=== PATIENT | female | born 1960 | race Caucasian/White ===

== ENCOUNTER 2016-08-29 15:38 | Emergency (ER) | payer MEDICAID, MEDICARE ==
[2016-08-29] MEDS ORDERED: NORMAL SALINE 1000 ML 1,000 ML IV ONE (15:45)
--- NOTE | 2016-08-29 16:05 | ER Document Report ---
ED General - General Mode of Arrival: Medic Information source: Patient, Emergency Med Personnel TRAVEL OUTSIDE OF THE [place] IN LAST 30 DAYS: No - HPI Patient complains to provider of: unresponsive Associated symptoms: Other - See above <ELLA OTTO - Last Filed: 08/29/16 19:43> <SERGE WARD - Last Filed: 08/29/16 22:45> - General Chief Complaint: Unresponsive Stated Complaint: ALTERED MENTAL STATUS Time Seen by Provider: 08/29/16 15:45 Notes: Patient is a 56 year old female, with a past medical history including MS, who presents to the emergency department via EMS for unresponsiveness. Per EMS, patient was normal yesterday and was non responsive since this morning, family wanted the patient transported to [facility] for pneumonia where she has an appointment tomorrow. EMS state that they were uncomfortable taking her all the way to [facility] because she was not acting like her normal talkative self and they were worried about her breathing. (ELLA OTTO) - Related Data Allergies/Adverse Reactions: Penicillins Allergy (Verified 08/29/16 16:42) trazodone [Trazodone] Allergy (Verified 08/29/16 16:42) asprin Allergy (Uncoded 08/29/16 16:42) Past Medical History - General Information source: Patient - Social History Smoking Status: Unknown if Ever Smoked Family History: Reviewed & Not Pertinent - Past Medical History Cardiac Medical History: Reports: Hx Hypercholesterolemia Pulmonary Medical History: Reports: Hx Bronchitis, Hx Pneumonia, Hx Sleep Apnea Renal/ Medical History: Reports: Hx Kidney Stones GI Medical History: Reports: Hx Gastroesophageal Reflux Disease Musculoskeltal Medical History: Reports Hx Arthritis, Reports Hx Multiple Sclerosis Psychiatric Medical History: Reports: Hx Depression, Hx Post Traumatic Stress Disorder Traumatic Medical History: Reports: Hx Fractures - tibia and fibula R leg, left wrist,R arm - Immunizations Hx Diphtheria, Pertussis, Tetanus Vaccination: - unknown Hx Pneumococcal Vaccination: 04/11/10 <ELLA OTTO - Last Filed: 08/29/16 19:43> Review of Systems - Review of Systems -: Yes ROS unobtainable due to patient's medical condition <ELLA OTTO - Last Filed: 08/29/16 19:43> Physical Exam - Vital signs Interpretation: Normal - HEENT Head: Normocephalic, Atraumatic Mucous membranes: Dry - Respiratory Respiratory status: No respiratory distress Chest status: Nontender Breath sounds: Normal Chest palpation: Normal - Cardiovascular Rhythm: Regular Heart sounds: Normal auscultation Murmur: No - Abdominal Inspection: Normal Distension: No distension Bowel sounds: Normal Tenderness: Nontender - soft Organomegaly: No organomegaly - Genitourinary External exam: Other - Sediment in Hernandez catheter - Extremities General upper extremity: Normal inspection General lower extremity: Normal inspection - Neurological Cognition: Other - Only reponds to pain stimuli - Skin Skin Temperature: Warm Skin Moisture: Dry Skin Color: Normal <ELLA OTTO - Last Filed: 08/29/16 19:43> - Vital signs Interpretation: Normal - General General appearance: Lethargic In distress: Moderate - HEENT Head: Normocephalic, Atraumatic Cornea: Normal Pupils: PERRL - Respiratory Respiratory status: Respiratory distress, Retractions Chest status: Nontender Breath sounds: Decreased air movement, Rhonchi - b/l bases. No: Normal - Cardiovascular Rhythm: Regular - Abdominal Inspection: Morbidly Obese - Extremities General upper extremity: Other - at baseline. No: Normal ROM General lower extremity: Other - at baseline. No: Normal ROM - Neurological Neuro grossly intact: No Cognition: Confused Motor strength normal: RUE <SERGE WARD - Last Filed: 08/29/16 22:45> - Vital signs Vitals: Resp Pulse Ox 15 100 08/29/16 15:50 08/29/16 15:50 Course - Laboratory Result Diagrams: 08/29/16 16:19 08/29/16 16:19 - Consults [facility] Time consulted: 16:45 <ELLA OTTO - Last Filed: 08/29/16 19:43> - Laboratory Result Diagrams: 08/29/16 16:19 08/29/16 16:19 - Diagnostic Test Radiology reviewed: Image reviewed, Reports reviewed - EKG Interpretation by Me EKG shows normal: Sinus rhythm Rate: Normal Rhythm: NSR <SERGE WARD - Last Filed: 08/29/16 22:45> - Re-evaluation Re-evalutation: 08/29/16 18:27 Patient is a 56-year-old female who comes in with altered mental status and respiratory distress. Patient has a history of multiple sclerosis. CT is consistent with pneumonia. Patient was given sedating medications prior to arrival which are part of her pain regimen. 08/29/16 20:08 Patient discussed with [facility] who will accept the patient for transfer at caregiver request. Patient apparently was supposed to be transported to [facility] but was brought to [facility] for her mental status. Patient's neurologist and urologist are at [facility]. According to caregiver, [facility] told him that they would not charge him for the ride to [facility] from [place]. While we do have neurology available today, urology is not available. Also, there is not an ICU bed available for patient if she worsens and could become an imminent airway. I do believe that the transport at this time is necessary as well as being requested by the patient's family as it is in her best interest both ways, and also necessary. Patient's mental status is improved at this time. She is more communicative. Patient is still on BiPAP. Antibiotics have been given. 08/29/16 21:55 I have informed the family that there is a room available at [facility] but [facility] will not be able to transport the patient and there are no checks available at this time. [facility] is able to send their transport. Family agrees with this. They are willing to pay for transport. They would like the patient at [facility] as soon as possible. Patient is awake and alert on BiPAP in the room. Patient has been given baclofen for chronic pain and spasm which has helped. 08/29/16 22:50 Patient medically stable at this time for transport. Resting comfortably on BiPAP. (SERGE WARD) - Vital Signs Vital signs: Temp Pulse Resp BP Pulse Ox 10 L 123/82 98 08/29/16 22:01 08/29/16 22:00 08/29/16 22:01 - Laboratory Laboratory results interpreted by me: 08/29/16 08/29/16 08/29/16 16:19 16:19 16:19 WBC 14.8 H MCH 25.5 L MCHC 31.7 L RDW 18.2 H Seg Neutrophils % 82.8 H Lymphocytes % 6.4 L Absolute Neutrophils 12.3 H VBG pH VBG pCO2 BUN 23 H Est GFR ( Amer) 58 L Est GFR (Non-Af Amer) 48 L Lactic Acid 0.5 L Direct Bilirubin 0.5 H AST 9 L Alkaline Phosphatase 224 H Albumin 3.2 L Urine Protein Urine Blood Ur Leukocyte Esterase 08/29/16 08/29/16 16:19 18:43 WBC MCH MCHC RDW Seg Neutrophils % Lymphocytes % Absolute Neutrophils VBG pH 7.20 L VBG pCO2 69.1 H* BUN Est GFR ( Amer) Est GFR (Non-Af Amer) Lactic Acid Direct Bilirubin AST Alkaline Phosphatase Albumin Urine Protein 100 H Urine Blood MODERATE H Ur Leukocyte Esterase MODERATE H - Consults [facility] Reason for consultation: 08/29/16 18:45 [facility] contacted for transfer, will wait for return call. Informed [facility] that [facility] has agreed with [facility] to transport patient free of charge after a miscommunication in the original transfer of patient which was supposed to be to [facility]. 08/29/16 19:38 Dr. Bonilla will accept patient to [facility] (ELLA OTTO) Critical Care Note - Critical Care Note Total time excluding time spent on procedures (mins): 90 - Evaluation and management of respiratory distress, diagnoses of pneumonia, management, multiple re-evaluations, discussion with patient and family, coordination of transfer <SERGE WARD - Last Filed: 08/29/16 22:45> Discharge <ELLA OTTO - Last Filed: 08/29/16 19:43> <SERGE WARD - Last Filed: 08/29/16 22:45> - Discharge Clinical Impression: UTI (lower urinary tract infection), Stage III pressure ulcer of sacral region , Respiratory distress, Multiple sclerosis Pneumonia Qualifiers: Pneumonia type: due to unspecified organism Laterality: bilateral Lung location : lower lobe of lung Qualified Code(s): J18.9 - Pneumonia, unspecified organism Condition: Stable Disposition: [facility] Referrals: BALAJI MCKEON FNP [Primary Care Provider] - Follow up as needed Scribe Attestation: 08/29/16 22:45 I personally performed the services described in the documentation, reviewed and edited the documentation which was dictated to the scribe in my presence, and it accurately records my words and actions. (WODOWSKI,SERGE CLARA) Scribe Documentation - Scribe Written by Treiboziel:: kelli Silva, 08/29/16, [id number] acting as scribe for :: Kiki <ELLA OTTO - Last Filed: 08/29/16 19:43>
[2016-08-29 16:47] LABS: ABSOLUTE BASOPHILS # (AUTO) 0.1 10^3/uL (0.0-0.2); ABSOLUTE EOSINOPHILS # (AUTO) 0.4 10^3/uL (0.0-0.6); ABSOLUTE LYMPHOCYTES (AUTO) 0.9 10^3/uL (0.5-4.7); ABSOLUTE MONOCYTES (AUTO) 1.2 10^3/uL (0.1-1.4); ABSOLUTE NEUT (AUTO) 12.3 10^3/uL (1.7-8.2); BASOPHILS % (AUTO) 0.4 % (0-2); EOSINOPHILS % (AUTO) 2.5 % (0-6); HEMATOCRIT 38.8 % (36.0-47.0); HEMOGLOBIN 12.3 g/dL (12.0-15.5); HGB HCT DIFFERENCE -1.9; LYMPHOCYTES % (AUTO) 6.4 % (13-45); MEAN CORPUSCULAR HEMOGLOBIN 25.5 pg (27.0-33.4); MEAN CORPUSCULAR HGB CONC 31.7 g/dL (32.0-36.0); MEAN CORPUSCULAR VOLUME 81 fl (80-97); MONOCYTES % (AUTO) 7.9 % (3-13); RED BLOOD COUNT 4.82 10^6/uL (3.72-5.28); RED CELL DISTRIBUTION WIDTH 18.2 % (11.5-14.0); SEGMENTED NEUTROPHILS % (AUTO) 82.8 % (42-78); VENOUS BLOOD BASE EXCESS -3.1 mmol/L; VENOUS BLOOD HCO3 26.3 mmol/L (20-32); VENOUS BLOOD PH 7.2 (7.30-7.42); WHITE BLOOD COUNT 14.8 10^3/uL (4.0-10.5)
[2016-08-29 16:52] LABS: VENOUS BLOOD PCO2 69.1 mmHg (35-63)
[2016-08-29 17:03] LABS: PROTHROMBIN TIME 14.4 SEC (11.4-15.4)
[2016-08-29 17:05] LABS: ALANINE AMINOTRANSFERASE 27 U/L (9-52); ALBUMIN 3.2 g/dL (3.5-5.0); ALKALINE PHOSPHATASE 224 U/L (38-126); ANION GAP 14 (5-19); ASPARTATE AMINO TRANSFERASE 9 U/L (14-36); BILIRUBIN,DIRECT 0.5 mg/dL (0.0-0.4); BILIRUBIN,TOTAL 0.5 mg/dL (0.2-1.3); BLOOD UREA NITROGEN 23 mg/dL (7-20); CALCIUM 8.9 mg/dL (8.4-10.2); CARBON DIOXIDE 23 mmol/L (22-30); CHLORIDE 101 mmol/L (98-107); CREATININE RESULT 1.16 mg/dL (0.52-1.25); GLUCOSE 77 mg/dL (75-110); POTASSIUM 4.4 mmol/L (3.6-5.0); SODIUM 138.1 mmol/L (137-145); TOTAL PROTEIN 6.6 g/dL (6.3-8.2)
[2016-08-29] MEDS ORDERED: CEFEPIME 2 GM/D5W RTU 50 ML IV ONE (17:39)
[2016-08-29] MEDS ORDERED: LEVOFLOXACIN 750 MG/D5W RTU 150 ML IV ONE (18:31)
[2016-08-29 19:47] LABS: AMORPHOUS SEDIMENT,URINE 1+ /HPF; APPEARANCE,URINE TURBID; BILIRUBIN,URINE NEGATIVE (NEGATIVE); GLUCOSE, URINE NEGATIVE (NEGATIVE); KETONES,URINE NEGATIVE (NEGATIVE); LEUKOCYTE ESTERASE,URINE MODERATE (NEGATIVE); NITRITE,URINE NEGATIVE (NEGATIVE); PROTEIN,URINE 100 mg/dL (NEGATIVE); URINE SPECIFIC GRAVITY 1.015; UROBILINOGEN,URINE NEGATIVE mg/dL (<2.0)
[2016-08-29] MEDS ORDERED: BACLOFEN 10 MG TABLET PO ONE (20:07)
[2016-08-29] MEDS ORDERED: BACLOFEN 10 MG TABLET ONE (20:57)
[2016-08-30 01:24] VITALS: BP 126/84
--- NOTE | 2016-08-30 08:58 | EKG REPORT ---
SEVERITY:- NORMAL ECG - SINUS RHYTHM : Confirmed by: Casper Witt MD 30-Aug-2016 08:57:58
== END 2016-08-29 23:10 | disposition short-term general hospital (02) ==
LOC: ER 15:38 → EEVIPCON 15:38 → ER 23:10
DX: J18.9 Pneumonia, unspecified organism (principal); N39.0 Urinary tract infection, site not specified; L89.153 Pressure ulcer of sacral region, stage 3; G35 Multiple sclerosis; R41.82 Altered mental status, unspecified; R06.00 Dyspnea, unspecified
CPT/HCPCS: 93005; 99291; 99292; 96361; 96365; 96367; 36415; 87040; 87086; 82962; 85025; 85610; 87077; 87088; 80053; 81001; 87186; 82803; 83605; 73600; 71010; 73560; 73590; 70450; 71250; 93010; 94660; A9270; J7030; J1956; J0692

== ENCOUNTER 2016-11-10 14:37 | Emergency (ER) | payer MEDICARE, MEDICAID ==
--- NOTE | 2016-11-10 15:11 | ER Document Report ---
ED General - General Chief Complaint: Other Stated Complaint: URINATION CONCERNS Time Seen by Provider: 11/10/16 14:46 Notes: The patient is a 56-year-old female, past medical history multiple sclerosis, chronic indwelling Herzog, presents with darkened urine and a sore throat. She tried to see her primary care physician today, but she cannot get an ambulance to the office and had to come to the emergency room. According to the , the patient is acting normally and has had no fevers. Patient denies difficulty swallowing, neck stiffness, fevers, chest pain, shortness of breath, abdominal pain, flank pain, nausea or vomiting. TRAVEL OUTSIDE OF THE [place] IN LAST 30 DAYS: No - Related Data Allergies/Adverse Reactions: Penicillins Allergy (Verified 11/10/16 15:00) trazodone [Trazodone] Allergy (Verified 11/10/16 15:00) asprin Allergy (Uncoded 11/10/16 15:00) Home Medications: Current Home Medications Baclofen [Baclofen 20 mg Tablet] 30 mg PO Q6 11/10/16 [History] Buspirone HCl 15 mg PO DAILY 11/10/16 [History] Donepezil HCl 5 mg PO DAILY 11/10/16 [History] Melatonin/Pyridoxine HCl (B6) [Melatonin 3 mg Tablet] 1 each PO PRN PRN [History] Naproxen Sodium [Naproxen Sodium ER] 500 mg PO DAILY 11/10/16 [History] Oxybutynin Chloride [Ditropan 5 mg Tablet] 10 mg PO Q8A 11/10/16 [History] Promethazine HCl 25 mg PO DAILY 11/10/16 [History] Tapentadol HCl [Nucynta ER] 200 mg PO DAILY 11/10/16 [History] Venlafaxine HCl [Effexor 75 mg Tablet] 150 mg PO Q12A 11/10/16 [History] Past Medical History - General Information source: Patient, Relative - Social History Smoking Status: Never Smoker Family History: Reviewed & Not Pertinent - Past Medical History Cardiac Medical History: Reports: Hx Hypercholesterolemia Denies: Hx Atrial Fibrillation, Hx Congestive Heart Failure, Hx Coronary Artery Disease, Hx Heart Attack, Hx Hypertension, Hx Peripheral Vascular Disease , Hx Pulmonary Embolism, Hx Heart Murmur Pulmonary Medical History: Reports: Hx Bronchitis, Hx Pneumonia, Hx Sleep Apnea Denies: Hx Asthma, Hx COPD, Hx Respiratory Failure, Hx Tuberculosis Neurological Medical History: Denies: Hx Cerebrovascular Accident, Hx Seizures Endocrine Medical History: Denies: Hx Graves' Disease, Hx Hyperthyroidism, Hx Hypothyroidism Renal/ Medical History: Reports: Hx Kidney Stones. Denies: Hx End Stage Renal Disease, Hx Ovarian Cysts, Hx Peritoneal Dialysis, Hx Pelvic Inflammatory Disease Malignancy Medical History: Denies: Hx Breast Cancer, Hx Cervical Cancer, Hx Leukemia, Hx Lung Cancer, Hx Ovarian Cancer GI Medical History: Reports: Hx Gastroesophageal Reflux Disease. Denies: Hx Crohn's Disease, Hx Hiatal Hernia, Hx Irritable Bowel, Hx Liver Failure, Hx Ulcer Musculoskeltal Medical History: Reports Hx Arthritis, Denies Hx Fibromyalgia, Reports Hx Multiple Sclerosis, Denies Hx Muscular Dystrophy Psychiatric Medical History: Reports: Hx Depression, Hx Post Traumatic Stress Disorder Denies: Hx Bipolar Disorder, Hx Dementia, Hx Schizophrenia Traumatic Medical History: Reports: Hx Fractures - tibia and fibula R leg, left wrist,R arm Infectious Medical History: Denies: Hx HIV Past Surgical History: Denies: Hx Appendectomy, Hx Bowel Surgery, Hx Section, Hx Cholecystectomy, Hx Colostomy, Hx Coronary Artery Bypass Graft, Hx Gastric Bypass Surgery, Hx Herniorrhaphy, Hx Hysterectomy, Hx Mastectomy, Hx Pacemaker, Hx Tonsillectomy, Hx Tubal Ligation - Immunizations Hx Diphtheria, Pertussis, Tetanus Vaccination: - unknown Hx Pneumococcal Vaccination: 04/11/10 Review of Systems - Review of Systems Notes: REVIEW OF SYSTEMS: CONSTITUTIONAL: -fevers, -chills EENT: +sore throat, -eye pain, -difficulty swallowing, -nasal congestion CARDIOVASCULAR:-chest pain, -syncope. RESPIRATORY: -cough, -SOB GASTROINTESTINAL: -abdominal pain, -nausea, -vomiting, -diarrhea GENITOURINARY: -dysuria, -hematuria, +dark urine MUSCULOSKELETAL: -back pain, -neck pain SKIN: -rash or skin lesions. HEMATOLOGIC: -easy bruising or bleeding. LYMPHATIC: -swollen, enlarged glands. NEUROLOGICAL: -altered mental status or loss of consciousness, -headache, - neurologic symptoms PSYCHIATRIC: -anxiety, -depression. ALL OTHER SYSTEMS REVIEWED AND NEGATIVE. Physical Exam - Vital signs Vitals: Temp Pulse Resp BP Pulse Ox 97.6 F 85 18 125/69 94 11/10/16 14:40 11/10/16 14:40 08/02/17 14:40 11/10/16 14:40 11/10/16 14:40 - Notes Notes: PHYSICAL EXAMINATION: GENERAL: Well-appearing, well-nourished and in no acute distress. HEAD: Atraumatic, normocephalic. EYES: Pupils equal round and reactive to light, extraocular movements intact, sclera anicteric, conjunctiva are normal. ENT: B/L pharngeal exudates, nares patent. No CREDIT CORRESPONDENCE CLERK. Moist mucous membranes. NECK: Normal range of motion, supple without lymphadenopathy LUNGS: Breath sounds clear to auscultation bilaterally and equal. No wheezes rales or rhonchi. HEART: Regular rate and rhythm without murmurs ABDOMEN: Soft, nontender, normoactive bowel sounds. No guarding, no rebound. : Chronic indwelling herzog, dark yellow urine. EXTREMITIES: Normal range of motion, no pitting or edema. No cyanosis. NEUROLOGICAL: Decreased strength in lower extremities (chronic in nature). PSYCH: Normal mood, normal affect. SKIN: Warm, Dry, normal turgor, no rashes or lesions noted. Course - Re-evaluation Re-evalutation: Patient appears well and is at baseline. No signs of pyelonephritis or sepsis. Labs not indicated at this time due to her well appearance and normal vital signs. Urinalysis shows evidence of a UTI. Urine culture sent. Looking through prior cultures, will begin doxycycline. Her rapid strep test is negative and her Centor score is 1. No evidence of RPA, CREDIT CORRESPONDENCE CLERK or epiglottitis at this time. Given strict return precautions and she understands. Answered all of her and 's questions. - Vital Signs Vital signs: Temp Pulse Resp BP Pulse Ox 97.6 F 85 16 125/69 92 11/10/16 14:40 11/10/16 14:40 11/10/16 14:57 11/10/16 14:40 11/10/16 17:00 - Laboratory Laboratory results interpreted by me: 11/10/16 17:45 Urine Protein 30 H Urine Blood LARGE H Urine Nitrite POSITIVE H Ur Leukocyte Esterase LARGE H Discharge - Discharge Clinical Impression: UTI (urinary tract infection) Qualifiers: Urinary tract infection type: site unspecified Hematuria presence: without hematuria Qualified Code(s): N39.0 - Urinary tract infection, site not specified Pharyngitis Qualifiers: Pharyngitis/tonsillitis etiology: unspecified etiology Qualified Code(s): J02.9 - Acute pharyngitis, unspecified Condition: Stable Disposition: HOME, SELF-CARE Additional Instructions: URINARY TRACT INFECTION: Your evaluation indicates that you have a urinary tract infection. This is due to germs growing in the bladder. This is a common problem. This infection usually responds quickly to antibiotics. Your antibiotic should be taken exactly as prescribed. Drink plenty of fluids -- three to four quarts a day. Occasionally, a bladder anesthetic will be prescribed to help stop the feeling of urgency until the antibiotic has a chance to clear the infection. This may cause your urine to be dark orange. Certain urine infections require a culture. If the doctor obtained a culture, the results will be back in two days. You should call to see if a change in treatment is needed. A repeat urinalysis after you finish treatment is often recommended. The physician will let you know if further testing is required. Call the doctor if you develop fever, chills, flank pain, inability to urinate, or blood in the urine. ANTIBIOTIC THERAPY: You have been given an antibiotic prescription. It's important that you take all the medication, unless instructed otherwise by your physician. Failure to complete the entire course can result in relapse of your condition. Common side effects of antibiotics include nausea, intestinal cramping, or diarrhea. Women may develop vaginal yeast infections, and babies can get yeast (thrush) in the mouth following the use of antibiotics. Contact your physician if you develop significant side effects from this medication. Allergy to this antibiotic can result in hives, wheezing, faintness, or itching. If symptoms of allergy occur, stop the medication and call the doctor. FOLLOW-UP CARE: If you have been referred to a physician for follow-up care, call the physician s office for an appointment as you were instructed or within the next two days. If you experience worsening or a significant change in your symptoms, notify the physician immediately or return to the Emergency Department at any time for re-evaluation. SORE THROAT: Sore throats may be caused by viruses, bacteria, or fungi. Most are due to a virus, and must get better on their own. Bacterial sore throats, particularly those due to "strep," need treatment with antibiotics. If an antibiotic is prescribed, be sure to take the medication for a full 10 days. Failure to take the antibiotic can result in complications such as rheumatic fever. Sometimes, an injection of antibiotics is given instead of pills or liquid. This single "shot" is equal in effectiveness to the oral medication. To relieve symptoms, take acetaminophen for pain. Sip clear liquids frequently, or eat popsicles or ice chips. Anesthetic sprays or lozenges may help. Make sure the air in the room is not too dry. Avoid using decongestants or antihistamines. Call the doctor if there is no improvement in two days, or if you have difficulty breathing, increasing throat pain, high fever, rash, or frequent vomiting. FOLLOW-UP CARE: If you have been referred to a physician for follow-up care, call the physician s office for an appointment as you were instructed or within the next two days. If you experience worsening or a significant change in your symptoms, notify the physician immediately or return to the Emergency Department at any time for re-evaluation. Prescriptions: Doxycycline Hyclate 100 mg PO BID #14 capsule
[2016-11-10 18:03] LABS: AMORPHOUS SEDIMENT,URINE TRACE /HPF; APPEARANCE,URINE CLOUDY; BILIRUBIN,URINE NEGATIVE (NEGATIVE); GLUCOSE, URINE NEGATIVE (NEGATIVE); KETONES,URINE NEGATIVE (NEGATIVE); LEUKOCYTE ESTERASE,URINE LARGE (NEGATIVE); NITRITE,URINE POSITIVE (NEGATIVE); PROTEIN,URINE 30 mg/dL (NEGATIVE); URINE SPECIFIC GRAVITY 1.004; UROBILINOGEN,URINE NEGATIVE mg/dL (<2.0)
[2016-11-10] MEDS ORDERED: NITROFURANTOIN MONOHYD/M-CRYST 100 MG CAPSULE PO ONE (18:04)
[2016-11-10] MEDS ORDERED: CIPROFLOXACIN HCL 500 MG TABLET PO ONE (18:06)
[2016-11-11 01:54] VITALS: BP 141/91
== END 2016-11-11 00:39 | disposition home or self-care (01) ==
LOC: ER 14:37
DX: N39.0 Urinary tract infection, site not specified (principal); J02.9 Acute pharyngitis, unspecified; G35 Multiple sclerosis; Z88.0 Allergy status to penicillin; Z88.6 Allergy status to analgesic agent; Z88.8 Allergy status to other drugs, medicaments and biological substances
CPT/HCPCS: 99285; 87070; 87086; 87880; 87088; 81001; 87186; A9270

== ENCOUNTER → 2017-08-26 | Outpatient (CLI) | payer MEDICARE, MEDICAID ==
[2017-08-26 11:56] LABS: ABSOLUTE BASOPHILS # (AUTO) 0.1 10^3/uL (0.0-0.2); ABSOLUTE EOSINOPHILS # (AUTO) 0.4 10^3/uL (0.0-0.6); ABSOLUTE LYMPHOCYTES (AUTO) 1.4 10^3/uL (0.5-4.7); ABSOLUTE MONOCYTES (AUTO) 0.8 10^3/uL (0.1-1.4); EOSINOPHILS % (AUTO) 5.5 % (0-6); HEMATOCRIT 36.4 % (36.0-47.0); HEMOGLOBIN 11.9 g/dL (12.0-15.5); LYMPHOCYTES % (AUTO) 17.8 % (13-45); MEAN CORPUSCULAR HEMOGLOBIN 26.1 pg (27.0-33.4); MEAN CORPUSCULAR HGB CONC 32.9 g/dL (32.0-36.0); MEAN CORPUSCULAR VOLUME 79 fl (80-97); MONOCYTES % (AUTO) 10.6 % (3-13); PLATELET COUNT 447 10^3/uL (150-450); RED BLOOD COUNT 4.58 10^6/uL (3.72-5.28); RED CELL DISTRIBUTION WIDTH 15.8 % (11.5-14.0); SEGMENTED NEUTROPHILS % (AUTO) 65.1 % (42-78); TOTAL CELLS COUNTED % (AUTO) 100 %; WHITE BLOOD COUNT 7.6 10^3/uL (4.0-10.5)
[2017-08-26 12:27] LABS: ALANINE AMINOTRANSFERASE 25 U/L (9-52); ALBUMIN 3.3 g/dL (3.5-5.0); ALKALINE PHOSPHATASE 124 U/L (38-126); ANION GAP 9 (5-19); ASPARTATE AMINO TRANSFERASE 22 U/L (14-36); BILIRUBIN,DIRECT 0.2 mg/dL (0.0-0.4); BILIRUBIN,TOTAL 0.2 mg/dL (0.2-1.3); BLOOD UREA NITROGEN 12 mg/dL (7-20); C-REACTIVE PROTEIN 58.3 mg/L (<10.0); CALCIUM 9.4 mg/dL (8.4-10.2); CARBON DIOXIDE 32 mmol/L (22-30); CHLORIDE 99 mmol/L (98-107); GLUCOSE 82 mg/dL (75-110); POTASSIUM 4.8 mmol/L (3.6-5.0); SODIUM 139.9 mmol/L (137-145); TOTAL PROTEIN 6.7 g/dL (6.3-8.2)
[2017-08-26 12:44] LABS: ERYTHROCYTE SEDIMENTATION RATE 48 mm/hr (0-30)
== END ==
LOC: WC 11:14
PROVIDERS: ATTEND Nurse Practitioner
DX: L89.324 Pressure ulcer of left buttock, stage 4 (principal)
CPT/HCPCS: 36415; 80053; 85025; 85652; 86140

== ENCOUNTER → 2017-08-26 | Outpatient (CLI) | payer MEDICARE, MEDICAID ==
--- NOTE | 2017-08-26 12:25 | RADIOLOGY REPORT (SQ) ---
EXAM DESCRIPTION: PELVIS AP COMPLETED DATE/TIME: 08/26/2017 12:04 pm REASON FOR STUDY: PRESSURE ULCER OF LEFT BUTTOCK, STAGE 4 (L89.324) L89.324 PRESSURE ULCER OF LEFT BUTTOCK, STAGE 4 COMPARISON: None. NUMBER OF VIEWS: One view TECHNIQUE: AP Pelvis LIMITATIONS: Patient body habitus, bowel distention with fecal material, and bony demineralization d ifficulty positioning FINDINGS: MINERALIZATION: Bony structures appear demineralized. HIPS: Limited evaluation. No obvious acute fracture. Mild arthritic changes noted. PELVIS AND SACRUM: Limited visualization. PUBIS AND ISCHIUM: Limited visualization. No obvious fracture LOWER LUMBAR SPINE: Limited visualization SOFT TISSUES: Increase air and fecal material seen of the colon. Possible air within the soft tissue s of the buttocks. OTHER: If an occult fracture suspected clinically, consider followup imaging. IMPRESSION: Limited evaluation. Possible air within the soft tissues the buttocks. Arthritic changes the hips. Constipation with increase air and fecal material of the bowel. TECHNICAL DOCUMENTATION: JOB ID: [id number] [employer]- All Rights Reserved Reading location - IP/workstation name: [facility]
--- NOTE | 2017-08-26 12:40 | RADIOLOGY REPORT (SQ) ---
EXAM DESCRIPTION: SACRUM AND COCCYX COMPLETED DATE/TIME: 08/26/2017 12:03 pm REASON FOR STUDY: PRESSURE ULCER OF LEFT BUTTOCK, STAGE 4 (L89.324) L89.324 PRESSURE ULCER OF LEFT BUTTOCK, STAGE 4 COMPARISON: AP pelvis 08/26/2017 NUMBER OF VIEWS: Three views. TECHNIQUE: AP, lateral, and tilt views of the sacrum and coccyx. LIMITATIONS: Large patient FINDINGS: Bones are osteopenic. No acute fracture. On the lateral view of the sacrum and coccyx, there is a ischial decubitus ulcer over the left ischiu m. Underlying bony ischium is grossly intact. There is also lucency on the lateral film over the distal sacrum near the sacrococcygeal junction. T his may represent a midline sacral ulcer. Coccyx is not well seen IMPRESSION: Left ischial decubitus down to the ischial bony tuberosity. No gross bony resorption. Question midline sacral ulcer over the sacrococcygeal junction. Coccyx not well seen. CT of the pelvis may be useful for followup, to better demonstrate the bony anatomy. TECHNICAL DOCUMENTATION: JOB ID: [id number] [employer]- All Rights Reserved Reading location - IP/workstation name: [email or web address]
== END ==
LOC: RAD 11:30
PROVIDERS: ATTEND Nurse Practitioner
DX: L89.324 Pressure ulcer of left buttock, stage 4 (principal)
CPT/HCPCS: 72170; 72220

== ENCOUNTER 2017-10-05 15:10 | Emergency (ER) | payer MEDICARE, MEDICAID ==
[2017-10-05 16:18] LABS: ABSOLUTE EOSINOPHILS # (AUTO) 0.4 10^3/uL (0.0-0.6); ABSOLUTE NEUT (AUTO) 5.6 10^3/uL (1.7-8.2); BASOPHILS % (AUTO) 0.3 % (0-2); EOSINOPHILS % (AUTO) 4.7 % (0-6); HEMATOCRIT 32.3 % (36.0-47.0); HEMOGLOBIN 10.5 g/dL (12.0-15.5); LYMPHOCYTES % (AUTO) 12.7 % (13-45); MEAN CORPUSCULAR HEMOGLOBIN 25.7 pg (27.0-33.4); MEAN CORPUSCULAR HGB CONC 32.5 g/dL (32.0-36.0); MEAN CORPUSCULAR VOLUME 79 fl (80-97); MONOCYTES % (AUTO) 12.8 % (3-13); PLATELET COUNT 368 10^3/uL (150-450); RED BLOOD COUNT 4.09 10^6/uL (3.72-5.28); RED CELL DISTRIBUTION WIDTH 16.4 % (11.5-14.0); SEGMENTED NEUTROPHILS % (AUTO) 69.5 % (42-78); TOTAL CELLS COUNTED % (AUTO) 100 %; WHITE BLOOD COUNT 8.1 10^3/uL (4.0-10.5)
[2017-10-05 16:38] LABS: ALANINE AMINOTRANSFERASE 14 U/L (9-52); ALBUMIN 3.1 g/dL (3.5-5.0); ALKALINE PHOSPHATASE 95 U/L (38-126); ANION GAP 11 (5-19); ASPARTATE AMINO TRANSFERASE 14 U/L (14-36); BILIRUBIN,DIRECT 0.3 mg/dL (0.0-0.4); BILIRUBIN,TOTAL 0.3 mg/dL (0.2-1.3); BLOOD UREA NITROGEN 18 mg/dL (7-20); CARBON DIOXIDE 29 mmol/L (22-30); CHLORIDE 100 mmol/L (98-107); GLUCOSE 115 mg/dL (75-110); POTASSIUM 4.5 mmol/L (3.6-5.0); SODIUM 140.2 mmol/L (137-145); TOTAL PROTEIN 6.3 g/dL (6.3-8.2)
--- NOTE | 2017-10-05 17:37 | ER Document Report ---
ED General - General Chief Complaint: Vomiting Stated Complaint: VOMITING Time Seen by Provider: 10/05/17 17:13 Mode of Arrival: Ambulatory Information source: Patient, Relative, [facility] Records Notes: 57-year-old female with MS, rheumatoid arthritis, chronic nausea and vomiting who is wheelchair bound due to loss of function of her legs presents via EMS from home with complaint of spitting up blood. Patient states that she experienced nausea and one episode of vomiting this morning. She states that she was in the ambulance on her way to wound care when she had a episode of spitting up which appeared pink to her and ambulance staff prompting them to come immediately to the emergency room. Patient denies any dizziness, headache , chest pain, shortness of breath, abdominal pain, black or bloody stools. who is at the bedside and the primary care provider stated that the patient was complaining of pain around her denture site. They show me a towel on the bed which has a few episodes of light pink staining which they say is from her spitting up. He denies any prior similar symptoms, recent hospitalizations. Patient states that she has had beats and pomegranate juice just prior to arrival. TRAVEL OUTSIDE OF THE [place] IN LAST 30 DAYS: No - HPI Onset: Just prior to arrival Quality of pain: No pain Severity: None Associated symptoms: None Exacerbated by: Denies Relieved by: Denies Similar symptoms previously: No Recently seen / treated by doctor: Yes - Related Data Allergies/Adverse Reactions: Penicillins Allergy (Verified 10/05/17 20:06) trazodone [Trazodone] Allergy (Verified 10/05/17 20:06) asprin Allergy (Uncoded 11/10/16 15:00) Past Medical History - General Information source: Patient, Relative, [facility] Records - Social History Smoking Status: Never Smoker Frequency of alcohol use: None Drug Abuse: None Lives with: Spouse/Significant other Family History: Reviewed & Not Pertinent, CAD Patient has suicidal ideation: No Patient has homicidal ideation: No - Past Medical History Cardiac Medical History: Reports: Hx Hypercholesterolemia Denies: Hx Atrial Fibrillation, Hx Congestive Heart Failure, Hx Coronary Artery Disease, Hx Heart Attack, Hx Hypertension, Hx Peripheral Vascular Disease , Hx Pulmonary Embolism, Hx Heart Murmur Pulmonary Medical History: Reports: Hx Bronchitis, Hx Pneumonia, Hx Sleep Apnea Denies: Hx Asthma, Hx COPD, Hx Respiratory Failure, Hx Tuberculosis Neurological Medical History: Denies: Hx Cerebrovascular Accident, Hx Seizures Endocrine Medical History: Denies: Hx Graves' Disease, Hx Hyperthyroidism, Hx Hypothyroidism Renal/ Medical History: Reports: Hx Kidney Stones. Denies: Hx End Stage Renal Disease, Hx Ovarian Cysts, Hx Peritoneal Dialysis, Hx Pelvic Inflammatory Disease Malignancy Medical History: Denies: Hx Breast Cancer, Hx Cervical Cancer, Hx Leukemia, Hx Lung Cancer, Hx Ovarian Cancer GI Medical History: Reports: Hx Gastroesophageal Reflux Disease. Denies: Hx Crohn's Disease, Hx Hiatal Hernia, Hx Irritable Bowel, Hx Liver Failure, Hx Pancreatitis, Hx Ulcer Musculoskeltal Medical History: Reports Hx Arthritis, Denies Hx Fibromyalgia, Reports Hx Multiple Sclerosis, Denies Hx Muscular Dystrophy Psychiatric Medical History: Reports: Hx Depression, Hx Post Traumatic Stress Disorder Denies: Hx Bipolar Disorder, Hx Dementia, Hx Schizophrenia Traumatic Medical History: Reports: Hx Fractures - tibia and fibula R leg, left wrist,R arm Infectious Medical History: Denies: Hx HIV Past Surgical History: Denies: Hx Appendectomy, Hx Bowel Surgery, Hx Section, Hx Cholecystectomy, Hx Colostomy, Hx Coronary Artery Bypass Graft, Hx Gastric Bypass Surgery, Hx Herniorrhaphy, Hx Hysterectomy, Hx Mastectomy, Hx Pacemaker, Hx Tonsillectomy, Hx Tubal Ligation - Immunizations Hx Diphtheria, Pertussis, Tetanus Vaccination: - unknown Hx Pneumococcal Vaccination: 04/11/10 Review of Systems - Review of Systems Notes: REVIEW OF SYSTEMS: CONSTITUTIONAL : Denies fever, chills, or sweats. Denies recent illness. Denies weight loss, recent hospitalizations. EENT: Denies visual changes, eye pain. Denies nasal or sinus congestion or discharge. Denies sore throat, oral lesions, difficulty swallowing. CARDIOVASCULAR: Denies chest pain. Denies palpitations. Denies lower extremity edema. RESPIRATORY: Denies cough, cold, or chest congestion. Denies shortness of breath, wheezing. GASTROINTESTINAL: Denies abdominal pain or distention. Denies nausea, vomiting , or diarrhea. Denies blood in vomitus, stools, or per rectum. Denies black, tarry stools. Denies constipation. GENITOURINARY: Denies difficulty urinating, painful urination, frequency, blood in urine, or vaginal discharge. MUSCULOSKELETAL: Denies back or neck pain or stiffness. Denies joint pain or swelling. SKIN: Denies rash, lesions or sores. HEMATOLOGIC : Denies easy bruising or bleeding. LYMPHATIC: Denies swollen glands. NEUROLOGICAL: Denies confusion or altered mental status. Denies passing out or loss of consciousness. Denies dizziness or lightheadedness. Denies headache. Denies weakness or paralysis. Denies problems difficulty with ambulation, slurred speech. Denies sensory loss, numbness, or tingling. Denies seizures. PSYCHIATRIC: Denies anxiety or stress. Denies depression, suicidal ideation, or homicidal ideation. Denies visual or auditory hallucinations. Physical Exam - Vital signs Vitals: Resp Pulse Ox 15 96 10/05/17 15:32 10/05/17 15:32 - Notes Notes: PHYSICAL EXAMINATION: GENERAL: Well-appearing, well-nourished and in no acute distress. HEAD: Atraumatic, normocephalic. EYES: Pupils equal round and reactive to light, extraocular movements intact, conjunctiva are normal. ENT: Nares patent, oropharynx clear without exudates. Moist mucous membranes. No blood in the oropharynx. NECK: Normal range of motion, supple without lymphadenopathy LUNGS: Breath sounds clear to auscultation bilaterally and equal. No wheezes rales or rhonchi.No crepitus HEART: Regular rate and rhythm without murmurs. ABDOMEN: Soft, nontender, nondistended abdomen. No guarding, no rebound. No masses appreciated. Female : deferred Musculoskeletal: Lateral lower extremity contractures, left upper extremity contracture. No cyanosis. NEUROLOGICAL: Cranial nerves grossly intact. Normal speech, normal gait. Normal sensory, motor exams PSYCH: Normal mood, normal affect. SKIN: Warm, Dry, normal turgor, no rashes or lesions noted. Course - Re-evaluation Re-evalutation: 10/05/17 23:59 Laboratory 10/05/17 10/05/17 10/05/17 15:50 15:50 18:10 WBC 8.1 RBC 4.09 Hgb 10.5 L Hct 32.3 L MCV 79 L MCH 25.7 L MCHC 32.5 RDW 16.4 H Plt Count 368 Seg Neutrophils % 69.5 Lymphocytes % 12.7 L Monocytes % 12.8 Eosinophils % 4.7 Basophils % 0.3 Absolute Neutrophils 5.6 Absolute Lymphocytes 1.0 Absolute Monocytes 1.0 Absolute Eosinophils 0.4 Absolute Basophils 0.0 Sodium 140.2 Potassium 4.5 Chloride 100 Carbon Dioxide 29 Anion Gap 11 BUN 18 Creatinine 0.54 Est GFR ( Amer) > 60 Est GFR (Non-Af Amer) > 60 Glucose 115 H Calcium 9.0 Total Bilirubin 0.3 Direct Bilirubin 0.3 Neonat Total Bilirubin Not Reportable Neonat Direct Bilirubin Not Reportable Neonat Indirect Bili Not Reportable AST 14 ALT 14 Alkaline Phosphatase 95 Total Protein 6.3 Albumin 3.1 L Stool Occult Blood NEGATIVE Chest X-Ray 10/05/17 17:31 IMPRESSION: NO ACUTE RADIOGRAPHIC FINDING IN THE CHEST. 10/06/17 00:00 57-year-old female with MS, rheumatoid arthritis, chronic nausea and vomiting who is wheelchair bound due to loss of function of her legs presents via EMS from home with complaint of spitting up blood. Patient states that she experienced nausea and one episode of vomiting this morning. She states that she was in the ambulance on her way to wound care when she had a episode of spitting up which appeared pink to her and ambulance staff prompting them to come immediately to the emergency room. Patient denies any dizziness, headache , chest pain, shortness of breath, abdominal pain, black or bloody stools. who is at the bedside and the primary care provider stated that the patient was complaining of pain around her denture site. They show me a towel on the bed which has a few episodes of light pink staining which they say is from her spitting up. He denies any prior similar symptoms, recent hospitalizations. Patient states that she has had beats and pomegranate juice just prior to arrival. Patient was seen by myself upon arrival. Vital signs were reviewed. Patient is afebrile, normotensive and not hypoxic. Patient does not appear toxic or dehydrated. They are in no acute distress. Previous medical records and nursing notes reviewed. CBC is without leukocytosis, it does show anemia which is the patient's baseline. CMP is without electrolyte abnormalities stool is negative for blood. Patient had no recurrence of spitting up pink sputum during her ED course. Results discussed with the patient and her who are comfortable with discharge home. I do not feel patient had an episode of hemoptysis, hematemesis. I beleive the patient's pink sputum was likely secondary to spitting up pomegranate juice. Patient provided the opportunity to ask questions, and express concerns. Discharge instructions discussed. Patient is agreeable with discharge home. Return indications explained and discussed with the patient who displays understanding. Patient encouraged to return to the emergency department immediately with any concerns. 10/06/17 00:01 - Vital Signs Vital signs: Temp Pulse Resp BP Pulse Ox 98.3 F 20 144/92 H 95 10/05/17 21:42 10/05/17 21:40 10/05/17 21:40 10/05/17 21:40 - Laboratory Result Diagrams: 10/05/17 15:50 10/05/17 15:50 Laboratory results interpreted by me: 10/05/17 10/05/17 15:50 15:50 Hgb 10.5 L Hct 32.3 L MCV 79 L MCH 25.7 L RDW 16.4 H Lymphocytes % 12.7 L Glucose 115 H Albumin 3.1 L - Diagnostic Test Radiology reviewed: Image reviewed, Reports reviewed Discharge - Discharge Clinical Impression: Spitting blood, Hypoalbuminemia, MS (multiple sclerosis), Feared complaint without diagnosis Nausea & vomiting Qualifiers: Vomiting type: unspecified Vomiting Intractability: unspecified Qualified Code( s): R11.2 - Nausea with vomiting, unspecified Anemia Qualifiers: Anemia type: unspecified type Qualified Code(s): D64.9 - Anemia, unspecified Condition: Good Disposition: HOME, SELF-CARE Instructions: Hemoptysis ([facility]), Vomiting ([facility]) Additional Instructions: Follow up with your physician tomorrow for further care or return to the ED IMMEDIATELY if symptoms worsen or new concerns occur. If you cannot afford to follow up with your primary care physician a list of low cost clinics have been provided at the end of your discharge papers as well. Referrals: [facility], LAB ANIMAL TECHNICIAN [Primary Care Provider] - Follow up in 3-5 days
--- NOTE | 2017-10-05 17:52 | RADIOLOGY REPORT (SQ) ---
EXAM DESCRIPTION: CHEST SINGLE VIEW COMPLETED DATE/TIME: 10/05/2017 5:44 pm REASON FOR STUDY: hemoptysis COMPARISON: 04/21/2017 EXAM PARAMETERS: NUMBER OF VIEWS: One view. TECHNIQUE: Single frontal radiographic view of the chest acquired. RADIATION DOSE: NA LIMITATIONS: None. FINDINGS: LUNGS AND PLEURA: No opacities, masses or pneumothorax. No pleural effusion. MEDIASTINUM AND HILAR STRUCTURES: No masses. Contour normal. HEART AND VASCULAR STRUCTURES: Heart normal in size. Normal vasculature. BONES: No acute findings. HARDWARE: None in the chest. OTHER: No other significant finding. IMPRESSION: NO ACUTE RADIOGRAPHIC FINDING IN THE CHEST. TECHNICAL DOCUMENTATION: JOB ID: [id number] [employer]- All Rights Reserved Reading location - IP/workstation name: [email or web address]
[2017-10-05 21:45] VITALS: BP 144/92
== END 2017-10-05 21:45 | disposition home or self-care (01) ==
LOC: ER 15:10
DX: R11.2 Nausea with vomiting, unspecified (principal); R04.2 Hemoptysis; D64.9 Anemia, unspecified; E88.09 Other disorders of plasma-protein metabolism, not elsewhere classified; G35 Multiple sclerosis; M06.9 Rheumatoid arthritis, unspecified
CPT/HCPCS: 36415; 71045; 80053; 82272; 85025; 99284

== ENCOUNTER → 2017-10-26 | Outpatient (CLI) | payer MEDICARE, MEDICAID ==
--- NOTE | 2017-10-26 16:52 | RADIOLOGY REPORT (SQ) ---
EXAM DESCRIPTION: PELVIS AP COMPLETED DATE/TIME: 10/26/2017 4:42 pm REASON FOR STUDY: PRESSURE ULCER OF LEFT BUTTOCK, STAGE 4 L89.324 PRESSURE ULCER OF LEFT BUTTOCK, S TAGE 4 COMPARISON: None. NUMBER OF VIEWS: One view TECHNIQUE: AP Pelvis LIMITATIONS: Limited positioning. FINDINGS: MINERALIZATION: Normal. HIPS: No acute fracture or dislocation. No worrisome bone lesions. PELVIS AND SACRUM: No acute fracture or dislocation. No worrisome bone lesions. PUBIS AND ISCHIUM: No acute fracture. LOWER LUMBAR SPINE: No significant findings as visualized. SOFT TISSUES: No findings. OTHER: No other significant finding. IMPRESSION: LIMITED STUDY. NO SIGNIFICANT FINDINGS. TECHNICAL DOCUMENTATION: JOB ID: [id number] [employer]- All Rights Reserved Reading location - IP/workstation name: [email or web address]
== END ==
LOC: RAD 16:19
PROVIDERS: ATTEND Nurse Practitioner
DX: L89.324 Pressure ulcer of left buttock, stage 4 (principal)
CPT/HCPCS: 72170

== ENCOUNTER 2017-11-02 15:28 | Inpatient (IN) | payer MEDICARE, MEDICAID ==
[2017-11-02] MEDS ORDERED: NORMAL SALINE 1000 ML 1,000 ML IV ONE (16:00)
[2017-11-02] MEDS ORDERED: VANCOMYCIN HCL INJ 1000 MG VIAL IV ONE (16:01)
[2017-11-02] MEDS ORDERED: CLINDAMYCIN 600 MG/D5W RTU 600 MG/50 ML RTUPB IV ONE ×2 (16:01→19:00)
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
[2017-11-02 16:36] LABS: ABSOLUTE BASOPHILS # (AUTO) 0.1 10^3/uL (0.0-0.2); ABSOLUTE EOSINOPHILS # (AUTO) 0.4 10^3/uL (0.0-0.6); ABSOLUTE LYMPHOCYTES (AUTO) 1.1 10^3/uL (0.5-4.7); ABSOLUTE MONOCYTES (AUTO) 1.8 10^3/uL (0.1-1.4); ABSOLUTE NEUT (AUTO) 8.3 10^3/uL (1.7-8.2); BASOPHILS % (AUTO) 0.7 % (0-2); EOSINOPHILS % (AUTO) 3.3 % (0-6); LYMPHOCYTES % (AUTO) 9.4 % (13-45); MEAN CORPUSCULAR HEMOGLOBIN 24.2 pg (27.0-33.4); MEAN CORPUSCULAR VOLUME 75 fl (80-97); MONOCYTES % (AUTO) 15.3 % (3-13); PLATELET COUNT 578 10^3/uL (150-450); RED BLOOD COUNT 3.32 10^6/uL (3.72-5.28); RED CELL DISTRIBUTION WIDTH 17.9 % (11.5-14.0); SEGMENTED NEUTROPHILS % (AUTO) 71.3 % (42-78); TOTAL CELLS COUNTED % (AUTO) 100 %; WHITE BLOOD COUNT 11.6 10^3/uL (4.0-10.5)
[2017-11-02 16:54] LABS: CALCIUM 8.5 mg/dL (8.4-10.2)
[2017-11-02 16:55] LABS: ANION GAP 13 (5-19); BLOOD UREA NITROGEN 12 mg/dL (7-20); CARBON DIOXIDE 24 mmol/L (22-30); CHLORIDE 99 mmol/L (98-107); GLUCOSE 103 mg/dL (75-110); POTASSIUM 4.5 mmol/L (3.6-5.0); SODIUM 135.7 mmol/L (137-145)
[2017-11-02] MEDS ORDERED: VANCOMYCIN HCL 0 MG in DEXTROSE 5%-WATER 250 ML IV NR (18:15)
--- NOTE | 2017-11-02 18:39 | PDOC H&P ---
History of Present Illness Admission Date/PCP: 11/02/17 17:52 SUSHMA TOLEDO MD History of Present Illness: ABDI VEGA is a 57 year old female with a history of MS and a large stage IV left ischial pressure sore that has followed up with the wound clinic and has had wound VAC placement for some time. Apparently she went to the wound center today and I took a wound VAC off and look at the wound and thought that it was infected. Patient's vital signs been stable. She denies any fevers. She was sent here for surgical evaluation for possible debridement and possible IV antibiotics. Past Medical History Cardiac Medical History: Reports: Hyperlipidema Denies: Atrial Fibrillation, Congestive Heart Failure, Coronary Artery Disease, Myocardial Infarction, Hypertension, Peripheral Vascular Disease, Pulmonary Embolism, Heart Murmur Pulmonary Medical History: Reports: Bronchitis, Pneumonia, Sleep Apnea Denies: Asthma, Chronic Obstructive Pulmonary Disease (COPD), Respiratory Failure, Tuberculosis Neurological Medical History: Denies: Seizures Endocrine Medical History: Denies: Hyperthyroidism, Hypothyroidism Renal/ Medical History: Denies: End Stage Renal Disease Malignancy Medical History: Denies: Breast Cancer, Cervical Cancer, Leukemia, Lung Cancer, Ovarian Cancer GI Medical History: Reports: Gastroesophageal Reflux Disease Denies: Crohn's Disease, Hiatal Hernia Musculoskeltal Medical History: Reports: Arthritis Denies: Fibromyalgia Psychiatric Medical History: Reports: Depression, Post Traumatic Stress Disorder Denies: Bipolar Disorder, Dementia Hematology: Reports: Anemia Denies: Hemophilia, Sickle Cell Disease Infectious Medical History: Denies: HIV Past Surgical History Past Surgical History: Denies: Amputation, Appendectomy, Section, Cholecystectomy, Colostomy, Coronary Artery Bypass Graft, Gastric Bypass Surgery, Herniorrhaphy, Hysterectomy, Mastectomy, Pacemaker, Tonsillectomy, Tubal Ligation Social History Information Source: Patient Lives with: Friend Smoking Status: Unknown if Ever Smoked Frequency of Alcohol Use: None Hx Recreational Drug Use: No Hx Prescription Drug Abuse: No Family History Family History: Reviewed & Not Pertinent, CAD Parental Family History Reviewed: No - Patient does not know Children Family History Reviewed: NA Sibling(s) Family History Reviewed.: No - Patient does not know Medication/Allergy Allergies/Adverse Reactions: Penicillins Allergy (Verified 11/02/17 15:40) trazodone [Trazodone] Allergy (Verified 11/02/17 15:40) asprin Allergy (Uncoded 11/02/17 15:40) Review of Systems All systems: reviewed and no additional remarkable complaints except as stated - A very difficult 10 point review of systems was conducted with the patient was negative except as noted above Physical Exam Vital Signs: Temp Pulse Resp BP Pulse Ox 99.4 F 112 H 18 113/61 91 L 11/02/17 15:33 11/02/17 15:33 11/02/17 15:33 11/02/17 15:33 11/02/17 15:33 General appearance: PRESENT: no acute distress, disheveled, morbidly obese Head exam: PRESENT: atraumatic, normocephalic Eye exam: PRESENT: EOMI, PERRLA. ABSENT: scleral icterus Ear exam: PRESENT: normal external ear exam Mouth exam: PRESENT: moist, neck supple Teeth exam: PRESENT: poor dentation Throat exam: ABSENT: post pharyngeal erythema, tonsillar erythema, tonsillar exudate Neck exam: ABSENT: carotid bruit, JVD Respiratory exam: PRESENT: clear to auscultation jessica, unlabored. ABSENT: accessory muscle use, rales, rhonchi, wheezes Cardiovascular exam: PRESENT: RRR. ABSENT: systolic murmur Vascular exam: PRESENT: normal capillary refill GI/Abdominal exam: PRESENT: normal bowel sounds, soft. ABSENT: guarding, rebound, tenderness Gentrourinary exam: PRESENT: other - She had a lot of nystatin powder to her groin and genital area Extremities exam: PRESENT: clubbing. ABSENT: pedal edema Musculoskeletal exam: PRESENT: deformity - Her feet are inverted and internally rotated at the ankles. ABSENT: ambulatory, full ROM Neurological exam: PRESENT: alert, awake, oriented to person, oriented to place Psychiatric exam: PRESENT: flat affect Assessment & Plan - Diagnosis (1) Cellulitis of buttock, left Is this a current diagnosis for this admission?: Yes Plan: Empiric IV antibiotics. Surgical consult. After she seen by the surgeon, we can determine whether or not we need to go back with the wound centers dressing and wound VAC recommendations. (2) Stage 4 pressure ulcer Qualifiers: Pressure injury location: contiguous region involving buttock and hip Laterality: left Qualified Code(s): L89.44 - Pressure ulcer of contiguous site of back, buttock and hip, stage 4 Is this a current diagnosis for this admission?: Yes Plan: As per #1 (3) Functional quadriplegia secondary to MS Is this a current diagnosis for this admission?: Yes Plan: Plan to turn her every 2 hours. Bring her back on her usual medications for her comorbid conditions. She may need placement after she leaves the hospital this time. - Time Time Spent: 50 to 70 Minutes - Inpatient Certification Medical Necessity: Need for IV Antibiotics, Need for Surgery
[2017-11-02] MEDS ORDERED: CEFEPIME 1 GM/D5W RTU 1 GM/50 ML RTUPB IV ONE (23:43)
[2017-11-03] MEDS: CEFEPIME 1 GM/D5W RTU 1 GM/50 ML RTUPB IV SCH ×3 (00:12→22:07)
[2017-11-03] MEDS: METRONIDAZOLE 500 MG/NS RTU 500 MG/100 ML RTUPB IV SCH ×5 (00:53→23:17)
[2017-11-03] MEDS ORDERED: VANCOMYCIN HCL INJ 1000 MG VIAL ONE (02:05)
[2017-11-03] MEDS ORDERED: VANCOMYCIN HCL INJ 500 MG VIAL ONE (02:06)
[2017-11-03] MEDS: VANCOMYCIN HCL 1,500 MG in DEXTROSE 5%-WATER 250 ML IV SCH ×2 (02:28→11:10)
[2017-11-03] MEDS ORDERED: DEXTROSE 50%-WATER 25 GM/50 ML DISP.SYRIN IV PRN ×2 (02:58)
[2017-11-03] MEDS ORDERED: GLUCAGON,HUMAN RECOMB 1 MG INJ SUBCUT PRN (02:58)
[2017-11-03] MEDS ORDERED: DEXTROSE 40% GEL 15 GM TUBE PO PRN ×2 (02:58)
--- NOTE | 2017-11-03 03:16 | PDOC CONSULTATION ---
Consultation Consult Date: 11/03/17 Consult reason:: Decubitus ulcers, worsening History of Present Illness Admission Date/PCP: 11/02/17 17:52 SUSHMA TOLEDO MD History of Present Illness: ABDI VEGA is a 57 year old female seen at the request of the hospitalist service. The patient was seen at the wound care clinic on 11/02/17. She has bilateral decubitus ulcers at the ischial tuberosities. Her ulcers are becoming more necrotic and foul-smelling. The patient was sent to the emergency department for evaluation. The patient was admitted to the hospitalist service for management and placement. Surgery was consulted for debridement of her ulcers. The patient denies any significant fevers, chills, pain, or other complaint. She does report a foul smell from the wound. She has multiple sclerosis and has difficulty moving. She has friends helping her at home with wound care and turning regimens. Past Medical History Cardiac Medical History: Reports: Hyperlipidema Denies: Atrial Fibrillation, Congestive Heart Failure, Coronary Artery Disease, Myocardial Infarction, Hypertension, Peripheral Vascular Disease, Pulmonary Embolism, Heart Murmur Pulmonary Medical History: Reports: Bronchitis, Pneumonia, Sleep Apnea Denies: Asthma, Chronic Obstructive Pulmonary Disease (COPD), Respiratory Failure, Tuberculosis Neurological Medical History: Reports: Multiple Sclerosis Denies: Seizures Endocrine Medical History: Denies: Hyperthyroidism, Hypothyroidism Renal/ Medical History: Denies: End Stage Renal Disease Malignancy Medical History: Denies: Breast Cancer, Cervical Cancer, Leukemia, Lung Cancer, Ovarian Cancer GI Medical History: Reports: Gastroesophageal Reflux Disease Denies: Crohn's Disease, Hiatal Hernia Musculoskeltal Medical History: Reports: Arthritis Denies: Fibromyalgia Psychiatric Medical History: Reports: Depression, Post Traumatic Stress Disorder Denies: Bipolar Disorder, Dementia Hematology: Reports: Anemia Denies: Hemophilia, Sickle Cell Disease Infectious Medical History: Denies: HIV Past Surgical History Past Surgical History: Denies: Amputation, Appendectomy, Section, Cholecystectomy, Colostomy, Coronary Artery Bypass Graft, Gastric Bypass Surgery, Herniorrhaphy, Hysterectomy, Mastectomy, Pacemaker, Tonsillectomy, Tubal Ligation Social History Lives with: Friend Smoking Status: Unknown if Ever Smoked Frequency of Alcohol Use: None Hx Recreational Drug Use: No Hx Prescription Drug Abuse: No - Advance Directive Resuscitation Status: Full Code Family History Family History: Reviewed & Not Pertinent, CAD Parental Family History Reviewed: Yes Children Family History Reviewed: Yes Sibling(s) Family History Reviewed.: Yes Medication/Allergy Home Medications: Aspirin [Aspirin 81 mg Chewable Tablet] 81 mg PO DAILY 11/02/17 Baclofen [Baclofen 20 mg Tablet] 20 mg PO Q6 11/02/17 Buspirone HCl [Buspar 15 mg Tablet] 15 mg PO Q8 11/02/17 Dextroamphetamine/Amphetamine [Adderall 20 mg Tablet] 20 mg PO BID 11/02/17 Diazepam [Valium] 10 mg PO Q6HP PRN 11/02/17 Diltiazem HCl [Diltiazem 24Hr ER] 180 mg PO DAILY 11/02/17 Dimethyl Fumarate [Tecfidera] 240 mg PO Q12 11/02/17 Donepezil HCl [Aricept 5 mg Tablet] 5 mg PO QHS 11/02/17 Ergocalciferol (Vitamin D2) [Drisdol 50,000 unit (1.25MG) Capsule] 50,000 unit PO ZAPATA@0800 11/02/17 Estrogen,Con/M-Progest Acet [Prempro 0.625-2.5 mg Tablet] 1 tab PO DAILY Furosemide [Lasix 20 mg Tablet] 20 mg PO BID 11/02/17 Hydrocodone Bit/Acetaminophen [Hydrocodon-Acetaminophn 10-325] 1 tab PO Q12HP PRN 11/02/17 Naproxen [Naprosyn] 500 mg PO Q12HP PRN 11/02/17 Nystatin [Mycostatin Cream 15 gm] 1 applic TOP BID 11/02/17 Oxybutynin Chloride [Oxybutynin Chloride ER] 10 mg PO BID 11/02/17 Potassium Chloride [Klor-Con 10] 20 meq PO DAILY 11/02/17 Promethazine HCl [Phenergan 25 mg Tablet] 25 mg PO Q12HP PRN 11/02/17 Tapentadol HCl [Nucynta ER] 200 mg PO Q12 11/02/17 Venlafaxine HCl [Venlafaxine HCl ER] 150 mg PO Q12 11/02/17 Allergies/Adverse Reactions: Penicillins Allergy (Verified 11/02/17 15:40) trazodone [Trazodone] Allergy (Verified 11/02/17 15:40) asprin Allergy (Uncoded 11/02/17 15:40) Review of Systems Constitutional: PRESENT: fatigue, weakness. ABSENT: chills, fever(s) Nose, Mouth, and Throat: ABSENT: sore throat Cardiovascular: ABSENT: chest pain Respiratory: ABSENT: cough, dyspnea Gastrointestinal: PRESENT: constipation. ABSENT: abdominal pain, nausea, vomiting Musculoskeletal: PRESENT: back pain Integumentary: PRESENT: wounds - Bilateral ischial tuberosities Neurological: PRESENT: abnormal movements, abnormal speech, lack of coordination Psychiatric: PRESENT: depression Endocrine: ABSENT: cold intolerance, heat intolerance Hematologic/Lymphatic: ABSENT: easy bleeding, easy bruising Physical Exam Vital Signs: Temp Pulse Resp BP Pulse Ox 99.4 F 112 H 18 113/61 91 L 11/02/17 15:33 11/02/17 15:33 11/02/17 15:33 11/02/17 15:33 11/02/17 15:33 Intake & Output 11/01/17 11/02/17 11/03/17 06:59 06:59 06:59 Intake Total 1150 Balance 1150 Weight 205 kg General appearance: PRESENT: no acute distress Head exam: PRESENT: atraumatic Eye exam: PRESENT: EOMI. ABSENT: scleral icterus Mouth exam: PRESENT: neck supple Neck exam: ABSENT: lymphadenopathy, tenderness, thyromegaly, tracheal deviation Respiratory exam: PRESENT: clear to auscultation jessica. ABSENT: chest wall tenderness, unlabored Cardiovascular exam: PRESENT: RRR Pulses: PRESENT: normal radial pulses Vascular exam: PRESENT: normal capillary refill. ABSENT: pallor GI/Abdominal exam: PRESENT: soft. ABSENT: distended, firm, guarding, tenderness Rectal exam: PRESENT: deferred Extremities exam: PRESENT: pedal edema. ABSENT: clubbing Musculoskeletal exam: PRESENT: other - Contracture Neurological exam: PRESENT: alert, awake, oriented to person, oriented to place Psychiatric exam: ABSENT: anxious, depressed Skin exam: PRESENT: other - Left sided ischial tuberosity decubitus. 3 cm in diameter. 6 cm in depth. Necrotic tissue is present. No purulent drainage. Small right sided ischial tuberosity decubitus with eschar present. No erythema or drainage.. ABSENT: cyanosis, jaundice, pallor Assessment & Plan - Diagnosis (1) Stage 4 pressure ulcer Qualifiers: Pressure injury location: contiguous region involving buttock and hip Laterality: left Qualified Code(s): L89.44 - Pressure ulcer of contiguous site of back, buttock and hip, stage 4 Is this a current diagnosis for this admission?: Yes - Plan Summary Plan Summary: This is a 57-year-old female who has limited mobility and has developed bilateral ischial tuberosity decubiti. The left side is significantly larger than the right. Her left-sided ulcer measures approximately 3 cm in total diameter and 6 cm in depth with necrotic tissue at the periphery and in the base. The right sided decubitus has an eschar present without obvious purulence. There is a foul smell coming from the left-sided wound. I believe the patient would benefit from debridement of the ulcers. I plan to perform this in the morning. N.p.o. after midnight.
[2017-11-03 05:06] LABS: HEMATOCRIT 22.7 % (36.0-47.0); MEAN CORPUSCULAR HEMOGLOBIN 23.6 pg (27.0-33.4); MEAN CORPUSCULAR HGB CONC 31.5 g/dL (32.0-36.0); MEAN CORPUSCULAR VOLUME 75 fl (80-97); PLATELET COUNT 461 10^3/uL (150-450); RED BLOOD COUNT 3.02 10^6/uL (3.72-5.28); RED CELL DISTRIBUTION WIDTH 17.5 % (11.5-14.0); WHITE BLOOD COUNT 7.4 10^3/uL (4.0-10.5)
[2017-11-03 05:15] LABS: HEMOGLOBIN 7.1 g/dL (12.0-15.5)
[2017-11-03 05:22] LABS: ANION GAP 11 (5-19); BLOOD UREA NITROGEN 10 mg/dL (7-20); CALCIUM 8.3 mg/dL (8.4-10.2); CARBON DIOXIDE 25 mmol/L (22-30); CHLORIDE 101 mmol/L (98-107); GLUCOSE 127 mg/dL (75-110); POTASSIUM 4.1 mmol/L (3.6-5.0); SODIUM 137.2 mmol/L (137-145)
[2017-11-03] MEDS ORDERED: CEFEPIME 1 GM/D5W RTU 1 GM/50 ML RTUPB IV ONE (06:50)
[2017-11-03] MEDS ORDERED: NORMAL SALINE 250 ML IV PRN ×2 (08:18)
[2017-11-03] MEDS ORDERED: (PENDING PHARMACY ID) (Naproxen [Naprosyn] 500 MG) PO PRN (08:21)
[2017-11-03] MEDS: HYDROCODONE/ACETAMINOPHEN 10-325 MG TABLET PO PRN (09:04)
[2017-11-03] MEDS ORDERED: (PENDING PHARMACY ID) (Diltiazem Hcl [Diltiazem 24hr Er] 180 MG) PO SCH (10:00)
[2017-11-03] MEDS ORDERED: TAPENTADOL HCL 200 MG PO SCH (10:00)
[2017-11-03] MEDS ORDERED: (PENDING PHARMACY ID) (Oxybutynin Chloride [Oxybutynin Chloride Er] 10 MG) PO SCH (10:00)
[2017-11-03] MEDS ORDERED: NAPROXEN 250 MG TABLET PO PRN (10:25)
[2017-11-03] MEDS: DILTIAZEM HCL 180 MG CAPSULE.CR PO SCH (11:08)
[2017-11-03] MEDS: DIAZEPAM 5 MG TABLET PO PRN ×2 (11:09→18:43)
[2017-11-03] MEDS: FUROSEMIDE 20 MG TABLET PO SCH ×2 (11:09→18:43)
[2017-11-03] MEDS: POTASSIUM CHLORIDE 10 MEQ CAPSULE.ER PO SCH (11:09)
[2017-11-03] MEDS: ASPIRIN 81 MG TABLET, CHEWABLE PO SCH (11:09)
[2017-11-03] MEDS: ENOXAPARIN SODIUM INJ 40 MG/0.4 ML DISP.SYRIN SUBCUT SCH (11:10)
--- NOTE | 2017-11-03 12:58 | PDOC PROGRESS REPORT ---
Subjective Progress Note for:: 11/03/17 Subjective:: No apparent distress, cooperative. Reason For Visit: CELLULITIS, STAGE 4 PRESSURE ULCER POA,FUNCTIONAL Physical Exam Vital Signs: Temp Pulse Resp BP Pulse Ox 98.4 F 89 17 126/78 H 93 11/03/17 12:00 11/03/17 12:00 11/03/17 12:00 11/03/17 12:00 11/03/17 12:00 Intake & Output 11/02/17 11/03/17 11/04/17 06:59 06:59 06:59 Intake Total 1720 Output Total 800 Balance 920 Weight 90.5 kg General appearance: PRESENT: no acute distress, cooperative Respiratory exam: PRESENT: clear to auscultation jessica Cardiovascular exam: PRESENT: RRR Skin exam: PRESENT: other - Left ischial approximately 6 x 6 cm wound with tunneling cephalad with a scant amount of purulent drainage but with exposed bone and necrotic tissue. Results Laboratory Results: 11/03/17 04:38 11/03/17 04:38 11/03/17 11/03/17 11/03/17 04:38 04:38 07:45 WBC 7.4 RBC 3.02 L Hgb 7.1 L Hct 22.7 L MCV 75 L MCH 23.6 L MCHC 31.5 L RDW 17.5 H Plt Count 461 H Sodium 137.2 Potassium 4.1 Chloride 101 Carbon Dioxide 25 Anion Gap 11 BUN 10 Creatinine 0.53 Est GFR ( Amer) > 60 Est GFR (Non-Af Amer) > 60 Glucose 127 H Calcium 8.3 L Blood Type O POSITIVE Antibody Screen NEGATIVE Assessment & Plan - Diagnosis (1) Stage 4 pressure ulcer Qualifiers: Pressure injury location: contiguous region involving buttock and hip Laterality: left Qualified Code(s): L89.44 - Pressure ulcer of contiguous site of back, buttock and hip, stage 4 Is this a current diagnosis for this admission?: Yes Plan: Patient will require surgical debridement. Patient refused this morning and ate food but is more agreeable now. Her hematocrit is 22 and she will undergo blood transfusions today. We will plan debridement tomorrow.
[2017-11-03] MEDS: BACLOFEN 20 MG TABLET PO SCH ×3 (12:59→23:17)
[2017-11-03] MEDS: OXYBUTYNIN CHLORIDE 5 MG TABLET PO SCH ×2 (12:59→18:44)
[2017-11-03] MEDS: VENLAFAXINE HCL 75 MG CAP.SR.24H PO SCH ×2 (12:59→22:07)
[2017-11-03] MEDS: BUSPIRONE HCL 10 MG TABLET PO SCH ×2 (14:56→22:06)
--- NOTE | 2017-11-03 16:22 | PDOC PROGRESS REPORT ---
Subjective Progress Note for:: 11/03/17 Subjective:: No adverse events overnight. No fevers. No chest pain or shortness of breath. She has been back on her home medications and doing well. Reason For Visit: CELLULITIS, STAGE 4 PRESSURE ULCER POA,FUNCTIONAL Physical Exam Vital Signs: Temp Pulse Resp BP Pulse Ox 99.0 F 95 17 106/62 94 11/03/17 15:16 11/03/17 15:16 11/03/17 15:16 11/03/17 15:16 11/03/17 15:16 Intake & Output 11/02/17 11/03/17 11/04/17 06:59 06:59 06:59 Intake Total 1720 100 Output Total 800 Balance 920 100 Weight 90.5 kg General appearance: PRESENT: no acute distress, cooperative, disheveled, morbidly obese Teeth exam: PRESENT: poor dentation Respiratory exam: PRESENT: clear to auscultation jessica, unlabored. ABSENT: accessory muscle use, rales, rhonchi, tachypnea, wheezes Cardiovascular exam: PRESENT: RRR. ABSENT: diastolic murmur, systolic murmur GI/Abdominal exam: PRESENT: normal bowel sounds, soft. ABSENT: ascites, guarding, rebound, tenderness Extremities exam: PRESENT: other - Her feet are inverted and internally rotated with muscle wasting in her lower extremities. Her pressure sores are cleanly dressed. Musculoskeletal exam: ABSENT: ambulatory Neurological exam: PRESENT: alert, awake, oriented to person, oriented to place Results Laboratory Results: 11/03/17 04:38 11/03/17 04:38 11/03/17 11/03/17 11/03/17 04:38 04:38 07:45 WBC 7.4 RBC 3.02 L Hgb 7.1 L Hct 22.7 L MCV 75 L MCH 23.6 L MCHC 31.5 L RDW 17.5 H Plt Count 461 H Sodium 137.2 Potassium 4.1 Chloride 101 Carbon Dioxide 25 Anion Gap 11 BUN 10 Creatinine 0.53 Est GFR ( Amer) > 60 Est GFR (Non-Af Amer) > 60 Glucose 127 H Calcium 8.3 L Blood Type O POSITIVE Antibody Screen NEGATIVE Assessment & Plan - Diagnosis (1) Cellulitis of buttock, left Is this a current diagnosis for this admission?: Yes Plan: Empiric IV antibiotics. Surgical consult. She is tentatively scheduled for debridement, during which we should be able to get some cultures. (2) Stage 4 pressure ulcer Qualifiers: Pressure injury location: contiguous region involving buttock and hip Laterality: left Qualified Code(s): L89.44 - Pressure ulcer of contiguous site of back, buttock and hip, stage 4 Is this a current diagnosis for this admission?: Yes Plan: Surgery is planning on taking her for a wound debridement tomorrow. After that , she will probably have a wound VAC placed. (3) Functional quadriplegia secondary to MS Is this a current diagnosis for this admission?: Yes Plan: Plan to turn her every 2 hours. Bring her back on her usual medications for her comorbid conditions. She may need placement after she leaves the hospital this time. - Time Time Spent with patient: 15-24 minutes
[2017-11-03] MEDS: NYSTATIN CREAM 15 GM TOP SCH ×2 (18:44→22:09)
[2017-11-03] MEDS: DONEPEZIL HCL 5 MG TABLET PO SCH (22:06)
[2017-11-04] MEDS: VANCOMYCIN HCL 1,000 MG in DEXTROSE 5%-WATER 250 ML IV SCH ×3 (01:10→19:18)
[2017-11-04] MEDS: METRONIDAZOLE 500 MG/NS RTU 500 MG/100 ML RTUPB IV SCH ×4 (06:57→22:00)
[2017-11-04] MEDS: BACLOFEN 20 MG TABLET PO SCH ×3 (06:58→18:45)
[2017-11-04] MEDS: BUSPIRONE HCL 10 MG TABLET PO SCH ×3 (06:58→22:00)
[2017-11-04] MEDS ORDERED: BUPIVACAINE HCL 0.25 % INJ/PF (2.5 MG/1 ML) 30 ML VIAL ONE (07:47)
[2017-11-04] MEDS ORDERED: LIDOCAINE 0.5% INJ-PF (5 MG/ML) 50 ML SDV ONE (07:47)
[2017-11-04] MEDS ORDERED: LIDOCAINE 2% INJ-PF (20 MG/ML) 10 ML AMPUL ONE (08:06)
[2017-11-04] MEDS ORDERED: KETAMINE HCL INJ 500 MG/10 ML VIAL ONE (08:06)
[2017-11-04] MEDS ORDERED: MIDAZOLAM 2 MG/2 ML INJ ONE (08:06)
[2017-11-04] MEDS ORDERED: FENTANYL CITRATE INJ/PF 100 MCG/2 ML AMPUL ONE (08:06)
[2017-11-04] MEDS ORDERED: PROPOFOL INJ 200 MG/20 ML VIAL IV ONE (08:07)
[2017-11-04 08:22] LABS: HEMATOCRIT 30.2 % (36.0-47.0); MEAN CORPUSCULAR HEMOGLOBIN 24.6 pg (27.0-33.4); MEAN CORPUSCULAR HGB CONC 32.3 g/dL (32.0-36.0); MEAN CORPUSCULAR VOLUME 76 fl (80-97); PLATELET COUNT 520 10^3/uL (150-450); RED BLOOD COUNT 3.96 10^6/uL (3.72-5.28); RED CELL DISTRIBUTION WIDTH 18.2 % (11.5-14.0); WHITE BLOOD COUNT 7.6 10^3/uL (4.0-10.5)
[2017-11-04 08:36] LABS: ANION GAP 13 (5-19); BLOOD UREA NITROGEN 8 mg/dL (7-20); CALCIUM 8.5 mg/dL (8.4-10.2); CARBON DIOXIDE 24 mmol/L (22-30); CHLORIDE 103 mmol/L (98-107); GLUCOSE 114 mg/dL (75-110); POTASSIUM 4.3 mmol/L (3.6-5.0)
[2017-11-04 08:41] LABS: HEMOGLOBIN 9.7 g/dL (12.0-15.5)
[2017-11-04] MEDS ORDERED: FENTANYL CITRATE INJ/PF 100 MCG/2 ML AMPUL IV PRN ×3 (08:59)
[2017-11-04] MEDS ORDERED: PROMETHAZINE HCL INJ 25 MG/1 ML VIAL IV PRN ×2 (08:59)
[2017-11-04] MEDS ORDERED: ONDANSETRON HCL INJ/PF 4 MG/2 ML SDV IV PRN (08:59)
[2017-11-04] MEDS ORDERED: DIPHENHYDRAMINE HCL 50 MG/ML VIAL IV PRN (08:59)
--- NOTE | 2017-11-04 09:11 | Operative Report ---
Operative Report DATE OF SURGERY: 11/04/17 PREOPERATIVE DIAGNOSIS: Stage IV left ischial decubitus; multiple sclerosis POSTOPERATIVE DIAGNOSIS: Same OPERATION: Excisional debridement of skin fascia left issue stage IV decubitus SURGEON: DAVIS PAIZ ANESTHESIA: LMAC TISSUE REMOVED OR ALTERED: See below; skin and fascia COMPLICATIONS: None ESTIMATED BLOOD LOSS: Scant INTRAOPERATIVE FINDINGS: See below PROCEDURE: Patient taken the main operating room where LMAC anesthesia was right lateral decubitus position left side. The left buttock and ischial wound exposed. Packing removed. There is prepped and draped with Betadine Surgical plan surgical timeout conducted. Findings are significant for a stage II right buttock superficial wound related to pressure; the exfoliating skin was sharply debrided with a knife. Further debridement was required. The left issue wound packing was removed. This is a chronic deep wound going to the issue him with granulation tissue, chronic, covering the bone proper. There was no evidence of foul smell at drainage. The nguyễn of the wound are granulating Several small pieces of devitalized skin and fascia were sharply debrided with scissors and #10 blade. Bleeding was minimal. The majority of the wound again has a nice granulating surface. The wound was irrigated with saline. No cultures taken. Wound packed with quarter roll of Kerlix. An Allevyn dressing was placed over the right buttock wound Patient tolerated procedure well and taken recovery room stable condition Recommendations: 1. Continue pressure offloading 2. Start wound VAC; orders written for nursing staff instructions 3. Patient can follow-up with advanced wound center after being discharged home from [facility]
[2017-11-04] MEDS: CEFEPIME 1 GM/D5W RTU 1 GM/50 ML RTUPB IV SCH ×2 (10:46→18:45)
[2017-11-04] MEDS: POTASSIUM CHLORIDE 10 MEQ CAPSULE.ER PO SCH (10:52)
[2017-11-04] MEDS: ASPIRIN 81 MG TABLET, CHEWABLE PO SCH (10:52)
[2017-11-04] MEDS: VENLAFAXINE HCL 75 MG CAP.SR.24H PO SCH ×2 (10:53→22:00)
[2017-11-04] MEDS: DILTIAZEM HCL 180 MG CAPSULE.CR PO SCH (10:53)
[2017-11-04] MEDS: FUROSEMIDE 20 MG TABLET PO SCH ×2 (10:54→18:45)
[2017-11-04] MEDS: OXYBUTYNIN CHLORIDE 5 MG TABLET PO SCH ×2 (10:54→18:44)
[2017-11-04] MEDS: ENOXAPARIN SODIUM INJ 40 MG/0.4 ML DISP.SYRIN SUBCUT SCH (10:55)
[2017-11-04] MEDS: NYSTATIN CREAM 15 GM TOP SCH ×2 (11:00→18:47)
[2017-11-04] MEDS: TECFIDERA 240 MG PO SCH ×2 (11:44→18:47)
[2017-11-04] MEDS: PROMETHAZINE HCL 25 MG TABLET PO PRN (15:11)
--- NOTE | 2017-11-04 16:56 | PDOC PROGRESS REPORT ---
Subjective Progress Note for:: 11/04/17 Subjective:: No adverse events overnight. No new complaints. Vital signs have been stable. She had debridement of the wound in the OR today. Wound VAC is being planned for later. Her significant other wants her placed in a rehab near [place]. Reason For Visit: CELLULITIS, STAGE 4 PRESSURE ULCER POA,FUNCTIONAL Physical Exam Vital Signs: Temp Pulse Resp BP Pulse Ox 98.7 F 93 17 148/93 H 100 11/04/17 15:29 11/04/17 15:29 11/04/17 15:29 11/04/17 15:29 11/04/17 15:29 Intake & Output 11/03/17 11/04/17 11/05/17 06:59 06:59 06:59 Intake Total 1720 2931 886 Output Total 800 1450 105 Balance 920 1481 781 Weight 90.5 kg 95.9 kg General appearance: PRESENT: no acute distress, cooperative, disheveled, morbidly obese Teeth exam: PRESENT: poor dentation Respiratory exam: PRESENT: clear to auscultation jessica, unlabored. ABSENT: accessory muscle use, rales, rhonchi, tachypnea, wheezes Cardiovascular exam: PRESENT: RRR. ABSENT: diastolic murmur, systolic murmur GI/Abdominal exam: PRESENT: normal bowel sounds, soft. ABSENT: ascites, guarding, rebound, tenderness Extremities exam: PRESENT: other - Her feet are inverted and internally rotated with muscle wasting in her lower extremities. Her pressure sores are cleanly dressed. Musculoskeletal exam: ABSENT: ambulatory Neurological exam: PRESENT: alert, awake, oriented to person, oriented to place Results Laboratory Results: 11/04/17 07:25 11/04/17 07:25 11/03/17 11/04/17 11/04/17 07:45 07:25 07:25 WBC 7.6 RBC 3.96 Hgb 9.7 L D Hct 30.2 L MCV 76 L MCH 24.6 L MCHC 32.3 RDW 18.2 H Plt Count 520 H Sodium 140.0 Potassium 4.3 Chloride 103 Carbon Dioxide 24 Anion Gap 13 BUN 8 Creatinine 0.47 L Est GFR ( Amer) > 60 Est GFR (Non-Af Amer) > 60 Glucose 114 H Calcium 8.5 Blood Type O POSITIVE Antibody Screen NEGATIVE Assessment & Plan - Diagnosis (1) Cellulitis of buttock, left Is this a current diagnosis for this admission?: Yes Plan: Empiric IV antibiotics. Blood cultures were negative. No cultures were taken from the wound today. We will see if we can find any old cultures to guide her antibiotic choice. (2) Stage 4 pressure ulcer Qualifiers: Pressure injury location: contiguous region involving buttock and hip Laterality: left Qualified Code(s): L89.44 - Pressure ulcer of contiguous site of back, buttock and hip, stage 4 Is this a current diagnosis for this admission?: Yes Plan: Surgery debrided her wound today. She will have a wound VAC placed. (3) Functional quadriplegia secondary to MS Is this a current diagnosis for this admission?: Yes Plan: Plan to turn her every 2 hours. Bring her back on her usual medications for her comorbid conditions. Her significant other wants her placed in rehab in [place]. - Time Time Spent with patient: 15-24 minutes
[2017-11-04] MEDS: HYDROCODONE/ACETAMINOPHEN 10-325 MG TABLET PO PRN (18:51)
[2017-11-04] MEDS: VANCOMYCIN HCL 1,500 MG in DEXTROSE 5%-WATER 250 ML IV SCH (20:56)
[2017-11-04] MEDS: DONEPEZIL HCL 5 MG TABLET PO SCH (22:01)
[2017-11-05] MEDS: BACLOFEN 20 MG TABLET PO SCH ×5 (00:46→23:01)
[2017-11-05] MEDS: VANCOMYCIN HCL 1,000 MG in DEXTROSE 5%-WATER 250 ML IV SCH ×2 (02:45→19:57)
[2017-11-05] MEDS: METRONIDAZOLE 500 MG/NS RTU 500 MG/100 ML RTUPB IV SCH ×4 (03:50→15:42)
[2017-11-05] MEDS: BUSPIRONE HCL 10 MG TABLET PO SCH ×3 (06:48→22:58)
[2017-11-05 07:36] LABS: HEMATOCRIT 30.6 % (36.0-47.0); HEMOGLOBIN 9.8 g/dL (12.0-15.5); MEAN CORPUSCULAR HEMOGLOBIN 24.7 pg (27.0-33.4); MEAN CORPUSCULAR HGB CONC 32.1 g/dL (32.0-36.0); MEAN CORPUSCULAR VOLUME 77 fl (80-97); PLATELET COUNT 436 10^3/uL (150-450); RED BLOOD COUNT 3.98 10^6/uL (3.72-5.28); RED CELL DISTRIBUTION WIDTH 18.3 % (11.5-14.0); WHITE BLOOD COUNT 5.7 10^3/uL (4.0-10.5)
[2017-11-05 07:54] LABS: ANION GAP 11 (5-19); BLOOD UREA NITROGEN 6 mg/dL (7-20); CALCIUM 8.7 mg/dL (8.4-10.2); CARBON DIOXIDE 27 mmol/L (22-30); CHLORIDE 102 mmol/L (98-107); GLUCOSE 98 mg/dL (75-110); POTASSIUM 4.3 mmol/L (3.6-5.0); SODIUM 139.8 mmol/L (137-145)
[2017-11-05] MEDS: TECFIDERA 240 MG PO SCH ×2 (07:57→19:55)
[2017-11-05] MEDS ORDERED: CEFEPIME 1 GM/D5W RTU 1 GM/50 ML RTUPB IV SCH (08:00)
[2017-11-05] MEDS: DILTIAZEM HCL 180 MG CAPSULE.CR PO SCH (09:43)
[2017-11-05] MEDS: ASPIRIN 81 MG TABLET, CHEWABLE PO SCH (09:43)
[2017-11-05] MEDS: FUROSEMIDE 20 MG TABLET PO SCH ×2 (09:43→18:29)
[2017-11-05] MEDS: POTASSIUM CHLORIDE 10 MEQ CAPSULE.ER PO SCH (09:43)
[2017-11-05] MEDS: OXYBUTYNIN CHLORIDE 5 MG TABLET PO SCH ×2 (09:43→18:29)
[2017-11-05] MEDS: VENLAFAXINE HCL 75 MG CAP.SR.24H PO SCH ×2 (09:44→22:58)
[2017-11-05] MEDS: ENOXAPARIN SODIUM INJ 40 MG/0.4 ML DISP.SYRIN SUBCUT SCH (09:44)
[2017-11-05] MEDS: NYSTATIN CREAM 15 GM TOP SCH ×2 (09:53→19:55)
[2017-11-05 10:40] LABS: VANCOMYCIN,TROUGH 27.2 ug/mL (5.0-20.0)
[2017-11-05] MEDS: HYDROCODONE/ACETAMINOPHEN 10-325 MG TABLET PO PRN (11:09)
--- NOTE | 2017-11-05 17:44 | PDOC PROGRESS REPORT ---
Subjective Progress Note for:: 11/05/17 Subjective:: No adverse events overnight. No new complaints. Vital signs have been stable. No fevers. Her significant other wants her placed in a rehab near [place]. Reason For Visit: CELLULITIS, STAGE 4 PRESSURE ULCER POA,FUNCTIONAL Physical Exam Vital Signs: Temp Pulse Resp BP Pulse Ox 98.5 F 89 20 150/78 H 96 11/05/17 15:23 11/05/17 15:23 11/05/17 15:23 11/05/17 15:23 11/05/17 15:23 Intake & Output 11/04/17 11/05/17 11/06/17 06:59 06:59 06:59 Intake Total 2931 2468 100 Output Total 1450 680 Balance 1481 1788 100 Weight 95.9 kg 96.2 kg General appearance: PRESENT: no acute distress, cooperative, disheveled, morbidly obese Teeth exam: PRESENT: poor dentation Respiratory exam: PRESENT: clear to auscultation jessica, unlabored. ABSENT: accessory muscle use, rales, rhonchi, tachypnea, wheezes Cardiovascular exam: PRESENT: RRR. ABSENT: diastolic murmur, systolic murmur GI/Abdominal exam: PRESENT: normal bowel sounds, soft. ABSENT: ascites, guarding, rebound, tenderness Extremities exam: PRESENT: other - Her feet are inverted and internally rotated with muscle wasting in her lower extremities. Her pressure sores are cleanly dressed. Musculoskeletal exam: ABSENT: ambulatory Neurological exam: PRESENT: alert, awake, oriented to person, oriented to place Results Laboratory Results: 11/05/17 07:12 11/05/17 07:12 11/05/17 11/05/17 07:12 07:12 WBC 5.7 RBC 3.98 Hgb 9.8 L Hct 30.6 L MCV 77 L MCH 24.7 L MCHC 32.1 RDW 18.3 H Plt Count 436 Sodium 139.8 Potassium 4.3 Chloride 102 Carbon Dioxide 27 Anion Gap 11 BUN 6 L Creatinine 0.47 L Est GFR ( Amer) > 60 Est GFR (Non-Af Amer) > 60 Glucose 98 Calcium 8.7 11/03/17 12:40 Hernandez Catheter Urine Culture - Final Enterococcus Faecalis(Group D) Assessment & Plan - Diagnosis (1) Cellulitis of buttock, left Is this a current diagnosis for this admission?: Yes Plan: Empiric IV antibiotics. Blood cultures were negative. No cultures were taken from the wound today. We will empirically put her on doxycycline and Augmentin. It says she has a penicillin allergy but her significant other says she has taken amoxicillin several times and has tolerated it well. He said that she last took it a couple of months ago and did not have a problem with it. (2) Stage 4 pressure ulcer Qualifiers: Pressure injury location: contiguous region involving buttock and hip Laterality: left Qualified Code(s): L89.44 - Pressure ulcer of contiguous site of back, buttock and hip, stage 4 Is this a current diagnosis for this admission?: Yes Plan: Surgery debrided her wound. She had a wound VAC placed. (3) Functional quadriplegia secondary to MS Is this a current diagnosis for this admission?: Yes Plan: Plan to turn her every 2 hours. Bring her back on her usual medications for her comorbid conditions. Her significant other wants her placed in rehab in [place]. - Time Time Spent with patient: 15-24 minutes
[2017-11-05] MEDS: AMOXICILLIN TR/POT CLAVULANATE 500-125 MG TAB PO SCH (22:58)
[2017-11-05] MEDS: DONEPEZIL HCL 5 MG TABLET PO SCH (22:58)
[2017-11-05] MEDS: DOXYCYCLINE HYCLATE 100 MG TABLET PO SCH (23:00)
[2017-11-06] MEDS: BACLOFEN 20 MG TABLET PO SCH ×4 (06:16→23:10)
[2017-11-06] MEDS: BUSPIRONE HCL 10 MG TABLET PO SCH ×3 (06:16→21:35)
[2017-11-06] MEDS: AMOXICILLIN TR/POT CLAVULANATE 500-125 MG TAB PO SCH ×3 (06:16→21:35)
[2017-11-06] MEDS: TECFIDERA 240 MG PO SCH ×2 (07:40→21:34)
[2017-11-06] MEDS: HYDROCODONE/ACETAMINOPHEN 10-325 MG TABLET PO PRN ×2 (09:49→23:10)
[2017-11-06] MEDS: DILTIAZEM HCL 180 MG CAPSULE.CR PO SCH (09:51)
[2017-11-06] MEDS: ASPIRIN 81 MG TABLET, CHEWABLE PO SCH (09:55)
[2017-11-06] MEDS: FUROSEMIDE 20 MG TABLET PO SCH ×2 (09:55→19:21)
[2017-11-06] MEDS: POTASSIUM CHLORIDE 10 MEQ CAPSULE.ER PO SCH (09:55)
[2017-11-06] MEDS: VENLAFAXINE HCL 75 MG CAP.SR.24H PO SCH ×2 (09:55→21:35)
[2017-11-06] MEDS: ENOXAPARIN SODIUM INJ 40 MG/0.4 ML DISP.SYRIN SUBCUT SCH (09:56)
[2017-11-06] MEDS: OXYBUTYNIN CHLORIDE 5 MG TABLET PO SCH ×2 (09:56→19:21)
[2017-11-06] MEDS: DOXYCYCLINE HYCLATE 100 MG TABLET PO SCH ×2 (09:57→21:35)
[2017-11-06] MEDS ORDERED: VANCOMYCIN HCL 1,000 MG in DEXTROSE 5%-WATER 250 ML IV SCH (10:00)
[2017-11-06] MEDS: DIAZEPAM 5 MG TABLET PO PRN (10:07)
[2017-11-06] MEDS: NYSTATIN CREAM 15 GM TOP SCH ×2 (14:17→21:13)
--- NOTE | 2017-11-06 17:08 | PDOC PROGRESS REPORT ---
Subjective Progress Note for:: 11/06/17 Subjective:: No adverse events overnight. No new complaints. Vital signs have been stable. No fevers. Her significant other wants her placed in a rehab near [place]. She took Augmentin last night and this morning and had tolerated it fine without any signs of allergic reaction. Reason For Visit: CELLULITIS, STAGE 4 PRESSURE ULCER POA,FUNCTIONAL Physical Exam Vital Signs: Temp Pulse Resp BP Pulse Ox 98.4 F 96 19 123/88 H 98 11/06/17 15:15 11/06/17 15:15 11/06/17 15:15 11/06/17 15:15 11/06/17 15:15 Intake & Output 11/05/17 11/06/17 11/07/17 06:59 06:59 06:59 Intake Total 2468 608 857 Output Total 680 1600 625 Balance 1788 -992 232 Weight 96.2 kg 96.7 kg General appearance: PRESENT: no acute distress, cooperative, disheveled, morbidly obese Teeth exam: PRESENT: poor dentation Respiratory exam: PRESENT: clear to auscultation jessica, unlabored. ABSENT: accessory muscle use, rales, rhonchi, tachypnea, wheezes Cardiovascular exam: PRESENT: RRR. ABSENT: diastolic murmur, systolic murmur GI/Abdominal exam: PRESENT: normal bowel sounds, soft. ABSENT: ascites, guarding, rebound, tenderness Extremities exam: PRESENT: other - Her feet are inverted and internally rotated with muscle wasting in her lower extremities. Her pressure sores are cleanly dressed. Musculoskeletal exam: ABSENT: ambulatory Neurological exam: PRESENT: alert, awake, oriented to person, oriented to place Results Laboratory Results: 11/05/17 07:12 11/05/17 07:12 Assessment & Plan - Diagnosis (1) Cellulitis of buttock, left Is this a current diagnosis for this admission?: Yes Plan: Switch to oral doxycycline and Augmentin. Tolerating it well. She will complete a course of treatment for this as an outpatient. (2) Stage 4 pressure ulcer Qualifiers: Pressure injury location: contiguous region involving buttock and hip Laterality: left Qualified Code(s): L89.44 - Pressure ulcer of contiguous site of back, buttock and hip, stage 4 Is this a current diagnosis for this admission?: Yes Plan: Surgery debrided her wound. She had a wound VAC placed. (3) Functional quadriplegia secondary to MS Is this a current diagnosis for this admission?: Yes Plan: Plan to turn her every 2 hours. Bring her back on her usual medications for her comorbid conditions. Her significant other wants her placed in rehab in [place]. - Time Time Spent with patient: 15-24 minutes
[2017-11-06] MEDS: DONEPEZIL HCL 5 MG TABLET PO SCH (21:35)
[2017-11-07] MEDS: AMOXICILLIN TR/POT CLAVULANATE 500-125 MG TAB PO SCH ×3 (06:16→21:16)
[2017-11-07] MEDS: BUSPIRONE HCL 10 MG TABLET PO SCH ×3 (06:17→21:16)
[2017-11-07] MEDS: BACLOFEN 20 MG TABLET PO SCH ×3 (06:17→18:15)
[2017-11-07] MEDS: TECFIDERA 240 MG PO SCH ×2 (06:22→21:15)
[2017-11-07] MEDS: DILTIAZEM HCL 180 MG CAPSULE.CR PO SCH (09:32)
[2017-11-07] MEDS: FUROSEMIDE 20 MG TABLET PO SCH ×2 (09:32→18:15)
[2017-11-07] MEDS: NYSTATIN CREAM 15 GM TOP SCH ×2 (09:32→18:15)
[2017-11-07] MEDS: ASPIRIN 81 MG TABLET, CHEWABLE PO SCH (09:32)
[2017-11-07] MEDS: POTASSIUM CHLORIDE 10 MEQ CAPSULE.ER PO SCH (09:33)
[2017-11-07] MEDS: OXYBUTYNIN CHLORIDE 5 MG TABLET PO SCH ×2 (09:33→18:15)
[2017-11-07] MEDS: VENLAFAXINE HCL 75 MG CAP.SR.24H PO SCH ×2 (09:33→21:17)
[2017-11-07] MEDS: DOXYCYCLINE HYCLATE 100 MG TABLET PO SCH ×2 (09:34→21:18)
[2017-11-07] MEDS: ENOXAPARIN SODIUM INJ 40 MG/0.4 ML DISP.SYRIN SUBCUT SCH (09:34)
--- NOTE | 2017-11-07 17:19 | PDOC PROGRESS REPORT ---
Subjective Progress Note for:: 11/07/17 Subjective:: No adverse events overnight. No new complaints. Vital signs have been stable. No fevers. Her significant other wants her placed in a rehab near [place] and we have been working on that. She has been taking Augmentin and has tolerated it fine without any signs of allergic reaction. Reason For Visit: CELLULITIS, STAGE 4 PRESSURE ULCER POA,FUNCTIONAL Physical Exam Vital Signs: Temp Pulse Resp BP Pulse Ox 98.4 F 92 18 134/83 H 97 11/07/17 07:35 11/07/17 07:35 11/07/17 07:35 11/07/17 07:35 11/07/17 07:35 Intake & Output 11/06/17 11/07/17 11/08/17 06:59 06:59 06:59 Intake Total 608 1329 Output Total 1600 1300 Balance -992 29 Weight 96.7 kg 97.7 kg General appearance: PRESENT: no acute distress, cooperative, disheveled, morbidly obese Teeth exam: PRESENT: poor dentation Respiratory exam: PRESENT: clear to auscultation jessica, unlabored. ABSENT: accessory muscle use, rales, rhonchi, tachypnea, wheezes Cardiovascular exam: PRESENT: RRR. ABSENT: diastolic murmur, systolic murmur GI/Abdominal exam: PRESENT: normal bowel sounds, soft. ABSENT: ascites, guarding, rebound, tenderness Extremities exam: PRESENT: other - Her feet are inverted and internally rotated with muscle wasting in her lower extremities. Her pressure sores are cleanly dressed. Musculoskeletal exam: ABSENT: ambulatory Neurological exam: PRESENT: alert, awake, oriented to person, oriented to place Results Laboratory Results: 11/05/17 07:12 11/05/17 07:12 Assessment & Plan - Diagnosis (1) Cellulitis of buttock, left Is this a current diagnosis for this admission?: Yes Plan: Switch to oral doxycycline and Augmentin. Tolerating it well. She will complete a course of treatment for this as an outpatient. (2) Stage 4 pressure ulcer Qualifiers: Pressure injury location: contiguous region involving buttock and hip Laterality: left Qualified Code(s): L89.44 - Pressure ulcer of contiguous site of back, buttock and hip, stage 4 Is this a current diagnosis for this admission?: Yes Plan: Surgery debrided her wound. She had a wound VAC placed. (3) Functional quadriplegia secondary to MS Is this a current diagnosis for this admission?: Yes Plan: Plan to turn her every 2 hours. Bring her back on her usual medications for her comorbid conditions. Her significant other wants her placed in rehab in [place]. If he cannot get her into that facility, he said he wants to take her home. - Time Time Spent with patient: 15-24 minutes
[2017-11-07] MEDS: DONEPEZIL HCL 5 MG TABLET PO SCH (21:16)
[2017-11-07] MEDS: DIAZEPAM 5 MG TABLET PO PRN (21:20)
[2017-11-08] MEDS: HYDROCODONE/ACETAMINOPHEN 10-325 MG TABLET PO PRN ×2 (00:28→12:49)
[2017-11-08] MEDS: BACLOFEN 20 MG TABLET PO SCH ×4 (00:28→18:58)
[2017-11-08] MEDS: BUSPIRONE HCL 10 MG TABLET PO SCH ×3 (06:32→21:30)
[2017-11-08] MEDS: AMOXICILLIN TR/POT CLAVULANATE 500-125 MG TAB PO SCH ×3 (06:32→21:30)
[2017-11-08] MEDS: TECFIDERA 240 MG PO SCH ×2 (07:51→18:57)
[2017-11-08] MEDS: POLYETHYLENE GLYCOL 3350 POWDER 17 GM/1 PACKET PO PRN ×3 (10:02→21:28)
[2017-11-08] MEDS: ENOXAPARIN SODIUM INJ 40 MG/0.4 ML DISP.SYRIN SUBCUT SCH (10:02)
[2017-11-08] MEDS: VENLAFAXINE HCL 75 MG CAP.SR.24H PO SCH ×2 (10:03→21:32)
[2017-11-08] MEDS: DIAZEPAM 5 MG TABLET PO PRN ×2 (10:04→18:58)
[2017-11-08] MEDS: OXYBUTYNIN CHLORIDE 5 MG TABLET PO SCH ×2 (10:04→18:58)
[2017-11-08] MEDS: FUROSEMIDE 20 MG TABLET PO SCH ×2 (10:05→18:58)
[2017-11-08] MEDS: DILTIAZEM HCL 180 MG CAPSULE.CR PO SCH (10:05)
[2017-11-08] MEDS: ASPIRIN 81 MG TABLET, CHEWABLE PO SCH (10:06)
[2017-11-08] MEDS: POTASSIUM CHLORIDE 10 MEQ CAPSULE.ER PO SCH (10:07)
[2017-11-08] MEDS: DOXYCYCLINE HYCLATE 100 MG TABLET PO SCH ×2 (10:08→21:31)
[2017-11-08] MEDS: NYSTATIN CREAM 15 GM TOP SCH ×2 (10:09→18:57)
[2017-11-08] MEDS: PROMETHAZINE HCL 25 MG TABLET PO PRN (16:14)
--- NOTE | 2017-11-08 17:02 | PDOC PROGRESS REPORT ---
Subjective Progress Note for:: 11/08/17 Subjective:: Ms. Gustafson was admitted for cellulitis. She has been getting antibitoics and continues to improve clinically. No acute event overnight. No fever or chills. Still awaiting for placement to SNF. Reason For Visit: CELLULITIS, STAGE 4 PRESSURE ULCER POA,FUNCTIONAL Physical Exam Vital Signs: Temp Pulse Resp BP Pulse Ox 98.8 F 84 19 137/85 H 98 11/08/17 15:27 11/08/17 15:27 11/08/17 15:27 11/08/17 15:27 11/08/17 15:27 Intake & Output 11/07/17 11/08/17 11/09/17 06:59 06:59 06:59 Intake Total 1329 1584 1022 Output Total 1300 1625 415 Balance 29 -41 607 Weight 215 lb 6.266 oz 212 lb 8.41 oz General appearance: PRESENT: no acute distress Head exam: PRESENT: atraumatic, normocephalic Eye exam: PRESENT: conjunctiva pink, EOMI, PERRLA. ABSENT: scleral icterus Ear exam: PRESENT: normal external ear exam Neck exam: ABSENT: carotid bruit, JVD, lymphadenopathy, thyromegaly Respiratory exam: PRESENT: clear to auscultation jessica. ABSENT: rales, rhonchi, wheezes Cardiovascular exam: PRESENT: RRR. ABSENT: diastolic murmur, rubs, systolic murmur Pulses: PRESENT: normal dorsalis pedis pul GI/Abdominal exam: PRESENT: normal bowel sounds, soft. ABSENT: distended, guarding, mass, organolmegaly, rebound, tenderness Rectal exam: PRESENT: deferred Musculoskeletal exam: PRESENT: ambulatory, deformity, dislocation, full ROM, normal inspection, tenderness, other Neurological exam: PRESENT: alert, awake, oriented to person, oriented to place , oriented to time, oriented to situation, CN II-XII grossly intact. ABSENT: motor sensory deficit Skin exam: PRESENT: other - No active drainage on chronic ulcers, no erythema or tenderness Results Laboratory Results: 11/05/17 07:12 11/05/17 07:12 11/02/17 18:50 Blood Blood Culture - Final NO GROWTH IN 5 DAYS Assessment & Plan - Diagnosis (1) Cellulitis of buttock, left Is this a current diagnosis for this admission?: Yes Plan: Resolving. Continue Augmentin and doxycycline. (2) Decubitus skin ulcer Qualifiers: Pressure injury location: lower back Pressure injury stage: stage 4 Laterality: left Qualified Code(s): L89.144 - Pressure ulcer of left lower back, stage 4 Is this a current diagnosis for this admission?: Yes Plan: Continue daily wound dressings. (3) Stage 4 pressure ulcer Qualifiers: Pressure injury location: contiguous region involving buttock and hip Laterality: left Qualified Code(s): L89.44 - Pressure ulcer of contiguous site of back, buttock and hip, stage 4 Is this a current diagnosis for this admission?: Yes Plan: Status post debridement with VAC placement by surgery.
--- NOTE | 2017-11-08 17:04 | PDOC PROGRESS REPORT ---
Subjective Reason For Visit: CELLULITIS, STAGE 4 PRESSURE ULCER POA,FUNCTIONAL Physical Exam Vital Signs: Temp Pulse Resp BP Pulse Ox 98.8 F 84 19 137/85 H 98 11/08/17 15:27 11/08/17 15:27 11/08/17 15:27 11/08/17 15:27 11/08/17 15:27 Intake & Output 11/07/17 11/08/17 11/09/17 06:59 06:59 06:59 Intake Total 1329 1584 1022 Output Total 1300 1625 415 Balance 29 -41 607 Weight 215 lb 6.266 oz 212 lb 8.41 oz Results Laboratory Results: 11/05/17 07:12 11/05/17 07:12 11/02/17 18:50 Blood Blood Culture - Final NO GROWTH IN 5 DAYS Assessment & Plan - Diagnosis (1) Cellulitis of buttock, left Is this a current diagnosis for this admission?: Yes (2) Decubitus skin ulcer Qualifiers: Pressure injury location: lower back Pressure injury stage: stage 4 Laterality: left Qualified Code(s): L89.144 - Pressure ulcer of left lower back, stage 4 Is this a current diagnosis for this admission?: Yes Plan: Status post debridement and wound VAC placement by surgery.
[2017-11-08] MEDS: DONEPEZIL HCL 5 MG TABLET PO SCH (21:30)
[2017-11-09] MEDS: BACLOFEN 20 MG TABLET PO SCH ×5 (02:56→23:09)
[2017-11-09] MEDS: HYDROCODONE/ACETAMINOPHEN 10-325 MG TABLET PO PRN ×2 (05:24→23:09)
[2017-11-09] MEDS: BUSPIRONE HCL 10 MG TABLET PO SCH ×3 (05:25→22:10)
[2017-11-09] MEDS: AMOXICILLIN TR/POT CLAVULANATE 500-125 MG TAB PO SCH ×3 (05:25→22:10)
[2017-11-09] MEDS: TECFIDERA 240 MG PO SCH ×2 (07:29→18:40)
[2017-11-09] MEDS: ASPIRIN 81 MG TABLET, CHEWABLE PO SCH (10:36)
[2017-11-09] MEDS: OXYBUTYNIN CHLORIDE 5 MG TABLET PO SCH ×2 (10:36→17:38)
[2017-11-09] MEDS: POTASSIUM CHLORIDE 10 MEQ CAPSULE.ER PO SCH (10:37)
[2017-11-09] MEDS: FUROSEMIDE 20 MG TABLET PO SCH ×2 (10:37→17:39)
[2017-11-09] MEDS: VENLAFAXINE HCL 75 MG CAP.SR.24H PO SCH ×2 (10:37→22:10)
[2017-11-09] MEDS: DOXYCYCLINE HYCLATE 100 MG TABLET PO SCH ×2 (10:37→22:10)
[2017-11-09] MEDS: ENOXAPARIN SODIUM INJ 40 MG/0.4 ML DISP.SYRIN SUBCUT SCH (10:38)
[2017-11-09] MEDS: DILTIAZEM HCL 180 MG CAPSULE.CR PO SCH (10:38)
[2017-11-09] MEDS: NYSTATIN CREAM 15 GM TOP SCH ×2 (10:39→17:39)
--- NOTE | 2017-11-09 15:53 | PDOC PROGRESS REPORT ---
Subjective Progress Note for:: 11/09/17 Subjective:: Ms. Gustafson was admitted for cellulitis. She has been getting antibitoics and continues to improve clinically. No acute event overnight. No fever or chills. Apparently patient's rehab trainer is able to give her optimal and appropriate care at home. He says that he just needs to have the house and agreement ready by tomorrow morning. Reason For Visit: CELLULITIS, STAGE 4 PRESSURE ULCER POA,FUNCTIONAL Physical Exam Vital Signs: Temp Pulse Resp BP Pulse Ox 97.6 F 98 20 127/89 H 100 11/09/17 12:00 11/09/17 12:00 11/09/17 12:00 11/09/17 12:00 11/09/17 12:00 Intake & Output 11/08/17 11/09/17 11/10/17 06:59 06:59 06:59 Intake Total 1584 1458 Output Total 1625 715 Balance -41 743 Weight 212 lb 8.41 oz 212 lb 15.465 oz General appearance: PRESENT: no acute distress, well-developed, well-nourished Head exam: PRESENT: atraumatic, normocephalic Eye exam: PRESENT: conjunctiva pink, EOMI, PERRLA. ABSENT: scleral icterus Neck exam: ABSENT: carotid bruit, JVD, lymphadenopathy, thyromegaly Respiratory exam: PRESENT: clear to auscultation jessica. ABSENT: rales, rhonchi, wheezes Cardiovascular exam: PRESENT: RRR. ABSENT: diastolic murmur, rubs, systolic murmur Pulses: PRESENT: normal dorsalis pedis pul Vascular exam: PRESENT: normal capillary refill GI/Abdominal exam: PRESENT: normal bowel sounds, soft. ABSENT: distended, guarding, mass, organolmegaly, rebound, tenderness Rectal exam: PRESENT: deferred Neurological exam: PRESENT: alert, awake, oriented to person, oriented to place , oriented to time Results Laboratory Results: 11/05/17 07:12 11/05/17 07:12 Assessment & Plan - Diagnosis (1) Cellulitis of buttock, left Is this a current diagnosis for this admission?: Yes Plan: Resolving. Continue Augmentin and doxycycline. (2) Decubitus skin ulcer Qualifiers: Pressure injury location: lower back Pressure injury stage: stage 4 Laterality: left Qualified Code(s): L89.144 - Pressure ulcer of left lower back, stage 4 Is this a current diagnosis for this admission?: Yes Plan: Continue daily wound dressings. (3) Stage 4 pressure ulcer Qualifiers: Pressure injury location: contiguous region involving buttock and hip Laterality: left Qualified Code(s): L89.44 - Pressure ulcer of contiguous site of back, buttock and hip, stage 4 Is this a current diagnosis for this admission?: Yes Plan: Status post debridement with VAC placement by surgery. - Time Time Spent with patient: 15-24 minutes
[2017-11-09] MEDS: DONEPEZIL HCL 5 MG TABLET PO SCH (22:10)
[2017-11-10] MEDS: AMOXICILLIN TR/POT CLAVULANATE 500-125 MG TAB PO SCH ×2 (05:42→14:21)
[2017-11-10] MEDS: BUSPIRONE HCL 10 MG TABLET PO SCH ×2 (05:42→14:21)
[2017-11-10] MEDS: BACLOFEN 20 MG TABLET PO SCH ×2 (05:42→11:50)
[2017-11-10] MEDS: TECFIDERA 240 MG PO SCH (07:19)
[2017-11-10 08:27] VITALS: BP 135/88
[2017-11-10] MEDS: VENLAFAXINE HCL 75 MG CAP.SR.24H PO SCH (10:05)
[2017-11-10] MEDS: DILTIAZEM HCL 180 MG CAPSULE.CR PO SCH (10:05)
[2017-11-10] MEDS: OXYBUTYNIN CHLORIDE 5 MG TABLET PO SCH (10:05)
[2017-11-10] MEDS: ASPIRIN 81 MG TABLET, CHEWABLE PO SCH (10:06)
[2017-11-10] MEDS: ENOXAPARIN SODIUM INJ 40 MG/0.4 ML DISP.SYRIN SUBCUT SCH (10:06)
[2017-11-10] MEDS: DOXYCYCLINE HYCLATE 100 MG TABLET PO SCH (10:06)
[2017-11-10] MEDS: POTASSIUM CHLORIDE 10 MEQ CAPSULE.ER PO SCH (10:06)
[2017-11-10] MEDS: FUROSEMIDE 20 MG TABLET PO SCH (10:06)
[2017-11-10] MEDS ORDERED: HYDROCODONE/ACETAMINOPHEN 10-325 MG TABLET ONE (11:49)
--- NOTE | 2017-12-10 07:47 | PDOC DISCHARGE SUMMARY ---
General - Admit/Disc Date/PCP Admission Date/Primary Care Provider: 11/02/17 17:52 SUSHMA TOLEDO MD Discharge Date: 11/10/17 - Discharge Diagnosis (1) Cellulitis of buttock, left Is this a current diagnosis for this admission?: Yes (2) Decubitus skin ulcer Is this a current diagnosis for this admission?: Yes (3) Stage 4 pressure ulcer Is this a current diagnosis for this admission?: Yes - Additional Information Resuscitation Status: Full Code Discharge Diet: As Tolerated Discharge Activity: Activity As Tolerated - bedbound, Other - pt is bedridden Prescriptions: Amox Tr/Potassium Clavulanate [Augmentin 875-125 mg Tablet] 1 tab PO BID 6 Days #12 tablet Doxycycline Hyclate 150 mg PO BID 6 Days #12 tablet. [place] Medications: Aspirin [Aspirin 81 mg Chewable Tablet] 81 mg PO DAILY 11/02/17 Baclofen [Baclofen 20 mg Tablet] 20 mg PO Q6 11/02/17 Buspirone HCl [Buspar 15 mg Tablet] 15 mg PO Q8 11/02/17 Dextroamphetamine/Amphetamine [Adderall 20 mg Tablet] 20 mg PO BID 11/02/17 Diazepam [Valium] 10 mg PO Q6HP PRN 11/02/17 Diltiazem HCl [Diltiazem 24Hr ER] 180 mg PO DAILY 11/02/17 Dimethyl Fumarate [Tecfidera] 240 mg PO Q12 11/02/17 Donepezil HCl [Aricept 5 mg Tablet] 5 mg PO QHS 11/02/17 Ergocalciferol (Vitamin D2) [Drisdol 50,000 unit (1.25MG) Capsule] 50,000 unit PO ZAPATA@0800 11/02/17 Estrogen,Con/M-Progest Acet [Prempro 0.625-2.5 mg Tablet] 1 tab PO DAILY Furosemide [Lasix 20 mg Tablet] 20 mg PO BID 11/02/17 Hydrocodone Bit/Acetaminophen [Hydrocodon-Acetaminophn 10-325] 1 tab PO Q12HP PRN 11/02/17 Naproxen [Naprosyn] 500 mg PO Q12HP PRN 11/02/17 Nystatin [Mycostatin Cream 15 gm] 1 applic TOP BID 11/02/17 Oxybutynin Chloride [Oxybutynin Chloride ER] 10 mg PO BID 11/02/17 Potassium Chloride [Klor-Con 10] 20 meq PO DAILY 11/02/17 Promethazine HCl [Phenergan 25 mg Tablet] 25 mg PO Q12HP PRN 11/02/17 Tapentadol HCl [Nucynta ER] 200 mg PO Q12 11/02/17 Venlafaxine HCl [Venlafaxine HCl ER] 150 mg PO Q12 11/02/17 Amox Tr/Potassium Clavulanate [Augmentin 875-125 mg Tablet] 1 tab PO BID 6 Days #12 tablet 11/10/17 Doxycycline Hyclate 150 mg PO BID 6 Days #12 tablet. 11/10/17 History of Present Illness History of Present Illness: ABDI VEGA is a 57 year old female with a history of MS and a large stage IV left ischial pressure sore that has followed up with the wound clinic and has had wound VAC placement for some time. Apparently she went to the wound center today and I took a wound VAC off and look at the wound and thought that it was infected. Patient's vital signs been stable. She denies any fevers. She was sent here for surgical evaluation for possible debridement and possible IV antibiotics. Hospital Course Hospital Course: Patient was initially started on broad spectrum IV antibiotics. Surgery evaluatred the paitent and she underwent debridement and wound vac placement on 11/04. She was switched to Augmentin and Doxycycline and was discharged to complete 6 days more of antibiotics. She has been stable throughout her course and had no acute issues. She was sent home with home health. 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 Physical Exam Vital Signs: Temp Pulse Resp BP Pulse Ox 98.5 F 92 18 135/88 H 98 11/10/17 07:56 11/10/17 07:56 11/10/17 07:56 11/10/17 07:56 11/10/17 07:56 Intake & Output 11/09/17 11/10/17 11/11/17 06:59 06:59 06:59 Intake Total 1458 2460 Output Total 715 500 Balance 743 1960 Weight 212 lb 15.465 oz 212 lb 15.465 oz General appearance: PRESENT: no acute distress, well-developed, well-nourished Head exam: PRESENT: atraumatic, normocephalic Eye exam: PRESENT: conjunctiva pink, EOMI, PERRLA. ABSENT: scleral icterus Ear exam: PRESENT: normal external ear exam Neck exam: ABSENT: carotid bruit, JVD, lymphadenopathy, thyromegaly Respiratory exam: PRESENT: clear to auscultation jessica. ABSENT: rales, rhonchi, wheezes Cardiovascular exam: PRESENT: RRR. ABSENT: diastolic murmur, rubs, systolic murmur Musculoskeletal exam: PRESENT: other - wound vac in place Results Laboratory Results: 11/05/17 07:12 11/05/17 07:12 Qualifiers - * PATIENT BEING DISCHARGED WITH ANY OF THE FOLLOWING DIAGNOSIS: No
== END 2017-11-10 15:55 | disposition home health service (06) | DRG 570 ==
LOC: ER 15:28 → EH 17:52 → 4N 19:45
PROVIDERS: ADMIT Internal Medicine; ATTEND Internal Medicine
PROC: 30233N1 Transfusion of Nonautologous Red Blood Cells into Peripheral Vein, Percutaneous Approach (ICD-10-PCS; 2017-11-03)
PROC: 0HB8XZZ Excision of Buttock Skin, External Approach (ICD-10-PCS; 2017-11-04)
PROC: 0JB90ZZ Excision of Buttock Subcutaneous Tissue and Fascia, Open Approach (ICD-10-PCS; principal; 2017-11-04 08:00)
DX: L89.44 Pressure ulcer of contiguous site of back, buttock and hip, stage 4 (principal); R53.2 Functional quadriplegia; L03.317 Cellulitis of buttock; T76.01XA Adult neglect or abandonment, suspected, initial encounter; L89.144 Pressure ulcer of left lower back, stage 4; L89.42 Pressure ulcer of contiguous site of back, buttock and hip, stage 2; Z68.33 Body mass index [BMI] 33.0-33.9, adult; E78.00 Pure hypercholesterolemia, unspecified; D64.9 Anemia, unspecified; B95.2 Enterococcus as the cause of diseases classified elsewhere; G35 Multiple sclerosis; K21.9 Gastro-esophageal reflux disease without esophagitis; M19.90 Unspecified osteoarthritis, unspecified site; F32.9 Major depressive disorder, single episode, unspecified; F43.10 Post-traumatic stress disorder, unspecified; G47.30 Sleep apnea, unspecified; Z79.899 Other long term (current) drug therapy; Z79.82 Long term (current) use of aspirin; Z88.6 Allergy status to analgesic agent; Z88.0 Allergy status to penicillin; Z88.8 Allergy status to other drugs, medicaments and biological substances; Z82.49 Family history of ischemic heart disease and other diseases of the circulatory system
CPT/HCPCS: 300; 36415; 36430; 80048; 80202; 83605; 85025; 85027; 86850; 86900; 86901; 86920; 87040; 87086; 87088; 87186; 96365; 99214; 99284; J0692; J1650; J2250; J2704; J3010; J3370; J3490; J7030; J7060; P9016

== ENCOUNTER 2019-03-17 06:45 | Inpatient (IN) | payer MEDICAID, MEDICARE ==
[2019-03-17] MEDS ORDERED: FENTANYL CITRATE INJ/PF 100 MCG/2 ML AMPUL ONE ×3 (06:55→19:22)
[2019-03-17] MEDS ORDERED: KETAMINE HCL INJ 500 MG/10 ML VIAL ONE (06:58)
[2019-03-17] MEDS ORDERED: NOREPINEPHRINE BITARTRATE INJ/PF 4 MG/4 ML SDV IV ONE ×2 (07:04→14:08)
[2019-03-17] MEDS ORDERED: NORMAL SALINE 1000 ML 1,000 ML IV ONE ×2 (07:09→19:30)
[2019-03-17 07:14] LABS: VENOUS BLOOD BASE EXCESS -3.2 mmol/L; VENOUS BLOOD HCO3 20.2 mmol/L (20-32); VENOUS BLOOD PCO2 31.6 mmHg (35-63); VENOUS BLOOD PH 7.42 (7.30-7.42)
[2019-03-17 07:17] LABS: ABSOLUTE LYMPHOCYTES (AUTO) 0.8 10^3/uL (0.5-4.7); ABSOLUTE MONOCYTES (AUTO) 0.9 10^3/uL (0.1-1.4); ABSOLUTE NEUT (AUTO) 8.4 10^3/uL (1.7-8.2); BASOPHILS % (AUTO) 0.2 % (0-2); HEMATOCRIT 36.3 % (36.0-47.0); HEMOGLOBIN 12.2 g/dL (12.0-15.5); LYMPHOCYTES % (AUTO) 8.2 % (13-45); MEAN CORPUSCULAR HEMOGLOBIN 27.9 pg (27.0-33.4); MEAN CORPUSCULAR HGB CONC 33.6 g/dL (32.0-36.0); MEAN CORPUSCULAR VOLUME 83 fl (80-97); MONOCYTES % (AUTO) 9.1 % (3-13); PLATELET COUNT 439 10^3/uL (150-450); RED BLOOD COUNT 4.37 10^6/uL (3.72-5.28); SEGMENTED NEUTROPHILS % (AUTO) 82.5 % (42-78); TOTAL CELLS COUNTED % (AUTO) 100 %; WHITE BLOOD COUNT 10.1 10^3/uL (4.0-10.5)
[2019-03-17 07:23] LABS: INTERNATIONAL RATION (INR) 1.35; PROTHROMBIN TIME 16.8 SEC (11.4-15.4)
[2019-03-17 07:24] LABS: PARTIAL THROMBOPLASTIN TIME 36.8 SEC (23.5-35.8)
[2019-03-17] MEDS ORDERED: KETAMINE HCL INJ 500 MG/10 ML VIAL IV ONE ×3 (07:24→08:30)
--- NOTE | 2019-03-17 07:24 | ER Document Report ---
ED Resuscitation <SCOOBYTYLERBIJAL - Last Filed: 03/17/19 08:21> - General TRAVEL OUTSIDE OF THE [place] IN LAST 30 DAYS: No <KANDACE CHAVEZ - Last Filed: 03/18/19 21:59> - General Chief Complaint: Unresponsive Stated Complaint: UNRESPONSIVE - HPI Notes: 58-year-old female history of MS, hypertension, immobility bedbound receiving 3 times a week wound care and health aide for continuing wound VAC management for improving sacral decubitus ulcer. Presents after called EMS because she was nonresponsive he says he last knew that he had given her some chocolate last night and she had been complaining of abdominal pain and some difficulty breathing he says this is all probably because she needs to take a or have a bowel movement. He says he sometimes has to do disimpact her he gave her a Dulcolax suppository but that has not made her have a bowel movement. Her home wound care nurse actually arrived to the ED and was able to tell us that she at baseline is very witty fully alert and that there had been some change of who she lived with and potentially the her other family members have financial power of criminal defense attorney but her at least seems to be making medical decisions unknown if there is any legal documentation for this he says when asked if they have had any discussions about if she were to be very very ill think she would and would not want in certain circumstances. He says always leave it up to God, and he says we have discussed that many times and she wants me to keep her alive" try to clarify if they have discussed certain scenarios such as if she were not able to communicate or interact with him or other people in her life but he reiterates going to keep her alive. Reportedly they had am not sure if this was 's decision or patient's at least appropriately declined feeding tube for her longstanding achalasia. He does say though before ask him about if they have had any advance care discussions, that he was okay with me "intubating her but he would not of been okay if we had done a trach. But then later he told the home health aide that he is okay "leaving her on a ventilator". I cannot find any actual conversations of advance care planning with patient active member of discussion though. EMS today they could not get IV access but that she was blood pressure 70 heart rate 120s I could also not get a good pulse ox she was breathing spontaneously but not responsive at all not moving any extremities nonverbal. On arrival to the ED she received 2 20-gauge IVs, fluids were started she was breathing spontaneously still and vital signs were per above. Pulse ox once we took her off the nonrebreather put her on nasal cannula and started to assist with some [id number] was 98%, she still did not seem to react to IV placement or any deep stimulation gag intact corneal intact. She was given one half mix per kick of ketamine and then 100 of succinylcholine there is no period of desaturation she was successfully intubated on first pass on glide scope stomach was decompressed. She was hypotensive and immediate only was started on Levophed and fluids were continued she was only 0.5 L in at that point. Her blood pressure responded immediately and initially they started ventilator rate 16 we increased to 17, FiO2 we increased from 60-90 and then she improved on her sats and are weaning now. Gave her 500 cc more of normal saline and now started 1 L of LR. Repeating the initial BMP showing a sodium of 120 and a potassium of 6.7 and lactic acid of 2.1 though her venous blood gas was not significantly dera nged. Urinalysis was from indwelling catheter she has chronically showed evidence of urinary infection. She is admitted to the ICU still on Levophed which we can hopefully wean with more fluids since she so far has not made any of her own urine. We will try to disimpact bowels will go for CT head abdomen pelvis and chest on the way to ICU. (KANDACE CHAVEZ) - Related Data Allergies/Adverse Reactions: aspirin Allergy (Unknown, Verified 11/10/17 07:47) Penicillins Allergy (Verified 11/02/17 15:40) trazodone [Trazodone] Allergy (Verified 11/02/17 15:40) Past Medical History - General Information source: Friend - boyfriend, [facility] Records - also home health provider came to ED to relay hx good source Cannot obtain history due to: Altered mental status - Social History Smoking Status: Unknown if Ever Smoked Family History: Reviewed & Not Pertinent, CAD - Past Medical History Cardiac Medical History: Reports: Hx Hypercholesterolemia Denies: Hx Atrial Fibrillation, Hx Congestive Heart Failure, Hx Coronary Artery Disease, Hx Heart Attack, Hx Hypertension, Hx Peripheral Vascular Disease, Hx Pulmonary Embolism, Hx Heart Murmur Pulmonary Medical History: Reports: Hx Bronchitis, Hx Pneumonia, Hx Sleep Apnea Denies: Hx Asthma, Hx COPD, Hx Respiratory Failure, Hx Tuberculosis Neurological Medical History: Denies: Hx Cerebrovascular Accident, Hx Seizures, Hx Parkinson's Disease Endocrine Medical History: Denies: Hx Graves' Disease, Hx Hyperthyroidism, Hx Hypothyroidism Renal/ Medical History: Reports: Hx Kidney Stones. Denies: Hx End Stage Renal Disease, Hx Ovarian Cysts, Hx Peritoneal Dialysis, Hx Pelvic Inflammatory Disease Malignancy Medical History: Denies: Hx Breast Cancer, Hx Cervical Cancer, Hx Leukemia, Hx Lung Cancer, Hx Ovarian Cancer GI Medical History: Reports: Hx Gastroesophageal Reflux Disease. Denies: Hx Crohn's Disease, Hx Hiatal Hernia, Hx Irritable Bowel, Hx Liver Failure, Hx Pancreatitis, Hx Ulcer Musculoskeletal Medical History: Reports Hx Arthritis, Denies Hx Fibromyalgia, Reports Hx Multiple Sclerosis, Denies Hx Muscular Dystrophy, Denies Hx Systemic Lupus Erythematosus Psychiatric Medical History: Reports: Hx Depression, Hx Post Traumatic Stress Disorder Denies: Hx Bipolar Disorder, Hx Dementia, Hx Schizophrenia Traumatic Medical History: Reports: Hx Fractures - tibia and fibula R leg, left wrist,R arm Infectious Medical History: Denies: Hx HIV Past Surgical History: Denies: Hx Appendectomy, Hx Bowel Surgery, Hx Section, Hx Cholecystectomy, Hx Colostomy, Hx Coronary Artery Bypass Graft, Hx Gastric Bypass Surgery, Hx Herniorrhaphy, Hx Hysterectomy, Hx Mastectomy, Hx Pacemaker, Hx Tonsillectomy, Hx Tubal Ligation - Immunizations Hx Diphtheria, Pertussis, Tetanus Vaccination: - unknown Hx Pneumococcal Vaccination: 04/11/10 <KANDACE CHAVEZ - Last Filed: 03/18/19 21:59> Review of Systems - Review of Systems -: Yes ROS unobtainable due to patient's medical condition <KANDACE CHAVEZ - Last Filed: 03/18/19 21:59> Physical Exam - Vital signs Interpretation: Normal, Hypotensive, Tachycardic, Hypoxic - General General appearance: Appears well, Alert - HEENT Head: Normocephalic, Atraumatic Eyes: Other - +corneal. pupils responsive sluggish 5mm. no corneal edema Conjunctiva: No: Injected - initially no eye opening to deep painful stimuli Pupils: PERRL Mouth/Lips: No: Laceration, Lesions Mucous membranes: Dry Pharynx: Potential airway comprom. - agonal spontaneous respiratoins ~17-18 bpm. +gag reflex. chocolate at subglottic level cords visible no edema., Other. No: Uvular edema Neck: Other - obese no masses - Respiratory Respiratory status: No respiratory distress, Agonal respirations, Other - ble cool to touch but palpable distal pulse.. No: Cyanosis Breath sounds: Normal, Decreased air movement, Rhonchi. No: Stridor Chest palpation: Normal. No: Wounds - Cardiovascular Rhythm: Tachycardia - cold extremities, on bedside hyperdynamic no tampanode phys Heart sounds: Normal auscultation Murmur: No Pulses: Decreased: Radial, Dorsalis pedis Normal capillary refill: No - Abdominal Inspection: Obese, Other - no ecchymoses. taut abdomen c/f intraabdom compartment syndrome. No: Wounds Distension: Distended, Tympanitic. No: Distended bladder Tenderness: Other - not respondign painful stim - Genitourinary External exam: Other - has indwelling 30F herzog w/ leg bag intact clear yellow urine. - Back Back: Normal - decubital ulcer healthy appearing few cm of healing skin wound vac seal intact. no areas of fluctuance or drainage to suggest ongoing infection or skin breakdown, Nontender - Extremities General upper extremity: Normal inspection, Nontender, Normal color, Normal ROM, Normal temperature General lower extremity: Normal inspection, Nontender, Normal color, Normal ROM, Normal temperature, Normal weight bearing. No: Elsa's sign - Neurological Neuro grossly intact: No - initially not respnsive to iv sticks sternal rub Cognition: Other - no purposeful movements doens't localize to deep pain stimuli. breath spont agonal. +gag, +b/l corneal. pupils 5mm sluggic reactive. no spont eye opening. no posturing, or seizure activity Speech: Normal Cranial nerves: No: Facial palsy Motor strength normal: LUE, RUE, LLE, RLE Additional motor exam normals: No: Involuntary movements - Skin Irregularity with: Other - besides above descripted no other skin findings. <KANDACE CHAVEZ - Last Filed: 03/18/19 21:59> - Vital signs Vitals: BP 109/81 03/17/19 06:46 Course - Laboratory Result Diagrams: 03/17/19 06:54 03/17/19 06:54 <BIJAL NICHOLS - Last Filed: 03/17/19 08:21> - Laboratory Result Diagrams: 03/18/19 03:41 03/18/19 03:41 <KANDACE CHAVEZ - Last Filed: 03/18/19 21:59> - Re-evaluation Re-evalutation: 03/18/19 21:51 eventually able to est 2 20G PIV. started iv fluid bolus, optimized oxygenation high spo2 98s w/ 2L nc assisted her own breaths bvm ensuring to use minimal ins pressure, gave disosc dose ketamine, pt obtunded prior to and immed b4 150 succ given. pt intubated, immediately recycled bp which was low, started levophed. ketamine drip ordered unfortunately did take some time to correctly order and prep etc so did note pt agitated slightly opening eyes no verbal no purposeful movements, started drip finally appropriate dose range for cont sed. finished Ivns. bp improved hr improved slightly. inserted og tube, but remain concerned about intraabdominal obstruction/compartment sydrome. pH low 7.0. gave more fluids. icu accepting will get ct head, a/p/c w/ iv contrast prior to icu bed. (KANDACE CHAVEZ) - Vital Signs Vital signs: Temp Pulse Resp BP Pulse Ox 98.5 F 95 22 H 124/74 97 03/18/19 19:28 03/18/19 20:00 03/18/19 18:00 03/18/19 18:40 03/18/19 20:00 - Laboratory Laboratory results interpreted by me: 03/17/19 03/17/19 03/17/19 06:54 06:54 06:54 RDW 16.0 H Lymph % (Auto) 8.2 L Absolute Neuts (auto) 8.4 H Seg Neutrophils % 82.5 H PT APTT VBG pCO2 31.6 L Sodium 120.2 L* Potassium 6.3 H* Chloride 88 L Carbon Dioxide 19 L BUN 58 H Glucose 142 H Total Protein 5.7 L Albumin 3.0 L Urine Protein Urine Blood Urine Nitrite Ur Leukocyte Esterase Urine Ascorbic Acid 03/17/19 03/17/19 06:54 08:06 RDW Lymph % (Auto) Absolute Neuts (auto) Seg Neutrophils % PT 16.8 H APTT 36.8 H VBG pCO2 Sodium Potassium Chloride Carbon Dioxide BUN Glucose Total Protein Albumin Urine Protein 100 H Urine Blood MODERATE H Urine Nitrite POSITIVE H Ur Leukocyte Esterase LARGE H Urine Ascorbic Acid 20 H Procedures - Intubation Orotracheal Airway evaluation: Other - dentures, large neck Mallampati Classification: Class 2 Medications: Succinylcholine, Fentanyl, Ketamine Intubation method: Orotracheal Blade type: Uche Blade size: 4 Equipment used: Glidescope ETT size: 7.5 ETT secured at: Teeth ETT secured at (cm): 25 Breath Sounds after Intubation: Equal End tidal CO2 confirmed: Yes Post Intubation Xray: Yes Intubation Complications: No complications <BIJAL NICHOLS - Last Filed: 03/17/19 08:21> - Intubation Orotracheal Notes: Large amount of chocolate was suctioned from the airway/throat before intubation could be attempted (BIJAL NICHOLS) Critical Care Note - Critical Care Note Total time excluding time spent on procedures (mins): 120 <KANDACE CHAVEZ - Last Filed: 03/18/19 21:59> Discharge <BIJAL NICHOLS - Last Filed: 03/17/19 08:21> - Discharge Admitting Provider: robbie (campus security director) Unit Admitted: ICU <KANDACE CHAVEZ - Last Filed: 03/18/19 21:59> - Discharge Clinical Impression: Dehydration, Hypotension, Unresponsiveness, Aspiration into airway, Sigmoid volvulus Respiratory failure Qualifiers: Chronicity: acute Respiratory failure complication: unspecified whether with hypoxia or hypercapnia Qualified Code(s): J96.00 - Acute respiratory failure, unspecified whether with hypoxia or hypercapnia Condition: Critical Disposition: ADMITTED INPATIENT
[2019-03-17 07:32] LABS: ALKALINE PHOSPHATASE 86 U/L (38-126); ANION GAP 13 (5-19); ASPARTATE AMINO TRANSFERASE 35 U/L (14-36); BILIRUBIN,DIRECT 0.4 mg/dL (0.0-0.4); BILIRUBIN,TOTAL 0.6 mg/dL (0.2-1.3); BLOOD UREA NITROGEN 58 mg/dL (7-20); CALCIUM 8.7 mg/dL (8.4-10.2); CARBON DIOXIDE 19 mmol/L (22-30); CHLORIDE 88 mmol/L (98-107); GLUCOSE 142 mg/dL (75-110); TOTAL PROTEIN 5.7 g/dL (6.3-8.2)
[2019-03-17 08:10] LABS: POTASSIUM 6.3 mmol/L (3.6-5.0)
[2019-03-17] MEDS ORDERED: FENTANYL CITRATE INJ/PF 100 MCG/2 ML AMPUL IV ONE ×2 (08:28→08:33)
[2019-03-17 08:32] LABS: APPEARANCE,URINE CLOUDY; BILIRUBIN,URINE NEGATIVE (NEGATIVE); COLOR,URINE YELLOW; GLUCOSE, URINE NEGATIVE (NEGATIVE); KETONES,URINE NEGATIVE (NEGATIVE); LEUKOCYTE ESTERASE,URINE LARGE (NEGATIVE); NITRITE,URINE POSITIVE (NEGATIVE); PROTEIN,URINE 100 mg/dL (NEGATIVE); URINE SPECIFIC GRAVITY 1.017; UROBILINOGEN,URINE NEGATIVE mg/dL (<2.0)
[2019-03-17] MEDS ORDERED: DEXTROSE 5%-WATER 250 ML with NOREPINEPHRINE BITARTRATE 4 MG IV PRN ×2 (08:32)
[2019-03-17] MEDS ORDERED: NORMAL SALINE 500 ML IV ONE (08:32)
[2019-03-17] MEDS ORDERED: SUCCINYLCHOLINE CHLORIDE INJ 200 MG/10 ML VIAL IV ONE (08:33)
--- NOTE | 2019-03-17 08:37 | RADIOLOGY REPORT (SQ) ---
EXAM DESCRIPTION: CHEST SINGLE VIEW COMPLETED DATE/TIME: 03/17/2019 7:54 am REASON FOR STUDY: post intubation, unresponsive COMPARISON: 07/11/2014, 10/05/2017 NUMBER OF VIEWS: One view. TECHNIQUE: Single frontal radiographic image of the chest acquired. LIMITATIONS: Motion. Positioning. FINDINGS: LUNGS AND PLEURA: Right lower lobe airspace disease. Small right pleural effusion. No pn eumothorax. MEDIASTINUM AND HEART: Stable heart size and mediastinal structures. SUPPORT DEVICES: Appropriate position of nasogastric and endotracheal tubes. BONY STRUCTURES: No acute findings. HARDWARE: None. OTHER: No other significant finding. IMPRESSION: Right lower lobe pneumonia status post intubation. No pneumothorax. Reading location - IP/workstation name: [email or web address]
[2019-03-17] MEDS ORDERED: RINGERS SOLUTION,LACTATED 1,000 ML IV ONE (09:12)
[2019-03-17] MEDS ORDERED: NORMAL SALINE 1000 ML 1,000 ML IV PRN (09:21)
[2019-03-17] MEDS ORDERED: CALCIUM GLUCONATE 1000 MG/10 ML INJ IV ONE (09:29)
[2019-03-17] MEDS ORDERED: ACETAMINOPHEN 325 MG SUPP.RECT PR ONE ×3 (09:31→09:41)
--- NOTE | 2019-03-17 09:49 | CRITICAL CARE ADMISSION REPORT ---
HPI Date:: 03/17/19 Time:: 09:00 Reason for ICU Reason:: Ventilator due to acute respiratory failure, aspiration, UTI, MS HPI: This patient is a 58 yo woman with a hx of MS. She has a sacral wound vac for a sacral decubitus that her nurse says is clean. She was somewhat disoriented last night which is how she gets with a UTI. She has a chronically indwelling herzog catheter. She has an effussion and infiltrative pattern to her R base C/W aspiration. She has a markedly distended abdomen. Constipation as well. Intubated for hypoxia and airway protection. To have scan of chest and abd from the ED Past Medical History Cardiac Medical History: Reports: Hyperlipidema Denies: Atrial Fibrillation, Congestive Heart Failure, Coronary Artery Disease, Myocardial Infarction, Hypertension, Peripheral Vascular Disease, Pulmonary Embolism, Heart Murmur Pulmonary Medical History: Reports: Bronchitis, Pneumonia, Sleep Apnea Denies: Asthma, Chronic Obstructive Pulmonary Disease (COPD), Respiratory Failure, Tuberculosis Neurological Medical History: Denies: Seizures Endocrine Medical History: Denies: Hyperthyroidism, Hypothyroidism Renal/ Medical History: Denies: End Stage Renal Disease Malignancy Medical History: Denies: Breast Cancer, Cervical Cancer, Leukemia, Lung Cancer, Ovarian Cancer GI Medical History: Reports: Gastroesophageal Reflux Disease Denies: Crohn's Disease, Hiatal Hernia Musculoskeltal Medical History: Reports: Arthritis Denies: Fibromyalgia Psychiatric Medical History: Reports: Depression, Post Traumatic Stress Disorder Denies: Bipolar Disorder, Dementia Hematology: Reports: Anemia Denies: Hemophilia, Sickle Cell Disease Infectious Medical History: Denies: HIV Past Surgical History Past Surgical History: Denies: Amputation, Appendectomy, Section, Cholecystectomy, Colostomy, Coronary Artery Bypass Graft, Gastric Bypass Surgery, Herniorrhaphy, Hysterectomy, Mastectomy, Pacemaker, Tonsillectomy, Tubal Ligation Social/Family History - Social History Smoking Status: Unknown if Ever Smoked Frequency of Alcohol Use: None Hx Recreational Drug Use: No Drugs: None Hx Prescription Drug Abuse: No - Medication/Allergies Home Medications: Aspirin [Aspirin 81 mg Chewable Tablet] 81 mg PO DAILY 11/02/17 Baclofen [Baclofen 20 mg Tablet] 20 mg PO Q6 11/02/17 Buspirone HCl [Buspar 15 mg Tablet] 15 mg PO Q8 11/02/17 Dextroamphetamine/Amphetamine [Adderall 20 mg Tablet] 20 mg PO BID 11/02/17 Diazepam [Valium] 10 mg PO Q6HP PRN 11/02/17 Diltiazem HCl [Diltiazem 24Hr ER (LA)] 180 mg PO DAILY 11/02/17 Dimethyl Fumarate [Tecfidera] 240 mg PO Q12 11/02/17 Donepezil HCl [Aricept 5 mg Tablet] 5 mg PO QHS 11/02/17 Ergocalciferol (Vitamin D2) [Drisdol 50,000 unit (1.25MG) Capsule] 50,000 unit PO ZAPATA@0800 11/02/17 Estrogen,Con/M-Progest Acet [Prempro 0.625-2.5 mg Tablet] 1 tab PO DAILY 11/02/17 Furosemide [Lasix 20 mg Tablet] 20 mg PO BID 11/02/17 Hydrocodone Bit/Acetaminophen [Hydrocodon-Acetaminophn 10-325] 1 tab PO Q12HP PRN 11/02/17 Naproxen [Naprosyn] 500 mg PO Q12HP PRN 11/02/17 Nystatin [Mycostatin Cream 15 gm] 1 applic TOP BID 11/02/17 Oxybutynin Chloride [Oxybutynin Chloride ER] 10 mg PO BID 11/02/17 Potassium Chloride [Klor-Con 10] 20 meq PO DAILY 11/02/17 Promethazine HCl [Phenergan 25 mg Tablet] 25 mg PO Q12HP PRN 11/02/17 Tapentadol HCl [Nucynta ER] 200 mg PO Q12 11/02/17 Venlafaxine HCl [Venlafaxine HCl ER] 150 mg PO Q12 11/02/17 Amox Tr/Potassium Clavulanate [Augmentin 875-125 mg Tablet] 1 tab PO BID 6 Days #12 tablet 11/10/17 Doxycycline Hyclate 150 mg PO BID 6 Days #12 tablet. 11/10/17 Allergies/Adverse Reactions: aspirin Allergy (Unknown, Verified 11/10/17 07:47) Penicillins Allergy (Verified 11/02/17 15:40) trazodone [Trazodone] Allergy (Verified 11/02/17 15:40) Review of Systems ROS unobtainable: Due to endotracheal tube Physical Exam Vital Signs: Temp Pulse Resp BP Pulse Ox 24 H 105/81 97 03/17/19 09:05 03/17/19 09:05 03/17/19 09:05 Intake & Output 03/16/19 03/17/19 03/18/19 06:59 06:59 06:59 Intake Total 1000 Balance 1000 Weight 94.7 kg Weight/Height Weight 94.7 kg General appearance: PRESENT: mild distress Head exam: PRESENT: atraumatic, normocephalic Eye exam: PRESENT: conjunctiva pink, EOMI, PERRLA. ABSENT: scleral icterus Ear exam: PRESENT: normal external ear exam Mouth exam: PRESENT: dry mucosa, other - ETT and OG Respiratory exam: PRESENT: rhonchi, tachypnea Cardiovascular exam: PRESENT: tachycardia Pulses: PRESENT: normal dorsalis pedis pul Vascular exam: PRESENT: normal capillary refill GI/Abdominal exam: PRESENT: distended, hypoactive bowel sounds, soft, tenderness Rectal exam: PRESENT: deferred Gentrourinary exam: PRESENT: indwelling catheter Extremities exam: PRESENT: full ROM. ABSENT: calf tenderness, clubbing, pedal edema Musculoskeletal exam: PRESENT: normal inspection Neurological exam: PRESENT: altered Skin exam: PRESENT: dry, intact, warm. ABSENT: cyanosis, rash Tubes/Lines: PRESENT: Endotracheal Tube, Nasogastic Tube Laboratory/Radiographs Laboratory Results: 03/17/19 06:54 03/17/19 06:54 03/17/19 03/17/19 03/17/19 06:54 06:54 06:54 WBC 10.1 RBC 4.37 Hgb 12.2 Hct 36.3 MCV 83 MCH 27.9 MCHC 33.6 RDW 16.0 H Plt Count 439 Seg Neutrophils % 82.5 H VBG pH 7.42 VBG pCO2 31.6 L VBG HCO3 20.2 VBG Base Excess -3.2 Sodium 120.2 L* Potassium 6.3 H* Chloride 88 L Carbon Dioxide 19 L Anion Gap 13 BUN 58 H Creatinine 0.90 Est GFR ( Amer) > 60 Glucose 142 H Calcium 8.7 Total Bilirubin 0.6 AST 35 Alkaline Phosphatase 86 Ammonia Total Protein 5.7 L Albumin 3.0 L Urine Color Urine Appearance Urine pH Ur Specific [place] Urine Protein Urine Glucose (UA) Urine Ketones Urine Blood Urine Nitrite Ur Leukocyte Esterase Urine WBC (Auto) Urine RBC (Auto) 03/17/19 03/17/19 07:36 08:06 WBC RBC Hgb Hct MCV MCH MCHC RDW Plt Count Seg Neutrophils % VBG pH VBG pCO2 VBG HCO3 VBG Base Excess Sodium Potassium Chloride Carbon Dioxide Anion Gap BUN Creatinine Est GFR ( Amer) Glucose Calcium Total Bilirubin AST Alkaline Phosphatase Ammonia 32.7 Total Protein Albumin Urine Color YELLOW Urine Appearance CLOUDY Urine pH 5.0 Ur Specific [place]unk 1.017 Urine Protein 100 H Urine Glucose (UA) NEGATIVE Urine Ketones NEGATIVE Urine Blood MODERATE H Urine Nitrite POSITIVE H Ur Leukocyte Esterase LARGE H Urine WBC (Auto) 47 Urine RBC (Auto) 10 03/17/19 06:54 Troponin I 0.018 Impressions: Chest X-Ray 03/17/19 07:08 IMPRESSION: Right lower lobe pneumonia status post intubation. No pneumothorax. EKG: ST, no ischemia All labs, radiographs, diagnostic studies and EKGs were personally reviewed: Yes In addition, reports of radiographic and diagnostic studies were read: Yes Critical Time Critical Time (minutes): 40 -: The care of a critically ill patient is dynamic. This note represents a static moment in the admission process. orders and treatments may be given simulataneously and urgentl, and time is not office machines sales representative of the treatment process. This patient requires Critical Care secondary to life threating organ or limb dysfunction. Without the need for Critical Care services, the patient is at risk for increasid mortality and morbidity.
[2019-03-17] MEDS ORDERED: ENOXAPARIN SODIUM INJ 40 MG/0.4 ML DISP.SYRIN SUBCUT SCH (10:00)
[2019-03-17] MEDS ORDERED: SUCCINYLCHOLINE CHLORIDE INJ 200 MG/10 ML VIAL ONE (10:23)
[2019-03-17] MEDS: HYDROMORPHONE HCL INJ/PF 2 MG/ML AMPULE IV PRN ×3 (10:35→17:00)
[2019-03-17] MEDS ORDERED: ROCURONIUM BROMIDE INJ 50 MG/5 ML VIAL IV ONE (10:52)
[2019-03-17] MEDS: LORAZEPAM INJ 2 MG/1 ML VIAL IV PRN (11:15)
[2019-03-17] MEDS ORDERED: IBUPROFEN 600 MG TABLET ONE (11:18)
[2019-03-17] MEDS ORDERED: DEXMEDETOMIDINE IN 0.9 % NACL 400 MCG/100 ML RTUPB IV ONE (11:19)
[2019-03-17] MEDS: DEXMEDETOMIDINE IN NS 400 MCG/100 ML RTUPB IV PRN ×3 (11:20→19:46)
--- NOTE | 2019-03-17 11:23 | RADIOLOGY REPORT (SQ) ---
EXAM DESCRIPTION: CT HEAD WITHOUT COMPLETED DATE/TIME: 03/17/2019 11:08 am REASON FOR STUDY: post intubation, unresponsive COMPARISON: 2017 TECHNIQUE: Axial images acquired through the brain without intravenous contrast. Images reviewed wi th bone, brain and subdural windows. Additional sagittal and coronal reconstructions were generated. Images stored on PACS. All CT scanners at this facility use dose modulation, iterative reconstruction, and/or weight based d osing when appropriate to reduce radiation dose to as low as reasonably achievable (ALARA). [facility]: Dose Right [facility]: CareDose [facility]: Dose Right [facility]: Teradose 4D [facility]: Smart Ifinity RADIATION DOSE: CT Rad equipment meets quality standard of care and radiation dose reduction techniq ues were employed. CTDIvol: 53.2 mGy. DLP: 1124 mGy-cm.mGy. LIMITATIONS: Motion. FINDINGS: VENTRICLES: Prominent. CEREBRUM: No masses. No hemorrhage. No midline shift. Areas of low density in the white matter mos t likely due to chronic micro-vascular ischemic change. No evidence for acute infarction. CEREBELLUM: No masses. No hemorrhage. No alteration of density. No evidence for acute infarction. EXTRAAXIAL SPACES: Age-related involutional change. No fluid collections. No masses. ORBITS AND GLOBE: No intra- or extraconal masses. Normal contour of globe without masses. CALVARIUM: No fracture. PARANASAL SINUSES: No fluid or mucosal thickening. SOFT TISSUES: No mass or hematoma. OTHER: No other significant finding. IMPRESSION: CHRONIC CHANGES OF ATROPHY AND MICROVASCULAR ISCHEMIA. NO ACUTE PROCESS. EVIDENCE OF ACUTE STROKE: NO. TECHNICAL DOCUMENTATION: JOB ID: [id number] Quality ID # [id number]: Final reports with documentation of one or more dose reduction techniques (e.g., Au tomated exposure control, adjustment of the mA and/or kV according to patient size, use of iterative reconstruction technique) 2010 [employer]- All Rights Reserved Reading location - IP/workstation name: [email or web address]
--- NOTE | 2019-03-17 11:30 | RADIOLOGY REPORT (SQ) ---
EXAM DESCRIPTION: CT CHEST WITH COMPLETED DATE/TIME: 03/17/2019 11:08 am REASON FOR STUDY: respiratory failure nonresponive COMPARISON: None. TECHNIQUE: CT scan of the chest performed using helical scanning technique with dynamic intravenous contrast injection. Images reviewed with lung, soft tissue and bone windows. Reconstructed coronal and sagittal MPR and MIP images reviewed. All images stored on PACS. All CT scanners at this facility use dose modulation, iterative reconstruction, and/or weight based d osing when appropriate to reduce radiation dose to as low as reasonably achievable (ALARA). [facility]: Dose Right [facility]: CareDose [facility]: Dose Right [facility]: Teradose 4D [facility]: Smart [employer] CONTRAST TYPE AND DOSE: See separate report of the same date. RENAL FUNCTION: See separate report. RADIATION DOSE: . LIMITATIONS: Motion artifact. FINDINGS: LUNGS AND PLEURA: Patient is intubated. There is collapse of the right lower lobe and mos t of the middle lobe. Left lung is clear. HILAR AND MEDIASTINAL STRUCTURES: Diffuse thickening of the esophagus. HEART AND VASCULAR STRUCTURES: No aneurysm or dissection. No central pulmonary emboli. No pericardi al effusion. HARDWARE: None in the chest. UPPER ABDOMEN: See separate report of the CT of the abdomen. THYROID AND OTHER SOFT TISSUES: No masses. No adenopathy. BONES: Nothing acute. OTHER: No other significant finding. IMPRESSION: 1. Collapse of the right lower lobe and most of the middle lobe. 2. Diffuse thickening of the esophagus. TECHNICAL DOCUMENTATION: JOB ID: [id number] Quality ID # [id number]: Final reports with documentation of one or more dose reduction techniques (e.g., Au tomated exposure control, adjustment of the mA and/or kV according to patient size, use of iterative reconstruction technique) 2010 [employer]- All Rights Reserved Reading location - IP/workstation name: [email or web address]
--- NOTE | 2019-03-17 11:58 | RADIOLOGY REPORT (SQ) ---
EXAM DESCRIPTION: CT ABD/PELVIS WITH IV ONLY COMPLETED DATE/TIME: 03/17/2019 11:08 am REASON FOR STUDY: tight acutely distended abdomen COMPARISON: None. TECHNIQUE: CT scan of the abdomen and pelvis performed using helical scanning technique with dynamic intravenous contrast injection. No oral contrast. Images reviewed with lung, soft tissue, and bone windows. Reconstructed coronal and sagittal MPR images reviewed. Delayed images for evaluation of the urinary system also acquired. All images stored on PACS. All CT scanners at this facility use dose modulation, iterative reconstruction, and/or weight based d osing when appropriate to reduce radiation dose to as low as reasonably achievable (ALARA). [facility]: Dose Right [facility]: CareDose [facility]: Dose Right [facility]: Teradose 4D [facility]: GetSet CONTRAST TYPE AND DOSE: contrast/concentration: Isovue 350.00 mg/ml; Total Contrast Delivered: 100.0 ml; Total Saline Delivered: 72.0 ml RENAL FUNCTION: GFR > 60. RADIATION DOSE: CT Rad equipment meets quality standard of care and radiation dose reduction techniq ues were employed. CTDIvol: 9.6 - 14.4 mGy. DLP: 1729 mGy-cm.. LIMITATIONS: Motion. FINDINGS: LOWER CHEST: See separate report of the CT of the chest. LIVER: Normal size. Small cyst. No dilated ducts. SPLEEN: Normal size. No focal lesions. PANCREAS: No masses. No significant calcifications. No adjacent inflammation or peripancreatic fluid collections. Pancreatic duct not dilated. GALLBLADDER: Not visualized. ADRENAL GLANDS: Bilateral nodules, largest on the left measuring about 2 cm. RIGHT KIDNEY AND URETER: No solid masses. No significant calcifications. No hydronephrosis or hyd roureter. LEFT KIDNEY AND URETER: No solid masses. No significant calcifications. No hydronephrosis or hydr oureter. AORTA AND VESSELS: No aneurysm. RETROPERITONEUM: No retroperitoneal adenopathy, hemorrhage or masses. BOWEL AND PERITONEAL CAVITY: Dilated loop of sigmoid colon cannot exclude volvulus. Right hemicolect frances. Mildly dilated loops of small bowel with gas fluid levels. No clear transition. Small amount of ascites. No free air. APPENDIX: Surgically absent. PELVIS: Hernandez catheter in urinary bladder. ABDOMINAL WALL: No masses. No hernias. BONES: Nothing acute. OTHER: Nasogastric tube in the stomach. IMPRESSION: 1. Suspected sigmoid volvulus. 2. Small amount of ascites. No free air. 3. Adrenal nodules. COMMENT: 2 unsuccessful attempts were made to reach the provider in the ICU. Communication assigned to the CORE support team. TECHNICAL DOCUMENTATION: JOB ID: [id number] Quality ID # [id number]: Final reports with documentation of one or more dose reduction techniques (e.g., Au tomated exposure control, adjustment of the mA and/or kV according to patient size, use of iterative reconstruction technique) 2010 [employer]- All Rights Reserved Reading location - IP/workstation name: [email or web address]
[2019-03-17] MEDS ORDERED: INFLUENZA QUAD (6MOS+) 2019-20 VAC 0.5 ML SYR IM ONE (12:38)
[2019-03-17] MEDS ORDERED: DEXTROSE 50%-WATER 25 GM/50 ML DISP.SYRIN IV ONE (13:16)
[2019-03-17] MEDS ORDERED: INSULIN REG, HUMAN 100 UNIT/ML 3 ML VIAL (PYX) SUBCUT ONE (13:16)
[2019-03-17 13:23] LABS: ANION GAP 13 (5-19); BLOOD UREA NITROGEN 56 mg/dL (7-20); CALCIUM 8.1 mg/dL (8.4-10.2); CARBON DIOXIDE 21 mmol/L (22-30); CHLORIDE 90 mmol/L (98-107); GLUCOSE 114 mg/dL (75-110); POTASSIUM 5.6 mmol/L (3.6-5.0)
[2019-03-17] MEDS ORDERED: DIPHENHYDRAMINE HCL 50 MG/ML VIAL ONE (13:33)
[2019-03-17] MEDS ORDERED: ONDANSETRON HCL INJ/PF 4 MG/2 ML SDV ONE (13:33)
[2019-03-17] MEDS ORDERED: NALOXONE HCL INJ/PF 0.4 MG/1 ML SDV ONE (13:34)
[2019-03-17] MEDS ORDERED: EPINEPHRINE INJ 1 MG/10 ML DISP.SYRIN ONE (13:34)
[2019-03-17] MEDS ORDERED: GLUCAGON,HUMAN RECOMB 1 MG INJ ONE (13:34)
[2019-03-17] MEDS ORDERED: FLUMAZENIL INJ 0.5 MG/5 ML VIAL ONE (13:34)
[2019-03-17] MEDS ORDERED: MIDAZOLAM 2 MG/2 ML INJ ONE ×2 (13:34→19:22)
[2019-03-17 13:43] LABS: ARTERIAL BLOOD BASE EXCESS -5.1 mmol/L; ARTERIAL BLOOD FIO2 50%; ARTERIAL BLOOD H2CO3 0.96 mmol/L (1.05-1.35); ARTERIAL BLOOD HCO3 18.9 mmol/L (20-24); ARTERIAL BLOOD O2 SATURATION 97.4 % (94-98); ARTERIAL BLOOD PCO2 31.8 mmHg (35-45); ARTERIAL BLOOD PH 7.39 (7.35-7.45); ARTERIAL BLOOD PO2 96.9 mmHg (80-100); ARTERIAL BLOOD TOTAL CO2 19.9 mmol/L (21-25)
--- NOTE | 2019-03-17 13:45 | PDOC CONSULTATION ---
Consultation Consult Date: 03/17/19 Attending physician:: MEGGAN MACHADO Provider Consulted: NALINI OLVERA Consult reason:: sigmoid volvolus History of Present Illness Admission Date/PCP: 03/17/19 09:29 [facility] [place] History of Present Illness: ABDI VEGA is a 58 year old female with a hx of MS. She has a sacral wound vac for a sacral decubitus that her nurse says is clean. She was somewhat disoriented last night which is how she gets with a UTI. She has a chronically indwelling herzog catheter. She has an effussion and infiltrative pattern to her R base C/W aspiration. She has a markedly distended abdomen. Constipation as well. Intubated for hypoxia and airway protection. pt had a ct of abd and chest in er shows sigmoid volvolus and rt lower lobe pneumonia with lung partial collapse. pt now intubated with temp of 105, sl hypotensive. and initial potassium of 6.1 lactate of 4.7 Past Medical History Cardiac Medical History: Reports: Hyperlipidema Denies: Atrial Fibrillation, Congestive Heart Failure, Coronary Artery Disease, Myocardial Infarction, Hypertension, Peripheral Vascular Disease, Pulmonary Embolism, Heart Murmur Pulmonary Medical History: Reports: Bronchitis, Pneumonia, Sleep Apnea Denies: Asthma, Chronic Obstructive Pulmonary Disease (COPD), Respiratory Failure, Tuberculosis Neurological Medical History: Denies: Seizures Endocrine Medical History: Denies: Hyperthyroidism, Hypothyroidism Renal/ Medical History: Denies: End Stage Renal Disease Malignancy Medical History: Denies: Breast Cancer, Cervical Cancer, Leukemia, Lung Cancer, Ovarian Cancer GI Medical History: Reports: Gastroesophageal Reflux Disease Denies: Crohn's Disease, Hiatal Hernia Musculoskeltal Medical History: Reports: Arthritis Denies: Fibromyalgia Psychiatric Medical History: Reports: Depression, Post Traumatic Stress Disorder Denies: Bipolar Disorder, Dementia Hematology: Reports: Anemia Denies: Hemophilia, Sickle Cell Disease Infectious Medical History: Denies: HIV Past Surgical History Past Surgical History: Denies: Amputation, Appendectomy, Section, Cholecystectomy, Colostomy, Coronary Artery Bypass Graft, Gastric Bypass Surgery, Herniorrhaphy, Hysterectomy, Mastectomy, Pacemaker, Tonsillectomy, Tubal Ligation Social History Smoking Status: Unknown if Ever Smoked Frequency of Alcohol Use: None Hx Recreational Drug Use: No Drugs: None Hx Prescription Drug Abuse: No Family History Family History: Reviewed & Not Pertinent, CAD Parental Family History Reviewed: No Children Family History Reviewed: Unknown Sibling(s) Family History Reviewed.: Unknown Medication/Allergy Home Medications: Baclofen [Baclofen 20 mg Tablet] 20 mg PO Q6HP PRN 11/02/17 Buspirone HCl [Buspar 15 mg Tablet] 15 mg PO Q8 11/02/17 Dextroamphetamine/Amphetamine [Adderall 20 mg Tablet] 20 mg PO BID 11/02/17 Diazepam [Valium] 10 mg PO Q6HP PRN 11/02/17 Diltiazem HCl [Diltiazem 24Hr ER (LA)] 180 mg PO DAILY 11/02/17 Dimethyl Fumarate [Tecfidera] 240 mg PO Q12 11/02/17 Donepezil HCl [Aricept 5 mg Tablet] 5 mg PO QHS 11/02/17 Estrogen,Con/M-Progest Acet [Prempro 0.625-2.5 mg Tablet] 1 tab PO DAILY 0 11/02/17 Furosemide [Lasix 20 mg Tablet] 20 mg PO BID 11/02/17 Hydrocodone Bit/Acetaminophen [Hydrocodon-Acetaminophn 10-325] 1 tab PO Q12HP PRN 11/02/17 Naproxen [Naprosyn] 500 mg PO Q12HP PRN 11/02/17 Nystatin [Mycostatin Cream 15 gm] 1 applic TOP BID 11/02/17 Oxybutynin Chloride [Oxybutynin Chloride ER] 10 mg PO BID 11/02/17 Potassium Chloride [Klor-Con 10] 20 meq PO DAILY 11/02/17 Promethazine HCl [Phenergan 25 mg Tablet] 25 mg PO Q12HP PRN 11/02/17 Tapentadol HCl [Nucynta ER] 200 mg PO Q12 11/02/17 Venlafaxine HCl [Venlafaxine HCl ER] 150 mg PO Q12 11/02/17 Amitriptyline HCl [Elavil 50 Mg Tablet] 50 mg PO QHS 03/17/19 Lidocaine [Lidoderm 5% (700 mg) Transdermal Patch] 1 patch TOP DAILY 03/17/19 Pantoprazole Sodium 40 mg PO DAILY 03/17/19 Allergies/Adverse Reactions: aspirin Allergy (Unknown, Verified 11/10/17 07:47) Penicillins Allergy (Verified 11/02/17 15:40) trazodone [Trazodone] Allergy (Verified 11/02/17 15:40) Review of Systems ROS unobtainable: Due to endotracheal tube Physical Exam Vital Signs: Temp Pulse Resp BP Pulse Ox 103.3 F H 116 H 15 97/62 L 98 03/17/19 12:00 03/17/19 12:00 03/17/19 12:00 03/17/19 12:00 03/17/19 12:00 Intake & Output 03/16/19 03/17/19 03/18/19 06:59 06:59 06:59 Intake Total 2658 Output Total 460 Balance 2198 Weight 92.9 kg General appearance: PRESENT: morbidly obese Head exam: PRESENT: normocephalic Eye exam: PRESENT: conjunctiva pale Ear exam: PRESENT: normal external ear exam Mouth exam: PRESENT: dry mucosa Teeth exam: PRESENT: poor dentation Respiratory exam: PRESENT: decreased breath sounds Cardiovascular exam: PRESENT: RRR Pulses: PRESENT: normal radial pulses, normal femoral pulses GI/Abdominal exam: PRESENT: other - tense, distended, typmpanitic Rectal exam: PRESENT: deferred Gentrourinary exam: PRESENT: indwelling catheter Extremities exam: PRESENT: other - contractures bilat lower ext Neurological exam: PRESENT: other - intubated, non responsive Skin exam: PRESENT: dry Results Laboratory Results: 03/17/19 06:54 03/17/19 12:58 03/17/19 03/17/19 03/17/19 06:54 06:54 06:54 WBC 10.1 RBC 4.37 Hgb 12.2 Hct 36.3 MCV 83 MCH 27.9 MCHC 33.6 RDW 16.0 H Plt Count 439 Seg Neutrophils % 82.5 H VBG pH 7.42 VBG pCO2 31.6 L VBG HCO3 20.2 VBG Base Excess -3.2 Sodium 120.2 L* Potassium 6.3 H* Chloride 88 L Carbon Dioxide 19 L Anion Gap 13 BUN 58 H Creatinine 0.90 Est GFR ( Amer) > 60 Est GFR (Non-Af Amer) Glucose 142 H Lactic Acid Calcium 8.7 Magnesium Total Bilirubin 0.6 AST 35 Alkaline Phosphatase 86 Ammonia Total Protein 5.7 L Albumin 3.0 L Urine Color Urine Appearance Urine pH Ur Specific [place] Urine Protein Urine Glucose (UA) Urine Ketones Urine Blood Urine Nitrite Ur Leukocyte Esterase Urine WBC (Auto) Urine RBC (Auto) 03/17/19 03/17/19 03/17/19 06:54 07:36 08:06 WBC RBC Hgb Hct MCV MCH MCHC RDW Plt Count Seg Neutrophils % VBG pH VBG pCO2 VBG HCO3 VBG Base Excess Sodium Cancelled Potassium Cancelled Chloride Cancelled Carbon Dioxide Cancelled Anion Gap Cancelled BUN Cancelled Creatinine Cancelled Est GFR ( Amer) Cancelled Est GFR (Non-Af Amer) Cancelled Glucose Cancelled Lactic Acid Calcium Cancelled Magnesium 2.1 Total Bilirubin Cancelled AST Cancelled Alkaline Phosphatase Cancelled Ammonia 32.7 Total Protein Cancelled Albumin Cancelled Urine Color YELLOW Urine Appearance CLOUDY Urine pH 5.0 Ur Specific [place] 1.017 Urine Protein 100 H Urine Glucose (UA) NEGATIVE Urine Ketones NEGATIVE Urine Blood MODERATE H Urine Nitrite POSITIVE H Ur Leukocyte Esterase LARGE H Urine WBC (Auto) 47 Urine RBC (Auto) 10 03/17/19 03/17/19 12:58 12:58 WBC RBC Hgb Hct MCV MCH MCHC RDW Plt Count Seg Neutrophils % VBG pH VBG pCO2 VBG HCO3 VBG Base Excess Sodium 124.4 L Potassium 5.6 H Chloride 90 L Carbon Dioxide 21 L Anion Gap 13 BUN 56 H Creatinine 0.89 Est GFR ( Amer) > 60 Est GFR (Non-Af Amer) Glucose 114 H Lactic Acid 4.7 H Calcium 8.1 L Magnesium Total Bilirubin AST Alkaline Phosphatase Ammonia Total Protein Albumin Urine Color Urine Appearance Urine pH Ur Specific [place] Urine Protein Urine Glucose (UA) Urine Ketones Urine Blood Urine Nitrite Ur Leukocyte Esterase Urine WBC (Auto) Urine RBC (Auto) 03/17/19 06:54 Troponin I 0.018 Impressions: Chest X-Ray 03/17/19 07:08 IMPRESSION: Right lower lobe pneumonia status post intubation. No pn eumothorax. Head CT 03/17/19 07:08 IMPRESSION: CHRONIC CHANGES OF ATROPHY AND MICROVASCULAR ISCHEMIA. NO ACUTE PROCESS. EVIDENCE OF ACUTE STROKE: NO. Abdomen/Pelvis CT 03/17/19 08:51 IMPRESSION: 1. Suspected sigmoid volvulus. 2. Small amount of ascites. No free air. 3. Adrenal nodules. Chest CT 03/17/19 08:52 IMPRESSION: 1. Collapse of the right lower lobe and most of the middle lobe. 2. Diffuse thickening of the esophagus. Assessment & Plan - Diagnosis (1) Volvulus of sigmoid colon Plan: pt has worsening acidosis and tense distended abd will attempt colonoscopic decompression, however pt may have colonic ischemia at this point and will require emergent laparotomy and colectomy pt gravely ill with poor prognosis.
[2019-03-17] MEDS: NORMAL SALINE 1000 ML 1,000 ML IV PRN ×2 (13:50→21:57)
[2019-03-17] MEDS: DEXTROSE 5%-WATER 250 ML with NOREPINEPHRINE BITARTRATE 4 MG IV PRN ×4 (14:14→19:48)
[2019-03-17] MEDS: CEFEPIME 1 GM/D5W RTU 1 GM/50 ML RTUPB IV SCH ×2 (14:47→21:56)
[2019-03-17] MEDS: PANTOPRAZOLE SODIUM 40 MG VIAL IV SCH (14:47)
[2019-03-17] MEDS ORDERED: INSULIN REG, HUMAN 100 UNIT/ML 3 ML VIAL (PYX) IV ONE (15:15)
--- NOTE | 2019-03-17 16:38 | Operative Report ---
Nonrecallable Operative Report DATE OF SURGERY: 03/17/19 PREOPERATIVE DIAGNOSIS: sigmoid volvolus POSTOPERATIVE DIAGNOSIS: sigmoid volvolus OPERATION: colonoscopic decompression with rectal tube placement. SURGEON: NALINI OLVERA ANESTHESIA: Moderate Sedation TISSUE REMOVED OR ALTERED: none COMPLICATIONS: none ESTIMATED BLOOD LOSS: 0 INTRAOPERATIVE FINDINGS: see dictation PROCEDURE: Patient was in the intensive care unit on her bed she was placed in a left lateral decubitus position. Patient was intubated and nonresponsive and did not require sedation for this procedure. After appropriate timeout and site verification the procedure commenced. Using the Olympus colonoscope was passed into the rectum and manipulated through the first portion of the rectum into the distal sigmoid colon there is a large amount of stool and gas was noted upon insertion of the scope. As we passed the scope up the sigmoid colon was somewhat difficult secondary to a large amount of stool obscuring view. Scope was slowly meticulously manipulated up the sigmoid colon to the descending colon where we reached a large amount of gas and stool which was irrigated and suctioned free we finally able to manipulate around the stool to the splenic flexure and then the mid transverse colon because of a lar ge amount stool proximal to the mid transverse colon I thank you I was not able to advance the scope past the mid transverse colon. However we did receive a large amount of stool output and gas as we advance the scope and then as we slowly pulled the scope back we are able to visualize the mucosa of the splenic flexure and descending colon that appeared to be relatively normal as we came through the area of the proposed volvulus there was areas of the sigmoid colon that had some mucosal ischemia associated with it photodocumentation was obtained there is no obvious perforation there was multiple skip areas of necrosis of the mucosa of the sigmoid colon and a large amount of stool was removed from the descending and sigmoid colon as we withdrew the scope once the scope was withdrawn I used a 40 Uzbek chest tube and easily passed it up into the rectum the sigmoid colon where I got a mixon of air and stool. Impression fecal impaction sigmoid volvulus Plan we will repeat CT scan to see if there is an improvement in her colonic distention.
--- NOTE | 2019-03-17 17:57 | RADIOLOGY REPORT (SQ) ---
EXAM DESCRIPTION: CT ABD/PELVIS NO ORAL OR IV COMPLETED DATE/TIME: 03/17/2019 4:36 pm REASON FOR STUDY: POST COLONOSCOPY COMPARISON: CT abdomen and pelvis 03/17/2019 at 10:55 hours TECHNIQUE: CT scan of the abdomen and pelvis performed without intravenous or oral contrast on 2018 at 16:29 hours. Images reviewed with lung, soft tissue, and bone windows. Reconstructed coronal and sagittal MPR images reviewed. All images stored on PACS. All CT scanners at this facility use dose modulation, iterative reconstruction, and/or weight based d osing when appropriate to reduce radiation dose to as low as reasonably achievable (ALARA). [facility]: Dose Right [facility]: CareDose [facility]: Dose Right [facility]: Teradose 4D [facility]: [employer] RADIATION DOSE: CT Rad equipment meets quality standard of care and radiation dose reduction techniq ues were employed. CTDIvol: 19.9 mGy. DLP: 1211 mGy-cm.mGy. LIMITATIONS: There is streak artifact from the patient's arms along the body. FINDINGS: LOWER CHEST: Airspace opacities at the visualized lung bases. No sizable pleural effusion . There is wall thickening of the visualized distal esophagus. NON-CONTRASTED LIVER, SPLEEN, ADRENALS: Evaluation limited by lack of IV contrast. There is a 1.4 cm hypodense lesion at the medial aspect of the left hepatic lobe, segment 4B. Redemonstration of nodu lar thickening of the bilateral adrenal glands. PANCREAS: No peripancreatic inflammatory changes. GALLBLADDER: Not visualized. RIGHT KIDNEY AND URETER: Assessment for masses limited by lack of intravenous contrast. There is a 1 .6 cm fat containing lesion at the inferior pole of the right kidney. No significant calcifications . No hydronephrosis or hydroureter. There is contrast excretion from the prior CT abdomen and pelv is. LEFT KIDNEY AND URETER: Assessment for masses limited by lack of IV contrast. No significant calcif ications. No hydronephrosis or hydroureter. There is contrast excretion from the prior CT abdomen and pelvis. AORTA AND RETROPERITONEUM: No abdominal aortic aneurysm. No retroperitoneal hemorrhage. BOWEL AND PERITONEAL CAVITY: Suboptimal evaluation of the bowel in the absence of oral contrast. Ent driss tube terminates at the body of the stomach. There are multiple dilated small bowel loops with a ir-fluid levels. Gas and stool noted throughout the colon. There is persistent focal dilation of a segment of colon at the left lower quadrant. Interval placement of a rectal tube with the tip termin ating at the right lower quadrant. Small amount of ascites. No evidence for pneumoperitoneum. APPENDIX: Not visualized. PELVIS, BLADDER, AND ABDOMINAL WALL:The urinary bladder is decompressed by a Hernandez catheter. No obvi ous pelvic mass. BONES: There is diffuse osteopenia. Chronic deformities are noted at the bilateral proximal femurs. Multilevel degenerative changes at the spine. IMPRESSION: 1. Suboptimal evaluation of the bowel in the absence of oral contrast. Multiple air-flui d levels at small bowel loops, may be secondary to ileus versus distal small bowel obstruction. Pers istent focal dilation of a segment of colon at the left lower quadrant, may represent cecal volvulus. Interval placement of a rectal tube with the tip at the right lower quadrant. 2. Small ascites. 3. Nodular thickening of the bilateral adrenal glands and 1.4 cm hypodense lesion at the inferior lef t hepatic lobe, indeterminate. 4. 1.6 cm fat containing lesion at the right kidney, may represent an angiomyolipoma. 5. Airspace opacities at the bilateral lower lobes, may be secondary to atelectasis or pneumonia. 6. Diffuse wall thickening of the visualized distal esophagus, may be secondary to esophagitis. Eval uation with upper endoscopy as clinically warranted. COMMENT: The findings of possible cecal volvulus were discussed over the phone with Dr. Joel on 03/17/2019 at 17:00 hours Quality ID # [id number]: Final reports with documentation of one or more dose reduction techniques (e.g., Au tomated exposure control, adjustment of the mA and/or kV according to patient size, use of iterative reconstruction technique) TECHNICAL DOCUMENTATION: JOB ID: [id number] 2010 [employer]- All Rights Reserved Reading location - IP/workstation name: [email or web address]
[2019-03-17] MEDS ORDERED: VASOPRESSIN INJ 20 UNIT/1 ML VIAL ONE (18:36)
--- NOTE | 2019-03-17 18:48 | RADIOLOGY REPORT (SQ) ---
EXAM DESCRIPTION: CHEST SINGLE VIEW COMPLETED DATE/TIME: 03/17/2019 6:16 pm REASON FOR STUDY: central line placement COMPARISON: Earlier exam at 0730 hours NUMBER OF VIEWS: One view. TECHNIQUE: Single frontal radiographic view of the chest acquired. LIMITATIONS: None. FINDINGS: Central venous access catheter placed via left subclavian approach. Catheter tip at supe rior vena cava. No pneumothorax. Radiographic appearance of the chest shows improved aeration in the right lung base compared with the prior study. Endotracheal tube tip overlies the lower 3rd of the trachea, stable. . IMPRESSION: Central venous access catheter placed via left subclavian approach. Catheter tip at sup erior vena cava. No pneumothorax. Radiographic appearance of the chest shows improved aeration in th e right lung base compared with the prior study. Endotracheal tube tip overlies the lower 3rd of the trachea, stable. TECHNICAL DOCUMENTATION: JOB ID: [id number] 2010 [employer]- All Rights Reserved Reading location - IP/workstation name: [email or web address]
[2019-03-17] MEDS ORDERED: DEXTROSE 5%-WATER 250 ML with VASOPRESSIN 100 UNIT IV PRN ×2 (19:19)
[2019-03-17] MEDS ORDERED: FENTANYL CITRATE INJ/PF 250 MCG/5 ML AMPULE ONE (19:22)
[2019-03-17] MEDS ORDERED: EPHEDRINE SULFATE INJ 50 MG/1 ML AMPULE ONE (19:23)
--- NOTE | 2019-03-17 19:56 | Operative Report ---
Nonrecallable Operative Report DATE OF SURGERY: 03/17/19 PREOPERATIVE DIAGNOSIS: sepsis, cecal volvolus POSTOPERATIVE DIAGNOSIS: sepsis, cecal volvolus OPERATION: central line placement SURGEON: NALINI OLVERA ANESTHESIA: Other TISSUE REMOVED OR ALTERED: none COMPLICATIONS: none ESTIMATED BLOOD LOSS: 0 INTRAOPERATIVE FINDINGS: multiple attempts at rt subclavian, then left internal jugular, then left subclavian. PROCEDURE: pt moribound min responsive after appropriate prep and drape 1%lidocaine used in sub cutaneous tissue for anesthesia attempts at rt subclavian unsuccesful then attempt at left int jugular with ultrasound unsuccessful finally able to canulate the left subclavian vein and pass j-wire into the superior vena cava over the wire seldinger technique was used and a triple lumen catheter was placed fixted to skin with 2-0 silk f/u cxr revealed good position without ptx catheter flushed and withdraw well
--- NOTE | 2019-03-17 20:04 | EKG REPORT ---
SEVERITY:- ABNORMAL ECG - SINUS TACHYCARDIA NONSPECIFIC T ABNORMALITIES, DIFFUSE LEADS : Confirmed by: Krissy Molina MD 17-Mar-2019 20:04:19
[2019-03-18] MEDS ORDERED: FENTANYL CITRATE INJ/PF 100 MCG/2 ML AMPUL ONE (01:19)
[2019-03-18] MEDS: DEXTROSE 5%-WATER 250 ML with NOREPINEPHRINE BITARTRATE 4 MG IV PRN ×6 (01:37→20:13)
[2019-03-18] MEDS ORDERED: FENTANYL CITRATE INJ/PF 100 MCG/2 ML AMPUL IV ONE (01:45)
[2019-03-18] MEDS: DEXMEDETOMIDINE IN NS 400 MCG/100 ML RTUPB IV PRN ×6 (02:42→22:17)
[2019-03-18 03:51] LABS: RED BLOOD COUNT 3.42 10^6/uL (3.72-5.28)
[2019-03-18 03:54] LABS: HEMATOCRIT 28.1 % (36.0-47.0); MEAN CORPUSCULAR HEMOGLOBIN 27.7 pg (27.0-33.4); MEAN CORPUSCULAR HGB CONC 33.8 g/dL (32.0-36.0); MEAN CORPUSCULAR VOLUME 82 fl (80-97); PLATELET COUNT 221 10^3/uL (150-450); RED CELL DISTRIBUTION WIDTH 16.1 % (11.5-14.0); WHITE BLOOD COUNT 5.3 10^3/uL (4.0-10.5)
[2019-03-18 04:44] LABS: HEMOGLOBIN 9.5 g/dL (12.0-15.5)
[2019-03-18 04:50] LABS: ABSOLUTE LYMPHOCYTES# (MANUAL) 0.7 10^3/uL (0.5-4.7); ABSOLUTE MONOCYTES # (MANUAL) 0.1 10^3/uL (0.1-1.4); BASOPHILS % (MANUAL) 0 % (0-2); EOSINOPHILS % (MANUAL) 0 % (0-6); LYMPHOCYTES % (MANUAL) 10 % (13-45); MONOCYTES % (MANUAL) 2 % (3-13); SEGMENTED NEUTROPHILS % (MAN) 84 % (42-78); TOTAL CELLS COUNTED 100
[2019-03-18 04:51] LABS: ANISOCYTOSIS 1+; HELMET CELLS SLIGHT; POIKILOCYTOSIS 1+; TOXIC GRANULATION 1+; TOXIC VACUOLATION PRESENT
[2019-03-18 04:52] LABS: OVALOCYTES 1+; PLATELET COMMENT ADEQUATE
[2019-03-18] MEDS: HYDROMORPHONE HCL INJ/PF 2 MG/ML AMPULE IV PRN ×3 (05:04→18:21)
[2019-03-18] MEDS: NORMAL SALINE 1000 ML 1,000 ML IV PRN ×3 (05:04→22:18)
[2019-03-18 05:33] LABS: ANION GAP 12 (5-19); BLOOD UREA NITROGEN 48 mg/dL (7-20); CARBON DIOXIDE 17 mmol/L (22-30); CHLORIDE 98 mmol/L (98-107); GLUCOSE 159 mg/dL (75-110); POTASSIUM 4.7 mmol/L (3.6-5.0)
[2019-03-18 05:47] LABS: CALCIUM 6.7 mg/dL (8.4-10.2)
[2019-03-18] MEDS ORDERED: NORMAL SALINE 1000 ML 1,000 ML IV ONE (07:03)
--- NOTE | 2019-03-18 08:38 | RADIOLOGY REPORT (SQ) ---
EXAM DESCRIPTION: CHEST SINGLE VIEW COMPLETED DATE/TIME: 03/18/2019 7:23 am REASON FOR STUDY: Respiratory Failure COMPARISON: 03/17/2019 NUMBER OF VIEWS: One view. TECHNIQUE: Single frontal radiographic image of the chest acquired. LIMITATIONS: None. FINDINGS: LUNGS AND PLEURA: Small pleural effusions. No pneumothorax. MEDIASTINUM AND HILAR STRUCTURES: Stable heart size and mediastinal structures. HEART AND VASCULAR STRUCTURES: Stable appearance. SUPPORT DEVICES: Appropriate location without change. BONES: No acute findings. OTHER: No other significant finding. IMPRESSION: STABLE APPEARANCE OF THE CHEST. SUPPORT DEVICES UNCHANGED. TECHNICAL DOCUMENTATION: JOB ID: [id number] [employer]- All Rights Reserved Reading location - IP/workstation name: [email or web address]
--- NOTE | 2019-03-18 08:57 | PDOC CRITICAL CARE PROG REPORT ---
General Date:: 03/18/19 ICU Day:: 2 Ventilator Day:: 2 Hospital Day:: 2 Resuscitation Status: Full Code Medical Power of Electro Mechanical Technologist: Rogerio Michael [phone] Events in the past 12 to 24 Hours:: To OR, Volvulus reduced. Review of systems relevant to events:: GI, Neuro, CV. Reason for ICU Addmission:: Ventilator due to acute respiratory failure, aspiration, UTI, MS - Medications: Medications reviewed and adjusted accordingly: Yes Vasopressors:: Levophed Sedation:: Precedex Physical Exam Vital Signs: Temp Pulse Resp BP Pulse Ox 104.9 F H 106 H 20 88/43 L 97 03/18/19 08:00 03/18/19 08:00 03/18/19 08:00 03/18/19 08:00 03/18/19 08:00 Intake & Output 03/17/19 03/18/19 03/19/19 06:59 06:59 06:59 Intake Total 7818 1000 Output Total 2110 150 Balance 5708 850 Weight 94 kg Weight/Height Weight 94 kg Height 5 ft 5 in General appearance: PRESENT: no acute distress, obese Head exam: PRESENT: atraumatic, normocephalic Eye exam: PRESENT: conjunctiva pink, EOMI, PERRLA. ABSENT: scleral icterus Ear exam: PRESENT: normal external ear exam Mouth exam: PRESENT: moist, tongue midline, other - ETT Respiratory exam: PRESENT: accessory muscle use, clear to auscultation jessica, unlabored Cardiovascular exam: PRESENT: tachycardia Pulses: PRESENT: normal dorsalis pedis pul Vascular exam: PRESENT: normal capillary refill GI/Abdominal exam: PRESENT: normal bowel sounds, soft, other - Much less distended. Ostomy is dark maroon. Dusky but not appering necrotic.. ABSENT: distended, guarding, mass, organolmegaly, rebound, tenderness Rectal exam: PRESENT: deferred Gentrourinary exam: PRESENT: indwelling catheter Musculoskeletal exam: PRESENT: other - L arm, which now has axillary A-line is somewhat contrcted-not new. Neurological exam: PRESENT: altered, awake Skin exam: PRESENT: dry, intact, warm. ABSENT: cyanosis, rash Tubes/Lines: PRESENT: Endotracheal Tube, Central Line, Arterial Catheter, Nasogastic Tube Laboratory/Radiographs Laboratory Results: 03/18/19 03:41 03/18/19 03:41 03/17/19 03/17/19 03/17/19 06:54 07:36 12:58 WBC RBC Hgb Hct MCV MCH MCHC RDW Plt Count Seg Neutrophils % Carbonic Acid HCO3/H2CO3 Ratio ABG pH ABG pCO2 ABG pO2 ABG HCO3 ABG O2 Saturation ABG Base Excess FiO2 Sodium Cancelled 124.4 L Potassium Cancelled 5.6 H Chloride Cancelled 90 L Carbon Dioxide Cancelled 21 L Anion Gap Cancelled 13 BUN Cancelled 56 H Creatinine Cancelled 0.89 Est GFR ( Amer) Cancelled > 60 Est GFR (Non-Af Amer) Cancelled Glucose Cancelled 114 H Lactic Acid Calcium Cancelled 8.1 L Magnesium 2.1 Total Bilirubin Cancelled AST Cancelled Alkaline Phosphatase Cancelled Ammonia 32.7 Total Protein Cancelled Albumin Cancelled Blood Type Antibody Screen 03/17/19 03/17/19 03/17/19 12:58 13:25 19:15 WBC RBC Hgb Hct MCV MCH MCHC RDW Plt Count Seg Neutrophils % Carbonic Acid 0.96 L HCO3/H2CO3 Ratio 19:1 ABG pH 7.39 ABG pCO2 31.8 L ABG pO2 96.9 ABG HCO3 18.9 L ABG O2 Saturation 97.4 ABG Base Excess -5.1 FiO2 50% Sodium Potassium Chloride Carbon Dioxide Anion Gap BUN Creatinine Est GFR ( Amer) Est GFR (Non-Af Amer) Glucose Lactic Acid 4.7 H Calcium Magnesium Total Bilirubin AST Alkaline Phosphatase Ammonia Total Protein Albumin Blood Type O POSITIVE Antibody Screen NEGATIVE 03/18/19 03/18/19 03/18/19 03:41 03:41 03:41 WBC 5.3 RBC 3.42 L Hgb 9.5 L D Hct 28.1 L MCV 82 MCH 27.7 MCHC 33.8 RDW 16.1 H Plt Count 221 Seg Neutrophils % Not Reportable Carbonic Acid HCO3/H2CO3 Ratio ABG pH ABG pCO2 ABG pO2 ABG HCO3 ABG O2 Saturation ABG Base Excess FiO2 Sodium 126.5 L Potassium 4.7 Chloride 98 Carbon Dioxide 17 L Anion Gap 12 BUN 48 H Creatinine 1.06 Est GFR ( Amer) > 60 Est GFR (Non-Af Amer) Glucose 159 H Lactic Acid Calcium 6.7 L* Magnesium Total Bilirubin AST Alkaline Phosphatase Ammonia Total Protein Albumin 2.2 L Blood Type Antibody Screen 03/17/19 06:54 Troponin I 0.018 Impressions: Head CT 03/17/19 07:08 IMPRESSION: CHRONIC CHANGES OF ATROPHY AND MICROVASCULAR ISCHEMIA. NO ACUTE PROCESS. EVIDENCE OF ACUTE STROKE: NO. Abdomen/Pelvis CT 03/17/19 08:51 IMPRESSION: 1. Suspected sigmoid volvulus. 2. Small amount of ascites. No free air. 3. Adrenal nodules. Chest CT 03/17/19 08:52 IMPRESSION: 1. Collapse of the right lower lobe and most of the middle lobe. 2. Diffuse thickening of the esophagus. Chest X-Ray 03/18/19 00:00 IMPRESSION: STABLE APPEARANCE OF THE CHEST. SUPPORT DEVICES UNCHANGED. All labs, radiographs, diagnostic studies and EKGs were personally reviewed: Yes In addition, reports of radiographic and diagnostic studies were read: Yes Assessment and Plan - Diagnosis (1) Dehydration Is this a current diagnosis for this admission?: Yes Plan: She still requires some degree of rescusitation with IVF (2) Respiratory failure Qualifiers: Chronicity: acute Respiratory failure complication: unspecified whether with hypoxia or hypercapnia Qualified Code(s): J96.00 - Acute respiratory failure, unspecified whether with hypoxia or hypercapnia Is this a current diagnosis for this admission?: Yes Plan: Initially thought to be aspiration. There still may be an element. However CXR now shows well aerated RLL and RML. The infective issue seems to be more related to intestinal patholgy. (3) Volvulus of sigmoid colon Is this a current diagnosis for this admission?: Yes Plan: Resolved with surgery. 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 (5) Stage 4 pressure ulcer Qualifiers: Pressure injury location: contiguous region involving buttock and hip Laterality: left Qualified Code(s): L89.44 - Pressure ulcer of contiguous site of back, buttock and hip, stage 4 Is this a current diagnosis for this admission?: Yes Plan: Seen today. Appears clean and not infected. (6) UTI (urinary tract infection) Qualifiers: Indwelling urinary catheter type: indwelling urethral catheter Encounter type: initial encounter Is this a current diagnosis for this admission?: Yes Plan: Cultures from catheter still pending. Plan Summary: Support BP with IVF, wean pressors as tolerated. Not extubatable yet. Critical Time Critical Time (minutes): 35 Level of Care: ICU Anticipated discharge: SNF Within: Other - Too soon to tell. -: 1. The care of a critical patient is a dynamic process. This note is a repre sentative synopsis but static in nature. The timeframe for treatments given in order is not necessary the actual time these treatments may have been done. 2. This patient requires critical care secondary to ongoing requirements for therapy not offered or safe outside the critical care environment. Transfer to a lower level of care with altered life or limb morbidity and mortality. 3. Multidisciplinary rounds completed. 4. ABCDE bundle addressed.
[2019-03-18] MEDS: PANTOPRAZOLE SODIUM 40 MG VIAL IV SCH (09:36)
[2019-03-18] MEDS: CEFEPIME 1 GM/D5W RTU 1 GM/50 ML RTUPB IV SCH ×2 (09:39→21:16)
[2019-03-18] MEDS: NYSTATIN CREAM 15 GM TOP SCH ×2 (09:40→18:33)
[2019-03-19] MEDS: DEXMEDETOMIDINE IN NS 400 MCG/100 ML RTUPB IV PRN ×6 (02:25→21:59)
[2019-03-19 05:19] LABS: HEMATOCRIT 22.8 % (36.0-47.0); MEAN CORPUSCULAR HEMOGLOBIN 27.7 pg (27.0-33.4); MEAN CORPUSCULAR HGB CONC 33.7 g/dL (32.0-36.0); MEAN CORPUSCULAR VOLUME 82 fl (80-97); PLATELET COUNT 150 10^3/uL (150-450); RED BLOOD COUNT 2.77 10^6/uL (3.72-5.28); RED CELL DISTRIBUTION WIDTH 15.5 % (11.5-14.0); WHITE BLOOD COUNT 4.9 10^3/uL (4.0-10.5)
[2019-03-19] MEDS: DEXTROSE 5%-WATER 250 ML with NOREPINEPHRINE BITARTRATE 4 MG IV PRN ×4 (05:22→23:32)
[2019-03-19] MEDS: NORMAL SALINE 1000 ML 1,000 ML IV PRN ×3 (05:23→20:02)
[2019-03-19 05:53] LABS: ABSOLUTE LYMPHOCYTES# (MANUAL) 0.5 10^3/uL (0.5-4.7); ABSOLUTE MONOCYTES # (MANUAL) 0.2 10^3/uL (0.1-1.4); BAND NEUTROPHILS % (MANUAL) 11 % (3-5); BASOPHILS % (MANUAL) 0 % (0-2); EOSINOPHILS % (MANUAL) 0 % (0-6); LYMPHOCYTES % (MANUAL) 10 % (13-45); MONOCYTES % (MANUAL) 5 % (3-13); SEGMENTED NEUTROPHILS % (MAN) 74 % (42-78); TOTAL CELLS COUNTED 100
[2019-03-19 05:54] LABS: ANISOCYTOSIS 1+; PLATELET COMMENT ADEQUATE; POLYCHROMASIA 1+
[2019-03-19 05:56] LABS: HEMOGLOBIN 7.7 g/dL (12.0-15.5)
[2019-03-19 05:59] LABS: ANION GAP 10 (5-19); BLOOD UREA NITROGEN 33 mg/dL (7-20); CARBON DIOXIDE 17 mmol/L (22-30); CHLORIDE 104 mmol/L (98-107); POTASSIUM 3.5 mmol/L (3.6-5.0)
[2019-03-19 06:18] LABS: GLUCOSE 69 mg/dL (75-110)
[2019-03-19 06:22] LABS: CALCIUM 6.4 mg/dL (8.4-10.2)
[2019-03-19] MEDS ORDERED: DEXTROSE 50%-WATER 25 GM/50 ML DISP.SYRIN IV ONE (06:27)
[2019-03-19] MEDS ORDERED: SODIUM BICARBONATE 8.4% INJ 50 MEQ/50 ML DISP.SYRIN IV ONE ×2 (06:30→09:00)
[2019-03-19] MEDS ORDERED: CALCIUM GLUCONATE 1000 MG/10 ML INJ IV ONE ×2 (07:15→21:15)
--- NOTE | 2019-03-19 08:22 | PDOC CRITICAL CARE PROG REPORT ---
General Date:: 03/19/19 ICU Day:: 3 Ventilator Day:: 3 Hospital Day:: 3 Resuscitation Status: Full Code Medical Power of Baker Doughnut: Rogerio Michael [phone] Events in the past 12 to 24 Hours:: Clinicaly improved. Lower dose pressors, ostomy functional but duskier. Review of systems relevant to events:: GI and respiratory. CV as well. Reason for ICU Addmission:: Ventilator due to acute respiratory failure, aspiration, UTI, MS - Medications: Medications reviewed and adjusted accordingly: Yes Vasopressors:: Levophed Sedation:: Precedex Physical Exam Vital Signs: Temp Pulse Resp BP Pulse Ox 101.0 F H 95 19 124/74 99 03/19/19 04:00 03/18/19 20:00 03/19/19 06:00 03/18/19 18:40 03/19/19 06:00 Intake & Output 03/18/19 03/19/19 03/20/19 06:59 06:59 06:59 Intake Total 7818 5340 Output Total 2110 3780 Balance 5708 1560 Weight 94 kg 97.5 kg Weight/Height Weight 97.5 kg Height 5 ft 5 in General appearance: PRESENT: no acute distress Exam: Sedated. Head exam: PRESENT: atraumatic, other Eye exam: PRESENT: conjunctiva pink, EOMI, PERRLA. ABSENT: scleral icterus Ear exam: PRESENT: normal external ear exam Mouth exam: PRESENT: moist, tongue midline Respiratory exam: PRESENT: clear to auscultation jessica. ABSENT: rales, rhonchi, wheezes Cardiovascular exam: PRESENT: RRR. ABSENT: diastolic murmur, rubs, systolic murmur Vascular exam: PRESENT: normal capillary refill GI/Abdominal exam: PRESENT: normal bowel sounds, soft, other - Ostomy a bit duskier but still functional. No blood.. ABSENT: distended, guarding, mass, organolmegaly, rebound, tenderness Rectal exam: PRESENT: deferred Gentrourinary exam: PRESENT: indwelling catheter Extremities exam: PRESENT: pedal edema Musculoskeletal exam: PRESENT: deformity Neurological exam: PRESENT: other - Sedated Skin exam: PRESENT: normal color Tubes/Lines: PRESENT: Endotracheal Tube, Central Line, Arterial Catheter, Nasogastic Tube Laboratory/Radiographs Laboratory Results: 03/19/19 03:49 03/19/19 03:49 03/17/19 03/19/19 03/19/19 06:54 03:49 03:49 WBC 10.1 4.9 RBC 4.37 2.77 L Hgb 12.2 7.7 L Hct 36.3 22.8 L MCV 83 82 MCH 27.9 27.7 MCHC 33.6 33.7 RDW 16.0 H 15.5 H Plt Count 439 150 Seg Neutrophils % 82.5 H Not Reportable Sodium 131.0 L Potassium 3.5 L Chloride 104 Carbon Dioxide 17 L Anion Gap 10 BUN 33 H Creatinine 0.70 Est GFR ( Amer) > 60 Glucose 69 L Calcium 6.4 L* 03/17/19 06:54 Troponin I 0.018 Impressions: Head CT 03/17/19 07:08 IMPRESSION: CHRONIC CHANGES OF ATROPHY AND MICROVASCULAR ISCHEMIA. NO ACUTE PROCESS. EVIDENCE OF ACUTE STROKE: NO. Abdomen/Pelvis CT 03/17/19 08:51 IMPRESSION: 1. Suspected sigmoid volvulus. 2. Small amount of ascites. No free air. 3. Adrenal nodules. Chest CT 03/17/19 08:52 IMPRESSION: 1. Collapse of the right lower lobe and most of the middle lobe. 2. Diffuse thickening of the esophagus. Chest X-Ray 03/18/19 00:00 IMPRESSION: STABLE APPEARANCE OF THE CHEST. SUPPORT DEVICES UNCHANGED. All labs, radiographs, diagnostic studies and EKGs were personally reviewed: Yes In addition, reports of radiographic and diagnostic studies were read: Yes Assessment and Plan - Diagnosis (1) Dehydration Is this a current diagnosis for this admission?: Yes Plan: Continue IVF. Acute anemia likely due to surgical blood loss, chronic disease and hemodilution. (2) Respiratory failure Qualifiers: Chronicity: acute Respiratory failure complication: unspecified whether with hypoxia or hypercapnia Qualified Code(s): J96.00 - Acute respiratory failure, unspecified whether with hypoxia or hypercapnia Is this a current diagnosis for this admission?: Yes Plan: Keep intubated as long as there's a chance of going back to OR. (3) Volvulus of sigmoid colon Is this a current diagnosis for this admission?: Yes Plan: Resolved. Ostomy is duskier but functional. She may require another surgery to look and see if there is more bowel ischemia. (4) Functional quadriplegia secondary to MS Is this a current diagnosis for this admission?: Yes Plan: Chronis but not steroid dependant. (5) Stage 4 pressure ulcer Qualifiers: Pressure injury location: contiguous region involving buttock and hip Laterality: left Qualified Code(s): L89.44 - Pressure ulcer of contiguous site of back, buttock and hip, stage 4 Is this a current diagnosis for this admission?: Yes Plan: Clean (6) UTI (urinary tract infection) Qualifiers: Indwelling urinary catheter type: indwelling urethral catheter Encounter type: initial encounter Is this a current diagnosis for this admission?: Yes Plan: Culture showing GNR. Final C&S pending. On antibiotics for bowel. Plan Summary: Continue to wean pressors. Watch duskiness of bowel/ She may need a second look proceedure. Critical Time Critical Time (minutes): 40 Level of Care: ICU Anticipated discharge: SNF Within: Other - To soon to speculate. -: 1. The care of a critical patient is a dynamic process. This note is a agricultural sales representative synopsis but static in nature. The timeframe for treatments given in order is not necessary the actual time these treatments may have been done. 2. This patient requires critical care secondary to ongoing requirements for therapy not offered or safe outside the critical care environment. Transfer to a lower level of care with altered life or limb morbidity and mortality. 3. Multidisciplinary rounds completed. 4. ABCDE bundle addressed.
[2019-03-19] MEDS ORDERED: CALCIUM GLUCONATE 2,000 MG in DEXTROSE 5%-WATER 100 ML IV ONE (09:00)
--- NOTE | 2019-03-19 09:05 | RADIOLOGY REPORT (SQ) ---
EXAM DESCRIPTION: CHEST SINGLE VIEW COMPLETED DATE/TIME: 03/19/2019 8:49 am REASON FOR STUDY: tube placement COMPARISON: 03/18/2019 NUMBER OF VIEWS: One view. TECHNIQUE: Single frontal radiographic image of the chest acquired. LIMITATIONS: None. FINDINGS: LUNGS AND PLEURA: Stable appearance. Small pleural effusions. No pneumothorax. MEDIASTINUM AND HEART: Stable heart size and mediastinal structures. SUPPORT DEVICES: Appropriate location without change. BONY STRUCTURES: No acute findings. HARDWARE: None. OTHER: No other significant finding. IMPRESSION: STABLE APPEARANCE OF THE CHEST. SUPPORT DEVICES UNCHANGED. Reading location - IP/workstation name: [email or web address]
[2019-03-19] MEDS: PANTOPRAZOLE SODIUM 40 MG VIAL IV SCH (09:18)
[2019-03-19] MEDS: LIDOCAINE 5% (700 MG) TRANSDERMAL ADH..PATCH TOP SCH (09:19)
[2019-03-19] MEDS: CEFEPIME 1 GM/D5W RTU 1 GM/50 ML RTUPB IV SCH ×2 (09:20→21:26)
[2019-03-19] MEDS: NYSTATIN CREAM 15 GM TOP SCH ×2 (09:21→17:48)
[2019-03-19] MEDS: HEPARIN SOD (PORCINE) 5,000 UNIT/ML 1 ML VIAL SUBCUT SCH ×2 (10:49→17:47)
[2019-03-19] MEDS ORDERED: ACETAMINOPHEN SOLN 325 MG/10.15 ML UDCUP ONE (15:04)
[2019-03-19] MEDS ORDERED: ACETAMINOPHEN SOLN 325 MG/10.15 ML UDCUP NG ONE (15:30)
[2019-03-19] MEDS: METRONIDAZOLE 500 MG/NS RTU 250 MG in CONTAINER,EMPTY 1 EACH IV SCH (17:47)
[2019-03-19] MEDS: FENTANYL CITRATE INJ/PF 100 MCG/2 ML AMPUL IV PRN (19:56)
[2019-03-19] MEDS ORDERED: POTASSIUM CHLORIDE 20 MEQ/50 ML RTU IV ONE (20:30)
[2019-03-19] MEDS: POTASSIUM CHLORIDE 20 MEQ/50 ML RTU IV SCH ×3 (21:37→23:24)
[2019-03-19] MEDS: LORAZEPAM INJ 2 MG/1 ML VIAL IV PRN (21:45)
[2019-03-19] MEDS ORDERED: ACETAMINOPHEN 650 MG SUPP.RECT PR ONE (21:47)
[2019-03-19] MEDS: ACETAMINOPHEN 650 MG SUPP.RECT PR PRN (22:03)
[2019-03-20] MEDS: DEXMEDETOMIDINE IN NS 400 MCG/100 ML RTUPB IV PRN ×6 (01:44→21:17)
[2019-03-20] MEDS: HEPARIN SOD (PORCINE) 5,000 UNIT/ML 1 ML VIAL SUBCUT SCH ×3 (01:45→17:51)
[2019-03-20] MEDS: METRONIDAZOLE 500 MG/NS RTU 250 MG in CONTAINER,EMPTY 1 EACH IV SCH ×3 (01:55→17:51)
[2019-03-20] MEDS: POTASSIUM CHLORIDE 20 MEQ/50 ML RTU IV SCH ×2 (02:32→04:26)
[2019-03-20] MEDS: NORMAL SALINE 1000 ML 1,000 ML IV PRN ×4 (02:43→17:21)
[2019-03-20 05:37] LABS: HEMATOCRIT 18.5 % (36.0-47.0); MEAN CORPUSCULAR HGB CONC 33.8 g/dL (32.0-36.0); MEAN CORPUSCULAR VOLUME 83 fl (80-97); PLATELET COUNT 135 10^3/uL (150-450); RED BLOOD COUNT 2.23 10^6/uL (3.72-5.28); RED CELL DISTRIBUTION WIDTH 15.6 % (11.5-14.0); WHITE BLOOD COUNT 6.2 10^3/uL (4.0-10.5)
[2019-03-20 05:53] LABS: HEMOGLOBIN 6.3 g/dL (12.0-15.5)
[2019-03-20 05:54] LABS: ANION GAP 11 (5-19); BLOOD UREA NITROGEN 20 mg/dL (7-20); CALCIUM 7.5 mg/dL (8.4-10.2); CARBON DIOXIDE 16 mmol/L (22-30); CHLORIDE 110 mmol/L (98-107); GLUCOSE 105 mg/dL (75-110); POTASSIUM 3.8 mmol/L (3.6-5.0)
[2019-03-20 06:00] LABS: ABSOLUTE LYMPHOCYTES# (MANUAL) 0.5 10^3/uL (0.5-4.7); ABSOLUTE MONOCYTES # (MANUAL) 0.4 10^3/uL (0.1-1.4); BAND NEUTROPHILS % (MANUAL) 2 % (3-5); BASOPHILS % (MANUAL) 0 % (0-2); EOSINOPHILS % (MANUAL) 0 % (0-6); LYMPHOCYTES % (MANUAL) 8 % (13-45); MONOCYTES % (MANUAL) 7 % (3-13); SEGMENTED NEUTROPHILS % (MAN) 83 % (42-78); TOTAL CELLS COUNTED 100
[2019-03-20 06:03] LABS: ANISOCYTOSIS SLIGHT; HYPOCHROMASIA SLIGHT; OVALOCYTES SLIGHT; PLATELET COMMENT DECREASED; POIKILOCYTOSIS SLIGHT; POLYCHROMASIA SLIGHT; TEAR DROP CELLS SLIGHT; TOXIC GRANULATION SLIGHT
--- NOTE | 2019-03-20 08:21 | PDOC CRITICAL CARE PROG REPORT ---
General Date:: 03/20/19 ICU Day:: 4 Ventilator Day:: 4 Hospital Day:: 4 Resuscitation Status: Full Code Medical Power of Aquatics Coordinator: Rogerio Michael [phone] Events in the past 12 to 24 Hours:: Ostomy looks pinker, Hgb dropped requiring transfusion. Review of systems relevant to events:: GI Reason for ICU Addmission:: Ventilator due to acute respiratory failure, aspiration, UTI, MS - Medications: Medications reviewed and adjusted accordingly: Yes Vasopressors:: Levophed Sedation:: Precedex Physical Exam Vital Signs: Temp Pulse Resp BP Pulse Ox 99.5 F 69 23 H 101/63 96 03/20/19 07:32 03/20/19 07:32 03/20/19 07:32 03/20/19 07:32 03/20/19 07:32 Intake & Output 03/19/19 03/20/19 03/21/19 06:59 06:59 06:59 Intake Total 5340 3821 5 Output Total 3780 3740 Balance 1560 81 5 Weight 97.5 kg 100.9 kg Weight/Height Weight 100.9 kg Height 5 ft 5 in Exam: Sedated but at times awake Head exam: PRESENT: atraumatic, normocephalic Eye exam: PRESENT: conjunctiva pink, EOMI, PERRLA. ABSENT: scleral icterus Ear exam: PRESENT: normal external ear exam Mouth exam: PRESENT: moist, tongue midline Respiratory exam: PRESENT: clear to auscultation jessica, unlabored Cardiovascular exam: PRESENT: RRR, tachycardia. ABSENT: diastolic murmur, rubs, systolic murmur Pulses: PRESENT: normal dorsalis pedis pul Vascular exam: PRESENT: normal capillary refill GI/Abdominal exam: PRESENT: normal bowel sounds, soft, other - Her ostomy is pinker in color. Still functional.. ABSENT: distended, guarding, mass, organolmegaly, rebound, tenderness Rectal exam: PRESENT: deferred Extremities exam: PRESENT: pedal edema Musculoskeletal exam: PRESENT: deformity Neurological exam: PRESENT: altered, awake Skin exam: PRESENT: dry, intact, warm. ABSENT: cyanosis, rash Tubes/Lines: PRESENT: Endotracheal Tube, Central Line, Arterial Catheter, Nasogastic Tube Laboratory/Radiographs Laboratory Results: 03/20/19 05:24 03/20/19 05:24 03/17/19 03/19/19 03/19/19 19:15 08:50 20:15 WBC RBC Hgb Hct MCV MCH MCHC RDW Plt Count Seg Neutrophils % Sodium Potassium Chloride Carbon Dioxide Anion Gap BUN Creatinine Est GFR ( Amer) Glucose Calcium Ionized Calcium Rashid 0.96 L 1.08 L Magnesium Blood Type O POSITIVE Antibody Screen NEGATIVE 03/20/19 03/20/19 03/20/19 01:35 05:24 05:24 WBC 6.2 RBC 2.23 L Hgb 6.3 L Hct 18.5 L MCV 83 MCH 28.0 MCHC 33.8 RDW 15.6 H Plt Count 135 L Seg Neutrophils % Not Reportable Sodium 136.5 L Potassium 3.1 L 3.8 Chloride 110 H Carbon Dioxide 16 L Anion Gap 11 BUN 20 Creatinine 0.56 Est GFR ( Amer) > 60 Glucose 105 Calcium 7.5 L Ionized Calcium Rashid Magnesium 2.1 Blood Type Antibody Screen 03/17/19 10:24 Blood Blood Culture - Final Clostridium Sp.not Perfringens No Aerobic Organisms 03/17/19 08:06 Hernandez Catheter Urine Culture - Final Escherichia Coli Providencia Stuartii 03/17/19 06:54 Troponin I 0.018 Impressions: Head CT 03/17/19 07:08 IMPRESSION: CHRONIC CHANGES OF ATROPHY AND MICROVASCULAR ISCHEMIA. NO ACUTE PROCESS. EVIDENCE OF ACUTE STROKE: NO. Abdomen/Pelvis CT 03/17/19 08:51 IMPRESSION: 1. Suspected sigmoid volvulus. 2. Small amount of ascites. No free air. 3. Adrenal nodules. Chest CT 03/17/19 08:52 IMPRESSION: 1. Collapse of the right lower lobe and most of the middle lobe. 2. Diffuse thickening of the esophagus. Chest X-Ray 03/19/19 00:00 IMPRESSION: STABLE APPEARANCE OF THE CHEST. SUPPORT DEVICES UNCHANGED. All labs, radiographs, diagnostic studies and EKGs were personally reviewed: Yes In addition, reports of radiographic and diagnostic studies were read: Yes Assessment and Plan - Diagnosis (1) Dehydration Is this a current diagnosis for this admission?: Yes Plan: Resolved (2) Respiratory failure Qualifiers: Chronicity: acute Respiratory failure complication: unspecified whether with hypoxia or hypercapnia Qualified Code(s): J96.00 - Acute respiratory failure, unspecified whether with hypoxia or hypercapnia Is this a current diagnosis for this admission?: Yes Plan: Trip to OR cancelled due to healthier appearance of stoma. Plan to wean today. Probably not extubatable. (3) Volvulus of sigmoid colon Is this a current diagnosis for this admission?: Yes Plan: Resolved (4) Functional quadriplegia secondary to MS Is this a current diagnosis for this admission?: Yes Plan: Chronic, no change. (5) Stage 4 pressure ulcer Qualifiers: Pressure injury location: contiguous region involving buttock and hip Laterality: left Qualified Code(s): L89.44 - Pressure ulcer of contiguous site of back, buttock and hip, stage 4 Is this a current diagnosis for this admission?: Yes Plan: Looks clean still. (6) UTI (urinary tract infection) Qualifiers: Indwelling urinary catheter type: indwelling urethral catheter Encounter t ype: initial encounter Is this a current diagnosis for this admission?: Yes Plan: On appropriate antibiotics. (7) Bacteremia Is this a current diagnosis for this admission?: Yes Plan: Growing clostridium, not perfringins. On flagyl IV. Plan Summary: Wean and excersize today. Critical Time Critical Time (minutes): 35 Level of Care: ICU Anticipated discharge: Home Within: Other -: 1. The care of a critical patient is a dynamic process. This note is a risk control field representative synopsis but static in nature. The timeframe for treatments given in order is not necessary the actual time these treatments may have been done. 2. This patient requires critical care secondary to ongoing requirements for therapy not offered or safe outside the critical care environment. Transfer to a lower level of care with altered life or limb morbidity and mortality. 3. Multidisciplinary rounds completed. 4. ABCDE bundle addressed.
[2019-03-20] MEDS: CEFEPIME 1 GM/D5W RTU 1 GM/50 ML RTUPB IV SCH ×2 (09:32→21:18)
[2019-03-20] MEDS: PANTOPRAZOLE SODIUM 40 MG VIAL IV SCH (09:33)
[2019-03-20 09:51] LABS: ANION GAP 9 (5-19); BLOOD UREA NITROGEN 20 mg/dL (7-20); CALCIUM 7.5 mg/dL (8.4-10.2); CARBON DIOXIDE 15 mmol/L (22-30); CHLORIDE 112 mmol/L (98-107); GLUCOSE 101 mg/dL (75-110)
[2019-03-20] MEDS: NYSTATIN CREAM 15 GM TOP SCH ×2 (13:20→18:31)
[2019-03-20] MEDS: LIDOCAINE 5% (700 MG) TRANSDERMAL ADH..PATCH TOP SCH (13:20)
[2019-03-20] MEDS: FENTANYL CITRATE INJ/PF 100 MCG/2 ML AMPUL IV PRN (17:51)
[2019-03-20 21:09] LABS: HEMATOCRIT 26.5 % (36.0-47.0); MEAN CORPUSCULAR HEMOGLOBIN 28.7 pg (27.0-33.4); MEAN CORPUSCULAR HGB CONC 33.9 g/dL (32.0-36.0); MEAN CORPUSCULAR VOLUME 85 fl (80-97); PLATELET COUNT 150 10^3/uL (150-450); RED BLOOD COUNT 3.13 10^6/uL (3.72-5.28); RED CELL DISTRIBUTION WIDTH 15.6 % (11.5-14.0)
[2019-03-20 21:40] LABS: ABSOLUTE LYMPHOCYTES# (MANUAL) 0.5 10^3/uL (0.5-4.7); ABSOLUTE MONOCYTES # (MANUAL) 0.8 10^3/uL (0.1-1.4); BAND NEUTROPHILS % (MANUAL) 2 % (3-5); BASOPHILS % (MANUAL) 0 % (0-2); EOSINOPHILS % (MANUAL) 0 % (0-6); LYMPHOCYTES % (MANUAL) 5 % (13-45); MONOCYTES % (MANUAL) 9 % (3-13); SEGMENTED NEUTROPHILS % (MAN) 84 % (42-78); TOTAL CELLS COUNTED 100
[2019-03-20 21:41] LABS: ANISOCYTOSIS 1+; PLATELET COMMENT ADEQUATE
--- NOTE | 2019-03-20 22:05 | PDOC PROGRESS REPORT ---
Subjective Progress Note for:: 03/20/19 Subjective:: pt intubated, occasionally responsive Reason For Visit: ASPIRATION, ACUTE RESPIRATORY FAILURE, UTI, MS Physical Exam Vital Signs: Temp Pulse Resp BP Pulse Ox 101.8 F H 86 28 H 129/72 H 100 03/20/19 21:38 03/20/19 18:00 03/20/19 18:00 03/20/19 18:00 03/20/19 18:00 Intake & Output 03/19/19 03/20/19 03/21/19 06:59 06:59 06:59 Intake Total 5340 3821 3027 Output Total 3780 3740 1190 Balance 1560 81 1837 Weight 97.5 kg 100.9 kg 100.9 kg General appearance: PRESENT: mild distress Head exam: PRESENT: normocephalic Ear exam: PRESENT: normal external ear exam Mouth exam: PRESENT: moist Respiratory exam: PRESENT: rhonchi Cardiovascular exam: PRESENT: RRR Pulses: PRESENT: normal radial pulses, +2 pedal pulses bilateral GI/Abdominal exam: PRESENT: other - abd distended, wound clean stoma now more pink, viable Rectal exam: PRESENT: deferred Gentrourinary exam: PRESENT: indwelling catheter Extremities exam: PRESENT: +2 edema Skin exam: PRESENT: dry Results Laboratory Results: 03/20/19 20:42 03/20/19 09:10 03/17/19 03/20/19 03/20/19 19:15 01:35 05:24 WBC RBC Hgb Hct MCV MCH MCHC RDW Plt Count Seg Neutrophils % Sodium 136.5 L Potassium 3.1 L 3.8 Chloride 110 H Carbon Dioxide 16 L Anion Gap 11 BUN 20 Creatinine 0.56 Est GFR ( Amer) > 60 Glucose 105 Calcium 7.5 L Magnesium 2.1 Blood Type O POSITIVE Antibody Screen NEGATIVE 03/20/19 03/20/19 03/20/19 05:24 09:10 20:42 WBC 6.2 9.0 RBC 2.23 L 3.13 L Hgb 6.3 L 9.0 L D Hct 18.5 L 26.5 L MCV 83 85 MCH 28.0 28.7 MCHC 33.8 33.9 RDW 15.6 H 15.6 H Plt Count 135 L 150 Seg Neutrophils % Not Reportable Not Reportable Sodium 136.1 L Potassium 4.0 Chloride 112 H Carbon Dioxide 15 L Anion Gap 9 BUN 20 Creatinine 0.55 Est GFR ( Amer) > 60 Glucose 101 Calcium 7.5 L Magnesium Blood Type Antibody Screen 03/17/19 06:54 Troponin I 0.018 Impressions: Head CT 03/17/19 07:08 IMPRESSION: CHRONIC CHANGES OF ATROPHY AND MICROVASCULAR ISCHEMIA. NO ACUTE PROCESS. EVIDENCE OF ACUTE STROKE: NO. Abdomen/Pelvis CT 03/17/19 08:51 IMPRESSION: 1. Suspected sigmoid volvulus. 2. Small amount of ascites. No free air. 3. Adrenal nodules. Chest CT 03/17/19 08:52 IMPRESSION: 1. Collapse of the right lower lobe and most of the middle lobe. 2. Diffuse thickening of the esophagus. Chest X-Ray 03/19/19 00:00 IMPRESSION: STABLE APPEARANCE OF THE CHEST. SUPPORT DEVICES UNCHANGED. Assessment & Plan - Diagnosis (1) Volvulus of sigmoid colon Is this a current diagnosis for this admission?: Yes (3) Dehydration Is this a current diagnosis for this admission?: Yes (5) Respiratory failure Qualifiers: Chronicity: acute Respiratory failure complication: unspecified whether with hypoxia or hypercapnia Qualified Code(s): J96.00 - Acute respiratory failure, unspecified whether with hypoxia or hypercapnia Is this a current diagnosis for this admission?: Yes - Time Time Spent with patient: 35 or more minutes - Plan Summary Plan Summary: stoma appears pink, viable pt now off pressors cont per education professor surgery will cont to follow.
[2019-03-21] MEDS: DEXMEDETOMIDINE IN NS 400 MCG/100 ML RTUPB IV PRN ×3 (01:45→09:35)
[2019-03-21] MEDS: HEPARIN SOD (PORCINE) 5,000 UNIT/ML 1 ML VIAL SUBCUT SCH ×3 (01:46→17:53)
[2019-03-21] MEDS: METRONIDAZOLE 500 MG/NS RTU 250 MG in CONTAINER,EMPTY 1 EACH IV SCH ×3 (01:46→17:51)
[2019-03-21] MEDS: FENTANYL CITRATE INJ/PF 100 MCG/2 ML AMPUL IV PRN ×2 (01:46→09:30)
[2019-03-21 05:19] LABS: HEMATOCRIT 26.7 % (36.0-47.0); HEMOGLOBIN 9.1 g/dL (12.0-15.5); MEAN CORPUSCULAR HEMOGLOBIN 28.8 pg (27.0-33.4); MEAN CORPUSCULAR HGB CONC 33.9 g/dL (32.0-36.0); MEAN CORPUSCULAR VOLUME 85 fl (80-97); PLATELET COUNT 154 10^3/uL (150-450); RED BLOOD COUNT 3.15 10^6/uL (3.72-5.28); RED CELL DISTRIBUTION WIDTH 15.9 % (11.5-14.0); WHITE BLOOD COUNT 9.2 10^3/uL (4.0-10.5)
[2019-03-21 05:33] LABS: ANION GAP 12 (5-19); BLOOD UREA NITROGEN 17 mg/dL (7-20); CALCIUM 7.8 mg/dL (8.4-10.2); CARBON DIOXIDE 13 mmol/L (22-30); CHLORIDE 115 mmol/L (98-107); GLUCOSE 112 mg/dL (75-110); POTASSIUM 3.9 mmol/L (3.6-5.0)
[2019-03-21 06:27] LABS: ABSOLUTE LYMPHOCYTES# (MANUAL) 0.6 10^3/uL (0.5-4.7); ABSOLUTE MONOCYTES # (MANUAL) 0.3 10^3/uL (0.1-1.4); BAND NEUTROPHILS % (MANUAL) 3 % (3-5); BASOPHILS % (MANUAL) 0 % (0-2); EOSINOPHILS % (MANUAL) 0 % (0-6); LYMPHOCYTES % (MANUAL) 6 % (13-45); MONOCYTES % (MANUAL) 3 % (3-13); NUCLEATED RED BLOOD CELLS 1 /100 WBC (0); PLATELET COMMENT ADEQUATE; SEGMENTED NEUTROPHILS % (MAN) 88 % (42-78); TOTAL CELLS COUNTED 100
[2019-03-21 06:29] LABS: ANISOCYTOSIS SLIGHT
[2019-03-21 06:33] LABS: TEAR DROP CELLS SLIGHT
[2019-03-21] MEDS: PANTOPRAZOLE SODIUM 40 MG VIAL IV SCH (09:29)
[2019-03-21] MEDS: CEFEPIME 1 GM/D5W RTU 1 GM/50 ML RTUPB IV SCH ×2 (09:29→22:44)
--- NOTE | 2019-03-21 09:45 | PDOC PROGRESS REPORT ---
Subjective Progress Note for:: 03/21/19 Reason For Visit: ASPIRATION, ACUTE RESPIRATORY FAILURE, UTI, MS Physical Exam Vital Signs: Temp Pulse Resp BP Pulse Ox 101.6 F H 75 27 H 144/77 H 100 03/21/19 08:00 03/21/19 08:00 03/21/19 08:00 03/21/19 08:00 03/21/19 09:13 Intake & Output 03/20/19 03/21/19 03/22/19 06:59 06:59 06:59 Intake Total 3821 3255 Output Total 3740 1540 75 Balance 81 1715 -75 Weight 100.9 kg 103.2 kg Results Laboratory Results: 03/21/19 05:04 03/21/19 05:04 03/17/19 03/20/19 03/20/19 19:15 09:10 20:42 WBC 9.0 RBC 3.13 L Hgb 9.0 L D Hct 26.5 L MCV 85 MCH 28.7 MCHC 33.9 RDW 15.6 H Plt Count 150 Seg Neutrophils % Not Reportable Sodium 136.1 L Potassium 4.0 Chloride 112 H Carbon Dioxide 15 L Anion Gap 9 BUN 20 Creatinine 0.55 Est GFR ( Amer) > 60 Glucose 101 Calcium 7.5 L Magnesium Blood Type O POSITIVE Antibody Screen NEGATIVE 03/21/19 03/21/19 05:04 05:04 WBC 9.2 RBC 3.15 L Hgb 9.1 L Hct 26.7 L MCV 85 MCH 28.8 MCHC 33.9 RDW 15.9 H Plt Count 154 Seg Neutrophils % Not Reportable Sodium 139.6 Potassium 3.9 Chloride 115 H Carbon Dioxide 13 L Anion Gap 12 BUN 17 Creatinine 0.51 L Est GFR ( Amer) > 60 Glucose 112 H Calcium 7.8 L Magnesium 2.0 Blood Type Antibody Screen 03/17/19 06:54 Troponin I 0.018 Impressions: Head CT 03/17/19 07:08 IMPRESSION: CHRONIC CHANGES OF ATROPHY AND MICROVASCULAR ISCHEMIA. NO ACUTE PROCESS. EVIDENCE OF ACUTE STROKE: NO. Abdomen/Pelvis CT 03/17/19 08:51 IMPRESSION: 1. Suspected sigmoid volvulus. 2. Small amount of ascites. No free air. 3. Adrenal nodules. Chest CT 03/17/19 08:52 IMPRESSION: 1. Collapse of the right lower lobe and most of the middle lobe. 2. Diffuse thickening of the esophagus. Chest X-Ray 03/19/19 00:00 IMPRESSION: STABLE APPEARANCE OF THE CHEST. SUPPORT DEVICES UNCHANGED. Assessment & Plan - Diagnosis (1) Cecal volvulus Is this a current diagnosis for this admission?: Yes - Time Time Spent with patient: Less than 15 minutes - Plan Summary Plan Summary: This is a 58-year-old female status post laparotomy and right hemicolectomy for a cecal volvulus. She has a right lower quadrant end ileostomy. Her ileostomy is productive, and has a much pinker appearance than in days previous. It is okay to start tube feedings for the patient, when clinically indicated. Her midline wound is without signs of infection. Parimutuel Ticket Checker is following. Continue supportive care.
[2019-03-21] MEDS: NYSTATIN CREAM 15 GM TOP SCH ×2 (09:59→20:21)
[2019-03-21] MEDS: LIDOCAINE 5% (700 MG) TRANSDERMAL ADH..PATCH TOP SCH (09:59)
[2019-03-21] MEDS: IPRATROPIUM/ALBUTEROL 0.5-2.5 MG/3 ML AMPUL NEB PRN (10:42)
[2019-03-21] MEDS ORDERED: RACEPINEPHRINE HCL 2.25% NEB 0.5 ML AMPUL NEB ONE (10:48)
[2019-03-21] MEDS: HYDROMORPHONE HCL INJ/PF 2 MG/ML AMPULE IV PRN ×3 (10:56→21:02)
[2019-03-21] MEDS ORDERED: FUROSEMIDE INJ/PF 40 MG/4 ML SDV IV ONE (11:09)
--- NOTE | 2019-03-21 12:12 | PDOC CRITICAL CARE PROG REPORT ---
General Date:: 03/21/19 ICU Day:: 5 Ventilator Day:: 5 Hospital Day:: 5 Resuscitation Status: Full Code Medical Power of Patent Engineer: Rogerio Michael [phone] Events in the past 12 to 24 Hours:: Extubated this AM Review of systems relevant to events:: GI CV Neuro pulmonary Reason for ICU Addmission:: Ventilator due to acute respiratory failure, aspiration, UTI, MS - Medications: Medications reviewed and adjusted accordingly: Yes Vasopressors:: None Sedation:: None Physical Exam Vital Signs: Temp Pulse Resp BP Pulse Ox 101.6 F H 145 H 26 H 216/130 H 95 03/21/19 08:00 03/21/19 10:48 03/21/19 11:41 03/21/19 10:48 03/21/19 11:41 Intake & Output 03/20/19 03/21/19 03/22/19 06:59 06:59 06:59 Intake Total 3821 3255 123 Output Total 3740 1540 175 Balance 81 1715 -52 Weight 100.9 kg 103.2 kg Weight/Height Weight 103.2 kg Height 5 ft 5 in General appearance: PRESENT: no acute distress Head exam: PRESENT: atraumatic, normocephalic Eye exam: PRESENT: conjunctiva pink, EOMI, PERRLA. ABSENT: scleral icterus Ear exam: PRESENT: bleeding Mouth exam: PRESENT: moist, tongue midline Neck exam: PRESENT: other - No further stridor. ABSENT: carotid bruit, JVD, lymphadenopathy, thyromegaly Respiratory exam: PRESENT: accessory muscle use, clear to auscultation jessica, rhonchi. ABSENT: rales, wheezes Cardiovascular exam: PRESENT: tachycardia GI/Abdominal exam: PRESENT: normal bowel sounds, soft, other - Ostomy pink and functional. Less incisional pain. Rectal exam: PRESENT: deferred Extremities exam: PRESENT: pedal edema, +2 edema Musculoskeletal exam: PRESENT: deformity Neurological exam: PRESENT: alert, awake, oriented to person Skin exam: PRESENT: dry, intact, warm. ABSENT: cyanosis, rash Laboratory/Radiographs Laboratory Results: 03/21/19 05:04 03/21/19 05:04 03/20/19 03/21/19 03/21/19 20:42 05:04 05:04 WBC 9.0 9.2 RBC 3.13 L 3.15 L Hgb 9.0 L D 9.1 L Hct 26.5 L 26.7 L MCV 85 85 MCH 28.7 28.8 MCHC 33.9 33.9 RDW 15.6 H 15.9 H Plt Count 150 154 Seg Neutrophils % Not Reportable Not Reportable Sodium 139.6 Potassium 3.9 Chloride 115 H Carbon Dioxide 13 L Anion Gap 12 BUN 17 Creatinine 0.51 L Est GFR ( Amer) > 60 Glucose 112 H Calcium 7.8 L Magnesium 2.0 03/17/19 06:54 Troponin I 0.018 Impressions: Head CT 03/17/19 07:08 IMPRESSION: CHRONIC CHANGES OF ATROPHY AND MICROVASCULAR ISCHEMIA. NO ACUTE PROCESS. EVIDENCE OF ACUTE STROKE: NO. Abdomen/Pelvis CT 03/17/19 08:51 IMPRESSION: 1. Suspected sigmoid volvulus. 2. Small amount of ascites. No free air. 3. Adrenal nodules. Chest CT 03/17/19 08:52 IMPRESSION: 1. Collapse of the right lower lobe and most of the middle lobe. 2. Diffuse thickening of the esophagus. Chest X-Ray 03/19/19 00:00 IMPRESSION: STABLE APPEARANCE OF THE CHEST. SUPPORT DEVICES UNCHANGED. All labs, radiographs, diagnostic studies and EKGs were personally reviewed: Yes In addition, reports of radiographic and diagnostic studies were read: Yes Assessment and Plan - Diagnosis (1) Dehydration Is this a current diagnosis for this admission?: Yes Plan: Resolved (2) Respiratory failure Qualifiers: Chronicity: acute Respiratory failure complication: unspecified whether with hypoxia or hypercapnia Qualified Code(s): J96.00 - Acute respiratory failure, unspecified whether with hypoxia or hypercapnia Is this a current diagnosis for this admission?: Yes Plan: Extubated this AM. Initially somewha marisel with audible stridor. Clear with racemic epinephrine. Then sounded rhoncorous but very swollen with IVF at 150/hr. Lasix and bipap given with good results. (3) Volvulus of sigmoid colon Is this a current diagnosis for this admission?: Yes Plan: Resolved. Start TF (4) Functional quadriplegia secondary to MS Is this a current diagnosis for this admission?: Yes Plan: Chronic (5) Stage 4 pressure ulcer Qualifiers: Pressure injury location: contiguous region involving buttock and hip Laterality: left Qualified Code(s): L89.44 - Pressure ulcer of contiguous site of back, buttock and hip, stage 4 Is this a current diagnosis for this admission?: Yes Plan: Chronic and clean (6) UTI (urinary tract infection) Qualifiers: Indwelling urinary catheter type: indwelling urethral catheter Encounter type: initial encounter Is this a current diagnosis for this admission?: Yes Plan: No UTI (7) Bacteremia Is this a current diagnosis for this admission?: Yes Plan: Continue antibiotics for 7 days IV. Plan Summary: Continue bipap for a while. Start TF. Critical Time Critical Time (minutes): 35 Level of Care: ICU Anticipated discharge: SNF Within: Other - Too soon to telll. -: 1. The care of a critical patient is a dynamic process. This note is a pharmaceutical service representative synopsis but static in nature. The timeframe for treatments given in order is not necessary the actual time these treatments may have been done. 2. This patient requires critical care secondary to ongoing requirements for therapy not offered or safe outside the critical care environment. Transfer to a lower level of care with altered life or limb morbidity and mortality. 3. Multidisciplinary rounds completed. 4. ABCDE bundle addressed.
[2019-03-21] MEDS ORDERED: PHARMACY COMMUNICATION ORDER MC NR (12:30)
[2019-03-21] MEDS ORDERED: METOPROLOL TARTRATE PF/INJ 5 MG/5 ML SDV IV ONE ×2 (14:22→15:00)
--- NOTE | 2019-03-21 15:07 | RADIOLOGY REPORT (SQ) ---
EXAM DESCRIPTION: KUB/ABDOMEN (SINGLE VIEW) COMPLETED DATE/TIME: 03/21/2019 2:57 pm REASON FOR STUDY: Check Placement of NG Tube COMPARISON: CT abdomen pelvis 03/17/2019 NUMBER OF VIEWS: One view. TECHNIQUE: Supine radiographic image of the abdomen acquired, upper abdomen for nasogastric tube pl acement. LIMITATIONS: None. FINDINGS: Nasogastric tube tip and side port in the stomach. Stomach is decompressed. There is bib asilar airspace disease right greater than left. IMPRESSION: Nasogastric tube tip and side port in the stomach TECHNICAL DOCUMENTATION: JOB ID: [id number] [employer]- All Rights Reserved Reading location - IP/workstation name: [email or web address]
[2019-03-22] MEDS: METRONIDAZOLE 500 MG/NS RTU 250 MG in CONTAINER,EMPTY 1 EACH IV SCH ×3 (01:31→18:21)
[2019-03-22] MEDS: HYDROMORPHONE HCL INJ/PF 2 MG/ML AMPULE IV PRN ×4 (01:34→16:52)
[2019-03-22] MEDS: HEPARIN SOD (PORCINE) 5,000 UNIT/ML 1 ML VIAL SUBCUT SCH ×3 (01:35→18:21)
[2019-03-22 04:00] LABS: ANION GAP 12 (5-19); BLOOD UREA NITROGEN 13 mg/dL (7-20); CALCIUM 8.1 mg/dL (8.4-10.2); CARBON DIOXIDE 17 mmol/L (22-30); CHLORIDE 112 mmol/L (98-107); GLUCOSE 119 mg/dL (75-110)
[2019-03-22 04:07] LABS: POTASSIUM 2.9 mmol/L (3.6-5.0)
[2019-03-22] MEDS: POTASSIUM CHLORIDE 10 MEQ TABLET.ER PO SCH ×2 (05:06→11:32)
[2019-03-22] MEDS ORDERED: METOPROLOL TARTRATE PF/INJ 5 MG/5 ML SDV IV ONE (09:38)
[2019-03-22] MEDS: CEFEPIME 1 GM/D5W RTU 1 GM/50 ML RTUPB IV SCH ×2 (10:22→21:22)
[2019-03-22] MEDS: PANTOPRAZOLE SODIUM 40 MG VIAL IV SCH (10:26)
[2019-03-22] MEDS: NYSTATIN CREAM 15 GM TOP SCH ×2 (10:36→18:31)
--- NOTE | 2019-03-22 10:40 | RADIOLOGY REPORT (SQ) ---
EXAM DESCRIPTION: CHEST SINGLE VIEW COMPLETED DATE/TIME: 03/22/2019 10:23 am REASON FOR STUDY: RESP FAILURE COMPARISON: None. EXAM PARAMETERS: NUMBER OF VIEWS: One view. TECHNIQUE: Single frontal radiographic view of the chest acquired. RADIATION DOSE: NA LIMITATIONS: None. FINDINGS: LUNGS AND PLEURA: Left lower lobe opacity, mildly improved from prior. Small left effusio n. Unchanged elevation of the right hemidiaphragm. No pneumothorax. MEDIASTINUM AND HILAR STRUCTURES: Stable pre HEART AND VASCULAR STRUCTURES: Enlarged, stable. BONES: No acute findings. HARDWARE: Extubation and removal of the enteric tube. Left subclavian approach central venous cathet er tip overlies innominate SVC junction, stable. OTHER: No other significant finding. IMPRESSION: 1. Extubation and removal of the enteric tube. 2. Improved but persistent left lower lobe opacity, likely atelectasis. Small left effusion. TECHNICAL DOCUMENTATION: JOB ID: [id number] [employer]- All Rights Reserved Reading location - IP/workstation name: [email or web address]
[2019-03-22 10:45] LABS: ANION GAP 14 (5-19); BLOOD UREA NITROGEN 11 mg/dL (7-20); CALCIUM 8.3 mg/dL (8.4-10.2); CARBON DIOXIDE 16 mmol/L (22-30); CHLORIDE 110 mmol/L (98-107); GLUCOSE 131 mg/dL (75-110); POTASSIUM 3.3 mmol/L (3.6-5.0)
[2019-03-22] MEDS: POTASSI CL 20 MEQ/50 ML RIDER 20 MEQ/50 ML RTUPB IV SCH ×2 (11:36→13:20)
--- NOTE | 2019-03-22 12:55 | PDOC CRITICAL CARE PROG REPORT ---
General Date:: 03/22/19 ICU Day:: 6 Resuscitation Status: Full Code Medical Power of Traffic Chief: Rogerio Michael [phone] Reason for ICU Addmission:: Ventilator due to acute respiratory failure, aspiration, UTI, MS - Medications: Medications reviewed and adjusted accordingly: Yes Physical Exam Vital Signs: Temp Pulse Resp BP Pulse Ox 99.9 F 100 26 H 148/92 H 98 03/22/19 12:00 03/22/19 12:00 03/22/19 12:00 03/22/19 12:00 03/22/19 12:00 Intake & Output 03/21/19 03/22/19 03/23/19 06:59 06:59 06:59 Intake Total 3255 223 Output Total 1540 1005 1540 Balance 1715 -1032 -1540 Weight 103.2 kg 97.8 kg Weight/Height Weight 97.8 kg Height 5 ft 5 in General appearance: PRESENT: no acute distress, well-developed, well-nourished Head exam: PRESENT: atraumatic, normocephalic Eye exam: PRESENT: conjunctiva pink, EOMI, PERRLA. ABSENT: scleral icterus Ear exam: PRESENT: normal external ear exam Mouth exam: PRESENT: moist, tongue midline Neck exam: ABSENT: carotid bruit, JVD, lymphadenopathy, thyromegaly Respiratory exam: PRESENT: decreased breath sounds - Right lower lobe, other - BiPAP securely in place. ABSENT: rales, retraction, rhonchi, stridor, wheezes Cardiovascular exam: PRESENT: RRR. ABSENT: diastolic murmur, rubs, systolic murmur Pulses: PRESENT: normal dorsalis pedis pul Vascular exam: PRESENT: normal capillary refill GI/Abdominal exam: PRESENT: normal bowel sounds, soft, other - ostomy pink, draining bilious fluid. ABSENT: distended, guarding, mass, organolmegaly, rebound, tenderness Rectal exam: PRESENT: deferred Extremities exam: PRESENT: full ROM. ABSENT: calf tenderness, clubbing, pedal edema Neurological exam: PRESENT: alert, awake, oriented to person, oriented to place, oriented to time, oriented to situation, CN II-XII grossly intact. ABSENT: motor sensory deficit Psychiatric exam: PRESENT: appropriate affect, normal mood. ABSENT: homicidal ideation, suicidal ideation Skin exam: PRESENT: dry, intact, warm. ABSENT: cyanosis, rash Laboratory/Radiographs Laboratory Results: 03/21/19 05:04 03/22/19 10:00 03/22/19 03/22/19 03:34 10:00 Sodium 141.3 139.5 Potassium 2.9 L* D 3.3 L Chloride 112 H 110 H Carbon Dioxide 17 L 16 L Anion Gap 12 14 BUN 13 11 Creatinine 0.44 L 0.39 L Est GFR ( Amer) > 60 > 60 Glucose 119 H 131 H Calcium 8.1 L 8.3 L Magnesium 1.8 03/17/19 06:54 Blood Blood Culture - Final NO GROWTH IN 5 DAYS 03/17/19 06:54 Troponin I 0.018 Impressions: Head CT 03/17/19 07:08 IMPRESSION: CHRONIC CHANGES OF ATROPHY AND MICROVASCULAR ISCHEMIA. NO ACUTE PROCESS. EVIDENCE OF ACUTE STROKE: NO. Abdomen/Pelvis CT 03/17/19 08:51 IMPRESSION: 1. Suspected sigmoid volvulus. 2. Small amount of ascites. No free air. 3. Adrenal nodules. Chest CT 03/17/19 08:52 IMPRESSION: 1. Collapse of the right lower lobe and most of the middle lobe. 2. Diffuse thickening of the esophagus. KUB X-Ray 03/21/19 12:24 IMPRESSION: Nasogastric tube tip and side port in the stomach Chest X-Ray 03/22/19 09:40 IMPRESSION: 1. Extubation and removal of the enteric tube. 2. Improved but persistent left lower lobe opacity, likely atelectasis. Small left effusion. All labs, radiographs, diagnostic studies and EKGs were personally reviewed: Yes In addition, reports of radiographic and diagnostic studies were read: Yes Assessment and Plan - Diagnosis (1) Bacteremia Is this a current diagnosis for this admission?: Yes Plan: Continue antibiotics for 8 days after first negative blood cultures (2) Cecal volvulus Is this a current diagnosis for this admission?: Yes Plan: Follow per surgical recommendations. Will advance diet if passes swallow study (3) Dehydration Is this a current diagnosis for this admission?: No Plan: Resolved (4) Hypotension Is this a current diagnosis for this admission?: Yes Plan: Resolved (5) Respiratory failure Qualifiers: Chronicity: acute Respiratory failure complication: unspecified whether with hypoxia or hypercapnia Qualified Code(s): J96.00 - Acute respiratory failure, unspecified whether with hypoxia or hypercapnia Is this a current diagnosis for this admission?: Yes Plan: Tolerating BiPAP better today. Will continue to treat with aggressive pulmonary toilet. Likely add lasix later today to assist with pulmonary edema. (6) Unresponsiveness Is this a current diagnosis for this admission?: No (7) Decubitus skin ulcer Qualifiers: Pressure injury location: lower back Pressure injury stage: stage 4 Laterality: left Qualified Code(s): L89.144 - Pressure ulcer of left lower back, stage 4 Is this a current diagnosis for this admission?: Yes Plan: Continue skin care per nursing (8) Functional quadriplegia secondary to MS Is this a current diagnosis for this admission?: Yes Plan: Chronic (9) Hyponatremia Is this a current diagnosis for this admission?: Yes Plan: resolved (10) Hypoxemia Is this a current diagnosis for this admission?: Yes Plan: Continue supplemental oxygen/BiPAP (11) UTI (urinary tract infection) Qualifiers: Indwelling urinary catheter type: indwelling urethral catheter Encounter type: initial encounter Is this a current diagnosis for this admission?: Yes Plan: Urine culture with >100,000 cfu e-coli that is sparks sensitive, including susceptibility to cefepime which the patient is currently on for her septicemia. Continue course. Critical Time Critical Time (minutes): 60 Level of Care: ICU Anticipated discharge: Home Within: within 72 hours -: 1. The care of a critical patient is a dynamic process. This note is a automobile rental representative synopsis but static in nature. The timeframe for treatments given in order is not necessary the actual time these treatments may have been done. 2. This patient requires critical care secondary to ongoing requirements for therapy not offered or safe outside the critical care environment. Transfer to a lower level of care with altered life or limb morbidity and mortality. 3. Multidisciplinary rounds completed. 4. ABCDE bundle addressed.
[2019-03-22] MEDS ORDERED: DEXTROSE 50%-WATER 25 GM/50 ML DISP.SYRIN IV PRN ×2 (14:16)
[2019-03-22] MEDS ORDERED: GLUCAGON,HUMAN RECOMB 1 MG INJ SUBCUT PRN (14:16)
[2019-03-22] MEDS ORDERED: DEXTROSE 40% GEL 15 GM TUBE PO PRN ×2 (14:16)
--- NOTE | 2019-03-22 15:46 | PDOC PROGRESS REPORT ---
Subjective Progress Note for:: 03/22/19 Subjective:: mild incisional pains Failed po clear liquids For eval by speech therapist Reason For Visit: ASPIRATION, ACUTE RESPIRATORY FAILURE, UTI, MS Physical Exam Vital Signs: Temp Pulse Resp BP Pulse Ox 99.9 F 101 H 25 H 149/93 H 98 03/22/19 12:00 03/22/19 14:00 03/22/19 14:00 03/22/19 14:00 03/22/19 14:00 Intake & Output 03/21/19 03/22/19 03/23/19 06:59 06:59 06:59 Intake Total 3255 223 43 Output Total 1544 0433 1670 Balance 5483 -6185 -7264 Weight 103.2 kg 97.8 kg Exam: Abdomen is soft with functioning ieostomy Results Laboratory Results: 03/21/19 05:04 03/22/19 10:00 03/22/19 03/22/19 03:34 10:00 Sodium 141.3 139.5 Potassium 2.9 L* D 3.3 L Chloride 112 H 110 H Carbon Dioxide 17 L 16 L Anion Gap 12 14 BUN 13 11 Creatinine 0.44 L 0.39 L Est GFR ( Amer) > 60 > 60 Glucose 119 H 131 H Calcium 8.1 L 8.3 L Magnesium 1.8 03/17/19 06:54 Blood Blood Culture - Final NO GROWTH IN 5 DAYS 03/17/19 06:54 Troponin I 0.018 Impressions: Head CT 03/17/19 07:08 IMPRESSION: CHRONIC CHANGES OF ATROPHY AND MICROVASCULAR ISCHEMIA. NO ACUTE PROCESS. EVIDENCE OF ACUTE STROKE: NO. Abdomen/Pelvis CT 03/17/19 08:51 IMPRESSION: 1. Suspected sigmoid volvulus. 2. Small amount of ascites. No free air. 3. Adrenal nodules. Chest CT 03/17/19 08:52 IMPRESSION: 1. Collapse of the right lower lobe and most of the middle lobe. 2. Diffuse thickening of the esophagus. KUB X-Ray 03/21/19 12:24 IMPRESSION: Nasogastric tube tip and side port in the stomach Chest X-Ray 03/22/19 09:40 IMPRESSION: 1. Extubation and removal of the enteric tube. 2. Improved but persistent left lower lobe opacity, likely atelectasis. Small left effusion. Assessment & Plan - Diagnosis (1) cecal volvulus Is this a current diagnosis for this admission?: Yes - Time Time Spent with patient: 15-24 minutes - Inpatient Certification Medical Necessity: Need For IV Fluids, Need for IV Antibiotics - Plan Summary Plan Summary: 58 yo female POD #5 for right hemicolectomy for cecal volvulus.Path noted Just failed po liquids and awaiting speech therapy evaluation May need tube feeds via NGT vs Peg tube placement Brim Presser going to talk to pt and family
[2019-03-22] MEDS: LIDOCAINE 5% (700 MG) TRANSDERMAL ADH..PATCH TOP SCH (18:29)
[2019-03-22 18:48] LABS: ANION GAP 14 (5-19); BLOOD UREA NITROGEN 11 mg/dL (7-20); CALCIUM 8.5 mg/dL (8.4-10.2); CARBON DIOXIDE 17 mmol/L (22-30); CHLORIDE 109 mmol/L (98-107); GLUCOSE 103 mg/dL (75-110); POTASSIUM 3.8 mmol/L (3.6-5.0)
[2019-03-22] MEDS ORDERED: LABETALOL HCL INJ 20 MG/4 ML DISP.SYRIN IV PRN (18:55)
[2019-03-23] MEDS: HEPARIN SOD (PORCINE) 5,000 UNIT/ML 1 ML VIAL SUBCUT SCH ×3 (01:16→17:18)
[2019-03-23] MEDS: METRONIDAZOLE 500 MG/NS RTU 250 MG in CONTAINER,EMPTY 1 EACH IV SCH ×2 (01:16→10:17)
[2019-03-23] MEDS: HYDROMORPHONE HCL INJ/PF 2 MG/ML AMPULE IV PRN ×6 (01:45→23:12)
[2019-03-23 05:39] LABS: ANION GAP 11 (5-19); BLOOD UREA NITROGEN 13 mg/dL (7-20); CALCIUM 8.5 mg/dL (8.4-10.2); CARBON DIOXIDE 18 mmol/L (22-30); CHLORIDE 113 mmol/L (98-107); GLUCOSE 113 mg/dL (75-110); POTASSIUM 3.7 mmol/L (3.6-5.0)
--- NOTE | 2019-03-23 07:55 | PDOC CRITICAL CARE PROG REPORT ---
General Date:: 03/23/19 ICU Day:: 7 Resuscitation Status: Full Code Medical Power of Marketing Regional Consultant: Rogerio Michael [phone] Reason for ICU Addmission:: Ventilator due to acute respiratory failure, aspiration, UTI, MS - Medications: Medications reviewed and adjusted accordingly: Yes Physical Exam Vital Signs: Temp Pulse Resp BP Pulse Ox 99 F 105 H 48 H 140/89 H 98 03/23/19 05:16 03/22/19 20:32 03/23/19 05:00 03/22/19 18:00 03/23/19 05:00 Intake & Output 03/22/19 03/23/19 03/24/19 06:59 06:59 06:59 Intake Total 223 143 Output Total 4733 3160 Balance -1375 -5647 Weight 97.8 kg 97.3 kg Weight/Height Weight 97.3 kg Height 5 ft 5 in General appearance: PRESENT: no acute distress, well-developed, well-nourished Head exam: PRESENT: atraumatic, normocephalic Eye exam: PRESENT: conjunctiva pink, EOMI, PERRLA. ABSENT: scleral icterus Ear exam: PRESENT: normal external ear exam Mouth exam: PRESENT: moist, tongue midline Neck exam: ABSENT: carotid bruit, JVD, lymphadenopathy, thyromegaly Respiratory exam: PRESENT: clear to auscultation jessica. ABSENT: rales, rhonchi, wheezes Cardiovascular exam: PRESENT: RRR. ABSENT: diastolic murmur, rubs, systolic murmur Pulses: PRESENT: normal dorsalis pedis pul Vascular exam: PRESENT: normal capillary refill GI/Abdominal exam: PRESENT: normal bowel sounds, soft. ABSENT: distended, guarding, mass, organolmegaly, rebound, tenderness Rectal exam: PRESENT: deferred Extremities exam: PRESENT: full ROM, pedal edema, +2 edema. ABSENT: calf tenderness, clubbing Neurological exam: PRESENT: alert, awake, oriented to person, oriented to place, oriented to time, oriented to situation, CN II-XII grossly intact. ABSENT: motor sensory deficit Psychiatric exam: PRESENT: appropriate affect, normal mood. ABSENT: homicidal ideation, suicidal ideation Skin exam: PRESENT: dry, intact, warm. ABSENT: cyanosis, rash Tubes/Lines: PRESENT: Central Line Laboratory/Radiographs Laboratory Results: 03/21/19 05:04 03/23/19 04:50 03/22/19 03/22/19 03/23/19 10:00 16:30 04:50 Sodium 139.5 139.6 142.3 Potassium 3.3 L 3.8 3.7 Chloride 110 H 109 H 113 H Carbon Dioxide 16 L 17 L 18 L Anion Gap 14 14 11 BUN 11 11 13 Creatinine 0.39 L 0.36 L 0.40 L Est GFR ( Amer) > 60 > 60 > 60 Glucose 131 H 103 113 H Calcium 8.3 L 8.5 8.5 Magnesium 1.9 03/17/19 06:54 Blood Blood Culture - Final NO GROWTH IN 5 DAYS 03/17/19 06:54 Troponin I 0.018 Impressions: Head CT 03/17/19 07:08 IMPRESSION: CHRONIC CHANGES OF ATROPHY AND MICROVASCULAR ISCHEMIA. NO ACUTE PROCESS. EVIDENCE OF ACUTE STROKE: NO. Abdomen/Pelvis CT 03/17/19 08:51 IMPRESSION: 1. Suspected sigmoid volvulus. 2. Small amount of ascites. No free air. 3. Adrenal nodules. Chest CT 03/17/19 08:52 IMPRESSION: 1. Collapse of the right lower lobe and most of the middle lobe. 2. Diffuse thickening of the esophagus. KUB X-Ray 03/21/19 12:24 IMPRESSION: Nasogastric tube tip and side port in the stomach Chest X-Ray 03/22/19 09:40 IMPRESSION: 1. Extubation and removal of the enteric tube. 2. Improved but persistent left lower lobe opacity, likely atelectasis. Small left effusion. All labs, radiographs, diagnostic studies and EKGs were personally reviewed: Yes In addition, reports of radiographic and diagnostic studies were read: Yes Assessment and Plan - Diagnosis (1) Bacteremia Is this a current diagnosis for this admission?: Yes Plan: Continue antibiotics for 8 days after first negative blood cultures (2) Cecal volvulus Is this a current diagnosis for this admission?: Yes Plan: Follow per surgical recommendations. Will advance diet if passes swallow study (3) Dehydration Is this a current diagnosis for this admission?: No Plan: Resolved (4) Hypotension Is this a current diagnosis for this admission?: Yes Plan: Resolved (5) Respiratory failure Qualifiers: Chronicity: acute Respiratory failure complication: unspecified whether with hypoxia or hypercapnia Qualified Code(s): J96.00 - Acute respiratory failure, unspecified whether with hypoxia or hypercapnia Is this a current diagnosis for this admission?: Yes Plan: Tolerating BiPAP better today. Will continue to treat with aggressive pulmonary toilet. Lower extremity edema 2+ today. Will give 40mg Lasix as she is on 20BID at home and may repeat this afternoon pending response. (6) Decubitus skin ulcer Qualifiers: Pressure injury location: lower back Pressure injury stage: stage 4 Laterality: left Qualified Code(s): L89.144 - Pressure ulcer of left lower back, stage 4 Is this a current diagnosis for this admission?: Yes Plan: Continue skin care per nursing (7) Functional quadriplegia secondary to MS Is this a current diagnosis for this admission?: Yes Plan: Chronic. Consult PT while inpatient (8) Hyponatremia Is this a current diagnosis for this admission?: Yes Plan: resolved (9) Hypoxemia Is this a current diagnosis for this admission?: Yes (10) UTI (urinary tract infection) Qualifiers: Indwelling urinary catheter type: indwelling urethral catheter Encounter type: initial encounter Is this a current diagnosis for this admission?: Yes Plan: Urine culture with >100,000 cfu e-coli that is sparks sensitive, including susceptibility to cefepime which the patient is currently on for her septicemia. Continue course. (11) Hypertension Qualifiers: Hypertension type: unspecified Qualified Code(s): I10 - Essential (primary) hypertension Is this a current diagnosis for this admission?: Yes Plan: Continue PRN labetalol until able to transition to home regimen. Critical Time Critical Time (minutes): 30 Level of Care: ICU Anticipated discharge: Home with Homehealth -: 1. The care of a critical patient is a dynamic process. This note is a plastic products sales representative synopsis but static in nature. The timeframe for treatments given in order is not necessary the actual time these treatments may have been done. 2. This patient requires critical care secondary to ongoing requirements for therapy not offered or safe outside the critical care environment. Transfer to a lower level of care with altered life or limb morbidity and mortality. 3. Multidisciplinary rounds completed. 4. ABCDE bundle addressed.
[2019-03-23] MEDS ORDERED: FUROSEMIDE INJ/PF 40 MG/4 ML SDV IV ONE (08:08)
--- NOTE | 2019-03-23 08:36 | XCELERA REPORT ---
[address] [address] Lower Extremity Venous Evaluation Procedure: Color flow and duplex imaging bilaterally of the veins of the lower extremities as well as the Common Femoral veins. Right Sided Venous Evaluation Lucent,spaces in subcutaneous tissues of the leg, suggesting edema, noted. Veins seems small, hard to visualize. Normal vessel filling wall to wall, compression and augmentation as well as Colour flow down to the infrageniculate veins. Left Sided Venous Evaluation Lucent,spaces in subcutaneous tissues of the leg, suggesting edema, noted. Veins seems small, hard to visualize. Normal vessel filling wall to wall, compression and augmentation as well as Colour flow down to the infrageniculate veins. Interpretation Summary No duplex evidence of DVT or obstruction in the bilateral lower extremities. Subcutaneous edema, other incidental findings noted. Name: ABDI VEGA Age: 58 yrs Gender: Female : 1960 Patient Status: Inpatient Patient [facility] Study Date: 03/22/2019 05:34 PM Reason For Study: knee pain, redness and swelling. Rule out DVT. Ordering Physician: YOLA FORRESTER Performed By: Edith Skelton : YOLA FORRESTER > Venu Ibarra
[2019-03-23] MEDS: POTASSI CL 20 MEQ/50 ML RIDER 20 MEQ/50 ML RTUPB IV SCH ×2 (09:51→13:29)
[2019-03-23] MEDS: CEFEPIME 1 GM/D5W RTU 1 GM/50 ML RTUPB IV SCH ×2 (09:52→21:18)
[2019-03-23] MEDS: PANTOPRAZOLE SODIUM 40 MG VIAL IV SCH (09:54)
--- NOTE | 2019-03-23 11:18 | ST Inp Modified Barium Swallow ---
Medical Diagnosis - Medical Diagnoses Medical Diagnosis Description & ICD-10 Code(s): respiratory failure - ICD-10 Tx Diagnosis Coding (1) Dysphagia ICD-10 Code(s): R13.10 - DYSPHAGIA, UNSPECIFIED (2) Aspiration into airway ICD-10 Code(s): T17.908A - UNSP FB IN RESP TRACT, PART UNSP CAUSING OTH INJURY, INIT ST Inpatient MBS - General Date: 03/23/19 Date of Onset: 03/17/19 - admission date - History -: Medical - per EMR: patient admitted 03/17 unresponsive, patient was intubated. Of note, patient had to be suctioned prior to intubation, chocolate was noted to be suctioned out. Patient was extubated on 03/21. Patient passed the nursing swallow screen, however, nursing staff was concerned due to very poor airway clearance/weak cough. Also, underlying MS places patient at greater risk. MBSS was recommended by speech therapist due to nature of swallowing concerns, MD in agreement. Medications: Medications Reviewed Allergies: Refer to medical record - Subjective Current Nutritional Means: NPO Current PO Diet: N/A (NPO) Current Symptoms: Coughing, Wet/gurgly voice, Aspiration Pain: denies pain - Objective Assessment: Upright, Left Lateral - Food Trials Food Trials Used: Thin liquids, Honey-thickened liquids, Pureed - Assessment Labial Function: Impaired - groping movements seen, poor ability to close lips to drink via cup or straw Lingual Function: Impaired Laryngeal Function: Weak Cough, weak voicing - Pharyngeal Stage Initiation of Pharyngeal Stage: Delayed - bolus fell over base of tongue into pharynx prior to swallow initiation, initiated in 2-4 seconds Decreased Laryngeal Elevation: Yes Reduced Velo-Pharyngeal Closure: no Reduced Pressure Generation: Yes Pre-Swallowing Pooling in Valleculae: Moderate Pre-Swallowing Pooling in Pyriforms: Moderate Reduced Thyro-Hyiod Approximation: Yes Reduced Epiglottic Excursion: No Multiple Swallows With: Ineffective Clearance - unable to complete second swall ow Post Swallow Residuals in Valleculae: Mild Post Swallow Residuals in Pyriforms: Mild Post Swallow Residuals: throughout pharynx Pahryngeal Stage Comments: Patient presents with weak and discoordinated swallow, characterized by poor oral control of bolus, spillage into the pharynx prior to the swallow and residue after the swallow. Poor pharygeal constriction seen, as well as reduced airway closure. Residuals seen after all trial textures, residuals were then seen to fall into airway and aspirate without cough reflex. - Impression/Summary Laryngeal Penetration: Yes - consistent penetration seen during the swallow with thin liquid trials, no cough reflex observed Tracheal Aspiration: yes - aspiration seen after the swallow with all trial textures, due to residue falling into open airway, then falling below the level of the vocal folds without a cough reflex. Patient unable to completed cued swallow or cough to clear or reduce aspiration. Patient Presents With: Oral-Pharyngeal dysph., Profound Risk of Aspiration: Severe Risk of Nutritional Compromise: Severe - Recommendations NPO: yes Strict Aspitarion Precautions: Yes Dysphagia Therapy with FILE CLERK: No Other Recommendations: No safe diet recommendations can be made as patient demo nstrated aspiration and poor swallowing skills with all trial textures this day. MD notified of results, and in agreement with NPO status. - Time Total Time: 30 Total Timed Minutes: 30
[2019-03-23 13:01] LABS: HEMATOCRIT 35.9 % (36.0-47.0); MEAN CORPUSCULAR HEMOGLOBIN 27.8 pg (27.0-33.4); MEAN CORPUSCULAR VOLUME 84 fl (80-97); RED BLOOD COUNT 4.25 10^6/uL (3.72-5.28); RED CELL DISTRIBUTION WIDTH 16.1 % (11.5-14.0); WHITE BLOOD COUNT 17.9 10^3/uL (4.0-10.5)
[2019-03-23 13:02] LABS: HEMOGLOBIN 11.8 g/dL (12.0-15.5); PLATELET COUNT 504 10^3/uL (150-450)
[2019-03-23 13:16] LABS: ABSOLUTE LYMPHOCYTES# (MANUAL) 0.9 10^3/uL (0.5-4.7); ABSOLUTE MONOCYTES # (MANUAL) 0.9 10^3/uL (0.1-1.4); BAND NEUTROPHILS % (MANUAL) 1 % (3-5); BASOPHILS % (MANUAL) 0 % (0-2); EOSINOPHILS % (MANUAL) 0 % (0-6); LYMPHOCYTES % (MANUAL) 5 % (13-45); MONOCYTES % (MANUAL) 5 % (3-13); SEGMENTED NEUTROPHILS % (MAN) 89 % (42-78); TOTAL CELLS COUNTED 100
[2019-03-23 13:17] LABS: ANISOCYTOSIS 1+; PLATELET COMMENT INCREASED
[2019-03-23 13:18] LABS: OVALOCYTES SLIGHT; POLYCHROMASIA SLIGHT
[2019-03-23] MEDS: METRONIDAZOLE 500 MG/NS RTU 500 MG/100 ML RTUPB IV SCH ×2 (13:29→22:50)
[2019-03-23] MEDS: LIDOCAINE 5% (700 MG) TRANSDERMAL ADH..PATCH TOP SCH (14:10)
[2019-03-23] MEDS: NYSTATIN CREAM 15 GM TOP SCH (14:11)
--- NOTE | 2019-03-23 16:22 | RADIOLOGY REPORT (SQ) ---
EXAM DESCRIPTION: MARKEL SWALLOW COMPLETED DATE/TIME: 03/23/2019 3:46 pm REASON FOR STUDY: silent aspiration risk pneumonia COMPARISON: None. TECHNIQUE: Videofluoroscopic swallowing examination was performed in conjunction with speech patholo gy. Videofluoroscopic imaging was obtained and reviewed and these are the findings: RADIATION DOSE: 2 minutes 39 seconds of fluoroscopy was used. 1 images saved to PACS. LIMITATIONS: None FINDINGS: The patient was brought into the fluoro room and placed upright on a modified barium swall ow chair. The patient was then given multiple consistencies mixed with barium to swallow under live fluoroscopic video guidance. According to the Speech Pathologist there was laryngeal penetration and aspiration of post swallow residuals and seen with large bullous. IMPRESSION: LARYNGEAL PENETRATION AND ASPIRATION ABOVE. PLEASE SEE SPEECH PATHOLOGIST REPORT FOR OTHER FINDINGS AND RECOMMENDATIONS. COMMENT: Quality ID [id number]: Final reports for procedures using fluoroscopy that document radiation exp osure indices, or exposure time and number of fluorographic images (if radiation exposure indices are not available) TECHNICAL DOCUMENTATION: JOB ID: [id number] [employer]- All Rights Reserved Reading location - IP/workstation name: [email or web address]
--- NOTE | 2019-03-23 18:04 | RADIOLOGY REPORT (SQ) ---
EXAM DESCRIPTION: KUB/ABDOMEN (SINGLE VIEW) COMPLETED DATE/TIME: 03/23/2019 5:52 pm REASON FOR STUDY: verify dobhoff tube placement COMPARISON: None. FINDINGS: Supine image of the abdomen and pelvis. Dobhoff tube with tip projected to the region of the distal stomach. Consider introducing extra slack into the tube and positioning the patient right side down to encoura ge passage into small bowel. TECHNICAL DOCUMENTATION: JOB ID: [id number] Reading location - IP/workstation name: [email or web address]
--- NOTE | 2019-03-23 19:54 | PDOC PROGRESS REPORT ---
Subjective Progress Note for:: 03/23/19 Reason For Visit: ASPIRATION, ACUTE RESPIRATORY FAILURE, UTI, MS Physical Exam Vital Signs: Temp Pulse Resp BP Pulse Ox 99.6 F 117 H 15 174/113 H 90 L 03/23/19 19:27 03/23/19 18:00 03/23/19 18:50 03/23/19 18:04 03/23/19 18:50 Intake & Output 03/22/19 03/23/19 03/24/19 06:59 06:59 06:59 Intake Total 223 193 50 Output Total 4725 3160 1600 Balance -1533 -5175 -7876 Weight 97.8 kg 97.3 kg 97.3 kg Exam: Noted some drainage from the lower incision. All the skin vijaya were removed and the fascia appears to be fairly intact. There is evidence of fatty necrosis of the subcutaneous layer. Cultures were obtained. Patient will be started on wet-to-dry dressing the incision site. Patient will need to improve nutritional status may be with TPN or NG tube feedings. Results Laboratory Results: 03/23/19 11:58 03/23/19 04:50 03/23/19 03/23/19 03/23/19 04:50 04:50 11:58 WBC Cancelled 17.9 H RBC Cancelled 4.25 Hgb Cancelled 11.8 L D Hct Cancelled 35.9 L MCV Cancelled 84 MCH Cancelled 27.8 MCHC Cancelled 33.0 RDW Cancelled 16.1 H Plt Count Cancelled 504 H D Seg Neutrophils % Cancelled Not Reportable Sodium 142.3 Potassium 3.7 Chloride 113 H Carbon Dioxide 18 L Anion Gap 11 BUN 13 Creatinine 0.40 L Est GFR ( Amer) > 60 Glucose 113 H Calcium 8.5 Magnesium 1.9 03/17/19 06:54 Troponin I 0.018 Impressions: Head CT 03/17/19 07:08 IMPRESSION: CHRONIC CHANGES OF ATROPHY AND MICROVASCULAR ISCHEMIA. NO ACUTE PROCESS. EVIDENCE OF ACUTE STROKE: NO. Abdomen/Pelvis CT 03/17/19 08:51 IMPRESSION: 1. Suspected sigmoid volvulus. 2. Small amount of ascites. No free air. 3. Adrenal nodules. Chest CT 03/17/19 08:52 IMPRESSION: 1. Collapse of the right lower lobe and most of the middle lobe. 2. Diffuse thickening of the esophagus. Chest X-Ray 03/22/19 09:40 IMPRESSION: 1. Extubation and removal of the enteric tube. 2. Improved but persistent left lower lobe opacity, likely atelectasis. Small left effusion. Modified Barium Swallow 03/23/19 00:00 IMPRESSION: LARYNGEAL PENETRATION AND ASPIRATION ABOVE. PLEASE SEE SPEECH PATHOLOGIST REPORT FOR OTHER FINDINGS AND RECOMMENDATIONS. Assessment & Plan - Diagnosis (1) cecal volvulus Is this a current diagnosis for this admission?: Yes - Time Time Spent with patient: 15-24 minutes - Inpatient Certification Medical Necessity: Need Close Monitoring Due to Risk of Patient Decompensation, Need For IV Fluids, Need for IV Antibiotics, Risk of Complication if Not Cared For in Hospital - Plan Summary Plan Summary: Postop day #6 post right hemicolectomy for cecal volvulus Plans: Patient has poor wound healing and noted to have fatty necrosis of subcutaneous fat at the incision site requiring removal of old vijaya. She started on wet-to-dry dressings every 12 hours. Ileostomy appears to be just starting to function. Patient will need nutrition possibly with use of TPN or tube feeds while waiting for event will PEG tube placement when the family agrees.
--- NOTE | 2019-03-23 21:06 | RADIOLOGY REPORT (SQ) ---
EXAM DESCRIPTION: XR ABDOMEN 1 VIEW (KUB) COMPLETED DATE/TME: 03/23/2019 00:00 CLINICAL HISTORY: 58 years, Female, New regular NG tube placed, confirm placement COMPARISON: None. NUMBER OF VIEWS: TECHNIQUE: LIMITATIONS: None. FINDINGS: The tip of the nasogastric tube is in the proximal stomach. IMPRESSION: The tip of the NG tube is in the stomach. copyright 2010 [employer]- All Rights Reserved
[2019-03-24 02:00] LABS: HEMATOCRIT 29.7 % (36.0-47.0); MEAN CORPUSCULAR HEMOGLOBIN 28.2 pg (27.0-33.4); MEAN CORPUSCULAR HGB CONC 33.6 g/dL (32.0-36.0); MEAN CORPUSCULAR VOLUME 84 fl (80-97); PLATELET COUNT 525 10^3/uL (150-450); RED BLOOD COUNT 3.55 10^6/uL (3.72-5.28); RED CELL DISTRIBUTION WIDTH 15.6 % (11.5-14.0); WHITE BLOOD COUNT 14.5 10^3/uL (4.0-10.5)
[2019-03-24 02:15] LABS: ANION GAP 8 (5-19); BLOOD UREA NITROGEN 14 mg/dL (7-20); CALCIUM 8.5 mg/dL (8.4-10.2); CARBON DIOXIDE 23 mmol/L (22-30); CHLORIDE 114 mmol/L (98-107); GLUCOSE 127 mg/dL (75-110); PHOSPHORUS 2.3 mg/dL (2.5-4.5); POTASSIUM 3.8 mmol/L (3.6-5.0)
[2019-03-24 02:18] LABS: ABSOLUTE LYMPHOCYTES# (MANUAL) 1.6 10^3/uL (0.5-4.7); ABSOLUTE MONOCYTES # (MANUAL) 0.6 10^3/uL (0.1-1.4); BAND NEUTROPHILS % (MANUAL) 3 % (3-5); BASOPHILS % (MANUAL) 0 % (0-2); EOSINOPHILS % (MANUAL) 0 % (0-6); LYMPHOCYTES % (MANUAL) 11 % (13-45); MONOCYTES % (MANUAL) 4 % (3-13); SEGMENTED NEUTROPHILS % (MAN) 82 % (42-78); TOTAL CELLS COUNTED 100
[2019-03-24 02:19] LABS: ANISOCYTOSIS SLIGHT; HYPOCHROMASIA 1+; PLATELET COMMENT INCREASED
[2019-03-24] MEDS: HEPARIN SOD (PORCINE) 5,000 UNIT/ML 1 ML VIAL SUBCUT SCH ×3 (02:30→17:58)
[2019-03-24] MEDS ORDERED: SODIUM PHOS,M-BASIC-D-BASIC 15 MMOL in NORMAL SALINE 250 ML IV ONE ×2 (03:30→08:00)
[2019-03-24] MEDS: HYDROMORPHONE HCL INJ/PF 2 MG/ML AMPULE IV PRN ×2 (05:05→10:19)
[2019-03-24] MEDS: METRONIDAZOLE 500 MG/NS RTU 500 MG/100 ML RTUPB IV SCH ×3 (05:48→22:57)
--- NOTE | 2019-03-24 08:32 | PDOC PROGRESS REPORT ---
Subjective Progress Note for:: 03/24/19 Subjective:: Fairly comfortable Reason For Visit: ASPIRATION, ACUTE RESPIRATORY FAILURE, UTI, MS Physical Exam Vital Signs: Temp Pulse Resp BP Pulse Ox 98.3 F 110 H 14 165/94 H 92 03/24/19 03:37 03/23/19 22:00 03/24/19 06:00 03/24/19 05:05 03/24/19 06:00 Intake & Output 03/23/19 03/24/19 03/25/19 06:59 06:59 06:59 Intake Total 193 540 Output Total 3160 1930 Balance -2967 -1390 Weight 97.3 kg 92.8 kg Exam: Abdominal skin incision opened yesterday and started on wet to dry dressings. Await C/S results Abdominal packing in place Ileostomy functioning Results Laboratory Results: 03/24/19 01:40 03/24/19 01:40 03/23/19 03/23/19 03/24/19 04:50 11:58 01:40 WBC Cancelled 17.9 H RBC Cancelled 4.25 Hgb Cancelled 11.8 L D Hct Cancelled 35.9 L MCV Cancelled 84 MCH Cancelled 27.8 MCHC Cancelled 33.0 RDW Cancelled 16.1 H Plt Count Cancelled 504 H D Seg Neutrophils % Cancelled Not Reportable Sodium 145.3 H Potassium 3.8 Chloride 114 H Carbon Dioxide 23 Anion Gap 8 BUN 14 Creatinine 0.40 L Est GFR ( Amer) > 60 Glucose 127 H Calcium 8.5 Phosphorus 2.3 L Magnesium 1.9 03/24/19 01:40 WBC 14.5 H RBC 3.55 L Hgb 10.0 L Hct 29.7 L MCV 84 MCH 28.2 MCHC 33.6 RDW 15.6 H Plt Count 525 H Seg Neutrophils % Not Reportable Sodium Potassium Chloride Carbon Dioxide Anion Gap BUN Creatinine Est GFR ( Amer) Glucose Calcium Phosphorus Magnesium 03/17/19 06:54 Troponin I 0.018 Impressions: Head CT 03/17/19 07:08 IMPRESSION: CHRONIC CHANGES OF ATROPHY AND MICROVASCULAR ISCHEMIA. NO ACUTE PROCESS. EVIDENCE OF ACUTE STROKE: NO. Abdomen/Pelvis CT 03/17/19 08:51 IMPRESSION: 1. Suspected sigmoid volvulus. 2. Small amount of ascites. No free air. 3. Adrenal nodules. Chest CT 03/17/19 08:52 IMPRESSION: 1. Collapse of the right lower lobe and most of the middle lobe. 2. Diffuse thickening of the esophagus. Chest X-Ray 03/22/19 09:40 IMPRESSION: 1. Extubation and removal of the enteric tube. 2. Improved but persistent left lower lobe opacity, likely atelectasis. Small left effusion. KUB X-Ray 03/23/19 00:00 IMPRESSION: The tip of the NG tube is in the stomach. copyright 2011 [employer]- All Rights Reserved Modified Barium Swallow 03/23/19 00:00 IMPRESSION: LARYNGEAL PENETRATION AND ASPIRATION ABOVE. PLEASE SEE SPEECH PATHOLOGIST REPORT FOR OTHER FINDINGS AND RECOMMENDATIONS. Assessment & Plan - Diagnosis (1) cecal volvulus Is this a current diagnosis for this admission?: Yes - Time Time Spent with patient: 15-24 minutes - Inpatient Certification Medical Necessity: Need Close Monitoring Due to Risk of Patient Decompensation, Need For IV Fluids, Need for IV Antibiotics - Plan Summary Plan Summary: Plans: D/W Baggage Inspector about nutrition and started her on NGT feeds which patient appears to be tolerating. Continue to gradually increase tube feeds Continue IV antibiotics Continue saline wet todry dressings over incision Q 12 hrs
[2019-03-24] MEDS: PANTOPRAZOLE SODIUM 40 MG VIAL IV SCH (10:26)
[2019-03-24] MEDS: PHOSPHORUS #1 250 MG TABLET NG SCH ×4 (10:26→22:58)
[2019-03-24] MEDS: LIDOCAINE 5% (700 MG) TRANSDERMAL ADH..PATCH TOP SCH (10:27)
[2019-03-24] MEDS: NYSTATIN CREAM 15 GM TOP SCH ×3 (10:27→17:59)
[2019-03-24] MEDS ORDERED: FUROSEMIDE INJ/PF 40 MG/4 ML SDV ONE (11:07)
--- NOTE | 2019-03-24 11:39 | PDOC CRITICAL CARE PROG REPORT ---
General Date:: 03/24/19 ICU Day:: 8 Resuscitation Status: Full Code Medical Power of Critical Care Physician Assistant: Rogerio Michael [phone] Events in the past 12 to 24 Hours:: Patient underwent swallow study yesterday and was found to have gross aspiration with all oral intake (liquid, solid, honey thick, etc) and minimal to no cough/gag reflex. After the exam an attempt was made to place a post pyloric small bore feeding tube, however, the stylet wire would not pull free from the tube so it had to be removed (sytlet still would not pull free even after tube removal). A nasogartric tube was placed and feeds were initiated. Additionally, her WBC elevated to 17k and she had purulence pouring from her wound--surgical team evaluated, opened her midline wound and packed the area with wet to dry gauze. The patient then required BiPAP overnight due to decreased SPO2 at 88% and returned to 92-94% overnight. A family discussion was had yesterday as well to discuss her future plans and wishes. The patient had expressed to our nursing staff that she did not want anymore things done to her and she was tired, however, at the time of the discussion she voiced that she does in fact want a feeding tube knowing that she will no longer be able to eat or drink. Due to her inability to protect her airway she may also require a tracheostomy in the future--this was made explicitly clear to her and her POA. Reason for ICU Addmission:: Ventilator due to acute respiratory failure, aspiration, UTI, MS - Medications: Medications reviewed and adjusted accordingly: Yes Physical Exam Vital Signs: Temp Pulse Resp BP Pulse Ox 99.0 F 114 H 19 150/84 H 90 L 03/24/19 10:00 03/24/19 10:00 03/24/19 10:00 03/24/19 10:00 03/24/19 10:00 Intake & Output 03/23/19 03/24/19 03/25/19 06:59 06:59 06:59 Intake Total 193 540 Output Total 3160 1930 45 Balance -2967 -1390 -45 Weight 97.3 kg 92.8 kg Weight/Height Weight 92.8 kg Height 5 ft 5 in General appearance: PRESENT: no acute distress, morbidly obese Head exam: PRESENT: atraumatic Eye exam: PRESENT: conjunctiva pink, EOMI, PERRLA. ABSENT: scleral icterus Ear exam: PRESENT: normal external ear exam Mouth exam: PRESENT: moist, tongue midline Throat exam: ABSENT: post pharyngeal erythema Neck exam: ABSENT: carotid bruit, JVD Respiratory exam: PRESENT: crackles. ABSENT: accessory muscle use, stridor, tachypnea Cardiovascular exam: PRESENT: RRR. ABSENT: diastolic murmur Pulses: PRESENT: normal carotid pulses, normal femoral pulses GI/Abdominal exam: PRESENT: other - Soft, appropriately TTP, ileostomy patent but edematous--mucosa congested peripherally but clearing centrally. Output minimal and bilious. Midline wound open today with evidence of fascial dehiscence in numerous area.. ABSENT: ascites Rectal exam: PRESENT: deferred Gentrourinary exam: PRESENT: indwelling catheter - continues to leak around catheter Extremities exam: PRESENT: clubbing, +2 edema. ABSENT: calf tenderness Musculoskeletal exam: PRESENT: deformity. ABSENT: ambulatory Neurological exam: PRESENT: alert, awake, oriented to person, CN II-XII grossly intact. ABSENT: oriented to place, oriented to time Psychiatric exam: PRESENT: flat affect Skin exam: PRESENT: dry, warm. ABSENT: rash Tubes/Lines: PRESENT: Nasogastic Tube Laboratory/Radiographs Laboratory Results: 03/24/19 01:40 03/24/19 01:40 03/23/19 03/24/19 03/24/19 11:58 01:40 01:40 WBC 17.9 H 14.5 H RBC 4.25 3.55 L Hgb 11.8 L D 10.0 L Hct 35.9 L 29.7 L MCV 84 84 MCH 27.8 28.2 MCHC 33.0 33.6 RDW 16.1 H 15.6 H Plt Count 504 H D 525 H Seg Neutrophils % Not Reportable Not Reportable Sodium 145.3 H Potassium 3.8 Chloride 114 H Carbon Dioxide 23 Anion Gap 8 BUN 14 Creatinine 0.40 L Est GFR ( Amer) > 60 Glucose 127 H Calcium 8.5 Phosphorus 2.3 L Magnesium 1.9 03/17/19 06:54 Troponin I 0.018 Impressions: Head CT 03/17/19 07:08 IMPRESSION: CHRONIC CHANGES OF ATROPHY AND MICROVASCULAR ISCHEMIA. NO ACUTE PROCESS. EVIDENCE OF ACUTE STROKE: NO. Abdomen/Pelvis CT 03/17/19 08:51 IMPRESSION: 1. Suspected sigmoid volvulus. 2. Small amount of ascites. No free air. 3. Adrenal nodules. Chest CT 03/17/19 08:52 IMPRESSION: 1. Collapse of the right lower lobe and most of the middle lobe. 2. Diffuse thickening of the esophagus. Chest X-Ray 03/22/19 09:40 IMPRESSION: 1. Extubation and removal of the enteric tube. 2. Improved but persistent left lower lobe opacity, likely atelectasis. Small left effusion. KUB X-Ray 03/23/19 00:00 IMPRESSION: The tip of the NG tube is in the stomach. copyright 2010 [email or web address]- All Rights Reserved Modified Barium Swallow 03/23/19 00:00 IMPRESSION: LARYNGEAL PENETRATION AND ASPIRATION ABOVE. PLEASE SEE SPEECH PATHOLOGIST REPORT FOR OTHER FINDINGS AND RECOMMENDATIONS. All labs, radiographs, diagnostic studies and EKGs were personally reviewed: Yes In addition, reports of radiographic and diagnostic studies were read: Yes Assessment and Plan - Diagnosis (1) Bacteremia Is this a current diagnosis for this admission?: Yes Plan: Continue antibiotics for 8 days after first negative blood cultures. Wound opened in midline and purulence released. Leukocytosis resolving again today. (2) Cecal volvulus Is this a current diagnosis for this admission?: Yes Plan: Follow per surgical recommendations. Swallow study failed. Family meeting yesterday to discuss plans and patient/chief construction inspector desire alf feeding access via gastrostomy tube. (3) Dehydration Is this a current diagnosis for this admission?: No Plan: Resolved. (4) Hypotension Is this a current diagnosis for this admission?: Yes Plan: Resolved (5) Respiratory failure Qualifiers: Chronicity: acute Respiratory failure complication: unspecified whether with hypoxia or hypercapnia Qualified Code(s): J96.00 - Acute respiratory failure, unspecified whether with hypoxia or hypercapnia Is this a current diagnosis for this admission?: Yes Plan: Was off BiPAP yesterday for numerous hours. Returned (6) Decubitus skin ulcer Qualifiers: Pressure injury location: lower back Pressure injury stage: stage 4 Laterality: left Qualified Code(s): L89.144 - Pressure ulcer of left lower back, stage 4 Is this a current diagnosis for this admission?: Yes Plan: Continue skin care per nursing (7) Functional quadriplegia secondary to MS Is this a current diagnosis for this admission?: Yes Plan: Chronic. Consult PT while inpatient (8) Hyponatremia Is this a current diagnosis for this admission?: Yes Plan: resolved (9) Hypoxemia Is this a current diagnosis for this admission?: Yes Plan: Continue supplemental oxygen/BiPAP. Patient actually edematous today but intravascularly replete. Plan to diurese. (10) UTI (urinary tract infection) Qualifiers: Indwelling urinary catheter type: indwelling urethral catheter Encounter type: initial encounter Is this a current diagnosis for this admission?: Yes Plan: Urine culture with >100,000 cfu e-coli that is sparks sensitive, including susceptibility to cefepime which the patient is currently on for her septicemia. Continue course. (11) Hypertension Qualifiers: Hypertension type: unspecified Qualified Code(s): I10 - Essential (primary) hypertension Is this a current diagnosis for this admission?: Yes Plan: Continue PRN labetalol until able to transition to home regimen. Plan Summary: The patient's condition is very concerning. She will require alf feeding access, will likely need tracheostomy as she can not protect her airway and is already bed ridden, immobile and has a stage IV sacral decubitus ulcer. Her midline incision was infected and her fascial closure is breaking down. Despite being extubated she is at very high risk of mortality in the near future. All of these points were discussed with the patient and the options for aggressive treatment (G-tube, trach, etc), conservative treatment and palliation/hospice type care were discussed with the patient/critical care physician assistant. As they desire aggressive measures, the case was discussed with her surgeons regarding their desire for gastrostomy tube placement. Should she also require a tracheostomy would consider consulting urology as well at the time of the surgery for suprapubic tube placement so that all of her recommended procedures could occur in the same trip/anesthetic. Decision pending discussion with surgery team. TOday we will continue to increase tube feeds via NG to goal rate, add scopolamine patch for secretions and chest physiotherapy, deep suction as needed and continue to use BiPAP if required. Critical Time Critical Time (minutes): 90 Level of Care: ICU Anticipated discharge: Home with Homehealth -: 1. The care of a critical patient is a dynamic process. This note is a operations support representative synopsis but static in nature. The timeframe for treatments given in order is not necessary the actual time these treatments may have been done. 2. This patient requires critical care secondary to ongoing requirements for therapy not offered or safe outside the critical care environment. Transfer to a lower level of care with altered life or limb morbidity and mortality. 3. Multidisciplinary rounds completed. 4. ABCDE bundle addressed.
[2019-03-24] MEDS ORDERED: HYDROCOD/ACETAMIN 7.5-325 MG/15 ML ORAL SOLN UDCUP PO PRN (11:44)
[2019-03-24] MEDS: HYDROCOD/ACETAMIN 7.5-325 MG/15 ML ORAL SOLN UDCUP NG PRN ×2 (17:59→23:51)
[2019-03-24] MEDS: VITAMINS A AND D OINTMENT 56.7 GM TOP SCH (18:00)
[2019-03-25] MEDS: HEPARIN SOD (PORCINE) 5,000 UNIT/ML 1 ML VIAL SUBCUT SCH ×3 (03:50→17:52)
[2019-03-25 04:49] LABS: HEMATOCRIT 31.7 % (36.0-47.0); HEMOGLOBIN 10.5 g/dL (12.0-15.5); MEAN CORPUSCULAR HEMOGLOBIN 28.3 pg (27.0-33.4); MEAN CORPUSCULAR HGB CONC 33.2 g/dL (32.0-36.0); MEAN CORPUSCULAR VOLUME 85 fl (80-97); PLATELET COUNT 576 10^3/uL (150-450); RED BLOOD COUNT 3.72 10^6/uL (3.72-5.28); RED CELL DISTRIBUTION WIDTH 16.6 % (11.5-14.0); WHITE BLOOD COUNT 13.7 10^3/uL (4.0-10.5)
[2019-03-25 05:13] LABS: ANION GAP 6 (5-19); BLOOD UREA NITROGEN 13 mg/dL (7-20); CALCIUM 8.7 mg/dL (8.4-10.2); CARBON DIOXIDE 28 mmol/L (22-30); CHLORIDE 113 mmol/L (98-107); GLUCOSE 144 mg/dL (75-110); PHOSPHORUS 2.7 mg/dL (2.5-4.5); POTASSIUM 3.1 mmol/L (3.6-5.0)
[2019-03-25 05:25] LABS: ABSOLUTE LYMPHOCYTES# (MANUAL) 0.7 10^3/uL (0.5-4.7); ABSOLUTE MONOCYTES # (MANUAL) 0.4 10^3/uL (0.1-1.4); ANISOCYTOSIS 1+; BAND NEUTROPHILS % (MANUAL) 4 % (3-5); BASOPHILS % (MANUAL) 0 % (0-2); EOSINOPHILS % (MANUAL) 0 % (0-6); HYPOCHROMASIA 1+; LYMPHOCYTES % (MANUAL) 5 % (13-45); MONOCYTES % (MANUAL) 3 % (3-13); PLATELET COMMENT INCREASED; SEGMENTED NEUTROPHILS % (MAN) 88 % (42-78); TOTAL CELLS COUNTED 100
[2019-03-25] MEDS: METRONIDAZOLE 500 MG/NS RTU 500 MG/100 ML RTUPB IV SCH ×3 (06:40→22:28)
--- NOTE | 2019-03-25 07:36 | RADIOLOGY REPORT (SQ) ---
EXAM DESCRIPTION: CHEST SINGLE VIEW COMPLETED DATE/TIME: 03/25/2019 6:05 am REASON FOR STUDY: hypoxic resp failure; f/u RLL infiltrate COMPARISON: 03/24/2019 FINDINGS: Single-view chest it view portable semi-upright. Nasogastric tube appropriate. Left subclavian line in place, as before. Dense consolidation left base persists. Doubt change, overall relatively stable appearance the chest. TECHNICAL DOCUMENTATION: JOB ID: [id number] Reading location - IP/workstation name: [email or web address]
[2019-03-25] MEDS: PHOSPHORUS #1 250 MG TABLET NG SCH ×4 (10:28→22:28)
[2019-03-25] MEDS: HYDROCOD/ACETAMIN 7.5-325 MG/15 ML ORAL SOLN UDCUP NG PRN ×2 (10:28→17:45)
[2019-03-25] MEDS: LIDOCAINE 5% (700 MG) TRANSDERMAL ADH..PATCH TOP SCH (10:28)
[2019-03-25] MEDS: VITAMINS A AND D OINTMENT 56.7 GM TOP SCH ×3 (10:28→17:44)
[2019-03-25] MEDS: HYDROMORPHONE HCL INJ/PF 2 MG/ML AMPULE IV PRN (12:13)
--- NOTE | 2019-03-25 12:53 | PDOC CRITICAL CARE PROG REPORT ---
General Date:: 03/25/19 ICU Day:: 9 Resuscitation Status: Full Code Medical Power of Drill Press Tender: Rogerio Michael [phone] Events in the past 12 to 24 Hours:: Patient's wound dehiscence was dressed with a wound vac. She began tube feeds yesterday advancing as tolerated. Reason for ICU Addmission:: Ventilator due to acute respiratory failure, aspiration, UTI, MS - Medications: Medications reviewed and adjusted accordingly: Yes Physical Exam Vital Signs: Temp Pulse Resp BP Pulse Ox 100.7 F H 123 H 31 H 184/104 H 92 03/25/19 10:00 03/25/19 10:00 03/25/19 10:00 03/25/19 10:00 03/25/19 10:00 Intake & Output 03/24/19 03/25/19 03/26/19 06:59 06:59 06:59 Intake Total 640 530 100 Output Total 1930 2185 100 Balance -1290 -1655 0 Weight 92.8 kg 92.6 kg Weight/Height Weight 92.6 kg Height 5 ft 5 in General appearance: PRESENT: no acute distress, morbidly obese Head exam: PRESENT: atraumatic, normocephalic Eye exam: PRESENT: conjunctiva pink, EOMI, PERRLA. ABSENT: nystagmus, scleral icterus Ear exam: PRESENT: normal external ear exam Mouth exam: PRESENT: dry mucosa, tongue midline Throat exam: ABSENT: post pharyngeal erythema Neck exam: ABSENT: carotid bruit, JVD Respiratory exam: PRESENT: crackles, decreased breath sounds. ABSENT: accessory muscle use, rales, rhonchi, wheezes Cardiovascular exam: PRESENT: RRR. ABSENT: diastolic murmur, systolic murmur Pulses: PRESENT: normal carotid pulses, normal femoral pulses Vascular exam: PRESENT: normal capillary refill GI/Abdominal exam: PRESENT: normal bowel sounds, soft, other - Ostomy viable but right lateral portion of mucosa ischemic and sloughing. >1L out of ostomy this morning at rounds and it appears thin/bilious.. ABSENT: ascites, distended, guarding Rectal exam: PRESENT: deferred Extremities exam: PRESENT: pedal edema, +2 edema Musculoskeletal exam: ABSENT: ambulatory Neurological exam: PRESENT: awake, oriented to person, oriented to place, CN II- XII grossly intact. ABSENT: oriented to time Psychiatric exam: PRESENT: flat affect Skin exam: PRESENT: dry, warm Tubes/Lines: PRESENT: Central Line, Nasogastic Tube Laboratory/Radiographs Laboratory Results: 03/25/19 04:20 03/25/19 04:20 03/25/19 03/25/19 04:20 04:20 WBC 13.7 H RBC 3.72 Hgb 10.5 L Hct 31.7 L MCV 85 MCH 28.3 MCHC 33.2 RDW 16.6 H Plt Count 576 H Seg Neutrophils % Not Reportable Sodium 147.1 H Potassium 3.1 L Chloride 113 H Carbon Dioxide 28 Anion Gap 6 BUN 13 Creatinine 0.38 L Est GFR ( Amer) > 60 Glucose 144 H Calcium 8.7 Phosphorus 2.7 Magnesium 1.8 03/23/19 16:05 Abdomen - Post Surgical Site Gram Stain - Final 03/17/19 06:54 Troponin I 0.018 Impressions: Head CT 03/17/19 07:08 IMPRESSION: CHRONIC CHANGES OF ATROPHY AND MICROVASCULAR ISCHEMIA. NO ACUTE PROCESS. EVIDENCE OF ACUTE STROKE: NO. Abdomen/Pelvis CT 03/17/19 08:51 IMPRESSION: 1. Suspected sigmoid volvulus. 2. Small amount of ascites. No free air. 3. Adrenal nodules. Chest CT 03/17/19 08:52 IMPRESSION: 1. Collapse of the right lower lobe and most of the middle lobe. 2. Diffuse thickening of the esophagus. KUB X-Ray 03/23/19 00:00 IMPRESSION: The tip of the NG tube is in the stomach. copyright 2010 [employer]- All Rights Reserved Modified Barium Swallow 03/23/19 00:00 IMPRESSION: LARYNGEAL PENETRATION AND ASPIRATION ABOVE. PLEASE SEE SPEECH PATHOLOGIST REPORT FOR OTHER FINDINGS AND RECOMMENDATIONS. Assessment and Plan - Diagnosis (1) Bacteremia Is this a current diagnosis for this admission?: Yes (2) Cecal volvulus Is this a current diagnosis for this admission?: Yes (3) Dehydration Is this a current diagnosis for this admission?: No (4) Hypotension Is this a current diagnosis for this admission?: Yes (5) Respiratory failure Qualifiers: Chronicity: acute Respiratory failure complication: unspecified whether with hypoxia or hypercapnia Qualified Code(s): J96.00 - Acute respiratory failure, unspecified whether with hypoxia or hypercapnia Is this a current diagnosis for this admission?: Yes (6) Decubitus skin ulcer Qualifiers: Pressure injury location: lower back Pressure injury stage: stage 4 Laterality: left Qualified Code(s): L89.144 - Pressure ulcer of left lower back, stage 4 Is this a current diagnosis for this admission?: Yes (7) Functional quadriplegia secondary to MS Is this a current diagnosis for this admission?: Yes (8) Hyponatremia Is this a current diagnosis for this admission?: Yes (9) Hypoxemia Is this a current diagnosis for this admission?: Yes (10) UTI (urinary tract infection) Qualifiers: Indwelling urinary catheter type: indwelling urethral catheter Encounter type: initial encounter Is this a current diagnosis for this admission?: Yes (11) Hypertension Qualifiers: Hypertension type: unspecified Qualified Code(s): I10 - Essential (primary) hypertension Is this a current diagnosis for this admission?: Yes Critical Time Critical Time (minutes): 30 Level of Care: ICU Anticipated discharge: SNF -: 1. The care of a critical patient is a dynamic process. This note is a hospital insurance representative synopsis but static in nature. The timeframe for treatments given in order is not necessary the actual time these treatments may have been done. 2. This patient requires critical care secondary to ongoing requirements for therapy not offered or safe outside the critical care environment. Transfer to a lower level of care with altered life or limb morbidity and mortality. 3. Multidisciplinary rounds completed. 4. ABCDE bundle addressed.
[2019-03-25] MEDS: CIPROFLOXACIN 400 MG/D5W RTU 400 MG/200 ML RTUPB IV SCH ×2 (12:58→22:26)
[2019-03-25] MEDS ORDERED: POTASSIUM CHLORIDE 20 MEQ PACKET PO ONE ×2 (13:01→17:45)
[2019-03-25] MEDS ORDERED: MAGNESIUM SULFATE/D5W 1 GM/100 ML RTUPB IV ONE ×2 (13:07→17:34)
[2019-03-25] MEDS ORDERED: POTASSI CL 20 MEQ/50 ML RIDER 0 MEQ/0 ML RTUPB IV ONE (17:34)
[2019-03-25] MEDS: DILTIAZEM HCL 60 MG TABLET PO SCH ×2 (17:42→22:28)
[2019-03-25] MEDS: BUSPIRONE HCL 10 MG TABLET NG SCH ×3 (17:42→17:45)
[2019-03-25] MEDS: OXYBUTYNIN CHLORIDE SYRUP 1 MG/1 ML 60 ML PO SCH (17:52)
[2019-03-25] MEDS: AMITRIPTYLINE HCL 50 MG TABLET NG SCH (22:28)
[2019-03-25] MEDS: VENLAFAXINE HCL 75 MG TABLET NG SCH (22:28)
[2019-03-26] MEDS: HEPARIN SOD (PORCINE) 5,000 UNIT/ML 1 ML VIAL SUBCUT SCH ×3 (02:10→18:26)
[2019-03-26] MEDS: HYDROMORPHONE HCL INJ/PF 2 MG/ML AMPULE IV PRN ×3 (02:47→20:17)
[2019-03-26] MEDS: DILTIAZEM HCL 60 MG TABLET PO SCH ×2 (05:44→13:08)
[2019-03-26] MEDS: METRONIDAZOLE 500 MG/NS RTU 500 MG/100 ML RTUPB IV SCH (05:44)
[2019-03-26] MEDS ORDERED: PANTOPRAZOLE SODIUM 40 MG PACKET.DR NG SCH (06:00)
[2019-03-26 06:25] LABS: BLOOD UREA NITROGEN 14 mg/dL (7-20); CALCIUM 8.6 mg/dL (8.4-10.2); GLUCOSE 175 mg/dL (75-110); POTASSIUM 3.7 mmol/L (3.6-5.0)
[2019-03-26 06:31] LABS: CARBON DIOXIDE 29 mmol/L (22-30); CHLORIDE 115 mmol/L (98-107)
[2019-03-26 06:36] LABS: ANION GAP 4 (5-19)
[2019-03-26] MEDS ORDERED: EPINEPHRINE INJ 1 MG/10 ML DISP.SYRIN ONE (08:48)
[2019-03-26] MEDS ORDERED: NOREPINEPHRINE BITARTRATE INJ/PF 4 MG/4 ML SDV IV ONE (08:48)
[2019-03-26] MEDS: BUSPIRONE HCL 10 MG TABLET NG SCH ×3 (09:28→18:26)
[2019-03-26] MEDS: PHOSPHORUS #1 250 MG TABLET NG SCH ×4 (09:28→21:26)
[2019-03-26] MEDS: CIPROFLOXACIN 400 MG/D5W RTU 400 MG/200 ML RTUPB IV SCH (09:28)
[2019-03-26] MEDS: LIDOCAINE 5% (700 MG) TRANSDERMAL ADH..PATCH TOP SCH (09:29)
[2019-03-26] MEDS: VENLAFAXINE HCL 75 MG TABLET NG SCH ×2 (09:29→21:26)
[2019-03-26] MEDS: VITAMINS A AND D OINTMENT 56.7 GM TOP SCH ×3 (09:29→18:27)
--- NOTE | 2019-03-26 10:08 | PDOC PROGRESS REPORT ---
Subjective Progress Note for:: 03/26/19 Subjective:: Patient remains in critical condition in the intensive care unit. She is on BiPAP continuously. Tolerating tube feeds. Ileostomy functioning. Wound VAC in position. Reason For Visit: ASPIRATION, ACUTE RESPIRATORY FAILURE, UTI, MS Physical Exam Vital Signs: Temp Pulse Resp BP Pulse Ox 99.7 F 102 H 27 H 157/88 H 100 03/26/19 08:00 03/26/19 08:00 03/26/19 08:00 03/26/19 08:00 03/26/19 08:00 Intake & Output 03/25/19 03/26/19 03/27/19 06:59 06:59 06:59 Intake Total 530 1280 300 Output Total 2185 1050 20 Balance -1655 230 280 Weight 92.6 kg 93.4 kg General appearance: PRESENT: mild distress GI/Abdominal exam: PRESENT: other - Abdominal wall examined. Wound VAC suction applied, sponges in place. Contraction taking place. Ileostomy functioning satisfactorily. Results Laboratory Results: 03/25/19 04:20 03/26/19 05:45 03/26/19 05:45 Sodium 148.4 H Potassium 3.7 Chloride 115 H Carbon Dioxide 29 Anion Gap 4 L BUN 14 Creatinine 0.40 L Est GFR ( Amer) > 60 Glucose 175 H Calcium 8.6 Magnesium 2.0 03/23/19 16:05 Abdomen - Post Surgical Site Gram Stain - Final 03/17/19 06:54 Troponin I 0.018 Impressions: Head CT 03/17/19 07:08 IMPRESSION: CHRONIC CHANGES OF ATROPHY AND MICROVASCULAR ISCHEMIA. NO ACUTE PROCESS. EVIDENCE OF ACUTE STROKE: NO. Abdomen/Pelvis CT 03/17/19 08:51 IMPRESSION: 1. Suspected sigmoid volvulus. 2. Small amount of ascites. No free air. 3. Adrenal nodules. Chest CT 03/17/19 08:52 IMPRESSION: 1. Collapse of the right lower lobe and most of the middle lobe. 2. Diffuse thickening of the esophagus. KUB X-Ray 03/23/19 00:00 IMPRESSION: The tip of the NG tube is in the stomach. copyright 2010 [employer]- All Rights Reserved Modified Barium Swallow 03/23/19 00:00 IMPRESSION: LARYNGEAL PENETRATION AND ASPIRATION ABOVE. PLEASE SEE SPEECH PA THOLOGIST REPORT FOR OTHER FINDINGS AND RECOMMENDATIONS. Assessment & Plan - Diagnosis (1) Cecal volvulus Is this a current diagnosis for this admission?: Yes Plan: Impression: Postoperative day 10 exploratory laparotomy, right hemicolectomy, ileostomy for nonviable right colon, postoperative course prolonged due to malnutrition, obesity, pulmonary failure. Wound dehisced, but controlled with VAC therapy Recommendations: 1. Continue VAC therapy 2. Continue critical care management per home team. - Time Time Spent with patient: Less than 15 minutes Medications reviewed and adjusted accordingly: Yes
[2019-03-26 11:38] LABS: ARTERIAL BLOOD BASE EXCESS 3.5 mmol/L; ARTERIAL BLOOD FIO2 80%; ARTERIAL BLOOD HCO3 27.6 mmol/L (20-24); ARTERIAL BLOOD O2 SATURATION 95.2 % (94-98); ARTERIAL BLOOD PH 7.46 (7.35-7.45); ARTERIAL BLOOD PO2 71.8 mmHg (80-100); ARTERIAL BLOOD TOTAL CO2 28.8 mmol/L (21-25)
[2019-03-26] MEDS: OXYBUTYNIN CHLORIDE SYRUP 1 MG/1 ML 60 ML PO SCH ×2 (13:07→18:27)
[2019-03-26] MEDS: MEROPENEM 1 GM in NORMAL SALINE 50 ML IV SCH ×2 (13:08→21:26)
[2019-03-26] MEDS ORDERED: FENTANYL CITRATE INJ/PF 100 MCG/2 ML AMPUL IV ONE (15:00)
[2019-03-26] MEDS ORDERED: ETOMIDATE INJ/PF 20 MG/10 ML SDV IV ONE ×2 (15:00→15:03)
[2019-03-26] MEDS ORDERED: ROCURONIUM BROMIDE INJ 50 MG/5 ML VIAL IV ONE ×2 (15:00)
[2019-03-26] MEDS ORDERED: FENTANYL CITRATE INJ/PF 100 MCG/2 ML AMPUL ONE (15:03)
[2019-03-26] MEDS ORDERED: PROPOFOL 1,000 MG/100 ML INFUS..BTL IV ONE (15:04)
[2019-03-26] MEDS: PROPOFOL 1,000 MG/100 ML INFUS..BTL IV PRN (15:05)
[2019-03-26] MEDS ORDERED: MIDAZOLAM 2 MG/2 ML INJ ONE (15:28)
--- NOTE | 2019-03-26 15:50 | RADIOLOGY REPORT (SQ) ---
EXAM DESCRIPTION: CHEST SINGLE VIEW COMPLETED DATE/TIME: 03/26/2019 3:37 pm REASON FOR STUDY: Et Tube Placement COMPARISON: 03/25/2019. EXAM PARAMETERS: NUMBER OF VIEWS: One view. TECHNIQUE: Single frontal radiographic view of the chest acquired. RADIATION DOSE: NA LIMITATIONS: The left costophrenic angle is not included on the image. FINDINGS: LUNGS AND PLEURA: Persistent left lower lobe airspace disease. Right lung clear. MEDIASTINUM AND HILAR STRUCTURES: No masses. Contour normal. HEART AND VASCULAR STRUCTURES: Heart normal in size. Normal vasculature. BONES: No acute findings. HARDWARE: Tip of the endotracheal tube located 2 cm proximal to the noreen. Central line unchanged. OTHER: No other significant finding. IMPRESSION: ENDOTRACHEAL TUBE DESCRIBED. OTHERWISE NO CHANGE. TECHNICAL DOCUMENTATION: JOB ID: [id number] [employer]- All Rights Reserved Reading location - IP/workstation name: [email or web address]
[2019-03-26 15:56] LABS: ARTERIAL BLOOD BASE EXCESS 1.1 mmol/L; ARTERIAL BLOOD H2CO3 1.93 mmol/L (1.05-1.35); ARTERIAL BLOOD O2 SATURATION 95.9 % (94-98); ARTERIAL BLOOD PCO2 64.1 mmHg (35-45); ARTERIAL BLOOD PH 7.27 (7.35-7.45); ARTERIAL BLOOD PO2 92.8 mmHg (80-100); ARTERIAL BLOOD TOTAL CO2 30.9 mmol/L (21-25)
[2019-03-26 16:11] LABS: ARTERIAL BLOOD FIO2 100
[2019-03-26 16:14] LABS: ALBUMIN 2.4 g/dL (3.5-5.0); ALKALINE PHOSPHATASE 60 U/L (38-126); ANION GAP 6 (5-19); ASPARTATE AMINO TRANSFERASE 24 U/L (14-36); BILIRUBIN,DIRECT 0.1 mg/dL (0.0-0.4); BILIRUBIN,TOTAL 0.3 mg/dL (0.2-1.3); BLOOD UREA NITROGEN 15 mg/dL (7-20); CALCIUM 8.6 mg/dL (8.4-10.2); CARBON DIOXIDE 29 mmol/L (22-30); CHLORIDE 115 mmol/L (98-107); GLUCOSE 149 mg/dL (75-110); TOTAL PROTEIN 4.8 g/dL (6.3-8.2)
[2019-03-26] MEDS ORDERED: MIDAZOLAM 2 MG/2 ML INJ IV ONE (16:30)
[2019-03-26] MEDS ORDERED: DEXTROSE 5%-WATER 250 ML with NOREPINEPHRINE BITARTRATE 4 MG IV PRN ×2 (16:33)
[2019-03-26 17:17] LABS: HEMATOCRIT 34.8 % (36.0-47.0); MEAN CORPUSCULAR HEMOGLOBIN 28.3 pg (27.0-33.4); MEAN CORPUSCULAR HGB CONC 31.6 g/dL (32.0-36.0); RED BLOOD COUNT 3.88 10^6/uL (3.72-5.28); RED CELL DISTRIBUTION WIDTH 16.9 % (11.5-14.0)
[2019-03-26 17:18] LABS: MEAN CORPUSCULAR VOLUME 90 fl (80-97)
[2019-03-26 17:39] LABS: ABSOLUTE LYMPHOCYTES# (MANUAL) 0.7 10^3/uL (0.5-4.7); ABSOLUTE MONOCYTES # (MANUAL) 1.6 10^3/uL (0.1-1.4); BAND NEUTROPHILS % (MANUAL) 2 % (3-5); BASOPHILS % (MANUAL) 0 % (0-2); EOSINOPHILS % (MANUAL) 0 % (0-6); LYMPHOCYTES % (MANUAL) 3 % (13-45); METAMYELOCYTES % (MANUAL) 1 % (0-1); MONOCYTES % (MANUAL) 7 % (3-13); SEGMENTED NEUTROPHILS % (MAN) 87 % (42-78); TOTAL CELLS COUNTED 100
[2019-03-26 17:40] LABS: ANISOCYTOSIS 1+; PLATELET CLUMPS PRESENT; PLATELET COMMENT ADEQUATE; POLYCHROMASIA 1+
[2019-03-26 17:41] LABS: PLATELET COUNT 600 10^3/uL (150-450)
--- NOTE | 2019-03-26 18:44 | Operative Report ---
Bedside Procedure - History of Present Illness History of Present Illness: ABDI VEGA is a 58 year old female with a hx of MS. She was admitted for sepsis and has developed worsening respiratory failure. Became abruptly hypoxic today and after lengthy discussion wanted intubation. Her medical power of wood heel fitter machine confirmed this. Procedure Preop diagnosis: Hypoxic Respiratory Failure Postop diagnosis: Same Procedure: Emergent Intubation Proceduralist: Elvira DAVILA [facility] Judge Clerk: Bedside nursing and RT staff Complications: None Estimated blood loss: None Anesthesia: Fentanyl 100 mcg, Etomidate 20 mg, Rocuronium 100 mg Consent: Obtained from patient and medical power of wood heel fitter machine Procedure: Patient was appropriate identified secondary to ongoing critical care chart check name nakul. Available equipment was immediately at bedside including advanced airway LMA and glide scope modalities. Patient has a history of significant multiple sclerosis and has been bedridden for a number of years. Because of this we did not use succinylcholine and chose to use high-dose rocuronium. With available equipment and immediately at bedside we rapidly induced and intubated patient under a grade 1 view using direct laryngoscopy size 4 Anahy blade. Breath sounds were diminished on the left side and the ET tube was brought back to approximately 22 cm were sounds had had improved but were not as loud as the right. She had difficulty with ventilation and had to sustain bag ET tube ventilation to sustain a good oxygen saturation. She was hypoxic however she also became hypotensive and it was difficult to determine whether the blood pressure lowering because the significant hypoxia. With improvement in blood pressure action saturation did improve. Blood pressure decreased to approximately 50 systolic with a 20 diastolic pressure and she was given half a milligram of epinephrine. This improved her blood pressure significantly and she was placed on Levophed. Her hypoxia continued to be an issue and an ultrasound was done of both lungs which did not show any pneumothorax. There was a small effusion on the right. With slight improvement in her oxygen saturation greater than 90% a flexible bronchoscope was introduced which showed significant mucus impaction of the entire right upper lingula and lower lobes. Significant lavage was done and then the right side was evaluated which showed some mild mucus obstruction which were clearly lavaged. With this her oxygen saturation improved dramatically. Her blood pressure also improved. Indication for Procedure: Hypoxia and respiratory failure Date: 03/26/19 Provider: TYRESE PLASENCIA
--- NOTE | 2019-03-26 18:48 | Operative Report ---
Bedside Procedure - History of Present Illness History of Present Illness: ABDI VEGA is a 58 year old female with a hx of MS. She was admitted for sepsis and has developed worsening respiratory failure. Became abruptly hypoxic today and after lengthy discussion wanted intubation. Her medical power of employee benefits attorney confirmed this. Procedure Preop diagnosis: Hypoxic Respiratory Failure with concern for mucus obstruction Postop diagnosis: Same. Confirmed significant mucus obstruction. Procedure: Emergent Flexible bronchoscopy Proceduralist: Elvira HODGE Group Controller: Bedside nursing and RT staff Complications: None Estimated blood loss: None Anesthesia: Fentanyl 100 mcg, Etomidate 20 mg, Rocuronium 100 mg given during intubation Consent: None, emergent Procedure: Patient was appropriate identified secondary to ongoing critical care, chart check and name bracelet. Disposable and blue bronchoscope was brought to the bedside because of concern for mucous obstruction. Breath sounds were diminished on the left side and she had difficulty with ventilation and had to sustain bag ET tube ventilation to sustain a good oxygen saturation. She was hypoxic however she also became hypotensive and it was difficult to determine whether the blood pressure lowering because the significant hypoxia. With improvement in blood pressure action saturation did improve. Swivel connector was attached to the ET tube and patient had active bag ventilation during the procedure. On entrance into the ET tube significant mucus obstruction was noted and these were suctioned. The right side was evaluated first and showed mild mucus obstruction and spillover effect from the left lung. These were lavaged. And is much as could be seen due to the confines of the ET tube there were no endobronchial lesions on the right lung. There were no anatomical abnormalities seen. Next the left lung was evaluated. There was significant mucus obstruction of the entire right upper and lingual segments. In addition the lower lobe segments had significant thick tenacious secretions. These were lavaged and this specimens were sent for analysis. After the procedure patient's hypoxia dramatically improved. Patient tolerated procedure well there were no complications. Indication for Procedure: Hypoxia with mucus obstruction Date: 03/26/19 Provider: TYRESE PLASENCIA
[2019-03-26] MEDS ORDERED: VANCOMYCIN HCL 0 MG in DEXTROSE 5%-WATER 250 ML IV NR (19:15)
[2019-03-26] MEDS ORDERED: ALBUMIN HUMAN 500 ML IV ONE (20:00)
[2019-03-26] MEDS: FAMOTIDINE 20 MG TABLET PO SCH ×2 (20:52→21:34)
[2019-03-26] MEDS: AMITRIPTYLINE HCL 50 MG TABLET NG SCH (21:26)
[2019-03-26] MEDS: VANCOMYCIN HCL 1,250 MG in DEXTROSE 5%-WATER 250 ML IV SCH (21:27)
[2019-03-26] MEDS: DEXTROSE 5%-WATER 250 ML with NOREPINEPHRINE BITARTRATE 4 MG IV PRN ×2 (21:31)
--- NOTE | 2019-03-26 22:33 | PDOC CRITICAL CARE PROG REPORT ---
General Date:: 03/26/19 ICU Day:: 10 Ventilator Day:: 0 Hospital Day:: 10 Resuscitation Status: Full Code Medical Power of Marketing Programs Manager: Rogerio iMchael [phone] Events in the past 12 to 24 Hours:: Patient's respiratory status has worsened. In the morning we had a lengthy discussion regarding her plan of care and she initially did not want intubation. She later rescinded this when her respiratory status worsened. She ultimately required mechanical ventilation. She became extremely hypoxic acquired urgent bronchoscopy which cleared extensive mucus obstruction of the left lung. Review of systems relevant to events:: She has become hypotensive after the intubation after being extremely hypertensive. Notably this is from resolve of high sympathetic tone related to her respiratory failure. Strongly high output from the abdominal VAC system. Was given lactated Ringer resuscitative fluid she became hypotensive during mechanical ventilation.. Reason for ICU Addmission:: Ventilator due to acute respiratory failure, aspiration, UTI, MS - Medications: Medications reviewed and adjusted accordingly: Yes Vasopressors:: Levophed Physical Exam Vital Signs: Temp Pulse Resp BP Pulse Ox 98.7 F 107 H 16 135/84 H 92 03/26/19 12:00 03/26/19 18:00 03/26/19 18:00 03/26/19 18:00 03/26/19 18:00 Intake & Output 03/25/19 03/26/19 03/27/19 06:59 06:59 06:59 Intake Total 530 1280 718 Output Total 2185 1050 1120 Balance -1655 230 -402 Weight 92.6 kg 93.4 kg 93.4 kg Weight/Height Weight 93.4 kg Height 5 ft 5 in General appearance: PRESENT: disheveled, morbidly obese, severe distress. ABSENT: no acute distress Exam: Chronically and critically ill morbid appearing older appearing 58-year-old fe male who became acutely distressed throughout the day. Head exam: PRESENT: atraumatic, normocephalic Eye exam: PRESENT: EOMI, PERRLA. ABSENT: conjunctival injection, nystagmus, scleral icterus Mouth exam: PRESENT: dry mucosa Teeth exam: PRESENT: edentulous Neck exam: ABSENT: carotid bruit, full ROM, JVD, lymphadenopathy, thyromegaly, tracheal deviation, tracheostomy Respiratory exam: PRESENT: accessory muscle use, decreased breath sounds, rhonch i, tachypnea. ABSENT: unlabored Cardiovascular exam: PRESENT: RRR, tachycardia Pulses: ABSENT: normal dorsalis pedis pul GI/Abdominal exam: PRESENT: normal bowel sounds, soft. ABSENT: ascites, distended, guarding, mass, organolmegaly, rebound, tenderness Rectal exam: PRESENT: deferred Gentrourinary exam: PRESENT: indwelling catheter, other - Outside drainage catheter Extremities exam: PRESENT: pedal edema Musculoskeletal exam: ABSENT: deformity, dislocation Neurological exam: PRESENT: awake, oriented to person, oriented to place, oriented to time. ABSENT: oriented to situation Psychiatric exam: PRESENT: anxious Focused psych exam: PRESENT: restlessness. ABSENT: pressured speech Skin exam: PRESENT: dry. ABSENT: jaundice, mottled, pallor, petechiae Tubes/Lines: PRESENT: Central Line, Arterial Catheter, Nasogastic Tube, Other - Hernandez Laboratory/Radiographs Laboratory Results: 03/26/19 16:30 03/26/19 15:38 03/26/19 03/26/19 03/26/19 05:45 11:15 15:38 WBC Cancelled RBC Cancelled Hgb Cancelled Hct Cancelled MCV Cancelled MCH Cancelled MCHC Cancelled RDW Cancelled Plt Count Cancelled Seg Neutrophils % Cancelled Carbonic Acid 1.20 HCO3/H2CO3 Ratio 23:1 ABG pH 7.46 H ABG pCO2 40.0 ABG pO2 71.8 L ABG HCO3 27.6 H ABG O2 Saturation 95.2 ABG Base Excess 3.5 FiO2 80% Sodium 148.4 H Potassium 3.7 Chloride 115 H Carbon Dioxide 29 Anion Gap 4 L BUN 14 Creatinine 0.40 L Est GFR ( Amer) > 60 Glucose 175 H Calcium 8.6 Magnesium 2.0 Total Bilirubin AST Alkaline Phosphatase Total Protein Albumin 03/26/19 03/26/19 03/26/19 15:38 15:38 16:30 WBC 23.0 H RBC 3.88 Hgb 11.0 L Hct 34.8 L MCV 90 D MCH 28.3 MCHC 31.6 L RDW 16.9 H Plt Count 600 H Seg Neutrophils % Not Reportable Carbonic Acid 1.93 H HCO3/H2CO3 Ratio 15:1 ABG pH 7.27 L ABG pCO2 64.1 H ABG pO2 92.8 ABG HCO3 29.0 H ABG O2 Saturation 95.9 ABG Base Excess 1.1 FiO2 100 Sodium 149.5 H Potassium 5.0 D Chloride 115 H Carbon Dioxide 29 Anion Gap 6 BUN 15 Creatinine 0.42 L Est GFR ( Amer) > 60 Glucose 149 H Calcium 8.6 Magnesium 2.0 Total Bilirubin 0.3 AST 24 Alkaline Phosphatase 60 Total Protein 4.8 L Albumin 2.4 L 03/23/19 16:05 Abdomen - Post Surgical Site Gram Stain - Final 03/17/19 06:54 Troponin I 0.018 Impressions: Head CT 03/17/19 07:08 IMPRESSION: CHRONIC CHANGES OF ATROPHY AND MICROVASCULAR ISCHEMIA. NO ACUTE PROCESS. EVIDENCE OF ACUTE STROKE: NO. Abdomen/Pelvis CT 03/17/19 08:51 IMPRESSION: 1. Suspected sigmoid volvulus. 2. Small amount of ascites. No free air. 3. Adrenal nodules. Chest CT 03/17/19 08:52 IMPRESSION: 1. Collapse of the right lower lobe and most of the middle lobe. 2. Diffuse thickening of the esophagus. KUB X-Ray 03/23/19 00:00 IMPRESSION: The tip of the NG tube is in the stomach. copyright 2011 [employer]- All Rights Reserved Modified Barium Swallow 03/23/19 00:00 IMPRESSION: LARYNGEAL PENETRATION AND ASPIRATION ABOVE. PLEASE SEE SPEECH PATHOLOGIST REPORT FOR OTHER FINDINGS AND RECOMMENDATIONS. Chest X-Ray 03/26/19 15:27 IMPRESSION: ENDOTRACHEAL TUBE DESCRIBED. OTHERWISE NO CHANGE. All labs, radiographs, diagnostic studies and EKGs were personally reviewed: Yes In addition, reports of radiographic and diagnostic studies were read: Yes Assessment and Plan - Diagnosis (1) Acute respiratory failure with hypoxia Is this a current diagnosis for this admission?: Yes (2) ARDS (adult respiratory distress syndrome) Is this a current diagnosis for this admission?: Yes (3) Atelectasis of left lung Is this a current diagnosis for this admission?: Yes (4) Mucus plugging of bronchi Is this a current diagnosis for this admission?: Yes (5) Dehydration Is this a current diagnosis for this admission?: Yes (6) Hypotension (arterial) Qualifiers: Hypotension type: hypotension due to hypovolemia Qualified Code(s): I95.89 - Other hypotension; E86.1 - Hypovolemia Is this a current diagnosis for this admission?: Yes (7) Cecal volvulus Is this a current diagnosis for this admission?: Yes Plan: Family meeting today resulted in intubation with further plans for tracheostomy/PEG tube. (8) cecal volvulus Is this a current diagnosis for this admission?: Yes (9) Functional quadriplegia secondary to MS Is this a current diagnosis for this admission?: Yes Plan: Chronic. Progressive. Unable to tolerated Bipap and requires intubation. Will need tracheostomy if MPOA chooses to pursue this (10) Stage 4 pressure ulcer Qualifiers: Pressure injury location: contiguous region involving buttock and hip Laterality: left Qualified Code(s): L89.44 - Pressure ulcer of contiguous site of back, buttock and hip, stage 4 Is this a current diagnosis for this admission?: Yes Plan: Chronic, present on admission Plan Summary: 03.26.19: As noted above patient has significantly worsened. She required intubation and we had significant hypoxia and elevation in peak pressures. This has improved with flexible bronchoscopy Patient has significant preadmission deconditioning with multiple sclerosis and functional quadriplegia. We attempted to establish goals of care however patient was unable to communicate effectively. Her medical power of [place] attorney requested that all care be given including intubation which was done. We had a lengthy discussion regarding all of the of care and asked for ethics consult given the terminal nature of her muscular disease. Have sent lavage for analysis. She appears to be dehydrated and have added IV fluids to her armamentarium. We will discuss with surgery about the timing of nutritional support. Recommend early tracheostomy if the family seeks to pursue this as well as jejunostomy tube. Critical Time Critical Time (minutes): 120 Level of Care: ICU Anticipated discharge: SNF -: 1. The care of a critical patient is a dynamic process. This note is a outside sales account representative synopsis but static in nature. The timeframe for treatments given in order is not necessary the actual time these treatments may have been done. 2. This patient requires critical care secondary to ongoing requirements for therapy not offered or safe outside the critical care environment. Transfer to a lower level of care with altered life or limb morbidity and mortality. 3. Multidisciplinary rounds completed. 4. ABCDE bundle addressed.
[2019-03-27] MEDS: RINGERS SOLUTION,LACTATED 1,000 ML IV PRN ×3 (00:08→21:06)
[2019-03-27] MEDS: PROPOFOL 1,000 MG/100 ML INFUS..BTL IV PRN ×5 (00:09→20:57)
--- NOTE | 2019-03-27 01:15 | RADIOLOGY REPORT (SQ) ---
EXAM DESCRIPTION: XR CHEST 1 VIEW COMPLETED DATE/TME: 03/27/2019 00:00 CLINICAL HISTORY: 58 years, Female, OG tube confirmation COMPARISON: None. NUMBER OF VIEWS: TECHNIQUE: LIMITATIONS: None. FINDINGS: The tip of the nasogastric tube is in the proximal stomach. IMPRESSION: The tip of the NG tube is in the proximal stomach. copyright 2010 [employer]- All Rights Reserved
[2019-03-27 01:55] LABS: ARTERIAL BLOOD BASE EXCESS -0.5 mmol/L; ARTERIAL BLOOD H2CO3 1.55 mmol/L (1.05-1.35); ARTERIAL BLOOD HCO3 26.1 mmol/L (20-24); ARTERIAL BLOOD O2 SATURATION 99.6 % (94-98); ARTERIAL BLOOD PCO2 51.5 mmHg (35-45); ARTERIAL BLOOD PH 7.32 (7.35-7.45); ARTERIAL BLOOD PO2 279.3 mmHg (80-100); ARTERIAL BLOOD TOTAL CO2 27.7 mmol/L (21-25)
[2019-03-27 01:58] LABS: ARTERIAL BLOOD FIO2 90%
[2019-03-27] MEDS: DEXTROSE 5%-WATER 250 ML with NOREPINEPHRINE BITARTRATE 4 MG IV PRN ×2 (02:04)
[2019-03-27] MEDS: HEPARIN SOD (PORCINE) 5,000 UNIT/ML 1 ML VIAL SUBCUT SCH ×3 (03:53→18:23)
[2019-03-27 05:03] LABS: ARTERIAL BLOOD BASE EXCESS 0.9 mmol/L; ARTERIAL BLOOD H2CO3 1.31 mmol/L (1.05-1.35); ARTERIAL BLOOD O2 SATURATION 96.6 % (94-98); ARTERIAL BLOOD PCO2 43.6 mmHg (35-45); ARTERIAL BLOOD PH 7.39 (7.35-7.45); ARTERIAL BLOOD PO2 87.3 mmHg (80-100); ARTERIAL BLOOD TOTAL CO2 27.3 mmol/L (21-25)
[2019-03-27 05:05] LABS: ARTERIAL BLOOD FIO2 50%
[2019-03-27 05:26] LABS: ANION GAP 8 (5-19); BLOOD UREA NITROGEN 17 mg/dL (7-20); CALCIUM 8.5 mg/dL (8.4-10.2); CARBON DIOXIDE 26 mmol/L (22-30); CHLORIDE 112 mmol/L (98-107); GLUCOSE 148 mg/dL (75-110); PHOSPHORUS 3.5 mg/dL (2.5-4.5)
[2019-03-27] MEDS: VANCOMYCIN HCL 1,250 MG in DEXTROSE 5%-WATER 250 ML IV SCH ×3 (05:27→21:07)
[2019-03-27 06:06] LABS: HEMATOCRIT 30.5 % (36.0-47.0); HEMOGLOBIN 9.9 g/dL (12.0-15.5); MEAN CORPUSCULAR HEMOGLOBIN 28.6 pg (27.0-33.4); MEAN CORPUSCULAR HGB CONC 32.3 g/dL (32.0-36.0); MEAN CORPUSCULAR VOLUME 89 fl (80-97); PLATELET COUNT 405 10^3/uL (150-450); RED BLOOD COUNT 3.45 10^6/uL (3.72-5.28); RED CELL DISTRIBUTION WIDTH 17.7 % (11.5-14.0); WHITE BLOOD COUNT 14.8 10^3/uL (4.0-10.5)
[2019-03-27 06:17] LABS: FLUID SOURCE LUNG; FLUID TYPE BRONCHIAL WASH
[2019-03-27 06:18] LABS: FLUID APPEARANCE CLOUDY
[2019-03-27 06:22] LABS: FLUID VISCOSITY HIGHLY VISCOUS
[2019-03-27 06:43] LABS: ABSOLUTE MONOCYTES # (MANUAL) 0.6 10^3/uL (0.1-1.4); BAND NEUTROPHILS % (MANUAL) 1 % (3-5); BASOPHILS % (MANUAL) 1 % (0-2); EOSINOPHILS % (MANUAL) 0 % (0-6); LYMPHOCYTES % (MANUAL) 7 % (13-45); MONOCYTES % (MANUAL) 4 % (3-13); SEGMENTED NEUTROPHILS % (MAN) 87 % (42-78); TOTAL CELLS COUNTED 100
[2019-03-27 06:44] LABS: ANISOCYTOSIS 2+; PLATELET CLUMPS PRESENT; PLATELET COMMENT ADEQUATE
[2019-03-27] MEDS: MEROPENEM 1 GM in NORMAL SALINE 50 ML IV SCH ×3 (06:51→21:07)
--- NOTE | 2019-03-27 08:28 | RADIOLOGY REPORT (SQ) ---
EXAM DESCRIPTION: CHEST SINGLE VIEW COMPLETED DATE/TIME: 03/27/2019 6:18 am REASON FOR STUDY: Respiratory failure COMPARISON: 03/27/2019 NUMBER OF VIEWS: One view. TECHNIQUE: Single frontal radiographic image of the chest acquired. LIMITATIONS: None. FINDINGS: LUNGS AND PLEURA: Stable appearance. MEDIASTINUM AND HILAR STRUCTURES: Stable heart size and mediastinal structures. HEART AND VASCULAR STRUCTURES: Stable appearance. SUPPORT DEVICES: Appropriate location without change. BONES: No acute findings. OTHER: No other significant finding. IMPRESSION: STABLE APPEARANCE OF THE CHEST. SUPPORT DEVICES UNCHANGED. TECHNICAL DOCUMENTATION: JOB ID: [id number] [employer] All Rights Reserved Reading location - IP/workstation name: [email or web address]
[2019-03-27 09:28] LABS: ARTERIAL BLOOD BASE EXCESS 1.5 mmol/L; ARTERIAL BLOOD FIO2 40%; ARTERIAL BLOOD H2CO3 1.16 mmol/L (1.05-1.35); ARTERIAL BLOOD HCO3 25.7 mmol/L (20-24); ARTERIAL BLOOD O2 SATURATION 96.3 % (94-98); ARTERIAL BLOOD PCO2 38.6 mmHg (35-45); ARTERIAL BLOOD PH 7.44 (7.35-7.45); ARTERIAL BLOOD PO2 80.6 mmHg (80-100); ARTERIAL BLOOD TOTAL CO2 26.9 mmol/L (21-25)
[2019-03-27] MEDS: OXYBUTYNIN CHLORIDE SYRUP 1 MG/1 ML 60 ML PO SCH ×2 (11:16→18:35)
[2019-03-27] MEDS: BUSPIRONE HCL 10 MG TABLET NG SCH ×3 (11:17→18:23)
[2019-03-27] MEDS: PHOSPHORUS #1 250 MG TABLET NG SCH ×4 (11:17→21:07)
[2019-03-27] MEDS: FAMOTIDINE 20 MG TABLET PO SCH ×2 (11:18→21:07)
[2019-03-27] MEDS: VENLAFAXINE HCL 75 MG TABLET NG SCH ×2 (11:19→21:07)
[2019-03-27] MEDS: LIDOCAINE 5% (700 MG) TRANSDERMAL ADH..PATCH TOP SCH (12:01)
--- NOTE | 2019-03-27 14:26 | EKG REPORT ---
SEVERITY:- BORDERLINE ECG - SINUS TACHYCARDIA LOW VOLTAGE THROUGHOUT BORDERLINE R WAVE PROGRESSION, ANTERIOR LEADS : Confirmed by: Kailey Munoz 27-Mar-2019 14:25:57
[2019-03-27] MEDS: VITAMINS A AND D OINTMENT 56.7 GM TOP SCH ×3 (16:12→18:35)
--- NOTE | 2019-03-27 16:25 | PDOC PROGRESS REPORT ---
Subjective Progress Note for:: 03/27/19 Subjective:: Still intubated Reason For Visit: ASPIRATION, ACUTE RESPIRATORY FAILURE, UTI, MS Physical Exam Vital Signs: Temp Pulse Resp BP Pulse Ox 100.8 F H 108 H 15 112/66 96 03/27/19 12:00 03/27/19 14:00 03/27/19 14:00 03/27/19 14:00 03/27/19 14:00 Intake & Output 03/26/19 03/27/19 03/28/19 06:59 06:59 06:59 Intake Total 1280 2712 1312 Output Total 1050 1670 450 Balance 230 1042 862 Weight 93.4 kg 92.6 kg Exam: Ileostomy functioning well. Wound VAC at incision site intact. Tolerating NG tube feedings Results Laboratory Results: 03/27/19 04:45 03/27/19 04:45 03/26/19 03/26/19 03/26/19 15:38 15:38 16:00 WBC RBC Hgb Hct MCV MCH MCHC RDW Plt Count Seg Neutrophils % Carbonic Acid HCO3/H2CO3 Ratio ABG pH ABG pCO2 ABG pO2 ABG HCO3 ABG O2 Saturation ABG Base Excess FiO2 Sodium 149.5 H Potassium 5.0 D Chloride 115 H Carbon Dioxide 29 Anion Gap 6 BUN 15 Creatinine 0.42 L Est GFR ( Amer) > 60 Glucose 149 H Calcium 8.6 Phosphorus Magnesium 2.0 Total Bilirubin 0.3 AST 24 Alkaline Phosphatase 60 Ammonia Total Protein 4.8 L Albumin 2.4 L Triglycerides 212 H Fluid Type BRONCHIAL WASH Fluid Source LUNG Fluid Color Fluid Appearance CLOUDY Fluid Viscosity HIGHLY VISCOUS Fluid WBC 583 Fluid RBC 244 03/26/19 03/27/19 03/27/19 16:30 01:28 04:45 WBC 23.0 H RBC 3.88 Hgb 11.0 L Hct 34.8 L MCV 90 D MCH 28.3 MCHC 31.6 L RDW 16.9 H Plt Count 600 H Seg Neutrophils % Not Reportable Carbonic Acid 1.55 H HCO3/H2CO3 Ratio 16:1 ABG pH 7.32 L ABG pCO2 51.5 H ABG pO2 279.3 H ABG HCO3 26.1 H ABG O2 Saturation 99.6 H ABG Base Excess -0.5 FiO2 90% Sodium 146.3 H Potassium 4.0 D Chloride 112 H Carbon Dioxide 26 Anion Gap 8 BUN 17 Creatinine 0.64 Est GFR ( Amer) > 60 Glucose 148 H Calcium 8.5 Phosphorus 3.5 Magnesium 1.9 Total Bilirubin AST Alkaline Phosphatase Ammonia Total Protein Albumin Triglycerides Fluid Type Fluid Source Fluid Color Fluid Appearance Fluid Viscosity Fluid WBC Fluid RBC 03/27/19 03/27/19 03/27/19 04:45 04:45 05:49 WBC 14.8 H RBC 3.45 L Hgb 9.9 L Hct 30.5 L MCV 89 MCH 28.6 MCHC 32.3 RDW 17.7 H Plt Count 405 Seg Neutrophils % Not Reportable Carbonic Acid 1.31 HCO3/H2CO3 Ratio 19:1 ABG pH 7.39 ABG pCO2 43.6 ABG pO2 87.3 ABG HCO3 26.0 H ABG O2 Saturation 96.6 ABG Base Excess 0.9 FiO2 50% Sodium Potassium Chloride Carbon Dioxide Anion Gap BUN Creatinine Est GFR ( Amer) Glucose Calcium Phosphorus Magnesium Total Bilirubin AST Alkaline Phosphatase Ammonia 10.9 Total Protein Albumin Triglycerides Fluid Type Fluid Source Fluid Color Fluid Appearance Fluid Viscosity Fluid WBC Fluid RBC 03/27/19 08:55 WBC RBC Hgb Hct MCV MCH MCHC RDW Plt Count Seg Neutrophils % Carbonic Acid 1.16 HCO3/H2CO3 Ratio 22:1 ABG pH 7.44 ABG pCO2 38.6 ABG pO2 80.6 ABG HCO3 25.7 H ABG O2 Saturation 96.3 ABG Base Excess 1.5 FiO2 40% Sodium Potassium Chloride Carbon Dioxide Anion Gap BUN Creatinine Est GFR ( Amer) Glucose Calcium Phosphorus Magnesium Total Bilirubin AST Alkaline Phosphatase Ammonia Total Protein Albumin Triglycerides Fluid Type Fluid Source Fluid Color Fluid Appearance Fluid Viscosity Fluid WBC Fluid RBC 03/23/19 16:05 Abdomen - Post Surgical Site Gram Stain - Final 03/23/19 16:05 Abdomen - Post Surgical Site Wound Culture - Final Escherichia Coli Enterococcus Faecalis(Group D) Skin Sadia 03/21/19 22:37 Blood Blood Culture - Final NO GROWTH IN 5 DAYS 03/21/19 21:16 Blood Blood Culture - Final NO GROWTH IN 5 DAYS 03/17/19 06:54 Troponin I 0.018 Impressions: Head CT 03/17/19 07:08 IMPRESSION: CHRONIC CHANGES OF ATROPHY AND MICROVASCULAR ISCHEMIA. NO ACUTE PROCESS. EVIDENCE OF ACUTE STROKE: NO. Abdomen/Pelvis CT 03/17/19 08:51 IMPRESSION: 1. Suspected sigmoid volvulus. 2. Small amount of ascites. No free air. 3. Adrenal nodules. Chest CT 03/17/19 08:52 IMPRESSION: 1. Collapse of the right lower lobe and most of the middle lobe. 2. Diffuse thickening of the esophagus. KUB X-Ray 03/23/19 00:00 IMPRESSION: The tip of the NG tube is in the stomach. copyright 2010 [employer]- All Rights Reserved Modified Barium Swallow 03/23/19 00:00 IMPRESSION: LARYNGEAL PENETRATION AND ASPIRATION ABOVE. PLEASE SEE SPEECH PATHOLOGIST REPORT FOR OTHER FINDINGS AND RECOMMENDATIONS. Chest X-Ray 03/27/19 06:00 IMPRESSION: STABLE APPEARANCE OF THE CHEST. SUPPORT DEVICES UNCHANGED. Assessment & Plan - Diagnosis (1) cecal volvulus Is this a current diagnosis for this admission?: Yes - Time Time Spent with patient: 15-24 minutes - Inpatient Certification Medical Necessity: Need Close Monitoring Due to Risk of Patient Decompensation, Need for IV Antibiotics - Plan Summary Plan Summary: Post right hemicolectomy for cecal volvulus. Abdominal wound needed to be open at the skin and subcu level and placed on wound VAC. Evidence of malnutrition but now on NG tube feedings. Needed to be reintubated. At this point is she appears to be gradually improving with a slight decrease in white count. Her kidney functions remain normal. Recommendations #1 continue with wound VAC 2 continue IV antibiotics and critical care by intensivists
--- NOTE | 2019-03-27 19:07 | PDOC CRITICAL CARE PROG REPORT ---
General Date:: 03/27/19 ICU Day:: 11 Ventilator Day:: 2 Hospital Day:: 11 Resuscitation Status: Full Code Medical Power of Chief Security Officer: Rogerio Michael [phone] Events in the past 12 to 24 Hours:: 03.27.19: Patient's hypoxia has improved. FiO2 now at 50%. PEEP at 10 cmH2O. Levophed is weaning. 03.26.19: Patient's respiratory status has worsened. In the morning we had a lengthy discussion regarding her plan of care and she initially did not want intubation. She later rescinded this when her respiratory status worsened. She ultimately required mechanical ventilation. She became extremely hypoxic acquired urgent bronchoscopy which cleared extensive mucus obstruction of the left lung. Review of systems relevant to events:: She has become hypotensive after the intubation after being extremely hypertensive. Notably this is from resolve of high sympathetic tone related to her respiratory failure. Strongly high output from the abdominal VAC system. Was given lactated Ringer resuscitative fluid she became hypotensive during mechanical ventilation.. Review of systems relevant to events:: I/O has improved. Has significant respiratory excursion on CVP/Arterial catheter. Levophed weaning. Reason for ICU Addmission:: Ventilator due to acute respiratory failure, aspiration, UTI, MS - Medications: Medications reviewed and adjusted accordingly: Yes Vasopressors:: Levophed-weaning Sedation:: Propofol Physical Exam Vital Signs: Temp Pulse Resp BP Pulse Ox 100.1 F 99 15 99/60 L 97 03/27/19 08:00 03/27/19 08:00 03/27/19 08:00 03/27/19 08:00 03/27/19 08:27 Intake & Output 03/26/19 03/27/19 03/28/19 06:59 06:59 06:59 Intake Total 1280 2712 Output Total 1050 1670 100 Balance 230 1042 -100 Weight 93.4 kg 92.6 kg Weight/Height Weight 92.6 kg Height 5 ft 5 in General appearance: PRESENT: no acute distress, cooperative, morbidly obese Exam: Intubated, chronically and critically ill, NAD, responsive Eye exam: PRESENT: conjunctiva pink, EOMI, PERRLA. ABSENT: conjunctival injection, nystagmus, scleral icterus Mouth exam: PRESENT: moist, neck supple Teeth exam: PRESENT: edentulous Neck exam: ABSENT: carotid bruit, JVD, lymphadenopathy, thyromegaly Respiratory exam: PRESENT: clear to auscultation jessica, unlabored. ABSENT: rales, rhonchi, tachypnea, wheezes Cardiovascular exam: PRESENT: RRR, +S1, +S2 Pulses: PRESENT: +2 pedal pulses bilateral Vascular exam: PRESENT: normal capillary refill. ABSENT: pallor GI/Abdominal exam: PRESENT: normal bowel sounds, soft. ABSENT: ascites, firm, guarding, mass, rebound, rigid, tenderness Rectal exam: PRESENT: other - Ostomy is functional Gentrourinary exam: PRESENT: indwelling catheter Extremities exam: PRESENT: pedal edema. ABSENT: clubbing Musculoskeletal exam: PRESENT: deformity. ABSENT: dislocation Neurological exam: PRESENT: awake - Responsive, follows commands. Attempts to speak on vent Psychiatric exam: PRESENT: appropriate affect, normal mood Focused psych exam: ABSENT: psychomotor agitation, restlessness Skin exam: PRESENT: intact, normal color. ABSENT: abrasion, cyanosis, jaundice, mottled Tubes/Lines: PRESENT: Endotracheal Tube, Central Line, Arterial Catheter, Other - OGT Laboratory/Radiographs Laboratory Results: 03/27/19 04:45 03/27/19 04:45 03/26/19 03/26/19 03/26/19 11:15 15:38 15:38 WBC Cancelled RBC Cancelled Hgb Cancelled Hct Cancelled MCV Cancelled MCH Cancelled MCHC Cancelled RDW Cancelled Plt Count Cancelled Seg Neutrophils % Cancelled Carbonic Acid 1.20 HCO3/H2CO3 Ratio 23:1 ABG pH 7.46 H ABG pCO2 40.0 ABG pO2 71.8 L ABG HCO3 27.6 H ABG O2 Saturation 95.2 ABG Base Excess 3.5 FiO2 80% Sodium 149.5 H Potassium 5.0 D Chloride 115 H Carbon Dioxide 29 Anion Gap 6 BUN 15 Creatinine 0.42 L Est GFR ( Amer) > 60 Glucose 149 H Calcium 8.6 Phosphorus Magnesium 2.0 Total Bilirubin 0.3 AST 24 Alkaline Phosphatase 60 Ammonia Total Protein 4.8 L Albumin 2.4 L Triglycerides Fluid Type Fluid Source Fluid Color Fluid Appearance Fluid Viscosity Fluid WBC Fluid RBC 03/26/19 03/26/19 03/26/19 15:38 15:38 16:00 WBC RBC Hgb Hct MCV MCH MCHC RDW Plt Count Seg Neutrophils % Carbonic Acid 1.93 H HCO3/H2CO3 Ratio 15:1 ABG pH 7.27 L ABG pCO2 64.1 H ABG pO2 92.8 ABG HCO3 29.0 H ABG O2 Saturation 95.9 ABG Base Excess 1.1 FiO2 100 Sodium Potassium Chloride Carbon Dioxide Anion Gap BUN Creatinine Est GFR ( Amer) Glucose Calcium Phosphorus Magnesium Total Bilirubin AST Alkaline Phosphatase Ammonia Total Protein Albumin Triglycerides 212 H Fluid Type BRONCHIAL WASH Fluid Source LUNG Fluid Color Fluid Appearance CLOUDY Fluid Viscosity HIGHLY VISCOUS Fluid WBC 583 Fluid RBC 244 03/26/19 03/27/19 03/27/19 16:30 01:28 04:45 WBC 23.0 H RBC 3.88 Hgb 11.0 L Hct 34.8 L MCV 90 D MCH 28.3 MCHC 31.6 L RDW 16.9 H Plt Count 600 H Seg Neutrophils % Not Reportable Carbonic Acid 1.55 H HCO3/H2CO3 Ratio 16:1 ABG pH 7.32 L ABG pCO2 51.5 H ABG pO2 279.3 H ABG HCO3 26.1 H ABG O2 Saturation 99.6 H ABG Base Excess -0.5 FiO2 90% Sodium 146.3 H Potassium 4.0 D Chloride 112 H Carbon Dioxide 26 Anion Gap 8 BUN 17 Creatinine 0.64 Est GFR ( Amer) > 60 Glucose 148 H Calcium 8.5 Phosphorus 3.5 Magnesium 1.9 Total Bilirubin AST Alkaline Phosphatase Ammonia Total Protein Albumin Triglycerides Fluid Type Fluid Source Fluid Color Fluid Appearance Fluid Viscosity Fluid WBC Fluid RBC 03/27/19 03/27/19 03/27/19 04:45 04:45 05:49 WBC 14.8 H RBC 3.45 L Hgb 9.9 L Hct 30.5 L MCV 89 MCH 28.6 MCHC 32.3 RDW 17.7 H Plt Count 405 Seg Neutrophils % Not Reportable Carbonic Acid 1.31 HCO3/H2CO3 Ratio 19:1 ABG pH 7.39 ABG pCO2 43.6 ABG pO2 87.3 ABG HCO3 26.0 H ABG O2 Saturation 96.6 ABG Base Excess 0.9 FiO2 50% Sodium Potassium Chloride Carbon Dioxide Anion Gap BUN Creatinine Est GFR ( Amer) Glucose Calcium Phosphorus Magnesium Total Bilirubin AST Alkaline Phosphatase Ammonia 10.9 Total Protein Albumin Triglycerides Fluid Type Fluid Source Fluid Color Fluid Appearance Fluid Viscosity Fluid WBC Fluid RBC 03/23/19 16:05 Abdomen - Post Surgical Site Gram Stain - Final 03/23/19 16:05 Abdomen - Post Surgical Site Wound Culture - Final Escherichia Coli Enterococcus Faecalis(Group D) Skin Sadia 03/21/19 22:37 Blood Blood Culture - Final NO GROWTH IN 5 DAYS 03/21/19 21:16 Blood Blood Culture - Final NO GROWTH IN 5 DAYS 03/17/19 06:54 Troponin I 0.018 Impressions: Head CT 03/17/19 07:08 IMPRESSION: CHRONIC CHANGES OF ATROPHY AND MICROVASCULAR ISCHEMIA. NO ACUTE PROCESS. EVIDENCE OF ACUTE STROKE: NO. Abdomen/Pelvis CT 03/17/19 08:51 IMPRESSION: 1. Suspected sigmoid volvulus. 2. Small amount of ascites. No free air. 3. Adrenal nodules. Chest CT 03/17/19 08:52 IMPRESSION: 1. Collapse of the right lower lobe and most of the middle lobe. 2. Diffuse thickening of the esophagus. KUB X-Ray 03/23/19 00:00 IMPRESSION: The tip of the NG tube is in the stomach. copyright 2011 [employer]- All Rights Reserved Modified Barium Swallow 03/23/19 00:00 IMPRESSION: LARYNGEAL PENETRATION AND ASPIRATION ABOVE. PLEASE SEE SPEECH PATHOLOGIST REPORT FOR OTHER FINDINGS AND RECOMMENDATIONS. Chest X-Ray 03/27/19 06:00 IMPRESSION: STABLE APPEARANCE OF THE CHEST. SUPPORT DEVICES UNCHANGED. All labs, radiographs, diagnostic studies and EKGs were personally reviewed: Yes In addition, reports of radiographic and diagnostic studies were read: Yes Assessment and Plan - Diagnosis (1) Acute respiratory failure with hypoxia Is this a current diagnosis for this admission?: Yes (2) ARDS (adult respiratory distress syndrome) Is this a current diagnosis for this admission?: Yes (3) Atelectasis of left lung Is this a current diagnosis for this admission?: Yes (4) Mucus plugging of bronchi Is this a current diagnosis for this admission?: Yes (5) Dehydration Is this a current diagnosis for this admission?: Yes (6) Hypotension (arterial) Qualifiers: Hypotension type: hypotension due to hypovolemia Qualified Code(s): I95.89 - Other hypotension; E86.1 - Hypovolemia Is this a current diagnosis for this admission?: Yes (7) Cecal volvulus Is this a current diagnosis for this admission?: Yes Plan: (8) cecal volvulus Is this a current diagnosis for this admission?: Yes (9) Functional quadriplegia secondary to MS Is this a current diagnosis for this admission?: Yes Plan: Chronic. Progressive. Will need tracheostomy if MPOA chooses to pursue this (10) Stage 4 pressure ulcer Qualifiers: Pressure injury location: contiguous region involving buttock and hip Laterality: left Qualified Code(s): L89.44 - Pressure ulcer of contiguous site of back, buttock and hip, stage 4 Is this a current diagnosis for this admission?: Yes Plan Summary: 03.27.19: Patient's hypoxia is continuing to improve as well her hypotension. BAL specimens are still pending. Current FiO2 settings are at 40%. Had a discussion with caretakers will continue current level of therapy to determine whether there will be any improvement. To new patient on broad-spectrum antibiotics for at least 7 days. Patient has significant physical deconditioning which was present prior to admission. This lessens her ability to be weaned from the ventilator and I am suspicious that she will require tracheostomy if the family does not withdraw care. Continue nutritional support. Start diuresis in 24 hours. 03.26.19: As noted above patient has significantly worsened. She required intubation and we had significant hypoxia and elevation in peak pressures. This has improved with flexible bronchoscopy Patient has significant preadmission deconditioning with multiple sclerosis and functional quadriplegia. We attempted to establish goals of care however patient was unable to communicate effectively. Her medical power of sheet layer requested that all care be given including intubation which was done. We had a lengthy discussion regarding all of the of care and asked for ethics consult given the terminal nature of her muscular disease. Have sent lavage for analysis. She appears to be dehydrated and have added IV fluids to her armamentarium. We will discuss with surgery about the timing of nutritional support. Recommend early tracheostomy if the family seeks to pursue this as well as jejunostomy tube. Critical Time Critical Time (minutes): 50 Level of Care: ICU Anticipated discharge: SNF Within: within 48 hours -: 1. The care of a critical patient is a dynamic process. This note is a retail representative synopsis but static in nature. The timeframe for treatments given in order is not necessary the actual time these treatments may have been done. 2. This patient requires critical care secondary to ongoing requirements for therapy not offered or safe outside the critical care environment. Transfer to a lower level of care with altered life or limb morbidity and mortality. 3. Multidisciplinary rounds completed. 4. ABCDE bundle addressed.
[2019-03-27] MEDS: AMITRIPTYLINE HCL 50 MG TABLET NG SCH (21:07)
[2019-03-28] MEDS: HEPARIN SOD (PORCINE) 5,000 UNIT/ML 1 ML VIAL SUBCUT SCH ×3 (02:56→18:15)
[2019-03-28] MEDS: PROPOFOL 1,000 MG/100 ML INFUS..BTL IV PRN ×2 (03:09→08:43)
[2019-03-28] MEDS: MEROPENEM 1 GM in NORMAL SALINE 50 ML IV SCH ×3 (05:03→21:52)
[2019-03-28 05:22] LABS: ANION GAP 8 (5-19); BLOOD UREA NITROGEN 17 mg/dL (7-20); CALCIUM 8.2 mg/dL (8.4-10.2); CARBON DIOXIDE 26 mmol/L (22-30); CHLORIDE 110 mmol/L (98-107); GLUCOSE 124 mg/dL (75-110); POTASSIUM 3.6 mmol/L (3.6-5.0)
[2019-03-28 05:38] LABS: VANCOMYCIN,TROUGH 25.8 ug/mL (5.0-20.0)
[2019-03-28] MEDS: VANCOMYCIN HCL 1,250 MG in DEXTROSE 5%-WATER 250 ML IV SCH (06:25)
[2019-03-28] MEDS: PHOSPHORUS #1 250 MG TABLET NG SCH ×4 (08:42→21:53)
[2019-03-28] MEDS: RINGERS SOLUTION,LACTATED 1,000 ML IV PRN (08:42)
--- NOTE | 2019-03-28 09:42 | Operative Report ---
Nonrecallable Operative Report DATE OF SURGERY: 03/17/19 PREOPERATIVE DIAGNOSIS: cecal volvolus POSTOPERATIVE DIAGNOSIS: cecal volvolus with necrotic cecum, peritonitis OPERATION: exploratory laparotomy with right hemicolectomy and ileostomy SURGEON: NALINI OLVERA ANESTHESIA: GA TISSUE REMOVED OR ALTERED: right colon COMPLICATIONS: none ESTIMATED BLOOD LOSS: 50cc INTRAOPERATIVE FINDINGS: necrotic cecum due to volvolus PROCEDURE: Patient was brought to the operating room on a Levophed drip unstable intubated her abdomen was quickly prepped and draped in usual sterile fashion. After appropriate timeout site verification and procedure began. A midline incision was used from about 5 cm above the pubic symphysis to about 5 cm above the umbilicus. Dissection was carried down through subcutaneous tissue with Bovie cautery.We gained access to the abdominal cavity. After gaining access to the abdominal cavity we noted that there was a large amount of fibrinous exudate on all the small bowel surfaces. There was a large necrotic cecum that was noted in the right abdominal cavity ju st to the right of the aorta abutting the right lateral abdominal wall. I mobilized this and delivered it into the wound. I came across the terminal ileum with one firing the Endo BRYAN stapler with a blue load and then before untwisting the volvulus I came across the mesentery with multiple firings of the LigaSure device. I then came across the mid transverse colon with one firing the Endo BRYAN stapler with a blue load.We then were able to remove the specimen. The small bowel appeared to be somewhat dusky however this pinked up with warm saline irrigation and improvement in her blood pressure using the pressors given by the anesthesiologist. I then created a defect in the right abdominal wall with the Bovie cautery excising a 3 cm segment of skin and carried that dissection down to the fascia the rectus muscle which was opened in a stellate Fashion[employer] deliver the small bowel through the defect as an ileostomy.Once this was completed we then copiously irrigated the abdominal cavity with normal saline.We then closed the abdominal cavity with running double looped 0 PDS suture. We then closed the skin with standard skin clips.We then matured the ileostomy on the right abdominal wall with interrupted placed 3-0 Vicryl sutures.Sterile colostomy appliance was placed. Patient's condition was unstable and requiring pressors to maintain her blood pressure she was transferred back to the intensive care unit.Estimated blood loss for the procedure was approximately 200 cc sponge needle counts were correct x2
[2019-03-28] MEDS: VENLAFAXINE HCL 75 MG TABLET NG SCH ×2 (10:13→21:53)
[2019-03-28] MEDS: BUSPIRONE HCL 10 MG TABLET NG SCH ×3 (10:13→18:15)
[2019-03-28] MEDS: FAMOTIDINE 20 MG TABLET PO SCH ×2 (10:13→21:53)
[2019-03-28] MEDS: OXYBUTYNIN CHLORIDE SYRUP 1 MG/1 ML 60 ML PO SCH ×2 (10:19→18:17)
[2019-03-28] MEDS: LIDOCAINE 5% (700 MG) TRANSDERMAL ADH..PATCH TOP SCH (10:20)
[2019-03-28] MEDS: VITAMINS A AND D OINTMENT 56.7 GM TOP SCH ×3 (10:20→18:24)
[2019-03-28] MEDS: HYDROMORPHONE HCL INJ/PF 2 MG/ML AMPULE IV PRN ×4 (10:33→23:20)
[2019-03-28 11:43] LABS: ARTERIAL BLOOD BASE EXCESS 0.6 mmol/L; ARTERIAL BLOOD FIO2 40%; ARTERIAL BLOOD H2CO3 1.12 mmol/L (1.05-1.35); ARTERIAL BLOOD HCO3 24.6 mmol/L (20-24); ARTERIAL BLOOD O2 SATURATION 98.7 % (94-98); ARTERIAL BLOOD PCO2 37.1 mmHg (35-45); ARTERIAL BLOOD PH 7.44 (7.35-7.45); ARTERIAL BLOOD PO2 128.9 mmHg (80-100); ARTERIAL BLOOD TOTAL CO2 25.8 mmol/L (21-25)
--- NOTE | 2019-03-28 17:02 | PDOC CRITICAL CARE PROG REPORT ---
General Date:: 03/28/19 ICU Day:: 12 Ventilator Day:: 3 Hospital Day:: 12 Resuscitation Status: Full Code Medical Power of Dental Manager: Rogerio Michael [phone] Events in the past 12 to 24 Hours:: 03.28.19: Patient's hypoxia has improved and she is now weaning on the ventilato r. She is still weak but she is more awake responsive. She is unable to move her arms or legs. Her white blood cell count has improved. The amount of fluid from the VAC dressing has improved. 03.27.19: Patient's hypoxia has improved. FiO2 now at 50%. PEEP at 10 cmH2O. Levophed is weaning. 03.26.19: Patient's respiratory status has worsened. In the morning we had a lengthy disc ussion regarding her plan of care and she initially did not want intubation. She later rescinded this when her respiratory status worsened. She ultimately required mechanical ventilation. She became extremely hypoxic acquired urgent bronchoscopy which cleared extensive mucus obstruction of the left lung. Review of systems relevant to events:: She has become hypotensive after the intubation after being extremely hypertensive. Notably this is from resolve of high sympathetic tone related to her respiratory failure. Strongly high output from the abdominal VAC system. Was given lactated Ringer resuscitative fluid she became hypotensive during mechanical ventilation.. Review of systems relevant to events:: She remains afebrile. Levophed has been discontinued and her blood pressure has improved. Propofol has been discontinued. Reason for ICU Addmission:: Ventilator due to acute respiratory failure, aspiration, UTI, MS - Medications: Vasopressors:: Levophed-off Sedation:: Propofol-off Physical Exam Vital Signs: Temp Pulse Resp BP Pulse Ox 100.5 F H 107 H 18 128/74 H 99 03/28/19 16:00 03/28/19 16:00 03/28/19 16:00 03/28/19 16:00 03/28/19 16:00 Intake & Output 03/27/19 03/28/19 03/29/19 06:59 06:59 06:59 Intake Total 0052 4223 312 Output Total 1670 1815 1500 Balance 1042 2408 -1188 Weight 92.6 kg 95.2 kg 95.2 kg Weight/Height Weight 95.2 kg Height 5 ft 5 in General appearance: PRESENT: no acute distress, disheveled, morbidly obese, well-developed, well-nourished Exam: Intubated, responsive nontoxic older appearing obese 58-year-old female no acute distress she is awake she is oriented to surroundings and attempts to speak on the ventilator. Eye exam: PRESENT: conjunctiva pink, EOMI, PERRLA. ABSENT: conjunctival injection, nystagmus, scleral icterus Throat exam: ABSENT: post pharyngeal erythema, tonsillar exudate Neck exam: PRESENT: other - Central-venous catheter clean dry intact. Ecchymosis on the left IJ subclavian region without hematoma.. ABSENT: carotid bruit, JVD, lymphadenopathy, thyromegaly Respiratory exam: PRESENT: clear to auscultation jessica, unlabored. ABSENT: accessory muscle use, rales, rhonchi, wheezes Cardiovascular exam: PRESENT: RRR. ABSENT: diastolic murmur, rubs, systolic murmur Pulses: PRESENT: +1 pedal pulses bilateral GI/Abdominal exam: PRESENT: normal bowel sounds, soft. ABSENT: ascites, firm, guarding, mass, tenderness Rectal exam: PRESENT: other - ostomy functioning Gentrourinary exam: PRESENT: indwelling catheter Extremities exam: PRESENT: pedal edema. ABSENT: tenderness Musculoskeletal exam: PRESENT: deformity, other - Anasarca significant Neurological exam: PRESENT: alert, awake, oriented to person, oriented to situation, other - Attempts to speak on ventilator Psychiatric exam: PRESENT: appropriate affect, normal mood Focused psych exam: ABSENT: psychomotor agitation, restlessness Skin exam: PRESENT: intact. ABSENT: cyanosis, jaundice, mottled Tubes/Lines: PRESENT: Endotracheal Tube, Central Line, Arterial Catheter, Other - OGT and chronic herzog Laboratory/Radiographs Laboratory Results: 03/27/19 04:45 03/28/19 05:00 03/28/19 03/28/19 03/28/19 05:00 05:00 11:30 Carbonic Acid 1.12 HCO3/H2CO3 Ratio 21:1 ABG pH 7.44 ABG pCO2 37.1 ABG pO2 128.9 H ABG HCO3 24.6 H ABG O2 Saturation 98.7 H ABG Base Excess 0.6 FiO2 40% Sodium 143.6 Potassium 3.6 Chloride 110 H Carbon Dioxide 26 Anion Gap 8 BUN 17 Creatinine Cancelled 0.52 Est GFR ( Amer) Cancelled > 60 Est GFR (Non-Af Amer) Cancelled Glucose 124 H Calcium 8.2 L Magnesium 1.7 03/17/19 06:54 Troponin I 0.018 Impressions: Head CT 03/17/19 07:08 IMPRESSION: CHRONIC CHANGES OF ATROPHY AND MICROVASCULAR ISCHEMIA. NO ACUTE PROCESS. EVIDENCE OF ACUTE STROKE: NO. Abdomen/Pelvis CT 03/17/19 08:51 IMPRESSION: 1. Suspected sigmoid volvulus. 2. Small amount of ascites. No free air. 3. Adrenal nodules. Chest CT 03/17/19 08:52 IMPRESSION: 1. Collapse of the right lower lobe and most of the middle lobe. 2. Diffuse thickening of the esophagus. KUB X-Ray 03/23/19 00:00 IMPRESSION: The tip of the NG tube is in the stomach. copyright 2011 [employer]- All Rights Reserved Modified Barium Swallow 03/23/19 00:00 IMPRESSION: LARYNGEAL PENETRATION AND ASPIRATION ABOVE. PLEASE SEE SPEECH PATHOLOGIST REPORT FOR OTHER FINDINGS AND RECOMMENDATIONS. Chest X-Ray 03/27/19 06:00 IMPRESSION: STABLE APPEARANCE OF THE CHEST. SUPPORT DEVICES UNCHANGED. All labs, radiographs, diagnostic studies and EKGs were personally reviewed: Yes In addition, reports of radiographic and diagnostic studies were read: Yes Assessment and Plan - Diagnosis (1) Acute respiratory failure with hypoxia Is this a current diagnosis for this admission?: Yes Plan: Resolved. ON vent wean (2) ARDS (adult respiratory distress syndrome) Is this a current diagnosis for this admission?: Yes (3) Atelectasis of left lung Is this a current diagnosis for this admission?: Yes Plan: Improved (4) Mucus plugging of bronchi Is this a current diagnosis for this admission?: Yes (5) Dehydration Is this a current diagnosis for this admission?: Yes Plan: improved (6) Hypotension (arterial) Qualifiers: Hypotension type: hypotension due to hypovolemia Qualified Code(s): I95.89 - Other hypotension; E86.1 - Hypovolemia Is this a current diagnosis for this admission?: Yes Plan: Resolved (7) Cecal volvulus Is this a current diagnosis for this admission?: Yes Plan: Post repair. Will need biomedical appliance applied to prevent VAC exposure to bowel (8) cecal volvulus Is this a current diagnosis for this admission?: Yes (9) Functional quadriplegia secondary to MS Is this a current diagnosis for this admission?: Yes Plan: Chronic. Progressive. May need tracheostomy (10) Stage 4 pressure ulcer Qualifiers: Pressure injury location: contiguous region involving buttock and hip Laterality: left Qualified Code(s): L89.44 - Pressure ulcer of contiguous site of back, buttock and hip, stage 4 Is this a current diagnosis for this admission?: Yes Plan: Chronic, present on admission Plan Summary: 03.28.19: Patient's significant hypoxia has improved to the point that she is now on ventilator wean. She still remains remarkably deconditioned and weak but can now lift her head and distinction to yesterday's exam. She is grossly anasarca and her blood pressure has improved but she is not at a point where diuresis would be acceptable. Will reconsider in the next 24 hours. We were notified by surgery that her VAC dressing needs to be augmented so that there is no lesion to the bowel. Plan is to redo this today. We will keep the patient on the ventilator for this as well. Microbiologic studies are still negative and we will continue to monitor. Her white blood cell count has improved and her leukocytosis is improving. We had a lengthy discussion with case management and 1 of her caretakers who knows her quite well. The patient is hesitant to continue Mr. Beatty as her medical power of workers compensation attorney and has indicated that she may need to reconsider. When asked whether she would want tracheostomy and PEG tube she is still reticent to give a distinct answer. The plan will be that we will attempt to liberate from the ventilator tomorrow pending surgical procedures. She tolerates SBT and is liberated will follow for failure. If she does fail that would be an indication for tracheostomy. Continue supportive care. Have discontinued IV fluids. Levophed is discontinued. We have also discontinued propofol. 03.27.19: Patient's hypoxia is continuing to improve as well her hypotension. BAL specimens are still pending. Current FiO2 settings are at 40%. Had a discussion with caretakers will continue current level of therapy to determine whether there will be any improvement. To new patient on broad-spectrum antibiotics for at least 7 days. Patient has significant physical deconditioning which was present prior to admission. This lessens her ability to be weaned from the ventilator and I am suspicious that she will require tracheostomy if the family does not withdraw care. Continue nutritional support. Start diuresis in 24 hours. 1619: As noted above patient has significantly worsened. She required intubation and we had significant hypoxia and elevation in peak pressures. This has improved with flexible bronchoscopy Patient has significant preadmission deconditioning with multiple sclerosis and functional quadriplegia. We attempted to establish goals of care however patient was unable to communicate effectively. Her medical power of workers compensation attorney requested that all care be given including intubation which was done. We had a lengthy discussion regarding all of the of care and asked for ethics consult given the terminal nature of her muscular disease. Have sent lavage for analysis. She appears to be dehydrated and have added IV fluids to her armamentarium. We will discuss with surgery about the timing of nutritional support. Recommend early tracheostomy if the family seeks to pursue this as well as jejunostomy tube. Critical Time Critical Time (minutes): 60 - includes prognosis discussion and tracheostomy Level of Care: ICU Anticipated discharge: SNF -: 1. The care of a critical patient is a dynamic process. This note is a claim representative synopsis but static in nature. The timeframe for treatments given in order is not necessary the actual time these treatments may have been done. 2. This patient requires critical care secondary to ongoing requirements for therapy not offered or safe outside the critical care environment. Transfer to a lower level of care with altered life or limb morbidity and mortality. 3. Multidisciplinary rounds completed. 4. ABCDE bundle addressed.
[2019-03-28] MEDS: VANCOMYCIN HCL 1,500 MG in DEXTROSE 5%-WATER 250 ML IV SCH (18:23)
[2019-03-28] MEDS: ACETAMINOPHEN 650 MG SUPP.RECT PR PRN (21:52)
[2019-03-28] MEDS: AMITRIPTYLINE HCL 50 MG TABLET NG SCH (21:53)
[2019-03-28] MEDS: PHARMACY COMMUNICATION ORDER MC SCH (22:06)
--- NOTE | 2019-03-28 23:49 | PDOC PROGRESS REPORT ---
Subjective Reason For Visit: ASPIRATION, ACUTE RESPIRATORY FAILURE, UTI, MS Physical Exam Vital Signs: Temp Pulse Resp BP Pulse Ox 102 F H 101 H 16 128/74 H 100 03/28/19 20:00 03/28/19 20:00 03/28/19 18:00 03/28/19 16:00 03/28/19 20:02 Intake & Output 03/27/19 03/28/19 03/29/19 06:59 06:59 06:59 Intake Total 2712 4223 362 Output Total 1670 1815 1620 Balance 1042 2408 -1258 Weight 92.6 kg 95.2 kg 95.2 kg Results Laboratory Results: 03/27/19 04:45 03/28/19 05:00 03/28/19 03/28/19 03/28/19 05:00 05:00 11:30 Carbonic Acid 1.12 HCO3/H2CO3 Ratio 21:1 ABG pH 7.44 ABG pCO2 37.1 ABG pO2 128.9 H ABG HCO3 24.6 H ABG O2 Saturation 98.7 H ABG Base Excess 0.6 FiO2 40% Sodium 143.6 Potassium 3.6 Chloride 110 H Carbon Dioxide 26 Anion Gap 8 BUN 17 Creatinine Cancelled 0.52 Est GFR ( Amer) Cancelled > 60 Est GFR (Non-Af Amer) Cancelled Glucose 124 H Calcium 8.2 L Magnesium 1.7 03/17/19 06:54 Troponin I 0.018 Impressions: Head CT 03/17/19 07:08 IMPRESSION: CHRONIC CHANGES OF ATROPHY AND MICROVASCULAR ISCHEMIA. NO ACUTE PROCESS. EVIDENCE OF ACUTE STROKE: NO. Abdomen/Pelvis CT 03/17/19 08:51 IMPRESSION: 1. Suspected sigmoid volvulus. 2. Small amount of ascites. No free air. 3. Adrenal nodules. Chest CT 03/17/19 08:52 IMPRESSION: 1. Collapse of the right lower lobe and most of the middle lobe. 2. Diffuse thickening of the esophagus. KUB X-Ray 03/23/19 00:00 IMPRESSION: The tip of the NG tube is in the stomach. copyright 2010 [employer]- All Rights Reserved Modified Barium Swallow 03/23/19 00:00 IMPRESSION: LARYNGEAL PENETRATION AND ASPIRATION ABOVE. PLEASE SEE SPEECH PATHOLOGIST REPORT FOR OTHER FINDINGS AND RECOMMENDATIONS. Chest X-Ray 03/27/19 06:00 IMPRESSION: STABLE APPEARANCE OF THE CHEST. SUPPORT DEVICES UNCHANGED. Assessment & Plan - Diagnosis (1) Cecal volvulus Is this a current diagnosis for this admission?: Yes - Time Time Spent with patient: Less than 15 minutes - Plan Summary Plan Summary: 58-year-old female status post ex lap and right hemicolectomy for cecal volvulus. The patient has a right lower quadrant ileostomy present. She is awake on the ventilator today. She responds to yes and no questions. She reports having pain. I have removed her wound VAC at the bedside, and replaced the wound VAC. Please see the separate dictation for details regarding this. Ileostomy is functioning. Continue with supportive care. Production Illustrator is following.
--- NOTE | 2019-03-28 23:58 | Operative Report ---
Nonrecallable Operative Report DATE OF SURGERY: 03/28/19 PREOPERATIVE DIAGNOSIS: Fascial dehiscence with necrosis. POSTOPERATIVE DIAGNOSIS: Fascial dehiscence with necrosis, requiring debridement OPERATION: 1. Removal of previous negative pressure wound management system. 2. Placement of new negative pressure wound management system, wound measures 10 x 20 cm, by 2 cm deep. 3. Debridement of necrotic muscle and fascia of the abdominal wall, approximately 10 cm. 4. Implantation of Vicryl mesh for repair of fascial dehiscence (acute ventral hernia). SURGEON: VAISHALI DE LA CRUZ ANESTHESIA: Moderate Sedation TISSUE REMOVED OR ALTERED: Debridement of necrotic muscle and fascia of the abdominal wall. COMPLICATIONS: Necrotic fascia, requiring debridement. ESTIMATED BLOOD LOSS: Minimal PROCEDURE: Drains/implants: 1. Vicryl mesh. 2. Xeroform gauze. 3. Wound VAC. Procedure in detail: the patient was laid in the supine position in the intensive care unit. The previous wound VAC dressing was removed. It consisted of black sponge, over white sponge, over Xeroform, over bowel. After the entire dressing was removed, the abdominal wall was inspected. There was necrotic fascia along the edges with obvious dehiscence in the middle. The necrotic fascia was debrided away sharply at the bedside. The amount of debrided muscle and fascia was approximately 10 cm. Next, skin flaps were raised using blunt, digital dissection. A Vicryl mesh was then brought over the field. The Vicryl mesh was tucked beneath the skin flaps and fascial edges, over top of the exposed omentum and bowel. Next Xeroform gauze was placed over top of the Vicryl mesh, and a black sponge VAC dressing was placed over the Xeroform gauze. The black sponge was cut to fit the defect. Great care was taken not to lay black sponge over top of healthy skin. The occlusive dressing was placed. The VAC was attached to suction, and a good seal was identified. At this time the procedure was concluded. All sponge, instrument, and needle counts were correct. Condition: Stable.
[2019-03-29] MEDS: HEPARIN SOD (PORCINE) 5,000 UNIT/ML 1 ML VIAL SUBCUT SCH ×3 (01:46→17:59)
[2019-03-29] MEDS: HYDROMORPHONE HCL INJ/PF 2 MG/ML AMPULE IV PRN ×2 (05:13→19:58)
[2019-03-29] MEDS: VANCOMYCIN HCL 1,500 MG in DEXTROSE 5%-WATER 250 ML IV SCH ×2 (05:14→17:45)
[2019-03-29 05:52] LABS: ABSOLUTE BASOPHILS # (AUTO) 0.1 10^3/uL (0.0-0.2); ABSOLUTE EOSINOPHILS # (AUTO) 0.1 10^3/uL (0.0-0.6); ABSOLUTE LYMPHOCYTES (AUTO) 0.5 10^3/uL (0.5-4.7); ABSOLUTE MONOCYTES (AUTO) 0.9 10^3/uL (0.1-1.4); ABSOLUTE NEUT (AUTO) 6.4 10^3/uL (1.7-8.2); BASOPHILS % (AUTO) 1.2 % (0-2); EOSINOPHILS % (AUTO) 1.1 % (0-6); HEMATOCRIT 27.5 % (36.0-47.0); LYMPHOCYTES % (AUTO) 5.7 % (13-45); MEAN CORPUSCULAR HEMOGLOBIN 28.9 pg (27.0-33.4); MEAN CORPUSCULAR HGB CONC 32.8 g/dL (32.0-36.0); MEAN CORPUSCULAR VOLUME 88 fl (80-97); MONOCYTES % (AUTO) 11.4 % (3-13); PLATELET COUNT 248 10^3/uL (150-450); RED BLOOD COUNT 3.12 10^6/uL (3.72-5.28); RED CELL DISTRIBUTION WIDTH 17.5 % (11.5-14.0); SEGMENTED NEUTROPHILS % (AUTO) 80.6 % (42-78); TOTAL CELLS COUNTED % (AUTO) 100 %; WHITE BLOOD COUNT 7.9 10^3/uL (4.0-10.5)
[2019-03-29 06:08] LABS: ARTERIAL BLOOD BASE EXCESS -1.2 mmol/L; ARTERIAL BLOOD FIO2 40%; ARTERIAL BLOOD H2CO3 1.14 mmol/L (1.05-1.35); ARTERIAL BLOOD HCO3 23.2 mmol/L (20-24); ARTERIAL BLOOD O2 SATURATION 97.9 % (94-98); ARTERIAL BLOOD PCO2 37.8 mmHg (35-45); ARTERIAL BLOOD PH 7.41 (7.35-7.45); ARTERIAL BLOOD PO2 106.9 mmHg (80-100); ARTERIAL BLOOD TOTAL CO2 24.4 mmol/L (21-25)
[2019-03-29 06:14] LABS: ANION GAP 6 (5-19); BLOOD UREA NITROGEN 17 mg/dL (7-20); CALCIUM 8.4 mg/dL (8.4-10.2); CARBON DIOXIDE 27 mmol/L (22-30); CHLORIDE 109 mmol/L (98-107); GLUCOSE 116 mg/dL (75-110); PHOSPHORUS 3.1 mg/dL (2.5-4.5); POTASSIUM 4.2 mmol/L (3.6-5.0); TRIGLYCERIDES 236 mg/dL (<150)
[2019-03-29] MEDS: MEROPENEM 1 GM in NORMAL SALINE 50 ML IV SCH ×3 (07:04→22:34)
[2019-03-29] MEDS: PHOSPHORUS #1 250 MG TABLET NG SCH ×4 (08:01→22:34)
--- NOTE | 2019-03-29 09:21 | PDOC CRITICAL CARE PROG REPORT ---
General Date:: 03/29/19 ICU Day:: 13 Ventilator Day:: 4 Hospital Day:: 13 Resuscitation Status: Full Code Medical Power of Cant Hooker: Rogerio Michael [phone] Events in the past 12 to 24 Hours:: 03.29.19: Patient has been maintained on pressure support in the past 24 hours. Had no recrudescence of mucus or respiratory distress. She underwent revision of her VAC dressing without complication. 03.28.19: Patient's hypoxia has improved and she is now weaning on the ventilator. She is still weak but she is more awake responsive. She is unable to move her arms or legs at baseline. Her white blood cell count has improved. The amount of fluid from the VAC dressing has improved. 03.27.19: Patient's hypoxia has improved. FiO2 now at 50%. PEEP at 10 cmH2O. Levophed is weaning. 03.26.19: Patient's respiratory status has worsened. In the morning we had a lengthy discussion regarding her plan of care and she initially did not want intubation. She later rescinded this when her respiratory status worsened. She ultimately required mechanical ventilation. She became extremely hypoxic acquired urgent bronchoscopy which cleared extensive mucus obstruction of the left lung. Review of systems relevant to events:: She has become hypotensive after the intubation after being extremely hypertensive. Notably this is from resolve of high sympathetic tone related to her respiratory failure. Strongly high output from the abdominal VAC system. Was given lactated Ringer resuscitative fluid she became hypotensive during mechanical ventilation.. Review of systems relevant to events:: The patient has had no further hypotension and is now off Levophed. Reason for ICU Addmission:: Ventilator due to acute respiratory failure, aspiration, UTI, MS - Medications: Medications reviewed and adjusted accordingly: Yes Vasopressors:: None Sedation:: None Physical Exam Vital Signs: Temp Pulse Resp BP Pulse Ox 101 F H 103 H 11 L 132/80 H 100 03/29/19 08:00 03/29/19 08:00 03/29/19 08:00 03/29/19 08:00 03/29/19 08:00 Intake & Output 03/28/19 03/29/19 03/30/19 06:59 06:59 06:59 Intake Total 4223 662 Output Total 1815 2195 180 Balance 2408 -8453 -180 Weight 95.2 kg 95.2 kg Weight/Height Weight 95.2 kg Height 5 ft 5 in General appearance: PRESENT: no acute distress, morbidly obese Exam: Pleasant nontoxic awake 58-year-old obese female no active distress chronically and critically ill-appearing Eye exam: PRESENT: conjunctiva pink, EOMI, PERRLA. ABSENT: conjunctival injection, nystagmus, scleral icterus Mouth exam: PRESENT: moist, other - Patient has partial tissue loss left greater than right Maller region from ET tube secure holster present before this intubation Throat exam: ABSENT: post pharyngeal erythema Neck exam: ABSENT: carotid bruit, full ROM, JVD, lymphadenopathy, tenderness, thyromegaly, tracheal deviation Respiratory exam: PRESENT: clear to auscultation jessica, unlabored. ABSENT: rales, rhonchi, tachypnea, wheezes Cardiovascular exam: PRESENT: RRR, +S1, +S2 Pulses: PRESENT: +1 pedal pulses bilateral Vascular exam: PRESENT: normal capillary refill. ABSENT: pallor GI/Abdominal exam: PRESENT: hypoactive bowel sounds, soft, tenderness - Over incision/wound. Not severe. ABSENT: ascites, firm, guarding, rebound Rectal exam: PRESENT: other - Active, brown stool from ostomy Gentrourinary exam: PRESENT: indwelling catheter - Chronic. Large size Extremities exam: PRESENT: pedal edema. ABSENT: tenderness Musculoskeletal exam: PRESENT: deformity, dislocation - post previous fracture. At baseline rotational deformity present on admission Neurological exam: PRESENT: alert, awake, motor sensory deficit - Baseline functional quadriplegia Psychiatric exam: PRESENT: appropriate affect, normal mood. ABSENT: agitated Focused psych exam: ABSENT: psychomotor agitation, restlessness Skin exam: PRESENT: dry, intact, warm. ABSENT: cyanosis, rash Tubes/Lines: PRESENT: Endotracheal Tube, Central Line, Arterial Catheter, Other - Hernandez and OGT Laboratory/Radiographs Laboratory Results: 03/29/19 05:20 03/29/19 05:20 03/28/19 03/29/19 03/29/19 11:30 05:20 05:20 WBC RBC Hgb Hct MCV MCH MCHC RDW Plt Count Seg Neutrophils % Carbonic Acid 1.12 1.14 HCO3/H2CO3 Ratio 21:1 20:1 ABG pH 7.44 7.41 ABG pCO2 37.1 37.8 ABG pO2 128.9 H 106.9 H ABG HCO3 24.6 H 23.2 ABG O2 Saturation 98.7 H 97.9 ABG Base Excess 0.6 -1.2 FiO2 40% 40% Sodium Potassium Chloride Carbon Dioxide Anion Gap BUN Creatinine Est GFR ( Amer) Glucose Calcium Phosphorus Magnesium Ammonia < 8.7 L Triglycerides 03/29/19 03/29/19 05:20 05:20 WBC 7.9 RBC 3.12 L Hgb 9.0 L Hct 27.5 L MCV 88 MCH 28.9 MCHC 32.8 RDW 17.5 H Plt Count 248 Seg Neutrophils % 80.6 H Carbonic Acid HCO3/H2CO3 Ratio ABG pH ABG pCO2 ABG pO2 ABG HCO3 ABG O2 Saturation ABG Base Excess FiO2 Sodium 142.3 Potassium 4.2 Chloride 109 H Carbon Dioxide 27 Anion Gap 6 BUN 17 Creatinine 0.49 L Est GFR ( Amer) > 60 Glucose 116 H Calcium 8.4 Phosphorus 3.1 Magnesium 1.7 Ammonia Triglycerides 236 H 03/26/19 16:00 Bronchial Washings AFB Smear Concentration - Final 03/26/19 16:00 Bronchial Washings Acid Fast Bacilli Smear - Final 03/17/19 06:54 Troponin I 0.018 Impressions: Head CT 03/17/19 07:08 IMPRESSION: CHRONIC CHANGES OF ATROPHY AND MICROVASCULAR ISCHEMIA. NO ACUTE PROCESS. EVIDENCE OF ACUTE STROKE: NO. Abdomen/Pelvis CT 03/17/19 08:51 IMPRESSION: 1. Suspected sigmoid volvulus. 2. Small amount of ascites. No free air. 3. Adrenal nodules. Chest CT 03/17/19 08:52 IMPRESSION: 1. Collapse of the right lower lobe and most of the middle lobe. 2. Diffuse thickening of the esophagus. KUB X-Ray 03/23/19 00:00 IMPRESSION: The tip of the NG tube is in the stomach. copyright 2010 [employer]- All Rights Reserved Modified Barium Swallow 03/23/19 00:00 IMPRESSION: LARYNGEAL PENETRATION AND ASPIRATION ABOVE. PLEASE SEE SPEECH PATHOLOGIST REPORT FOR OTHER FINDINGS AND RECOMMENDATIONS. All labs, radiographs, diagnostic studies and EKGs were personally reviewed: Yes In addition, reports of radiographic and diagnostic studies were read: Yes Assessment and Plan - Diagnosis (1) Acute respiratory failure with hypoxia Is this a current diagnosis for this admission?: Yes Plan: Improved. Will consider ventilator liberation See below (2) ARDS (adult respiratory distress syndrome) Is this a current diagnosis for this admission?: Yes Plan: Resolved (3) Atelectasis of left lung Is this a current diagnosis for this admission?: Yes Plan: Improved. CXR improved (4) Mucus plugging of bronchi Is this a current diagnosis for this admission?: Yes (5) Dehydration Is this a current diagnosis for this admission?: Yes Plan: Resolved. Has total body anasarca. Will diurese today and stop IVF (6) Hypotension (arterial) Qualifiers: Hypotension type: hypotension due to hypovolemia Qualified Code(s): I95.89 - Other hypotension; E86.1 - Hypovolemia Is this a current diagnosis for this admission?: Yes Plan: Resolved. Diuresis today (7) Cecal volvulus Is this a current diagnosis for this admission?: Yes Plan: Post repair. VAC appliance revised 03.28.19 (8) cecal volvulus Is this a current diagnosis for this admission?: Yes (9) Functional quadriplegia secondary to MS Is this a current diagnosis for this admission?: Yes Plan: Chronic. Progressive. May need tracheostomy if she fails extubation today (10) Stage 4 pressure ulcer Qualifiers: Pressure injury location: contiguous region involving buttock and hip Laterality: left Qualified Code(s): L89.44 - Pressure ulcer of contiguous site of back, buttock and hip, stage 4 Is this a current diagnosis for this admission?: Yes Plan: Chronic, present on admission Plan Summary: Patient continues to improve. Will liberate from ventilator today. Had lengthy discussion with the patient regarding the extubation and follow-up. The plan will be that if she fails after liberation she will be reintubated and this will be followed by tracheostomy. She is in agreement with this. Lengthy discussion about what this would mean as far as prognosis. We will continue monitor respiratory status. Functional quadriplegia with progressive insidious MS and we discussed the possibility of long-term LTAC therapy if she fails. See notes and orders I reevaluated the patient after liberation from the ventilator. Discussed end-of-life issues as well as prognosis with her MS. He is interested in pursuing tracheostomy if she requires reintubation. We disgusted what that may mean for her as far as long-term vent settings. Patient is interested in having a dual medical power of assistant prosecuting attorney to offset some of the subjective coordinates provided by Rogerio her current medical power of assistant prosecuting attorney. We will need to discuss this with Юлия her other school commissioner and Rogerio. Patient has a large Setswana size Hernandez (#30). She has significant leakage requiring a pure wick. Most of the pure wick is absorbing the urine. Given the risk of infection we have remove the large Hernandez and will determine whether the pure wick may be better for her care. Is a large sacral decubiti present on admission. Will need to be considerably aware of any excess breakdown. Patient will need incentive spirometry, reevaluation of airway, and speech and swallow eval Critical Time Critical Time (minutes): 60 Level of Care: ICU Anticipated discharge: SNF Within: within 72 hours -: 1. The care of a critical patient is a dynamic process. This note is a hr representative synopsis but static in nature. The timeframe for treatments given in order is not necessary the actual time these treatments may have been done. 2. This patient requires critical care secondary to ongoing requirements for therapy not offered or safe outside the critical care environment. Transfer to a lower level of care with altered life or limb morbidity and mortality. 3. Multidisciplinary rounds completed. 4. ABCDE bundle addressed.
[2019-03-29] MEDS: VENLAFAXINE HCL 75 MG TABLET NG SCH ×2 (09:57→22:34)
[2019-03-29] MEDS: LIDOCAINE 5% (700 MG) TRANSDERMAL ADH..PATCH TOP SCH (09:58)
[2019-03-29] MEDS: FAMOTIDINE 20 MG TABLET PO SCH (09:58)
[2019-03-29] MEDS: BUSPIRONE HCL 10 MG TABLET NG SCH ×3 (09:58→18:01)
[2019-03-29] MEDS ORDERED: FUROSEMIDE INJ/PF 20 MG/2 ML SDV IV ONE (10:00)
[2019-03-29] MEDS: OXYBUTYNIN CHLORIDE SYRUP 1 MG/1 ML 60 ML PO SCH ×2 (10:03→18:19)
[2019-03-29] MEDS: VITAMINS A AND D OINTMENT 56.7 GM TOP SCH ×3 (10:04→18:00)
--- NOTE | 2019-03-29 10:17 | RADIOLOGY REPORT (SQ) ---
EXAM DESCRIPTION: CHEST SINGLE VIEW COMPLETED DATE/TIME: 03/29/2019 7:10 am REASON FOR STUDY: aspiration COMPARISON: None. EXAM PARAMETERS: NUMBER OF VIEWS: One view. TECHNIQUE: Single frontal radiographic view of the chest acquired. RADIATION DOSE: NA LIMITATIONS: None. FINDINGS: LUNGS AND PLEURA: No gross acute infiltrates. No pleural effusion or pneumothorax. MEDIASTINUM AND HILAR STRUCTURES: No masses. Contour normal. HEART AND VASCULAR STRUCTURES: Heart normal in size. Normal vasculature. BONES: No acute findings. HARDWARE: Endotracheal tube tip midtrachea. Left subclavian central venous catheter tip superior patricio a cava. Nasogastric tube tip and side port in the stomach OTHER: No other significant finding. IMPRESSION: No acute infiltrates Tubes and lines in good position TECHNICAL DOCUMENTATION: JOB ID: [id number]- All Rights Reserved Reading location - IP/workstation name: [email or web address]
[2019-03-29] MEDS ORDERED: PHARMACY COMMUNICATION ORDER MC NR (11:00)
--- NOTE | 2019-03-29 13:19 | PDOC PROGRESS REPORT ---
Subjective Progress Note for:: 03/29/19 Subjective:: intubated.no apparent pains Reason For Visit: ASPIRATION, ACUTE RESPIRATORY FAILURE, UTI, MS Physical Exam Vital Signs: Temp Pulse Resp BP Pulse Ox 100.0 F 99 17 118/71 100 03/29/19 10:00 03/29/19 10:00 03/29/19 12:00 03/29/19 10:00 03/29/19 12:05 Intake & Output 03/28/19 03/29/19 03/30/19 06:59 06:59 06:59 Intake Total 4223 662 60 Output Total 1815 2305 630 Balance 5754 -6505 -364 Weight 95.2 kg 95.2 kg Exam: Abdomen is soft, non tender. Wound Vac in place Results Laboratory Results: 03/29/19 05:20 03/29/19 05:20 03/29/19 03/29/19 03/29/19 05:20 05:20 05:20 WBC RBC Hgb Hct MCV MCH MCHC RDW Plt Count Seg Neutrophils % Carbonic Acid 1.14 HCO3/H2CO3 Ratio 20:1 ABG pH 7.41 ABG pCO2 37.8 ABG pO2 106.9 H ABG HCO3 23.2 ABG O2 Saturation 97.9 ABG Base Excess -1.2 FiO2 40% Sodium 142.3 Potassium 4.2 Chloride 109 H Carbon Dioxide 27 Anion Gap 6 BUN 17 Creatinine 0.49 L Est GFR ( Amer) > 60 Glucose 116 H Calcium 8.4 Phosphorus 3.1 Magnesium 1.7 Ammonia < 8.7 L Triglycerides 236 H 03/29/19 05:20 WBC 7.9 RBC 3.12 L Hgb 9.0 L Hct 27.5 L MCV 88 MCH 28.9 MCHC 32.8 RDW 17.5 H Plt Count 248 Seg Neutrophils % 80.6 H Carbonic Acid HCO3/H2CO3 Ratio ABG pH ABG pCO2 ABG pO2 ABG HCO3 ABG O2 Saturation ABG Base Excess FiO2 Sodium Potassium Chloride Carbon Dioxide Anion Gap BUN Creatinine Est GFR ( Amer) Glucose Calcium Phosphorus Magnesium Ammonia Triglycerides 03/26/19 16:00 Bronchial Washings Gram Stain - Final 03/26/19 16:00 Bronchial Washings Bronchial Washings Culture - Final NO GROWTH 2 DAYS 03/26/19 16:00 Bronchial Washings AFB Smear Concentration - Final 03/26/19 16:00 Bronchial Washings Acid Fast Bacilli Smear - Final 03/17/19 06:54 Troponin I 0.018 Impressions: Head CT 03/17/19 07:08 IMPRESSION: CHRONIC CHANGES OF ATROPHY AND MICROVASCULAR ISCHEMIA. NO ACUTE PROCESS. EVIDENCE OF ACUTE STROKE: NO. Abdomen/Pelvis CT 03/17/19 08:51 IMPRESSION: 1. Suspected sigmoid volvulus. 2. Small amount of ascites. No free air. 3. Adrenal nodules. Chest CT 03/17/19 08:52 IMPRESSION: 1. Collapse of the right lower lobe and most of the middle lobe. 2. Diffuse thickening of the esophagus. KUB X-Ray 03/23/19 00:00 IMPRESSION: The tip of the NG tube is in the stomach. copyright 2011 [employer]- All Rights Reserved Modified Barium Swallow 03/23/19 00:00 IMPRESSION: LARYNGEAL PENETRATION AND ASPIRATION ABOVE. PLEASE SEE SPEECH PATHOLOGIST REPORT FOR OTHER FINDINGS AND RECOMMENDATIONS. Chest X-Ray 03/29/19 06:00 IMPRESSION: No acute infiltrates Tubes and lines in good position Assessment & Plan - Diagnosis (1) cecal volvulus Is this a current diagnosis for this admission?: Yes (2) Cecal volvulus Is this a current diagnosis for this admission?: Yes - Time Time Spent with patient: Less than 15 minutes - Inpatient Certification Medical Necessity: Need Close Monitoring Due to Risk of Patient Decompensation, Need For Continuous Telemetry Monitoring, Need for IV Antibiotics - Plan Summary Plan Summary: A/ New Wound VADC placed yesterday and appears intact Still intubated P/ Continue ICU care Extubation per Surveillance Specialist Continue Tube feeds
--- NOTE | 2019-03-29 15:45 | RADIOLOGY REPORT (SQ) ---
EXAM DESCRIPTION: KUB/ABDOMEN (SINGLE VIEW) COMPLETED DATE/TIME: 03/29/2019 2:29 pm REASON FOR STUDY: NG tube placement COMPARISON: Earlier the same day. NUMBER OF VIEWS: One view. TECHNIQUE: Supine radiographic image of the abdomen acquired. LIMITATIONS: None. FINDINGS: Nasogastric tube has been advanced with tip overlying gastric fundus. IMPRESSION: Nasogastric tube in the stomach. TECHNICAL DOCUMENTATION: JOB ID: [id number] [employer]- All Rights Reserved Reading location - IP/workstation name: [email or web address]
--- NOTE | 2019-03-29 15:47 | RADIOLOGY REPORT (SQ) ---
EXAM DESCRIPTION: KUB/ABDOMEN (SINGLE VIEW) COMPLETED DATE/TIME: 03/29/2019 1:42 pm REASON FOR STUDY: Check Placement of NG Tube COMPARISON: 03/23/2019 NUMBER OF VIEWS: One view. TECHNIQUE: Supine radiographic image of the abdomen acquired. LIMITATIONS: None. FINDINGS: Nasogastric tube tip overlies distal esophagus. IMPRESSION: Nasogastric tube distal esophagus. TECHNICAL DOCUMENTATION: JOB ID: [id number] [employer]- All Rights Reserved Reading location - IP/workstation name: [email or web address]
[2019-03-29] MEDS: AMITRIPTYLINE HCL 50 MG TABLET NG SCH (22:34)
[2019-03-29] MEDS: PHARMACY COMMUNICATION ORDER MC SCH (22:48)
[2019-03-30] MEDS: HEPARIN SOD (PORCINE) 5,000 UNIT/ML 1 ML VIAL SUBCUT SCH ×3 (05:50→17:02)
[2019-03-30] MEDS: MEROPENEM 1 GM in NORMAL SALINE 50 ML IV SCH ×3 (05:52→22:35)
[2019-03-30] MEDS: VANCOMYCIN HCL 1,500 MG in DEXTROSE 5%-WATER 250 ML IV SCH (06:54)
[2019-03-30 06:59] LABS: ABSOLUTE BASOPHILS # (AUTO) 0.1 10^3/uL (0.0-0.2); ABSOLUTE EOSINOPHILS # (AUTO) 0.1 10^3/uL (0.0-0.6); ABSOLUTE LYMPHOCYTES (AUTO) 0.5 10^3/uL (0.5-4.7); ABSOLUTE NEUT (AUTO) 5.6 10^3/uL (1.7-8.2); BASOPHILS % (AUTO) 0.8 % (0-2); EOSINOPHILS % (AUTO) 0.8 % (0-6); HEMATOCRIT 25.6 % (36.0-47.0); HEMOGLOBIN 8.6 g/dL (12.0-15.5); LYMPHOCYTES % (AUTO) 7.5 % (13-45); MEAN CORPUSCULAR HEMOGLOBIN 29.3 pg (27.0-33.4); MEAN CORPUSCULAR HGB CONC 33.5 g/dL (32.0-36.0); MEAN CORPUSCULAR VOLUME 88 fl (80-97); PLATELET COUNT 196 10^3/uL (150-450); RED BLOOD COUNT 2.93 10^6/uL (3.72-5.28); RED CELL DISTRIBUTION WIDTH 17.1 % (11.5-14.0); SEGMENTED NEUTROPHILS % (AUTO) 76.9 % (42-78); TOTAL CELLS COUNTED % (AUTO) 100 %; WHITE BLOOD COUNT 7.2 10^3/uL (4.0-10.5)
[2019-03-30 07:06] LABS: VANCOMYCIN,TROUGH 29.7 ug/mL (5.0-20.0)
[2019-03-30 07:07] LABS: ANION GAP 7 (5-19); BLOOD UREA NITROGEN 13 mg/dL (7-20); CARBON DIOXIDE 27 mmol/L (22-30); CHLORIDE 105 mmol/L (98-107); GLUCOSE 93 mg/dL (75-110); POTASSIUM 3.6 mmol/L (3.6-5.0)
[2019-03-30] MEDS: PHOSPHORUS #1 250 MG TABLET NG SCH ×3 (07:45→16:56)
--- NOTE | 2019-03-30 08:33 | RADIOLOGY REPORT (SQ) ---
EXAM DESCRIPTION: CHEST SINGLE VIEW COMPLETED DATE/TIME: 03/30/2019 6:57 am REASON FOR STUDY: atelectasis COMPARISON: None. EXAM PARAMETERS: NUMBER OF VIEWS: One view. TECHNIQUE: An AP view of the chest was obtained. RADIATION DOSE: NA LIMITATIONS: None. FINDINGS: LUNGS AND PLEURA: Stable basilar predominant pleural and parenchymal opacities that obscur e the contour of the hemidiaphragms and blunt the costophrenic sulci. MEDIASTINUM AND HILAR STRUCTURES: Stable mediastinal and hilar contours. HEART AND VASCULAR STRUCTURES: Stable cardiac silhouette. BONES: The endotracheal tube is no longer in place. The tip of the left subclavian CVC projects with in the SVC. The tip of the enteric tube projects past the gastroesophageal junction and outside the field of view of the radiograph. HARDWARE: None in the chest. OTHER: No other finding. IMPRESSION: Status post extubation. Otherwise unchanged radiographic appearance of the chest. TECHNICAL DOCUMENTATION: JOB ID: [id number] [employer]- All Rights Reserved Reading location - IP/workstation name: [email or web address]
[2019-03-30] MEDS: VITAMINS A AND D OINTMENT 56.7 GM TOP SCH ×3 (10:14→17:02)
[2019-03-30] MEDS: VENLAFAXINE HCL 75 MG TABLET NG SCH ×2 (10:15→22:35)
[2019-03-30] MEDS: BUSPIRONE HCL 10 MG TABLET NG SCH ×3 (10:15→17:01)
[2019-03-30] MEDS: OXYBUTYNIN CHLORIDE SYRUP 1 MG/1 ML 60 ML PO SCH ×2 (10:16→17:10)
[2019-03-30] MEDS: LIDOCAINE 5% (700 MG) TRANSDERMAL ADH..PATCH TOP SCH (10:17)
--- NOTE | 2019-03-30 12:33 | PDOC PROGRESS REPORT ---
Subjective Progress Note for:: 03/30/19 Reason For Visit: ASPIRATION, ACUTE RESPIRATORY FAILURE, UTI, MS Physical Exam Vital Signs: Temp Pulse Resp BP Pulse Ox 98.0 F 98 17 160/120 H 99 03/30/19 08:00 03/30/19 10:00 03/30/19 11:00 03/30/19 10:48 03/30/19 11:00 Intake & Output 03/29/19 03/30/19 03/31/19 06:59 06:59 06:59 Intake Total 912 560 40 Output Total 2305 3280 550 Balance -8301 -9703 -595 Weight 95.2 kg General appearance: PRESENT: no acute distress Head exam: PRESENT: normocephalic Eye exam: PRESENT: EOMI Ear exam: PRESENT: normal external ear exam Mouth exam: PRESENT: moist Teeth exam: PRESENT: poor dentation Neck exam: PRESENT: full ROM Respiratory exam: PRESENT: clear to auscultation jessica Cardiovascular exam: PRESENT: RRR Pulses: PRESENT: normal radial pulses, normal femoral pulses GI/Abdominal exam: PRESENT: soft, other - wound vac in place, serous drainage Rectal exam: PRESENT: deferred Extremities exam: PRESENT: full ROM Musculoskeletal exam: PRESENT: full ROM Neurological exam: PRESENT: alert, awake Psychiatric exam: PRESENT: appropriate affect Skin exam: PRESENT: dry Results Laboratory Results: 03/30/19 06:15 03/30/19 06:15 03/30/19 03/30/19 06:15 06:15 WBC 7.2 RBC 2.93 L Hgb 8.6 L Hct 25.6 L MCV 88 MCH 29.3 MCHC 33.5 RDW 17.1 H Plt Count 196 Seg Neutrophils % 76.9 Sodium 138.7 Potassium 3.6 Chloride 105 Carbon Dioxide 27 Anion Gap 7 BUN 13 Creatinine 0.42 L Est GFR ( Amer) > 60 Glucose 93 Calcium 8.0 L Phosphorus 3.0 Magnesium 1.6 03/26/19 16:00 Bronchial Washings Gram Stain - Final 03/26/19 16:00 Bronchial Washings Bronchial Washings Culture - Final NO GROWTH 2 DAYS 03/26/19 16:00 Bronchial Washings AFB Smear Concentration - Final 03/26/19 16:00 Bronchial Washings Acid Fast Bacilli Smear - Final 03/17/19 06:54 Troponin I 0.018 Impressions: Head CT 03/17/19 07:08 IMPRESSION: CHRONIC CHANGES OF ATROPHY AND MICROVASCULAR ISCHEMIA. NO ACUTE PROCESS. EVIDENCE OF ACUTE STROKE: NO. Abdomen/Pelvis CT 03/17/19 08:51 IMPRESSION: 1. Suspected sigmoid volvulus. 2. Small amount of ascites. No free air. 3. Adrenal nodules. Chest CT 03/17/19 08:52 IMPRESSION: 1. Collapse of the right lower lobe and most of the middle lobe. 2. Diffuse thickening of the esophagus. Modified Barium Swallow 03/23/19 00:00 IMPRESSION: LARYNGEAL PENETRATION AND ASPIRATION ABOVE. PLEASE SEE SPEECH PATHOLOGIST REPORT FOR OTHER FINDINGS AND RECOMMENDATIONS. KUB X-Ray 03/29/19 14:09 IMPRESSION: Nasogastric tube in the stomach. Chest X-Ray 03/30/19 06:00 IMPRESSION: Status post extubation. Otherwise unchanged radiographic appearance of the chest. Assessment & Plan - Diagnosis (1) Volvulus of sigmoid colon Is this a current diagnosis for this admission?: Yes (2) Aspiration into airway Is this a current diagnosis for this admission?: Yes (3) Dehydration Is this a current diagnosis for this admission?: No (4) Hypotension Is this a current diagnosis for this admission?: Yes (5) Respiratory failure Qualifiers: Chronicity: acute Respiratory failure complication: unspecified whether with hypoxia or hypercapnia Qualified Code(s): J96.00 - Acute respiratory failure, unspecified whether with hypoxia or hypercapnia Is this a current diagnosis for this admission?: Yes (6) Unresponsiveness Is this a current diagnosis for this admission?: No - Time Time Spent with patient: 25-34 minutes - Plan Summary Plan Summary: s/p exploratory laprotomy for cecal volvolus wound dhenissence now doing better, extubated wound vac in place ng in for feedings stoma functional pending tx to floor.
--- NOTE | 2019-03-30 17:18 | PDOC CRITICAL CARE PROG REPORT ---
General Date:: 03/30/19 ICU Day:: 14 Hospital Day:: 14 Resuscitation Status: Full Code Medical Power of Biomedical Specialist: Rogerio Michael [phone] Events in the past 12 to 24 Hours:: 03.30.19: The patient continues to improve. She does not disclose any respiratory distress. She still is too weak for effective swallowing and maintains an NG tube. Tolerating enteral tube feeds through the NG tube. Her voice is stronger today. He can move her hands and her arms slightly. 03.29.19: Patient has been maintained on pressure support in the past 24 hours. Had no recrudescence of mucus or respiratory distress. She underwent revision of her VAC dressing without complication. 03.28.19: Patient's hypoxia has improved and she is now weaning on the ventilator. She is still weak but she is more awake responsive. She is unable to move her arms or legs at baseline. Her white blood cell count has improved. The amount of fluid from the VAC dressing has improved. 03.27.19: Patient's hypoxia has improved. FiO2 now at 50%. PEEP at 10 cmH2O. Levophed is weaning. 03.26.19: Patient's respiratory status has worsened. In the morning we had a lengthy discussion regarding her plan of care and she initially did not want intubation. She later rescinded this when her respiratory status worsened. She ultimately required mechanical ventilation. She became extremely hypoxic acquired urgent bronchoscopy which cleared extensive mucus obstruction of the left lung. Review of systems relevant to events:: She has become hypotensive after the intubation after being extremely hypertensive. Notably this is from resolve of high sympathetic tone related to her respiratory failure. Strongly high output from the abdominal VAC system. Was given lactated Ringer resuscitative fluid she became hypotensive during mechanical ventilation.. Review of systems relevant to events:: The patient has had no further hypotension and is now off Levophed. Review of systems relevant to events:: There has been no hemodynamic instability. Earlier today the left side of her face was slightly erythematous Blood cell count has improved her cough has improved. She is urinating via a pure wick. Reason for ICU Addmission:: Ventilator due to acute respiratory failure, aspiration, UTI, MS - Medications: Medications reviewed and adjusted accordingly: Yes Vasopressors:: None Sedation:: None Physical Exam Vital Signs: Temp Pulse Resp BP Pulse Ox 98.0 F 98 21 H 139/98 H 100 03/30/19 08:00 03/30/19 08:00 03/30/19 09:00 03/30/19 08:48 03/30/19 08:48 Intake & Output 03/29/19 03/30/19 03/31/19 06:59 06:59 06:59 Intake Total 912 560 Output Total 2305 3280 Balance -1393 -2720 Weight 95.2 kg Weight/Height Weight 95.2 kg Height 5 ft 5 in General appearance: PRESENT: no acute distress, cooperative, morbidly obese Exam: Pleasant nontoxic morbidly obese older appearing 58-year-old female no acute distress awake alert oriented x3 Head exam: PRESENT: atraumatic, normocephalic, other - Facial skin changes improved. Eye exam: PRESENT: conjunctiva pink, EOMI, PERRLA. ABSENT: conjunctival injection, nystagmus Mouth exam: PRESENT: moist Teeth exam: PRESENT: edentulous Respiratory exam: PRESENT: clear to auscultation jessica, decreased breath sounds - at bases, unlabored. ABSENT: rales, rhonchi, tachypnea, wheezes Cardiovascular exam: PRESENT: RRR, +S1, +S2. ABSENT: diastolic murmur, rubs, systolic murmur Pulses: PRESENT: +1 pedal pulses bilateral Vascular exam: PRESENT: normal capillary refill GI/Abdominal exam: PRESENT: normal bowel sounds, tenderness - At incision site. VAC intact. ABSENT: ascites Rectal exam: PRESENT: other - Ostomy intact Extremities exam: PRESENT: +2 edema Musculoskeletal exam: PRESENT: deformity Neurological exam: PRESENT: alert, awake, oriented to person, oriented to place, oriented to time, oriented to situation, other - Weak voice, poor neck movement Psychiatric exam: PRESENT: appropriate affect, normal mood Skin exam: PRESENT: dry, intact, warm. ABSENT: cyanosis, rash Tubes/Lines: PRESENT: Other - Pure-wick external urinary catheter Laboratory/Radiographs Laboratory Results: 03/30/19 06:15 03/30/19 06:15 03/30/19 03/30/19 06:15 06:15 WBC 7.2 RBC 2.93 L Hgb 8.6 L Hct 25.6 L MCV 88 MCH 29.3 MCHC 33.5 RDW 17.1 H Plt Count 196 Seg Neutrophils % 76.9 Sodium 138.7 Potassium 3.6 Chloride 105 Carbon Dioxide 27 Anion Gap 7 BUN 13 Creatinine 0.42 L Est GFR ( Amer) > 60 Glucose 93 Calcium 8.0 L Phosphorus 3.0 Magnesium 1.6 03/26/19 16:00 Bronchial Washings Gram Stain - Final 03/26/19 16:00 Bronchial Washings Bronchial Washings Culture - Final NO GROWTH 2 DAYS 03/26/19 16:00 Bronchial Washings AFB Smear Concentration - Final 03/26/19 16:00 Bronchial Washings Acid Fast Bacilli Smear - Final 03/17/19 06:54 Troponin I 0.018 Impressions: Head CT 03/17/19 07:08 IMPRESSION: CHRONIC CHANGES OF ATROPHY AND MICROVASCULAR ISCHEMIA. NO ACUTE PROCESS. EVIDENCE OF ACUTE STROKE: NO. Abdomen/Pelvis CT 03/17/19 08:51 IMPRESSION: 1. Suspected sigmoid volvulus. 2. Small amount of ascites. No free air. 3. Adrenal nodules. Chest CT 03/17/19 08:52 IMPRESSION: 1. Collapse of the right lower lobe and most of the middle lobe. 2. Diffuse thickening of the esophagus. Modified Barium Swallow 03/23/19 00:00 IMPRESSION: LARYNGEAL PENETRATION AND ASPIRATION ABOVE. PLEASE SEE SPEECH PATHOLOGIST REPORT FOR OTHER FINDINGS AND RECOMMENDATIONS. KUB X-Ray 03/29/19 14:09 IMPRESSION: Nasogastric tube in the stomach. Chest X-Ray 03/30/19 06:00 IMPRESSION: Status post extubation. Otherwise unchanged radiographic appearance of the chest. All labs, radiographs, diagnostic studies and EKGs were personally reviewed: Yes In addition, reports of radiographic and diagnostic studies were read: Yes Assessment and Plan - Diagnosis (1) Acute respiratory failure with hypoxia Is this a current diagnosis for this admission?: Yes Plan: Improved. Successfully extubated 03/29/2019. Encourage incentive spirometry. Will start BiPAP at night to prevent respiratory failure. Given her obesity and immobilize status at high risk for failure. She has a slight abrasion to the left side of her face from previous BiPAP use And will need protective barrier. (2) ARDS (adult respiratory distress syndrome) Is this a current diagnosis for this admission?: Yes Plan: Resolved (3) Atelectasis of left lung Is this a current diagnosis for this admission?: Yes Plan: Improved. At risk for recurrence (4) Mucus plugging of bronchi Is this a current diagnosis for this admission?: Yes (5) Dehydration Is this a current diagnosis for this admission?: Yes Plan: Resolved. Has total body anasarca. Continue diuresis (6) Hypotension (arterial) Qualifiers: Hypotension type: hypotension due to hypovolemia Qualified Code(s): I95.89 - Other hypotension; E86.1 - Hypovolemia Is this a current diagnosis for this admission?: Yes (7) Cecal volvulus Is this a current diagnosis for this admission?: Yes Plan: Post repair. VAC appliance revised 03.28.19 (8) cecal volvulus Is this a current diagnosis for this admission?: Yes (9) Functional quadriplegia secondary to MS Is this a current diagnosis for this admission?: Yes Plan: Chronic. Progressive. Will need BiPap at night (10) Stage 4 pressure ulcer Qualifiers: Pressure injury location: contiguous region involving buttock and hip Laterality: left Qualified Code(s): L89.44 - Pressure ulcer of contiguous site of back, buttock and hip, stage 4 Is this a current diagnosis for this admission?: Yes Plan: Chronic, present on admission Plan Summary: 03.30.19: Patient status continues to steadily improve. We have talked about the possibility of reintubation should she have respiratory failure and she would want reintubation and possible tracheostomy. She currently is too weak for attaining adequate swallowing and will continue feeding through the NG tube. She would be in agreement for percutaneous feeding tube Currently patient has a pure wick external female catheter. Has been beneficial for her and is allowed for adequate urine collection. Because of her frequent catheterizations, neurogenic bladder, and urethral dilation, she has had to maintain a large bore Hernandez catheter. We have taken this out to alleviate any possibility of infection. Her insurance would not cover a pure wick however we can discuss with her family and the woman who controls her financial trust find ing to determine if they would be willing to pay out of pocket. We also discussed prognosis with her progressive MS and she is aware of the significant of morbidity and mortality. Discussed the possibility of a suprapubic catheter. This will need to be considered as an outpatient especially while her incision heals. At this point, she is improved significantly to be considered for IMCU status. He does have the ability to notify nursing with the call padilla. Strength in her arms has slightly improved from her normally altered baseline status. Follow-up items will be to continue antibiotics for total of 7 days. She is day 5 of 7. She will eventually need complete closure of her abdomen and surgery has been following. Would suggest and continue BiPAP while in the hospital at night to prevent atelectasis during sleep. Continue supportive care Before the patient leaves a patient liaison or case management will need to meet with her, Юлия and her friend Rogerio to establish official medical power of commercial real estate attorney. The patient is interested in having Юлия and Rogerio shared to [facility] with Юлия as the final food beverage manager for any decisions 03.29.19: Patient continues to improve. Will liberate from ventilator today. Had lengthy discussion with the patient regarding the extubation and follow-up. The plan will be that if she fails after liberation she will be reintubated and this will be followed by tracheostomy. She is in agreement with this. Lengthy discussion about what this would mean as far as prognosis. We will continue monitor respiratory status. Functional quadriplegia with progressive insidious MS and we discussed the possibility of long-term LTAC therapy if she fails. See notes and orders I reevaluated the patient after liberation from the ventilator. Discussed end-of-life issues as well as prognosis with her MS. He is interested in pursuing tracheostomy if she requires reintubation. We disgusted what that may mean for her as far as long-term vent settings. Patient is interested in having a dual medical power of commercial real estate attorney to offset some of the subjective coordinates provided by Rogerio her current medical power of commercial real estate attorney. We will need to discuss this with Юлия her other completions manager and Rogerio. Patient has a large [place] size Hernandez (#30). She has significant leakage requiring a pure wick. Most of the pure wick is absorbing the urine. Given the risk of infection we have remove the large Hernandez and will determine whether the pure wick may be better for her care. Is a large sacral decubiti present on admission. Will need to be considerably aware of any excess breakdown. Patient will need incentive spirometry, reevaluation of airway, and speech and swallow eval Critical Time Critical Time (minutes): 0 - [id number] Level of Care: IMCU Anticipated discharge: Home with Homehealth -: 1. The care of a critical patient is a dynamic process. This note is a mortician supplies sales representative synopsis but static in nature. The timeframe for treatments given in order is not necessarily the actual time these treatments may have been done. 2. This patient required critical care secondary to ongoing requirements for therapy not offered or safe outside the critical care environment. Transfer to a lower level of care is now feasible and she will be transferred to step-down. 3. Multidisciplinary rounds completed. 4. ABCDE bundle addressed.
[2019-03-30] MEDS: AMITRIPTYLINE HCL 50 MG TABLET NG SCH (22:35)
[2019-03-30] MEDS: VANCOMYCIN HCL 750 MG in DEXTROSE 5%-WATER 250 ML IV SCH (22:36)
[2019-03-30] MEDS: PHARMACY COMMUNICATION ORDER MC SCH (22:43)
[2019-03-31] MEDS ORDERED: BACLOFEN 20 MG TABLET NG ONE (01:25)
[2019-03-31] MEDS: HEPARIN SOD (PORCINE) 5,000 UNIT/ML 1 ML VIAL SUBCUT SCH ×2 (02:06→10:03)
[2019-03-31] MEDS: MEROPENEM 1 GM in NORMAL SALINE 50 ML IV SCH (05:31)
[2019-03-31 05:58] LABS: ABSOLUTE BASOPHILS # (AUTO) 0.1 10^3/uL (0.0-0.2); ABSOLUTE EOSINOPHILS # (AUTO) 0.1 10^3/uL (0.0-0.6); ABSOLUTE LYMPHOCYTES (AUTO) 0.6 10^3/uL (0.5-4.7); ABSOLUTE MONOCYTES (AUTO) 0.9 10^3/uL (0.1-1.4); BASOPHILS % (AUTO) 1.2 % (0-2); HEMATOCRIT 28.5 % (36.0-47.0); HEMOGLOBIN 9.4 g/dL (12.0-15.5); LYMPHOCYTES % (AUTO) 9.9 % (13-45); MEAN CORPUSCULAR HEMOGLOBIN 28.8 pg (27.0-33.4); MEAN CORPUSCULAR HGB CONC 32.8 g/dL (32.0-36.0); MEAN CORPUSCULAR VOLUME 88 fl (80-97); MONOCYTES % (AUTO) 15.7 % (3-13); PLATELET COUNT 163 10^3/uL (150-450); RED BLOOD COUNT 3.25 10^6/uL (3.72-5.28); RED CELL DISTRIBUTION WIDTH 17.5 % (11.5-14.0); SEGMENTED NEUTROPHILS % (AUTO) 72.2 % (42-78); TOTAL CELLS COUNTED % (AUTO) 100 %; WHITE BLOOD COUNT 5.6 10^3/uL (4.0-10.5)
[2019-03-31] MEDS: HYDROMORPHONE HCL INJ/PF 2 MG/ML AMPULE IV PRN (06:21)
[2019-03-31 06:24] LABS: BLOOD UREA NITROGEN 12 mg/dL (7-20); CALCIUM 8.4 mg/dL (8.4-10.2); CARBON DIOXIDE 31 mmol/L (22-30); CHLORIDE 104 mmol/L (98-107); GLUCOSE 120 mg/dL (75-110); PHOSPHORUS 3.6 mg/dL (2.5-4.5); POTASSIUM 3.9 mmol/L (3.6-5.0)
[2019-03-31 06:51] LABS: ANION GAP 4 (5-19)
[2019-03-31] MEDS: VITAMINS A AND D OINTMENT 56.7 GM TOP SCH ×3 (10:01→18:10)
[2019-03-31] MEDS: VENLAFAXINE HCL 75 MG TABLET NG SCH ×2 (10:02→22:30)
[2019-03-31] MEDS: OXYBUTYNIN CHLORIDE SYRUP 1 MG/1 ML 60 ML PO SCH ×2 (10:02→18:09)
[2019-03-31] MEDS: BUSPIRONE HCL 10 MG TABLET NG SCH ×3 (10:03→18:09)
--- NOTE | 2019-03-31 10:06 | PDOC CRITICAL CARE PROG REPORT ---
General Date:: 03/31/19 ICU Day:: 15 Hospital Day:: 15 Resuscitation Status: Full Code Medical Power of Mining Analyst: Rogerio Michael [phone] Events in the past 12 to 24 Hours:: 03.31.19: The patient's overall status continues to improve. We have begun some of her home regimens. He has improved length of time in speech. Voice is stronger as well. She appears to be swallowing better. She is tolerating tube feeds. 03.30.19: The patient continues to improve. She does not disclose any respiratory distress. She still is too weak for effective swallowing and maintains an NG tube. Tolerating enteral tube feeds through the NG tube. Her voice is stronger today. He can move her hands and her arms slightly. 03.29.19: Patient has been maintained on pressure support in the past 24 hours. Had no recrudescence of mucus or respiratory distress. She underwent revision of her VAC dressing without complication. 03.28.19: Patient's hypoxia has improved and she is now weaning on the ventilator. She is still weak but she is more awake responsive. She is unable to move her arms or legs at baseline. Her white blood cell count has improved. The amount of fluid from the VAC dressing has improved. 03.27.19: Patient's hypoxia has improved. FiO2 now at 50%. PEEP at 10 cmH2O. Levophed is weaning. 03.26.19: Patient's respiratory status has worsened. In the morning we had a lengthy discussion regarding her plan of care and she initially did not want intubation. She later rescinded this when her respiratory status worsened. She ultimately required mechanical ventilation. She became extremely hypoxic acquired urgent bronchoscopy which cleared extensive mucus obstruction of the left lung. Review of systems relevant to events:: She has become hypotensive after the intubation after being extremely hyperte nsive. Notably this is from resolve of high sympathetic tone related to her respiratory failure. Strongly high output from the abdominal VAC system. Was given lactated Ringer resuscitative fluid she became hypotensive during mechanical ventilation.. Review of systems relevant to events:: The patient has had no further hypotension and is now off Levophed. Review of systems relevant to events:: 03.31.19: Patient has minimal abdominal pain. She does have some muscle spasm and has been started on her baclofen. She did not use BiPAP last evening. 03.30.19:There has been no hemodynamic instability. Earlier today the left side of her face was slightly erythematous Blood cell count has improved her cough has improved. She is urinating via a pure wick. Reason for ICU Addmission:: Ventilator due to acute respiratory failure, aspiration, UTI, MS - Medications: Vasopressors:: None Sedation:: None Physical Exam Vital Signs: Temp Pulse Resp BP Pulse Ox 99.1 F 92 16 132/72 H 100 03/31/19 08:00 03/31/19 08:00 03/31/19 08:00 03/31/19 08:00 03/31/19 08:00 Intake & Output 03/30/19 03/31/19 04/01/19 06:59 06:59 06:59 Intake Total 610 2762 Output Total 3280 3600 Balance -2670 -838 Weight 92.8 kg Weight/Height Weight 92.8 kg Height 5 ft 5 in General appearance: PRESENT: no acute distress, cooperative, morbidly obese Exam: Pleasant nontoxic older appearing 58-year-old female morbidly obese no active distress awake alert oriented x3 communicating Head exam: PRESENT: atraumatic, normocephalic Eye exam: PRESENT: conjunctiva pink, EOMI, PERRLA. ABSENT: conjunctival injection, nystagmus, scleral icterus Mouth exam: PRESENT: dry mucosa Teeth exam: PRESENT: edentulous Throat exam: ABSENT: post pharyngeal erythema Neck exam: ABSENT: carotid bruit, JVD, lymphadenopathy, tenderness, thyromegaly, tracheal deviation Respiratory exam: PRESENT: clear to auscultation jessica, decreased breath sounds - At bases, unlabored. ABSENT: accessory muscle use, rales, rhonchi, tachypnea, wheezes Cardiovascular exam: PRESENT: RRR, +S1, +S2. ABSENT: diastolic murmur, rubs, systolic murmur Pulses: PRESENT: +1 pedal pulses bilateral GI/Abdominal exam: PRESENT: normal bowel sounds, soft, tenderness - Much improved. Minimal. ABSENT: ascites, distended, firm, guarding, rebound, rigid Rectal exam: PRESENT: normal inspection - Ostomy appears pink, no bleeding. Normal stool consistency Gentrourinary exam: PRESENT: other - Pure Wick catheter. ABSENT: indwelling catheter Extremities exam: PRESENT: pedal edema, +2 edema Musculoskeletal exam: PRESENT: deformity. ABSENT: dislocation Neurological exam: PRESENT: alert, awake, oriented to person, oriented to place, oriented to time, oriented to situation, other - paresis complete in lower extremities--at baseline. Upper extremity partial minimal movement--at baseline. Able to use call padilla. ABSENT: motor sensory deficit Psychiatric exam: PRESENT: appropriate affect, normal mood Focused psych exam: ABSENT: pressured speech, psychomotor agitation, restlessness Skin exam: PRESENT: dry, intact, normal color, warm. ABSENT: abrasion, cyanosis, mottled, rash Tubes/Lines: PRESENT: Central Line, Nasogastic Tube Laboratory/Radiographs Laboratory Results: 03/31/19 05:40 03/31/19 05:40 03/31/19 03/31/19 05:40 05:40 WBC 5.6 RBC 3.25 L Hgb 9.4 L Hct 28.5 L MCV 88 MCH 28.8 MCHC 32.8 RDW 17.5 H Plt Count 163 Seg Neutrophils % 72.2 Sodium 139.0 Potassium 3.9 Chloride 104 Carbon Dioxide 31 H Anion Gap 4 L BUN 12 Creatinine 0.35 L Est GFR ( Amer) > 60 Glucose 120 H Calcium 8.4 Phosphorus 3.6 Magnesium 1.8 03/17/19 06:54 Troponin I 0.018 Impressions: Head CT 03/17/19 07:08 IMPRESSION: CHRONIC CHANGES OF ATROPHY AND MICROVASCULAR ISCHEMIA. NO ACUTE PROCESS. EVIDENCE OF ACUTE STROKE: NO. Abdomen/Pelvis CT 03/17/19 08:51 IMPRESSION: 1. Suspected sigmoid volvulus. 2. Small amount of ascites. No free air. 3. Adrenal nodules. Chest CT 03/17/19 08:52 IMPRESSION: 1. Collapse of the right lower lobe and most of the middle lobe. 2. Diffuse thickening of the esophagus. Modified Barium Swallow 03/23/19 00:00 IMPRESSION: LARYNGEAL PENETRATION AND ASPIRATION ABOVE. PLEASE SEE SPEECH PATHOLOGIST REPORT FOR OTHER FINDINGS AND RECOMMENDATIONS. KUB X-Ray 03/29/19 14:09 IMPRESSION: Nasogastric tube in the stomach. Chest X-Ray 03/30/19 06:00 IMPRESSION: Status post extubation. Otherwise unchanged radiographic appearance of the chest. All labs, radiographs, diagnostic studies and EKGs were personally reviewed: Yes In addition, reports of radiographic and diagnostic studies were read: Yes Assessment and Plan - Diagnosis (1) Acute respiratory failure with hypoxia Is this a current diagnosis for this admission?: Yes Plan: 03.31.19: Continues to remain stable. Encourage night time bipap 03.30.19:Improved. Successfully extubated 03/29/2019. Encourage incentive spirometry. Will start BiPAP at night to prevent respiratory failure. Given her obesity and immobilize status at high risk for failure. She has a slight abrasion to the left side of her face from previous BiPAP use And will need protective barrier. (2) ARDS (adult respiratory distress syndrome) Is this a current diagnosis for this admission?: Yes Plan: Resolved (3) Atelectasis of left lung Is this a current diagnosis for this admission?: Yes Plan: Improved. At risk for recurrence (4) Mucus plugging of bronchi Is this a current diagnosis for this admission?: Yes (5) Dehydration Is this a current diagnosis for this admission?: Yes (6) Hypotension (arterial) Qualifiers: Hypotension type: hypotension due to hypovolemia Qualified Code(s): I95.89 - Other hypotension; E86.1 - Hypovolemia Is this a current diagnosis for this admission?: Yes Plan: Resolved. Diuresis today (7) Cecal volvulus Is this a current diagnosis for this admission?: Yes Plan: Post repair. VAC appliance revised 03.28.19 (8) cecal volvulus Is this a current diagnosis for this admission?: Yes (9) Functional quadriplegia secondary to MS Is this a current diagnosis for this admission?: Yes Plan: Chronic. Progressive. Will need BiPap at night (10) Stage 4 pressure ulcer Qualifiers: Pressure injury location: contiguous region involving buttock and hip Laterality: left Qualified Code(s): L89.44 - Pressure ulcer of contiguous site of back, buttock and hip, stage 4 Is this a current diagnosis for this admission?: Yes Plan: Chronic, present on admission (11) Peritonitis (acute) generalized Is this a current diagnosis for this admission?: Yes Plan: Improved. Discontinue meropenem and add Ancef. Total of 7 days. Today is day 6/7 Plan Summary: 03.31.19: Patient has been transition to stepdown/IMCU status. I have discontinued her meropenem and transition her to Ancef. We will continue the vancomycin for the enterococcus. She is on day 6 of day 7 and antibiotics can be discontinued after tomorrow. Her platelet count is decreased but at a normal baseline level. She had inflammatory phase elevation. I do not suspect that this is HIT. Incision her to Lovenox. She has diffuse anasarca secondary to chronic deconditioning and immobility coupled to recent sepsis. Will start Lasix every 12 for 24 hours. Have ordered speech evaluation. If she passes this then can eat successfully the NG tube can be removed. Both she and her cushion sewer, Rogerio (Cat) and patient, occur and endorse that she has had no swallowing difficulties prior to this admission. Patient has a chronic indwelling Hernandez which is a size 30 Cymro. We have discontinue this while here because she has better urinary capture with a pure wick. Our hope is that she might be able to go home with this to prevent any further chance of infection. Unfortunately her insurance does not cover this and she may need this Hernandez catheter placed prior to discharge. The other option is for her trust fund to cover the expense. It would require suction at home and more material but would alleviate frequent admissions for infections. Continue supportive care. Will discontinue central line. Please assure use of BiPAP at night to prevent deconditioning related atelectasis. 19: Patient status continues to steadily improve. We have talked about the possibility of reintubation should she have respiratory failure and she would want reintubation and possible tracheostomy. She currently is too weak for attaining adequate swallowing and will continue feeding through the NG tube. She would be in agreement for percutaneous feeding tube Currently patient has a pure wick external female catheter. Has been beneficial for her and is allowed for adequate urine collection. Because of her frequent catheterizations, neurogenic bladder, and urethral dilation, she has had to maintain a large bore Hernandez catheter. We have taken this out to alleviate any possibility of infection. Her insurance would not cover a pure wick however we can discuss with her family and the woman who controls her financial trust finding to determine if they would be willing to pay out of pocket. We also discussed prognosis with her progressive MS and she is aware of the significant of morbidity and mortality. Discussed the possibility of a suprapubic catheter. This will need to be considered as an outpatient especially while her incision heals. At this point, she is improved significantly to be considered for IMCU status. He does have the ability to notify nursing with the call padilla. Strength in her arms has slightly improved from her normally altered baseline status. Follow-up items will be to continue antibiotics for total of 7 days. She is day 5 of 7. She will eventually need complete closure of her abdomen and surgery has been following. Would suggest and continue BiPAP while in the hospital at night to prevent atel ectasis during sleep. Continue supportive care Before the patient leaves a patient liaison or case management will need to meet with her, Юлия and her friend Rogerio to establish official medical power of claim attorney. The patient is interested in having Юлия and Rogerio shared to [facility] with Юлия as the final parking manager for any decisions 19: Patient continues to improve. Will liberate from ventilator today. Had lengthy discussion with the patient regarding the extubation and follow-up. The plan will be that if she fails after liberation she will be reintubated and this will be followed by tracheostomy. She is in agreement with this. Lengthy discussion about what this would mean as far as prognosis. We will continue monitor respiratory status. Functional quadriplegia with progressive insidious MS and we discussed the possibility of long-term LTAC therapy if she fails. See notes and orders I reevaluated the patient after liberation from the ventilator. Discussed end-of-life issues as well as prognosis with her MS. He is interested in pursuing tracheostomy if she requires reintubation. We disgusted what that may mean for her as far as long-term vent settings. Patient is interested in having a dual medical power of claim attorney to offset some of the subjective coordinates provided by Rogerio her current medical power of claim attorney. We will need to discuss this with Юлия her other cushion sewer and Rogerio. Patient has a large Cymro size Hernandez (#30). She has significant leakage requiring a pure wick. Most of the pure wick is absorbing the urine. Given the risk of infection we have remove the large Hernandez and will determine whether the pure wick may be better for her care. Is a large sacral decubiti present on admission. Will need to be considerably aware of any excess breakdown. Patient will need incentive spirometry, reevaluation of airway, and speech and swallow eval Critical Time Critical Time (minutes): 0 - 82056 Level of Care: IMCU Anticipated discharge: Home with Homehealth Within: within 48 hours -: 1. The care of a critical patient is a dynamic process. This note is a marketing development representative synopsis but static in nature. The timeframe for treatments given in order is not necessarily the actual time these treatments may have been done. 2. This patient no longer requires critical care. Transfer to a lower level of care is reasonable and approved. 3. Multidisciplinary rounds completed. 4. ABCDE bundle addressed.
[2019-03-31] MEDS: VANCOMYCIN HCL 750 MG in DEXTROSE 5%-WATER 250 ML IV SCH ×2 (10:07→22:29)
[2019-03-31] MEDS: FUROSEMIDE INJ/PF 20 MG/2 ML SDV IV SCH ×2 (11:55→22:30)
--- NOTE | 2019-03-31 17:41 | Progress Note ---
Provider Note Provider Note: This is a 58-year-old female with a past medical history of multiple sclerosis and chronic left ischial decubitus ulcer who initially presented with increasing shortness of breath and abdominal pain. Patient has been downgraded to the floor from the ICU. Discussed case with the java lead. Chart reviewed. Patient presented to the ER on 03/17/2019 with shortness of breath, abdominal pain and hypoxia. She was noted to be lethargic and was in acute hypoxic respiratory failure requiring intubation. She was noted to have a lateral lower lobe pneumonia and pleural effusions as well. She was also noted to have a cecal volvulus. She was admitted to the ICU. She was also treated for ARDS. She was evaluated by surgery and eventually underwent exploratory laparotomy and hemicolectomy on 03/17/19. She was successfully extubated on 03/29/19. Patient seen and examined. She is currently comfortable on nasal cannula. Denies acute complaints.
[2019-03-31] MEDS: DIAZEPAM 5 MG TABLET NG PRN (20:24)
--- NOTE | 2019-03-31 20:37 | PDOC PROGRESS REPORT ---
Subjective Progress Note for:: 03/31/19 Reason For Visit: ASPIRATION, ACUTE RESPIRATORY FAILURE, UTI, MS Physical Exam Vital Signs: Temp Pulse Resp BP Pulse Ox 98.8 F 94 19 126/73 H 100 03/31/19 12:00 03/31/19 19:00 03/31/19 16:00 03/31/19 12:00 03/31/19 16:00 Intake & Output 03/30/19 03/31/19 04/01/19 06:59 06:59 06:59 Intake Total 610 2762 960 Output Total 3280 3600 1800 Balance -2670 -838 -840 Weight 92.8 kg Results Laboratory Results: 03/31/19 05:40 03/31/19 05:40 03/31/19 03/31/19 05:40 05:40 WBC 5.6 RBC 3.25 L Hgb 9.4 L Hct 28.5 L MCV 88 MCH 28.8 MCHC 32.8 RDW 17.5 H Plt Count 163 Seg Neutrophils % 72.2 Sodium 139.0 Potassium 3.9 Chloride 104 Carbon Dioxide 31 H Anion Gap 4 L BUN 12 Creatinine 0.35 L Est GFR ( Amer) > 60 Glucose 120 H Calcium 8.4 Phosphorus 3.6 Magnesium 1.8 03/17/19 06:54 Troponin I 0.018 Impressions: Head CT 03/17/19 07:08 IMPRESSION: CHRONIC CHANGES OF ATROPHY AND MICROVASCULAR ISCHEMIA. NO ACUTE PROCESS. EVIDENCE OF ACUTE STROKE: NO. Abdomen/Pelvis CT 03/17/19 08:51 IMPRESSION: 1. Suspected sigmoid volvulus. 2. Small amount of ascites. No free air. 3. Adrenal nodules. Chest CT 03/17/19 08:52 IMPRESSION: 1. Collapse of the right lower lobe and most of the middle lobe. 2. Diffuse thickening of the esophagus. Modified Barium Swallow 03/23/19 00:00 IMPRESSION: LARYNGEAL PENETRATION AND ASPIRATION ABOVE. PLEASE SEE SPEECH PATHOLOGIST REPORT FOR OTHER FINDINGS AND RECOMMENDATIONS. KUB X-Ray 03/29/19 14:09 IMPRESSION: Nasogastric tube in the stomach. Chest X-Ray 03/30/19 06:00 IMPRESSION: Status post extubation. Otherwise unchanged radiographic appearance of the chest. Assessment & Plan - Diagnosis (1) Cecal volvulus Is this a current diagnosis for this admission?: Yes - Time Time Spent with patient: Less than 15 minutes - Plan Summary Plan Summary: 58-year-old female status post laparotomy for a cecal volvulus. She is awake and alert today. She converses without difficulty. The patient has suffered a fascial dehiscence. Her abdominal hernia was closed with a Vicryl mesh, and she now has a wound VAC in place over top of the Vicryl mesh. Wound VAC to be changed today. Surgery will follow the patient closely with you.
--- NOTE | 2019-03-31 20:40 | Operative Report ---
Nonrecallable Operative Report DATE OF SURGERY: 03/31/19 PREOPERATIVE DIAGNOSIS: Fascial dehiscence, large open abdominal wound. POSTOPERATIVE DIAGNOSIS: Same as above OPERATION: 1. Removal of old negative pressure wound management system. 2. Placement of new negative pressure wound management system. SURGEON: VAISHALI DE LA CRUZ ANESTHESIA: Other - None TISSUE REMOVED OR ALTERED: None COMPLICATIONS: None apparent ESTIMATED BLOOD LOSS: Minimal PROCEDURE: Procedure in detail: The patient was laid in the supine position in the intensive care unit. The previous wound VAC was removed from the patient's abdominal wound. The old Xeroform gauze was removed from the base of the wound. The Vicryl mesh was still in place, without defect or abnormality. A new Xeroform gauze was placed in the base of the wound. The black wound VAC sponge was cut to size. The black sponge was placed over the Xeroform gauze. An o cclusive dressing was placed over the wound VAC sponge. Suction was attached, and a seal was ensured. The patient tolerated the dressing change well. All sponge, instrument, and needle counts were correct x2. Condition: Fair.
[2019-03-31] MEDS: IPRATROPIUM/ALBUTEROL 0.5-2.5 MG/3 ML AMPUL NEB PRN (21:00)
[2019-03-31] MEDS: AMITRIPTYLINE HCL 50 MG TABLET NG SCH (22:30)
[2019-03-31] MEDS: PHARMACY COMMUNICATION ORDER MC SCH (23:33)
[2019-04-01 08:10] LABS: ABSOLUTE BASOPHILS # (AUTO) 0.1 10^3/uL (0.0-0.2); ABSOLUTE EOSINOPHILS # (AUTO) 0.1 10^3/uL (0.0-0.6); ABSOLUTE LYMPHOCYTES (AUTO) 0.6 10^3/uL (0.5-4.7); ABSOLUTE NEUT (AUTO) 4.8 10^3/uL (1.7-8.2); BASOPHILS % (AUTO) 0.9 % (0-2); EOSINOPHILS % (AUTO) 1.1 % (0-6); HEMATOCRIT 31.6 % (36.0-47.0); HEMOGLOBIN 10.5 g/dL (12.0-15.5); LYMPHOCYTES % (AUTO) 9.7 % (13-45); MEAN CORPUSCULAR HGB CONC 33.3 g/dL (32.0-36.0); MEAN CORPUSCULAR VOLUME 87 fl (80-97); MONOCYTES % (AUTO) 15.7 % (3-13); PLATELET COUNT 267 10^3/uL (150-450); RED BLOOD COUNT 3.62 10^6/uL (3.72-5.28); RED CELL DISTRIBUTION WIDTH 17.2 % (11.5-14.0); SEGMENTED NEUTROPHILS % (AUTO) 72.6 % (42-78); TOTAL CELLS COUNTED % (AUTO) 100 %; WHITE BLOOD COUNT 6.6 10^3/uL (4.0-10.5)
[2019-04-01 08:24] LABS: ANION GAP 7 (5-19); BLOOD UREA NITROGEN 12 mg/dL (7-20); CALCIUM 8.9 mg/dL (8.4-10.2); CARBON DIOXIDE 30 mmol/L (22-30); CHLORIDE 101 mmol/L (98-107); GLUCOSE 127 mg/dL (75-110); PHOSPHORUS 3.5 mg/dL (2.5-4.5); POTASSIUM 3.8 mmol/L (3.6-5.0)
[2019-04-01] MEDS: IPRATROPIUM/ALBUTEROL 0.5-2.5 MG/3 ML AMPUL NEB PRN ×3 (08:29→20:43)
[2019-04-01] MEDS: DIAZEPAM 5 MG TABLET NG PRN (08:55)
[2019-04-01] MEDS: FUROSEMIDE INJ/PF 20 MG/2 ML SDV IV SCH ×2 (08:59→22:11)
[2019-04-01] MEDS: VENLAFAXINE HCL 75 MG TABLET NG SCH (08:59)
[2019-04-01] MEDS: OXYBUTYNIN CHLORIDE SYRUP 1 MG/1 ML 60 ML PO SCH ×2 (08:59→17:37)
[2019-04-01] MEDS: BUSPIRONE HCL 10 MG TABLET NG SCH (08:59)
[2019-04-01] MEDS: VITAMINS A AND D OINTMENT 56.7 GM TOP SCH ×3 (09:00→17:38)
[2019-04-01] MEDS: VANCOMYCIN HCL 750 MG in DEXTROSE 5%-WATER 250 ML IV SCH ×2 (10:29→23:16)
--- NOTE | 2019-04-01 11:58 | PDOC PROGRESS REPORT ---
Subjective Progress Note for:: 04/01/19 Subjective:: This is a 58-year-old female with a past medical history of multiple sclerosis and chronic left ischial decubitus ulcer who initially presented with increasing shortness of breath and abdominal pain. Patient was downgraded to the floor from the ICU yesterday. Discussed case with the reel cutter. Chart reviewed. Patient presented to the ER on 03/17/2019 with shortness of breath, abdominal pain and hypoxia. She was noted to be lethargic and was in acute hypoxic respiratory failure requiring intubation. She was noted to have a lateral lower lobe pneumonia and pleural effusions as well. She was also noted to have a cecal volvulus. She was admitted to the ICU. She was also treated for ARDS. She was evaluated by surgery and eventually underwent exploratory laparotomy and hemicolectomy on 03/17/19. She was successfully extubated on 03/29/19. 04/01: No acute event overnight. She is currently comfortable on nasal cannula. Wound vac replaced by surgery. Good output from the ostomy. She is asking about her home regimen for her chronic pain. Will resume balcofen and valium as well. Reason For Visit: ASPIRATION, ACUTE RESPIRATORY FAILURE, UTI, MS Physical Exam Vital Signs: Temp Pulse Resp BP Pulse Ox 98.2 F 78 18 149/91 H 97 04/01/19 07:41 04/01/19 08:30 04/01/19 08:30 04/01/19 07:41 04/01/19 08:30 Intake & Output 03/31/19 04/01/19 04/02/19 06:59 06:59 06:59 Intake Total 2762 1810 Output Total 3600 3450 Balance -838 -1640 Weight 204 lb 9.423 oz 207 lb 14.334 oz General appearance: PRESENT: no acute distress, well-developed, well-nourished Head exam: PRESENT: atraumatic, normocephalic Eye exam: PRESENT: conjunctiva pink, EOMI, PERRLA. ABSENT: scleral icterus Ear exam: PRESENT: normal external ear exam Mouth exam: PRESENT: moist, tongue midline Neck exam: ABSENT: carotid bruit, JVD, lymphadenopathy, thyromegaly Respiratory exam: PRESENT: clear to auscultation jessica. ABSENT: rales, rhonchi, wheezes Cardiovascular exam: PRESENT: RRR. ABSENT: diastolic murmur, rubs, systolic murmur GI/Abdominal exam: PRESENT: normal bowel sounds, soft, other - colostomy, wound vac noted. ABSENT: distended, guarding, mass, organolmegaly, rebound, tenderness Rectal exam: PRESENT: deferred Neurological exam: PRESENT: alert, awake, oriented to person, oriented to place, oriented to time, oriented to situation Results Laboratory Results: 04/01/19 07:34 04/01/19 07:34 04/01/19 04/01/19 07:34 07:34 WBC 6.6 RBC 3.62 L Hgb 10.5 L Hct 31.6 L MCV 87 MCH 29.0 MCHC 33.3 RDW 17.2 H Plt Count 267 Seg Neutrophils % 72.6 Sodium 137.7 Potassium 3.8 Chloride 101 Carbon Dioxide 30 Anion Gap 7 BUN 12 Creatinine 0.36 L Est GFR ( Amer) > 60 Glucose 127 H Calcium 8.9 Phosphorus 3.5 03/17/19 06:54 Troponin I 0.018 Impressions: Head CT 03/17/19 07:08 IMPRESSION: CHRONIC CHANGES OF ATROPHY AND MICROVASCULAR ISCHEMIA. NO ACUTE PROCESS. EVIDENCE OF ACUTE STROKE: NO. Abdomen/Pelvis CT 03/17/19 08:51 IMPRESSION: 1. Suspected sigmoid volvulus. 2. Small amount of ascites. No free air. 3. Adrenal nodules. Chest CT 03/17/19 08:52 IMPRESSION: 1. Collapse of the right lower lobe and most of the middle lobe. 2. Diffuse thickening of the esophagus. Modified Barium Swallow 03/23/19 00:00 IMPRESSION: LARYNGEAL PENETRATION AND ASPIRATION ABOVE. PLEASE SEE SPEECH PATHOLOGIST REPORT FOR OTHER FINDINGS AND RECOMMENDATIONS. KUB X-Ray 03/29/19 14:09 IMPRESSION: Nasogastric tube in the stomach. Chest X-Ray 03/30/19 06:00 IMPRESSION: Status post extubation. Otherwise unchanged radiographic michelle earance of the chest. Assessment and Plan - Diagnosis (1) Acute respiratory failure with hypoxia Is this a current diagnosis for this admission?: Yes Plan: Resolved. She was successfully extubated on 03/29/19. (2) ARDS (adult respiratory distress syndrome) Is this a current diagnosis for this admission?: Yes Plan: Resolved. (3) Cecal volvulus Is this a current diagnosis for this admission?: Yes Plan: She underwent exploratory laparotomy and hemicolectomy on 03/17/19. Abdominal wound vac replaced by surgery on 03/31. (4) Functional quadriplegia secondary to multiple sclerosis Is this a current diagnosis for this admission?: Yes (5) Hypertension Qualifiers: Hypertension type: unspecified Qualified Code(s): I10 - Essential (primary) hypertension Is this a current diagnosis for this admission?: Yes Plan: Resume home meds. (6) Pneumonia Qualifiers: Pneumonia type: due to unspecified organism Laterality: bilateral Lung location: unspecified part of lung Qualified Code(s): J18.9 - Pneumonia, unspecified organism Is this a current diagnosis for this admission?: Yes (7) Stage 4 pressure ulcer Qualifiers: Pressure injury location: contiguous region involving buttock and hip Laterality: left Qualified Code(s): L89.44 - Pressure ulcer of contiguous site of back, buttock and hip, stage 4 Is this a current diagnosis for this admission?: Yes Plan: Chronic. Healing well. Continue daily wound care. - Time Time Spent with patient: 25-34 minutes
[2019-04-01] MEDS: BUSPIRONE HCL 10 MG TABLET PO SCH ×2 (13:51→22:12)
[2019-04-01] MEDS: HYDROCODONE/ACETAMINOPHEN 10-325 MG TABLET PO PRN (16:02)
[2019-04-01] MEDS: DIAZEPAM 5 MG TABLET PO PRN ×2 (16:40→22:22)
--- NOTE | 2019-04-01 17:27 | PDOC PROGRESS REPORT ---
Subjective Reason For Visit: ASPIRATION, ACUTE RESPIRATORY FAILURE, UTI, MS Physical Exam Vital Signs: Temp Pulse Resp BP Pulse Ox 98.4 F 102 H 16 144/84 H 96 04/01/19 15:09 04/01/19 15:09 04/01/19 15:09 04/01/19 15:09 04/01/19 15:09 Intake & Output 03/31/19 04/01/19 04/02/19 06:59 06:59 06:59 Intake Total 2762 1810 250 Output Total 3600 3450 200 Balance -838 -1640 50 Weight 92.8 kg 94.3 kg Results Laboratory Results: 04/01/19 07:34 04/01/19 07:34 04/01/19 04/01/19 07:34 07:34 WBC 6.6 RBC 3.62 L Hgb 10.5 L Hct 31.6 L MCV 87 MCH 29.0 MCHC 33.3 RDW 17.2 H Plt Count 267 Seg Neutrophils % 72.6 Sodium 137.7 Potassium 3.8 Chloride 101 Carbon Dioxide 30 Anion Gap 7 BUN 12 Creatinine 0.36 L Est GFR ( Amer) > 60 Glucose 127 H Calcium 8.9 Phosphorus 3.5 03/17/19 06:54 Troponin I 0.018 Impressions: Head CT 03/17/19 07:08 IMPRESSION: CHRONIC CHANGES OF ATROPHY AND MICROVASCULAR ISCHEMIA. NO ACUTE PROCESS. EVIDENCE OF ACUTE STROKE: NO. Abdomen/Pelvis CT 03/17/19 08:51 IMPRESSION: 1. Suspected sigmoid volvulus. 2. Small amount of ascites. No free air. 3. Adrenal nodules. Chest CT 03/17/19 08:52 IMPRESSION: 1. Collapse of the right lower lobe and most of the middle lobe. 2. Diffuse thickening of the esophagus. Modified Barium Swallow 03/23/19 00:00 IMPRESSION: LARYNGEAL PENETRATION AND ASPIRATION ABOVE. PLEASE SEE SPEECH PATHOLOGIST REPORT FOR OTHER FINDINGS AND RECOMMENDATIONS. KUB X-Ray 03/29/19 14:09 IMPRESSION: Nasogastric tube in the stomach. Chest X-Ray 03/30/19 06:00 IMPRESSION: Status post extubation. Otherwise unchanged radiographic appearance of the chest. Assessment & Plan - Diagnosis (1) Cecal volvulus Is this a current diagnosis for this admission?: Yes - Time Time Spent with patient: Less than 15 minutes - Plan Summary Plan Summary: 58-year-old female status post laparotomy for a cecal volvulus. She is awake and alert today. She converses without difficulty. The patient has suffered a fascial dehiscence. Her abdominal hernia was closed with a Vicryl mesh, and she now has a wound VAC in place over top of the Vicryl mesh. Wound VAC to be changed Tuesday, by the Surgicalist. Surgery will follow the patient closely with you.
[2019-04-01] MEDS ORDERED: (PENDING PHARMACY ID) (Dextroamphetamine/Amphetamine [Adderall 20 Mg Tablet] 20 MG) PO SCH (18:00)
[2019-04-01] MEDS ORDERED: (PENDING PHARMACY ID) (Oxybutynin Chloride [Oxybutynin Chloride Er] 10 MG) PO SCH (18:00)
[2019-04-01] MEDS: AMITRIPTYLINE HCL 50 MG TABLET PO SCH (22:11)
[2019-04-01] MEDS: VENLAFAXINE HCL 75 MG CAP.SR.24H PO SCH (22:11)
[2019-04-01] MEDS: PHARMACY COMMUNICATION ORDER MC SCH (22:48)
[2019-04-01 23:36] LABS: VANCOMYCIN,TROUGH 19.2 ug/mL (5.0-20.0)
[2019-04-02 05:09] LABS: HEMATOCRIT 33.3 % (36.0-47.0); HEMOGLOBIN 10.9 g/dL (12.0-15.5); MEAN CORPUSCULAR HEMOGLOBIN 28.7 pg (27.0-33.4); MEAN CORPUSCULAR HGB CONC 32.6 g/dL (32.0-36.0); MEAN CORPUSCULAR VOLUME 88 fl (80-97); PLATELET COUNT 265 10^3/uL (150-450); RED BLOOD COUNT 3.79 10^6/uL (3.72-5.28); RED CELL DISTRIBUTION WIDTH 17.2 % (11.5-14.0); WHITE BLOOD COUNT 6.9 10^3/uL (4.0-10.5)
[2019-04-02 05:33] LABS: ANION GAP 9 (5-19); BLOOD UREA NITROGEN 14 mg/dL (7-20); CARBON DIOXIDE 30 mmol/L (22-30); CHLORIDE 98 mmol/L (98-107); GLUCOSE 128 mg/dL (75-110); POTASSIUM 3.7 mmol/L (3.6-5.0)
[2019-04-02] MEDS: BUSPIRONE HCL 10 MG TABLET PO SCH ×3 (05:41→21:27)
[2019-04-02] MEDS: HYDROCODONE/ACETAMINOPHEN 10-325 MG TABLET PO PRN ×2 (05:41→18:00)
[2019-04-02] MEDS ORDERED: DILTIAZEM HCL 180 MG PO SCH (10:00)
[2019-04-02] MEDS: FUROSEMIDE INJ/PF 20 MG/2 ML SDV IV SCH ×2 (11:00→21:27)
[2019-04-02] MEDS: VENLAFAXINE HCL 75 MG CAP.SR.24H PO SCH ×2 (11:01→21:26)
[2019-04-02] MEDS: DILTIAZEM HCL 180 MG CAPSULE.CR PO SCH (11:01)
[2019-04-02] MEDS: VITAMINS A AND D OINTMENT 56.7 GM TOP SCH ×3 (11:03→18:06)
[2019-04-02] MEDS: VANCOMYCIN HCL 750 MG in DEXTROSE 5%-WATER 250 ML IV SCH ×2 (11:09→23:54)
[2019-04-02] MEDS: BACLOFEN 20 MG TABLET PO PRN (11:10)
--- NOTE | 2019-04-02 11:48 | RADIOLOGY REPORT (SQ) ---
EXAM DESCRIPTION: ALEXIE SWALLOW COMPLETED DATE/TIME: 04/02/2019 10:18 am REASON FOR STUDY: history of aspiration pneumonia COMPARISON: 03/23/2019 modified barium swallow TECHNIQUE: Videofluoroscopic swallowing examination was performed in conjunction with speech patholo gy. Videofluoroscopic imaging was obtained and reviewed and these are the findings: RADIATION DOSE: 2 minutes 13 seconds of fluoroscopy was used. 1 images saved to PACS. LIMITATIONS: None FINDINGS: The patient was brought into the fluoro room and placed upright on a modified barium swall ow chair. The patient was then given multiple consistencies mixed with barium to swallow under live fluoroscopic video guidance. According to the Speech Pathologist there was trace laryngeal penetrati on to the level the cords. Marked improvement of swallow when compared to previous study. IMPRESSION: TRACE LARYNGEAL PENETRATION TO LEVEL OF THE CORDS. PLEASE SEE SPEECH PATHOLOGIST REPORT FOR OTHER FINDINGS AND RECOMMENDATIONS. COMMENT: Quality ID [id number]: Final reports for procedures using fluoroscopy that document radiation exp osure indices, or exposure time and number of fluorographic images (if radiation exposure indices are not available) TECHNICAL DOCUMENTATION: JOB ID: [id number] [employer]- All Rights Reserved Reading location - IP/workstation name: [email or web address]
--- NOTE | 2019-04-02 12:27 | ST Inp Modified Barium Swallow ---
Medical Diagnosis - Medical Diagnoses Medical Diagnosis Description & ICD-10 Code(s): respiratory failure - ICD-10 Tx Diagnosis Coding (1) Dysphagia ICD-10 Code(s): R13.10 - DYSPHAGIA, UNSPECIFIED (2) Aspiration into airway ICD-10 Code(s): T17.908A - UNSP FB IN RESP TRACT, PART UNSP CAUSING OTH INJURY, INIT ST Inpatient MBS - General Date: 04/02/19 - History -: Medical - Patient seen for prior MBSS on 03/23, which showed aspiration on multiple textures and inability to clear material from airway. Patient is curren tly doing better medically, and updated MBSS is recommended to re-assess swallow function. Medications: Medications Reviewed Allergies: Refer to medical record - Subjective Current Nutritional Means: NG Current PO Diet: N/A (NPO) Current Symptoms: Aspiration Pain: Patient reports, 4/5 - stomach pain, patient stated it was more like nausea - Objective Assessment: Upright, Left Lateral - Food Trials Food Trials Used: Thin liquids, Pureed, Regular The Patient: fed by ST - Assessment Labial Function: Within Functional Limits Lingual Function: Within Functional Limits Mandibular Function: Within Functional Limits Dentition: Partial Velo-Pharyngeal Function: Unremarkable Laryngeal Function: Weak Cough - Pharyngeal Stage Initiation of Pharyngeal Stage: Normal Decreased Laryngeal Elevation: Yes - mild Reduced Velo-Pharyngeal Closure: no Reduced Pressure Generation: Yes - mild Reduced Tongue Base Retraction: No Pre-Swallowing Pooling in Valleculae: Mild Pre-Swallowing Pooling in Pyriforms: Mild Reduced Thyro-Hyiod Approximation: Yes - mild Reduced Epiglottic Excursion: No Reduced Pharyngeal Peristalsis: No Post Swallow Residuals in Valleculae: Mild Post Swallow Residuals in Pyriforms: None Pahryngeal Stage Comments: Patient demonstrated markedly improved swallow function from prior study. Patient is still at risk of aspiration, and was noted to have penetration of thin liquid during the swallow, with deep penetration to the level of the cords after the swallow with thin liquids x1. Use of chin tuck helped to reduce penetration of liquids. - Impression/Summary Laryngeal Penetration: Yes, Silent, during swallow, after swallow Effective Compensatory Strategies: chin down Patient Presents With: Pharyngeal stage dysph., Mild-Moderate Risk of Aspiration: Moderate Risk Due To: moderate risk of aspiration due to pharyngeal residue entering laryngeal vestibule - Recommendations Solid Diet Recommendations: Mechanical Soft, Ground Meat Liquid Diet Recommendations: Thin Strict Aspitarion Precautions: Yes Dysphagia Therapy with LINER WORKER: Yes - plan to treat 2x this week for dysphagia- Patient will demonstrate understanding of aspiration precautions including positioning at 90 degrees and chin tuck with min cues. Patient will complete "effortful swallow" 5x independently for improved swallow function independently. Other Recommendations: Discussed findings with Bell MARTIN, who is in agreement with diet recommendations. Discussed need for strict aspiration precautions with RN. - Time Total Time: 30 Total Timed Minutes: 30
--- NOTE | 2019-04-02 13:26 | PDOC PROGRESS REPORT ---
Subjective Progress Note for:: 04/02/19 Subjective:: This is a 58-year-old female with a past medical history of multiple sclerosis and chronic left ischial decubitus ulcer who initially presented with increasing shortness of breath and abdominal pain. Patient was downgraded to the floor from the ICU yesterday. Discussed case with the fretted instrument repairer. Chart reviewed. Patient presented to the ER on 03/17/2019 with shortness of breath, abdominal pain and hypoxia. She was noted to be lethargic and was in acute hypoxic respiratory failure requiring intubation. She was noted to have a lateral lower lobe pneumonia and pleural effusions as well. She was also noted to have a cecal volvulus. She was admitted to the ICU. She was also treated for ARDS. She was evaluated by surgery and eventually underwent exploratory laparotomy and hemicolectomy on 03/17/19. She was successfully extubated on 03/29/19. 04/01: She is currently comfortable on nasal cannula. Wound vac replaced by surgery. Good output from the ostomy. She is asking about her home regimen for her chronic pain. Will resume balcofen and valium as well. 04/02: No acute event overnight. She is a little drowsy this morning but is arousable and AO x3. Will decrease dose of home Valium. Denies chest pain, SOB or abdominal pain. She is scheduled for MBS today. Also awaiting clearance from surgery. Surgery plans to replace wound vac tomorrow. Reason For Visit: ASPIRATION, ACUTE RESPIRATORY FAILURE, UTI, MS Physical Exam Vital Signs: Temp Pulse Resp BP Pulse Ox 97.9 F 101 H 17 124/58 L 97 04/02/19 07:50 04/02/19 07:50 04/02/19 07:50 04/02/19 07:50 04/02/19 08:00 Intake & Output 04/01/19 04/02/19 04/03/19 06:59 06:59 06:59 Intake Total 1810 1684 Output Total 3450 970 Balance -1640 714 Weight 207 lb 14.334 oz 206 lb 12.697 oz General appearance: PRESENT: no acute distress, well-developed, well-nourished Head exam: PRESENT: atraumatic, normocephalic Eye exam: PRESENT: conjunctiva pink, EOMI, PERRLA. ABSENT: scleral icterus Ear exam: PRESENT: normal external ear exam Mouth exam: PRESENT: moist, tongue midline Neck exam: ABSENT: carotid bruit, JVD, lymphadenopathy, thyromegaly Respiratory exam: PRESENT: clear to auscultation jessica. ABSENT: rales, rhonchi, wheezes Cardiovascular exam: PRESENT: RRR. ABSENT: diastolic murmur, rubs, systolic murmur Pulses: PRESENT: normal dorsalis pedis pul GI/Abdominal exam: PRESENT: normal bowel sounds, soft. ABSENT: distended, guarding, mass, organolmegaly, rebound, tenderness Rectal exam: PRESENT: deferred Neurological exam: PRESENT: alert, awake, oriented to person, CN II-XII grossly intact. ABSENT: motor sensory deficit Results Laboratory Results: 04/02/19 04:26 04/02/19 04:26 04/02/19 04/02/19 04:26 04:26 WBC 6.9 RBC 3.79 Hgb 10.9 L Hct 33.3 L MCV 88 MCH 28.7 MCHC 32.6 RDW 17.2 H Plt Count 265 Sodium 137.4 Potassium 3.7 Chloride 98 Carbon Dioxide 30 Anion Gap 9 BUN 14 Creatinine 0.43 L Est GFR ( Amer) > 60 Glucose 128 H Calcium 9.0 Magnesium 1.9 03/17/19 06:54 Troponin I 0.018 Impressions: Head CT 03/17/19 07:08 IMPRESSION: CHRONIC CHANGES OF ATROPHY AND MICROVASCULAR ISCHEMIA. NO ACUTE PROCESS. EVIDENCE OF ACUTE STROKE: NO. Abdomen/Pelvis CT 03/17/19 08:51 IMPRESSION: 1. Suspected sigmoid volvulus. 2. Small amount of ascites. No free air. 3. Adrenal nodules. Chest CT 03/17/19 08:52 IMPRESSION: 1. Collapse of the right lower lobe and most of the middle lobe. 2. Diffuse thickening of the esophagus. KUB X-Ray 03/29/19 14:09 IMPRESSION: Nasogastric tube in the stomach. Chest X-Ray 03/30/19 06:00 IMPRESSION: Status post extubation. Otherwise unchanged radiographic appearance of the chest. Assessment and Plan - Diagnosis (1) Acute respiratory failure with hypoxia Is this a current diagnosis for this admission?: Yes Plan: Resolved. She was successfully extubated on 03/29/19. (2) ARDS (adult respiratory distress syndrome) Is this a current diagnosis for this admission?: Yes Plan: Resolved. (3) Cecal volvulus Is this a current diagnosis for this admission?: Yes Plan: She underwent exploratory laparotomy and hemicolectomy on 03/17/19. Abdominal wound vac replaced by surgery on 03/31. (4) Functional quadriplegia secondary to multiple sclerosis Is this a current diagnosis for this admission?: Yes (5) Hypertension Qualifiers: Hypertension type: unspecified Qualified Code(s): I10 - Essential (primary) hypertension Is this a current diagnosis for this admission?: Yes Plan: Continue home meds. (6) Pneumonia Qualifiers: Pneumonia type: due to unspecified organism Laterality: bilateral Lung location: unspecified part of lung Qualified Code(s): J18.9 - Pneumonia, unspecified organism Is this a current diagnosis for this admission?: Yes Plan: Completed IV antibiotics. (7) Stage 4 pressure ulcer Qualifiers: Pressure injury location: contiguous region involving buttock and hip Laterality: left Qualified Code(s): L89.44 - Pressure ulcer of contiguous site of back, buttock and hip, stage 4 Is this a current diagnosis for this admission?: Yes Plan: Chronic. Healing well. Continue daily wound care. - Time Time Spent with patient: 25-34 minutes
[2019-04-02] MEDS: IPRATROPIUM/ALBUTEROL 0.5-2.5 MG/3 ML AMPUL NEB PRN (16:51)
[2019-04-02] MEDS: OXYBUTYNIN CHLORIDE SYRUP 1 MG/1 ML 60 ML PO SCH ×2 (17:59→18:45)
[2019-04-02] MEDS: DIAZEPAM 5 MG TABLET PO PRN (18:45)
[2019-04-02] MEDS: AMITRIPTYLINE HCL 50 MG TABLET PO SCH (21:27)
[2019-04-02] MEDS: PHARMACY COMMUNICATION ORDER MC SCH (21:27)
[2019-04-03] MEDS: BACLOFEN 20 MG TABLET PO PRN ×2 (00:22→13:34)
[2019-04-03] MEDS: DIAZEPAM 5 MG TABLET PO PRN ×3 (00:22→13:35)
[2019-04-03] MEDS: BUSPIRONE HCL 10 MG TABLET PO SCH ×3 (05:17→22:11)
[2019-04-03 05:55] LABS: APPEARANCE,URINE SLIGHTLY-CLOUDY; BILIRUBIN,URINE NEGATIVE (NEGATIVE); COLOR,URINE YELLOW; GLUCOSE, URINE NEGATIVE (NEGATIVE); KETONES,URINE NEGATIVE (NEGATIVE); LEUKOCYTE ESTERASE,URINE NEGATIVE (NEGATIVE); NITRITE,URINE NEGATIVE (NEGATIVE); PROTEIN,URINE NEGATIVE (NEGATIVE); URINE SPECIFIC GRAVITY 1.006; UROBILINOGEN,URINE NEGATIVE mg/dL (<2.0)
[2019-04-03 06:05] LABS: ANION GAP 11 (5-19); BLOOD UREA NITROGEN 13 mg/dL (7-20); CALCIUM 8.7 mg/dL (8.4-10.2); CARBON DIOXIDE 29 mmol/L (22-30); CHLORIDE 95 mmol/L (98-107); GLUCOSE 136 mg/dL (75-110)
[2019-04-03] MEDS: HYDROCODONE/ACETAMINOPHEN 10-325 MG TABLET PO PRN ×2 (06:20→22:11)
--- NOTE | 2019-04-03 09:50 | PDOC PROGRESS REPORT ---
Subjective Progress Note for:: 04/03/19 Reason For Visit: ASPIRATION, ACUTE RESPIRATORY FAILURE, UTI, MS Physical Exam Vital Signs: Temp Pulse Resp BP Pulse Ox 98.3 F 101 H 20 130/79 H 100 04/03/19 06:57 04/03/19 07:00 04/03/19 06:57 04/03/19 06:57 04/03/19 06:57 Intake & Output 04/02/19 04/03/19 04/04/19 06:59 06:59 06:59 Intake Total 1684 2590 Output Total 970 1900 Balance 714 690 Weight 93.8 kg 95.4 kg General appearance: PRESENT: no acute distress, mild distress, other - Patient has multiple chronic problems Respiratory exam: PRESENT: clear to auscultation jessica. ABSENT: rales, rhonchi, wheezes Cardiovascular exam: PRESENT: RRR. ABSENT: diastolic murmur, rubs, systolic murmur Neurological exam: PRESENT: altered, other - Patient is quadriplegic secondary to multiple sclerosis Psychiatric exam: PRESENT: appropriate affect, normal mood, other - Patient appears to be upbeat, carrying on a normal conversation. Patient states that she lives at home caregivers. ABSENT: homicidal ideation, suicidal ideation Results Laboratory Results: 04/02/19 04:26 04/03/19 05:01 04/03/19 04/03/19 05:01 05:25 Sodium 134.7 L Potassium 4.0 Chloride 95 L Carbon Dioxide 29 Anion Gap 11 BUN 13 Creatinine 0.40 L Est GFR ( Amer) > 60 Glucose 136 H Calcium 8.7 Magnesium 1.8 Urine Color YELLOW Urine Appearance SLIGHTLY-CLOUDY Urine pH 7.0 Ur Specific [place] 1.006 Urine Protein NEGATIVE Urine Glucose (UA) NEGATIVE Urine Ketones NEGATIVE Urine Blood MODERATE H Urine Nitrite NEGATIVE Ur Leukocyte Esterase NEGATIVE Urine WBC (Auto) 3 Urine RBC (Auto) 2 03/17/19 06:54 Troponin I 0.018 Impressions: Head CT 03/17/19 07:08 IMPRESSION: CHRONIC CHANGES OF ATROPHY AND MICROVASCULAR ISCHEMIA. NO ACUTE PROCESS. EVIDENCE OF ACUTE STROKE: NO. Abdomen/Pelvis CT 03/17/19 08:51 IMPRESSION: 1. Suspected sigmoid volvulus. 2. Small amount of ascites. No free air. 3. Adrenal nodules. Chest CT 03/17/19 08:52 IMPRESSION: 1. Collapse of the right lower lobe and most of the middle lobe. 2. Diffuse thickening of the esophagus. KUB X-Ray 03/29/19 14:09 IMPRESSION: Nasogastric tube in the stomach. Modified Barium Swallow 04/02/19 00:00 IMPRESSION: TRACE LARYNGEAL PENETRATION TO LEVEL OF THE CORDS. PLEASE SEE SPEECH PATHOLOGIST REPORT FOR OTHER FINDINGS AND RECOMMENDATIONS. Assessment and Plan - Diagnosis (1) Acute respiratory failure with hypoxia Is this a current diagnosis for this admission?: Yes (2) Cecal volvulus Is this a current diagnosis for this admission?: Yes (3) Functional quadriplegia secondary to multiple sclerosis Is this a current diagnosis for this admission?: Yes (4) Unresponsiveness Is this a current diagnosis for this admission?: Yes (5) Decubitus skin ulcer Qualifiers: Pressure injury location: lower back Pressure injury stage: stage 4 Laterality: left Qualified Code(s): L89.144 - Pressure ulcer of left lower back, stage 4 Is this a current diagnosis for this admission?: Yes (6) Septic shock due to urinary tract infection Is this a current diagnosis for this admission?: Yes - Plan Summary Summary: 04/03/2019 Patient was admitted to the hospital on 03/17/2019 and was put into the ICU due to her urosepsis, her debilitated condition secondary to multiple sclerosis, as well as a cecal volvulus. Patient had her abdominal hernia closed with Vicryl mesh Temperature 98.3, pulse 102, blood pressure 130/79, patient on 4 L nasal cannula with O2 sat of 100% On admission patient had an elevated lactic acid of 4.7 Patient's wound is growing out E. coli from her sacral decubitus. Patient currently on IV vancomycin through the 27th Day her white count is normal 6.9 her BUN is 13 and a creatinine is 0.40 I believe her wound VAC is been changed today by general surgery. Plan is to continue IV antibiotics, you surgery's notes as to care, continue home meds - Time Time Spent with patient: 35 or more minutes
--- NOTE | 2019-04-03 10:10 | RADIOLOGY REPORT (SQ) ---
EXAM DESCRIPTION: CHEST SINGLE VIEW COMPLETED DATE/TIME: 04/03/2019 9:11 am REASON FOR STUDY: cough COMPARISON: Chest films 03/30/2019, 03/27/2019, 03/22/2019 CT chest 03/17/2019 EXAM PARAMETERS: NUMBER OF VIEWS: One view. TECHNIQUE: Single frontal radiographic view of the chest acquired. RADIATION DOSE: NA LIMITATIONS: None. FINDINGS: LUNGS AND PLEURA: Persistent volume loss and consolidation in the right middle and lower l obe. Left lung well inflated and grossly clear. No gross pleural effusions or pneumothorax MEDIASTINUM AND HILAR STRUCTURES: No masses. Contour normal. HEART AND VASCULAR STRUCTURES: Stable mild cardiomegaly BONES: No acute findings. HARDWARE: Nasogastric tube tip and side port in the stomach OTHER: No other significant finding. IMPRESSION: Persistent right middle lobe and lower lobe collapse/consolidation TECHNICAL DOCUMENTATION: JOB ID: [id number] [employer]- All Rights Reserved Reading location - IP/workstation name: [email or web address]
[2019-04-03] MEDS: DILTIAZEM HCL 180 MG CAPSULE.CR PO SCH (10:18)
[2019-04-03] MEDS: VENLAFAXINE HCL 75 MG CAP.SR.24H PO SCH ×2 (10:18→22:11)
[2019-04-03] MEDS: FUROSEMIDE INJ/PF 20 MG/2 ML SDV IV SCH ×2 (10:18→22:12)
[2019-04-03] MEDS: OXYBUTYNIN CHLORIDE SYRUP 1 MG/1 ML 60 ML PO SCH ×2 (10:18→17:28)
[2019-04-03] MEDS: VITAMINS A AND D OINTMENT 56.7 GM TOP SCH ×3 (10:19→17:28)
[2019-04-03] MEDS: VANCOMYCIN HCL 750 MG in DEXTROSE 5%-WATER 250 ML IV SCH ×2 (11:05→22:12)
--- NOTE | 2019-04-03 19:24 | PDOC PROGRESS REPORT ---
Subjective Progress Note for:: 04/03/19 Reason For Visit: ASPIRATION, ACUTE RESPIRATORY FAILURE, UTI, MS Abdominal wound wound VAC replacement Physical Exam Vital Signs: Temp Pulse Resp BP Pulse Ox 98.0 F 99 20 121/71 98 04/03/19 14:55 04/03/19 14:55 04/03/19 14:55 04/03/19 14:55 04/03/19 14:55 Intake & Output 04/02/19 04/03/19 04/04/19 06:59 06:59 06:59 Intake Total 1684 2590 1363 Output Total 970 1900 1550 Balance 714 690 -187 Weight 93.8 kg 95.4 kg General appearance: PRESENT: no acute distress, morbidly obese GI/Abdominal exam: PRESENT: soft, other - Large because of obesity, midline wound with edges clean, granulating, without edema, erythema, or drainage/odor Right lateral abdominal ileostomy pink and viable, with stools and gas in the ileostomy bag Results Laboratory Results: 04/02/19 04:26 04/03/19 05:01 04/03/19 04/03/19 05:01 05:25 Sodium 134.7 L Potassium 4.0 Chloride 95 L Carbon Dioxide 29 Anion Gap 11 BUN 13 Creatinine 0.40 L Est GFR ( Amer) > 60 Glucose 136 H Calcium 8.7 Magnesium 1.8 Urine Color YELLOW Urine Appearance SLIGHTLY-CLOUDY Urine pH 7.0 Ur Specific [place] 1.006 Urine Protein NEGATIVE Urine Glucose (UA) NEGATIVE Urine Ketones NEGATIVE Urine Blood MODERATE H Urine Nitrite NEGATIVE Ur Leukocyte Esterase NEGATIVE Urine WBC (Auto) 3 Urine RBC (Auto) 2 03/17/19 06:54 Troponin I 0.018 Impressions: Head CT 03/17/19 07:08 IMPRESSION: CHRONIC CHANGES OF ATROPHY AND MICROVASCULAR ISCHEMIA. NO ACUTE PROCESS. EVIDENCE OF ACUTE STROKE: NO. Abdomen/Pelvis CT 03/17/19 08:51 IMPRESSION: 1. Suspected sigmoid volvulus. 2. Small amount of ascites. No free air. 3. Adrenal nodules. Chest CT 03/17/19 08:52 IMPRESSION: 1. Collapse of the right lower lobe and most of the middle lobe. 2. Diffuse thickening of the esophagus. KUB X-Ray 03/29/19 14:09 IMPRESSION: Nasogastric tube in the stomach. Modified Barium Swallow 04/02/19 00:00 IMPRESSION: TRACE LARYNGEAL PENETRATION TO LEVEL OF THE CORDS. PLEASE SEE SPEECH PATHOLOGIST REPORT FOR OTHER FINDINGS AND RECOMMENDATIONS. Chest X-Ray 04/03/19 07:00 IMPRESSION: Persistent right middle lobe and lower lobe collapse/consolidation Assessment & Plan - Diagnosis (1) Dehiscence of closure of fascia, superficial or muscular Is this a current diagnosis for this admission?: Yes (2) Cecal volvulus Is this a current diagnosis for this admission?: Yes - Time Time Spent with patient: 35 or more minutes - Plan Summary Plan Summary: Assessment: Postop day #17 following right hemicolectomy for cecal volvulus Postop day #6 following debridement of abdominal wall fascia for dehiscence and placement of Vicryl mesh Well healing and granulating open abdominal wound with Vicryl mesh placed directly on bowel Wound VAC applied to the abdominal wound Plan: Wound VAC to wound today Next replacement on Tuesday
--- NOTE | 2019-04-03 19:30 | Operative Report ---
Nonrecallable Operative Report DATE OF SURGERY: 04/03/19 PREOPERATIVE DIAGNOSIS: Midline abdominal wound dehiscence. Status post right hemicolectomy for cecal volvulus. Status post debridement abdominal wall fascia POSTOPERATIVE DIAGNOSIS: Same OPERATION: Replacement of abdominal surgical wound WoundVAC SURGEON: JANE SALES ANESTHESIA: Other - None TISSUE REMOVED OR ALTERED: None COMPLICATIONS: None ESTIMATED BLOOD LOSS: Applicable INTRAOPERATIVE FINDINGS: Granulating abdominal wound edges and underlying bowel covered with Vicryl mesh PROCEDURE: The procedure was done at bedside. The old wound VAC Tegaderm and sponges was removed, the wound was examined, the skin surrounding the wound was cleaned first and then smeared with benzoin. The clarke sponge was cut to size and a large piece of Xeroform gauze was placed over the Vicryl mesh. The large Tegaderm was then stretched over the wound sponge as well as the wound edges so adhere neatly to the skin. Once this was accomplished an opening was made on the Tegaderm on top of the sponge, the suction cup of the wound VAC machine was laced over the opening and connected to the wound VAC machine with good vacuum effect. The patient tolerated procedure well.
[2019-04-03] MEDS: IPRATROPIUM/ALBUTEROL 0.5-2.5 MG/3 ML AMPUL NEB PRN (20:47)
[2019-04-03] MEDS: AMITRIPTYLINE HCL 50 MG TABLET PO SCH (22:11)
[2019-04-03 22:26] LABS: AMORPHOUS SEDIMENT,URINE TRACE /HPF; APPEARANCE,URINE CLOUDY; BILIRUBIN,URINE NEGATIVE (NEGATIVE); COLOR,URINE YELLOW; GLUCOSE, URINE 50 mg/dL (NEGATIVE); KETONES,URINE NEGATIVE (NEGATIVE); LEUKOCYTE ESTERASE,URINE TRACE (NEGATIVE); NITRITE,URINE NEGATIVE (NEGATIVE); PROTEIN,URINE 100 mg/dL (NEGATIVE); URINE SPECIFIC GRAVITY 1.011; UROBILINOGEN,URINE NEGATIVE mg/dL (<2.0)
[2019-04-04] MEDS: PHARMACY COMMUNICATION ORDER MC SCH (03:47)
[2019-04-04] MEDS: BUSPIRONE HCL 10 MG TABLET PO SCH ×3 (05:28→21:36)
[2019-04-04] MEDS: BACLOFEN 20 MG TABLET PO PRN (05:34)
[2019-04-04 05:46] LABS: HEMATOCRIT 30.8 % (36.0-47.0); HEMOGLOBIN 10.1 g/dL (12.0-15.5); MEAN CORPUSCULAR HEMOGLOBIN 28.8 pg (27.0-33.4); MEAN CORPUSCULAR HGB CONC 32.7 g/dL (32.0-36.0); MEAN CORPUSCULAR VOLUME 88 fl (80-97); PLATELET COUNT 298 10^3/uL (150-450); RED BLOOD COUNT 3.51 10^6/uL (3.72-5.28); RED CELL DISTRIBUTION WIDTH 16.3 % (11.5-14.0); WHITE BLOOD COUNT 5.7 10^3/uL (4.0-10.5)
[2019-04-04 06:01] LABS: ANION GAP 7 (5-19); BLOOD UREA NITROGEN 13 mg/dL (7-20); CALCIUM 8.6 mg/dL (8.4-10.2); CARBON DIOXIDE 30 mmol/L (22-30); CHLORIDE 98 mmol/L (98-107); GLUCOSE 109 mg/dL (75-110); POTASSIUM 4.3 mmol/L (3.6-5.0)
[2019-04-04] MEDS: VENLAFAXINE HCL 75 MG CAP.SR.24H PO SCH ×2 (09:27→21:38)
[2019-04-04] MEDS: DILTIAZEM HCL 180 MG CAPSULE.CR PO SCH (09:27)
[2019-04-04] MEDS: FUROSEMIDE INJ/PF 20 MG/2 ML SDV IV SCH ×2 (09:27→21:35)
[2019-04-04] MEDS: OXYBUTYNIN CHLORIDE SYRUP 1 MG/1 ML 60 ML PO SCH ×2 (09:28→17:23)
[2019-04-04] MEDS: VITAMINS A AND D OINTMENT 56.7 GM TOP SCH ×3 (09:29→17:23)
[2019-04-04] MEDS: VANCOMYCIN HCL 750 MG in DEXTROSE 5%-WATER 250 ML IV SCH ×2 (10:24→23:34)
--- NOTE | 2019-04-04 10:29 | PDOC PROGRESS REPORT ---
Subjective Progress Note for:: 04/04/19 Reason For Visit: ASPIRATION, ACUTE RESPIRATORY FAILURE, UTI, MS 04/04/2019 Patient was admitted to the hospital back on 03/17/2019 in a critical condition to the ICU. Secondary to unresponsiveness and aspiration and sigmoid volvulus Physical Exam Vital Signs: Temp Pulse Resp BP Pulse Ox 97.9 F 87 20 122/74 94 04/04/19 03:50 04/04/19 06:46 04/04/19 03:50 04/04/19 03:50 04/04/19 03:50 Intake & Output 04/03/19 04/04/19 04/05/19 06:59 06:59 06:59 Intake Total 2590 1731 Output Total 1900 2840 Balance 690 -1109 Weight 95.4 kg 88 kg General appearance: PRESENT: no acute distress Respiratory exam: PRESENT: clear to auscultation jessica. ABSENT: rales, rhonchi, wheezes Cardiovascular exam: PRESENT: RRR. ABSENT: diastolic murmur, rubs, systolic murmur GI/Abdominal exam: PRESENT: other - Deferred to general surgery who is seeing her daily for postoperative care Neurological exam: PRESENT: other - Quadriplegia secondary to multiple sclerosis Psychiatric exam: PRESENT: appropriate affect, normal mood, other - Patient is actually very pleasant in good spirits. ABSENT: homicidal ideation, suicidal ideation Results Laboratory Results: 04/04/19 05:17 04/04/19 05:17 04/03/19 04/04/19 04/04/19 16:42 05:17 05:17 WBC 5.7 RBC 3.51 L Hgb 10.1 L Hct 30.8 L MCV 88 MCH 28.8 MCHC 32.7 RDW 16.3 H Plt Count 298 Sodium 134.6 L Potassium 4.3 Chloride 98 Carbon Dioxide 30 Anion Gap 7 BUN 13 Creatinine 0.56 Est GFR ( Amer) > 60 Glucose 109 Calcium 8.6 Magnesium 1.9 Urine Color YELLOW Urine Appearance CLOUDY Urine pH 7.0 Ur Specific [place] 1.011 Urine Protein 100 H Urine Glucose (UA) 50 H Urine Ketones NEGATIVE Urine Blood SMALL H Urine Nitrite NEGATIVE Ur Leukocyte Esterase TRACE H Urine WBC (Auto) 15 Urine RBC (Auto) 12 03/17/19 06:54 Troponin I 0.018 Impressions: Head CT 03/17/19 07:08 IMPRESSION: CHRONIC CHANGES OF ATROPHY AND MICROVASCULAR ISCHEMIA. NO ACUTE PROCESS. EVIDENCE OF ACUTE STROKE: NO. Abdomen/Pelvis CT 03/17/19 08:51 IMPRESSION: 1. Suspected sigmoid volvulus. 2. Small amount of ascites. No free air. 3. Adrenal nodules. Chest CT 03/17/19 08:52 IMPRESSION: 1. Collapse of the right lower lobe and most of the middle lobe. 2. Diffuse thickening of the esophagus. KUB X-Ray 03/29/19 14:09 IMPRESSION: Nasogastric tube in the stomach. Modified Barium Swallow 04/02/19 00:00 IMPRESSION: TRACE LARYNGEAL PENETRATION TO LEVEL OF THE CORDS. PLEASE SEE SPEECH PATHOLOGIST REPORT FOR OTHER FINDINGS AND RECOMMENDATIONS. Chest X-Ray 04/03/19 07:00 IMPRESSION: Persistent right middle lobe and lower lobe collapse/consolidation Assessment and Plan - Diagnosis (1) Acute respiratory failure with hypoxia Is this a current diagnosis for this admission?: Yes (2) Cecal volvulus Is this a current diagnosis for this admission?: Yes (3) Functional quadriplegia secondary to multiple sclerosis Is this a current diagnosis for this admission?: Yes (4) Unresponsiveness Is this a current diagnosis for this admission?: Yes (5) Decubitus skin ulcer Qualifiers: Pressure injury location: lower back Pressure injury stage: stage 4 Laterality: left Qualified Code(s): L89.144 - Pressure ulcer of left lower back, stage 4 Is this a current diagnosis for this admission?: Yes (6) Septic shock due to urinary tract infection Is this a current diagnosis for this admission?: Yes (7) Postoperative wound dehiscence Is this a current diagnosis for this admission?: Yes - Plan Summary Summary: 04/03/2019 Patient was admitted to the hospital on 03/17/2019 and was put into the ICU due to her urosepsis, her debilitated condition secondary to multiple sclerosis, as well as a cecal volvulus. Patient had her abdominal hernia closed with Vicryl mesh Temperature 98.3, pulse 102, blood pressure 130/79, patient on 4 L nasal cannula with O2 sat of 100% On admission patient had an elevated lactic acid of 4.7 Patient's wound is growing out E. coli from her sacral decubitus. Patient currently on IV vancomycin through the her white count is normal 6.9 her BUN is 13 and a creatinine is 0.40 I believe her wound VAC has been changed today by general surgery. Plan is to continue IV antibiotics, review surgery's notes as to care, continue home meds 04/04/2019 Temperature 97.9, heart rate in the 80s or 90s, blood pressure 122/74, oxygen saturation between 94 and 100% on 4 L nasal cannula Labs appear stable Patient's wound VAC was changed out yesterday and next changes scheduled for 04/06. Hernandez catheter removed yesterday. Intake yesterday was 2590 output was 1900, that 1900 it looks like 1300 was urine. Patient is taking p.o.'s well as I assisted her with drinking liquids this morning I am going to ask discharge planning to see the patient tomorrow to review her situation. Patient will continue IV antibiotics from her wound culture growing E. coli. - Time Time Spent with patient: 25-34 minutes
--- NOTE | 2019-04-04 12:29 | PDOC PROGRESS REPORT ---
Subjective Progress Note for:: 04/04/19 Subjective:: comfortable, tolerating po fairly Reason For Visit: ASPIRATION, ACUTE RESPIRATORY FAILURE, UTI, MS Physical Exam Vital Signs: Temp Pulse Resp BP Pulse Ox 98.0 F 102 H 16 102/81 99 04/04/19 08:28 04/04/19 08:28 04/04/19 08:28 04/04/19 08:28 04/04/19 08:28 Intake & Output 04/03/19 04/04/19 04/05/19 06:59 06:59 06:59 Intake Total 2590 1731 Output Total 1900 2840 Balance 690 -1109 Weight 95.4 kg 88 kg General appearance: PRESENT: no acute distress GI/Abdominal exam: PRESENT: soft, other - midline wound clean, covered with woundvac,minimal drainage Results Laboratory Results: 04/04/19 05:17 04/04/19 05:17 04/03/19 04/04/19 04/04/19 16:42 05:17 05:17 WBC 5.7 RBC 3.51 L Hgb 10.1 L Hct 30.8 L MCV 88 MCH 28.8 MCHC 32.7 RDW 16.3 H Plt Count 298 Sodium 134.6 L Potassium 4.3 Chloride 98 Carbon Dioxide 30 Anion Gap 7 BUN 13 Creatinine 0.56 Est GFR ( Amer) > 60 Glucose 109 Calcium 8.6 Magnesium 1.9 Urine Color YELLOW Urine Appearance CLOUDY Urine pH 7.0 Ur Specific [place] 1.011 Urine Protein 100 H Urine Glucose (UA) 50 H Urine Ketones NEGATIVE Urine Blood SMALL H Urine Nitrite NEGATIVE Ur Leukocyte Esterase TRACE H Urine WBC (Auto) 15 Urine RBC (Auto) 12 03/17/19 06:54 Troponin I 0.018 Impressions: Head CT 03/17/19 07:08 IMPRESSION: CHRONIC CHANGES OF ATROPHY AND MICROVASCULAR ISCHEMIA. NO ACUTE PROCESS. EVIDENCE OF ACUTE STROKE: NO. Abdomen/Pelvis CT 03/17/19 08:51 IMPRESSION: 1. Suspected sigmoid volvulus. 2. Small amount of ascites. No free air. 3. Adrenal nodules. Chest CT 03/17/19 08:52 IMPRESSION: 1. Collapse of the right lower lobe and most of the middle lobe. 2. Diffuse thickening of the esophagus. KUB X-Ray 03/29/19 14:09 IMPRESSION: Nasogastric tube in the stomach. Modified Barium Swallow 04/02/19 00:00 IMPRESSION: TRACE LARYNGEAL PENETRATION TO LEVEL OF THE CORDS. PLEASE SEE SPEECH PATHOLOGIST REPORT FOR OTHER FINDINGS AND RECOMMENDATIONS. Chest X-Ray 04/03/19 07:00 IMPRESSION: Persistent right middle lobe and lower lobe collapse/consolidation Assessment & Plan - Diagnosis (1) Dehiscence of closure of fascia, superficial or muscular Is this a current diagnosis for this admission?: Yes (2) Cecal volvulus Is this a current diagnosis for this admission?: Yes - Time Time Spent with patient: 15-24 minutes - Plan Summary Plan Summary: Postop day #18 following right hemicolectomy for cecal volvulus Postop day #7 following debridement of abdominal wall fascia for dehiscence and placement of Vicryl mesh Well healing and granulating open abdominal wound with Vicryl mesh placed directly on bowel Wound VAC applied to the abdominal wound, changed yesterday Plan: Wound VAC next replacement on Tuesday this week
[2019-04-04] MEDS: DIAZEPAM 5 MG TABLET PO PRN (13:17)
[2019-04-04] MEDS: HYDROCODONE/ACETAMINOPHEN 10-325 MG TABLET PO PRN (16:08)
[2019-04-04] MEDS: AMITRIPTYLINE HCL 50 MG TABLET PO SCH (21:38)
[2019-04-04] MEDS: IPRATROPIUM/ALBUTEROL 0.5-2.5 MG/3 ML AMPUL NEB PRN (23:59)
[2019-04-05] MEDS: DIAZEPAM 5 MG TABLET PO PRN ×4 (02:12→23:15)
[2019-04-05] MEDS: BUSPIRONE HCL 10 MG TABLET PO SCH ×3 (05:44→21:15)
[2019-04-05] MEDS: PHARMACY COMMUNICATION ORDER MC SCH ×2 (05:54→21:17)
[2019-04-05 05:57] LABS: ANION GAP 11 (5-19); BLOOD UREA NITROGEN 13 mg/dL (7-20); CALCIUM 8.8 mg/dL (8.4-10.2); CARBON DIOXIDE 29 mmol/L (22-30); CHLORIDE 95 mmol/L (98-107); GLUCOSE 123 mg/dL (75-110); POTASSIUM 4.6 mmol/L (3.6-5.0)
[2019-04-05] MEDS: FUROSEMIDE INJ/PF 20 MG/2 ML SDV IV SCH ×2 (09:27→21:16)
[2019-04-05] MEDS: HYDROCODONE/ACETAMINOPHEN 10-325 MG TABLET PO PRN ×2 (09:28→21:15)
[2019-04-05] MEDS: DILTIAZEM HCL 180 MG CAPSULE.CR PO SCH (09:28)
[2019-04-05] MEDS: VENLAFAXINE HCL 75 MG CAP.SR.24H PO SCH ×2 (09:28→21:16)
[2019-04-05] MEDS: OXYBUTYNIN CHLORIDE SYRUP 1 MG/1 ML 60 ML PO SCH ×2 (09:31→18:18)
[2019-04-05] MEDS: VITAMINS A AND D OINTMENT 56.7 GM TOP SCH ×3 (09:31→18:19)
[2019-04-05] MEDS: VANCOMYCIN HCL 750 MG in DEXTROSE 5%-WATER 250 ML IV SCH ×2 (10:43→23:16)
[2019-04-05 10:51] LABS: APPEARANCE,URINE SLIGHTLY-CLOUDY; BILIRUBIN,URINE NEGATIVE (NEGATIVE); COLOR,URINE STRAW; GLUCOSE, URINE NEGATIVE (NEGATIVE); KETONES,URINE NEGATIVE (NEGATIVE); LEUKOCYTE ESTERASE,URINE SMALL (NEGATIVE); NITRITE,URINE NEGATIVE (NEGATIVE); PROTEIN,URINE NEGATIVE (NEGATIVE); URINE SPECIFIC GRAVITY 1.005; UROBILINOGEN,URINE NEGATIVE mg/dL (<2.0)
--- NOTE | 2019-04-05 11:59 | PDOC PROGRESS REPORT ---
Subjective Progress Note for:: 04/05/19 Subjective:: Overall patient improved; is tolerating foods when fed. Reason For Visit: ASPIRATION, ACUTE RESPIRATORY FAILURE, UTI, MS Physical Exam Vital Signs: Temp Pulse Resp BP Pulse Ox 98.4 F 107 H 18 127/60 H 99 04/05/19 08:37 04/05/19 08:37 04/05/19 08:37 04/05/19 08:37 04/05/19 08:37 Intake & Output 04/04/19 04/05/19 04/06/19 06:59 06:59 06:59 Intake Total 1731 2027 Output Total 2840 1500 Balance -1109 527 Weight 88 kg 92 kg General appearance: PRESENT: no acute distress, other - Answers questions approp riately GI/Abdominal exam: PRESENT: other - Abdomen exposed. VAC in position; ostomy with gas and fluid. Results Laboratory Results: 04/04/19 05:17 04/05/19 04:59 04/05/19 04/05/19 04:59 10:18 Sodium 134.9 L Potassium 4.6 Chloride 95 L Carbon Dioxide 29 Anion Gap 11 BUN 13 Creatinine 0.58 Est GFR ( Amer) > 60 Glucose 123 H Calcium 8.8 Magnesium 1.9 Urine Color STRAW Urine Appearance SLIGHTLY-CLOUDY Urine pH 7.0 Ur Specific [place] 1.005 Urine Protein NEGATIVE Urine Glucose (UA) NEGATIVE Urine Ketones NEGATIVE Urine Blood NEGATIVE Urine Nitrite NEGATIVE Ur Leukocyte Esterase SMALL H Urine WBC (Auto) 12 Urine RBC (Auto) 4 03/17/19 06:54 Troponin I 0.018 Impressions: Head CT 03/17/19 07:08 IMPRESSION: CHRONIC CHANGES OF ATROPHY AND MICROVASCULAR ISCHEMIA. NO ACUTE PROCESS. EVIDENCE OF ACUTE STROKE: NO. Abdomen/Pelvis CT 03/17/19 08:51 IMPRESSION: 1. Suspected sigmoid volvulus. 2. Small amount of ascites. No free air. 3. Adrenal nodules. Chest CT 03/17/19 08:52 IMPRESSION: 1. Collapse of the right lower lobe and most of the middle lobe. 2. Diffuse thickening of the esophagus. KUB X-Ray 03/29/19 14:09 IMPRESSION: Nasogastric tube in the stomach. Modified Barium Swallow 04/02/19 00:00 IMPRESSION: TRACE LARYNGEAL PENETRATION TO LEVEL OF THE CORDS. PLEASE SEE SPEECH PATHOLOGIST REPORT FOR OTHER FINDINGS AND RECOMMENDATIONS. Chest X-Ray 04/03/19 07:00 IMPRESSION: Persistent right middle lobe and lower lobe collapse/consolidation Assessment & Plan - Diagnosis (1) Cecal volvulus Is this a current diagnosis for this admission?: Yes Plan: Impression: Patient 17 days status post right colectomy, diverting ileostomy, doing better, with wound closing slowly by secondary intention, now taking p.o. solid food Recommendations: 1. We will change wound VAC sponge today 2. We will hold off on long-term IV access at this time - Time Time Spent with patient: Less than 15 minutes Medications reviewed and adjusted accordingly: Yes
--- NOTE | 2019-04-05 12:07 | PDOC PROGRESS REPORT ---
Subjective Progress Note for:: 04/05/19 Reason For Visit: ASPIRATION, ACUTE RESPIRATORY FAILURE, UTI, MS 04/05/2019 Aspiration, acute respiratory failure, altered mental status Physical Exam Vital Signs: Temp Pulse Resp BP Pulse Ox 98.4 F 107 H 18 127/60 H 99 04/05/19 08:37 04/05/19 08:37 04/05/19 08:37 04/05/19 08:37 04/05/19 08:37 Intake & Output 04/04/19 04/05/19 04/06/19 06:59 06:59 06:59 Intake Total 1731 7 Output Total 2840 1500 Balance -1109 527 Weight 88 kg 92 kg General appearance: PRESENT: no acute distress, other - Patient appears very comfortable Respiratory exam: PRESENT: clear to auscultation jessica. ABSENT: rales, rhonchi, wheezes Cardiovascular exam: PRESENT: RRR. ABSENT: diastolic murmur, rubs, systolic mu rmur Neurological exam: PRESENT: altered Psychiatric exam: PRESENT: appropriate affect, normal mood. ABSENT: homicidal ideation, suicidal ideation Results Laboratory Results: 04/04/19 05:17 04/05/19 04:59 04/05/19 04/05/19 04:59 10:18 Sodium 134.9 L Potassium 4.6 Chloride 95 L Carbon Dioxide 29 Anion Gap 11 BUN 13 Creatinine 0.58 Est GFR ( Amer) > 60 Glucose 123 H Calcium 8.8 Magnesium 1.9 Urine Color STRAW Urine Appearance SLIGHTLY-CLOUDY Urine pH 7.0 Ur Specific [place] 1.005 Urine Protein NEGATIVE Urine Glucose (UA) NEGATIVE Urine Ketones NEGATIVE Urine Blood NEGATIVE Urine Nitrite NEGATIVE Ur Leukocyte Esterase SMALL H Urine WBC (Auto) 12 Urine RBC (Auto) 4 03/17/19 06:54 Troponin I 0.018 Impressions: Head CT 03/17/19 07:08 IMPRESSION: CHRONIC CHANGES OF ATROPHY AND MICROVASCULAR ISCHEMIA. NO ACUTE PROCESS. EVIDENCE OF ACUTE STROKE: NO. Abdomen/Pelvis CT 03/17/19 08:51 IMPRESSION: 1. Suspected sigmoid volvulus. 2. Small amount of ascites. No free air. 3. Adrenal nodules. Chest CT 03/17/19 08:52 IMPRESSION: 1. Collapse of the right lower lobe and most of the middle lobe. 2. Diffuse thickening of the esophagus. KUB X-Ray 03/29/19 14:09 IMPRESSION: Nasogastric tube in the stomach. Modified Barium Swallow 04/02/19 00:00 IMPRESSION: TRACE LARYNGEAL PENETRATION TO LEVEL OF THE CORDS. PLEASE SEE SPEECH PATHOLOGIST REPORT FOR OTHER FINDINGS AND RECOMMENDATIONS. Chest X-Ray 04/03/19 07:00 IMPRESSION: Persistent right middle lobe and lower lobe collapse/consolidation Assessment and Plan - Diagnosis (1) Acute respiratory failure with hypoxia Is this a current diagnosis for this admission?: Yes (2) Cecal volvulus Is this a current diagnosis for this admission?: Yes (3) Functional quadriplegia secondary to multiple sclerosis Is this a current diagnosis for this admission?: Yes (4) Unresponsiveness Is this a current diagnosis for this admission?: Yes (5) Decubitus skin ulcer Qualifiers: Pressure injury location: lower back Pressure injury stage: stage 4 Late rality: left Qualified Code(s): L89.144 - Pressure ulcer of left lower back, stage 4 Is this a current diagnosis for this admission?: Yes (6) Septic shock due to urinary tract infection Is this a current diagnosis for this admission?: Yes (7) Postoperative wound dehiscence Is this a current diagnosis for this admission?: Yes - Plan Summary Summary: 04/03/2019 Patient was admitted to the hospital on 03/17/2019 and was put into the ICU due to her urosepsis, her debilitated condition secondary to multiple sclerosis, as well as a cecal volvulus. Patient had her abdominal hernia closed with Vicryl mesh Temperature 98.3, pulse 102, blood pressure 130/79, patient on 4 L nasal cannula with O2 sat of 100% On admission patient had an elevated lactic acid of 4.7 Patient's wound is growing out E. coli from her sacral decubitus. Patient currently on IV vancomycin through the Today her white count is normal 6.9 her BUN is 13 and a creatinine is 0.40 I believe her wound VAC has been changed today by general surgery. Plan is to continue IV antibiotics, review surgery's notes as to care, continue home meds 04/04/2019 Temperature 97.9, heart rate in the 80s or 90s, blood pressure 122/74, oxygen saturation between 94 and 100% on 4 L nasal cannula Labs appear stable Patient's wound VAC was changed out yesterday and next changes scheduled for 04/06. NG removed yesterday. Intake yesterday was 2590 output was 1900, that 1900 it looks like 1300 was urine. Patient is taking p.o.'s well as I assisted her with drinking liquids this morning I am going to ask discharge planning to see the patient tomorrow to review her situation. Patient will continue IV antibiotics from her wound culture growing E. coli. 04/05/2019 Vital signs are stable temperature 98.6 pulse between 94 and 100 blood pressure 123/60 O2 sat between 90 and 99% on 4 L nasal cannula. Uses oxygen at home. Labs appears stable. Surgery is following patient for postop wound dehiscence Patient continues her IV vancomycin Discharge planning to see patient today concerning potential discharge to home when surgery is ready to discharge patient - Time Time Spent with patient: 25-34 minutes
[2019-04-05] MEDS: IPRATROPIUM/ALBUTEROL 0.5-2.5 MG/3 ML AMPUL NEB PRN (17:20)
[2019-04-05] MEDS: BACLOFEN 20 MG TABLET PO PRN (18:18)
[2019-04-05] MEDS: AMITRIPTYLINE HCL 50 MG TABLET PO SCH (21:16)
[2019-04-05] MEDS ORDERED: VANCOMYCIN HCL INJ 500 MG VIAL ONE (23:13)
[2019-04-06] MEDS: BACLOFEN 20 MG TABLET PO PRN ×2 (00:21→22:06)
[2019-04-06] MEDS: BUSPIRONE HCL 10 MG TABLET PO SCH ×3 (06:00→22:05)
[2019-04-06 06:35] LABS: HEMATOCRIT 31.4 % (36.0-47.0); HEMOGLOBIN 10.4 g/dL (12.0-15.5); MEAN CORPUSCULAR HEMOGLOBIN 28.7 pg (27.0-33.4); MEAN CORPUSCULAR HGB CONC 33.1 g/dL (32.0-36.0); MEAN CORPUSCULAR VOLUME 87 fl (80-97); PLATELET COUNT 109 10^3/uL (150-450); RED BLOOD COUNT 3.62 10^6/uL (3.72-5.28); RED CELL DISTRIBUTION WIDTH 15.9 % (11.5-14.0)
[2019-04-06 07:09] LABS: ANION GAP 12 (5-19); BLOOD UREA NITROGEN 13 mg/dL (7-20); CALCIUM 8.4 mg/dL (8.4-10.2); CARBON DIOXIDE 25 mmol/L (22-30); CHLORIDE 97 mmol/L (98-107); GLUCOSE 115 mg/dL (75-110); POTASSIUM 4.1 mmol/L (3.6-5.0)
--- NOTE | 2019-04-06 10:15 | PDOC PROGRESS REPORT ---
Subjective Progress Note for:: 04/06/19 Subjective:: Patient is comfortable, tolerating p.o. well Reason For Visit: ASPIRATION, ACUTE RESPIRATORY FAILURE, UTI, MS Physical Exam Vital Signs: Temp Pulse Resp BP Pulse Ox 98.4 F 103 H 20 131/82 H 94 04/06/19 08:14 04/06/19 08:14 04/06/19 08:14 04/06/19 08:14 04/06/19 08:14 Intake & Output 04/05/19 04/06/19 04/07/19 06:59 06:59 06:59 Intake Total 2026 3019 Output Total 1500 2225 Balance 527 794 Weight 92 kg 87.1 kg GI/Abdominal exam: PRESENT: soft, other - Midline wound: Wound VAC, upon removal of the clarke sponge the underneath tissue is granulating Results Laboratory Results: 04/06/19 05:39 04/06/19 05:39 04/05/19 04/06/19 04/06/19 10:18 05:39 05:39 WBC 5.0 RBC 3.62 L Hgb 10.4 L Hct 31.4 L MCV 87 MCH 28.7 MCHC 33.1 RDW 15.9 H Plt Count 109 L Sodium 134.3 L Potassium 4.1 Chloride 97 L Carbon Dioxide 25 Anion Gap 12 BUN 13 Creatinine 0.51 L Est GFR ( Amer) > 60 Glucose 115 H Calcium 8.4 Magnesium 2.0 Urine Color STRAW Urine Appearance SLIGHTLY-CLOUDY Urine pH 7.0 Ur Specific [place] 1.005 Urine Protein NEGATIVE Urine Glucose (UA) NEGATIVE Urine Ketones NEGATIVE Urine Blood NEGATIVE Urine Nitrite NEGATIVE Ur Leukocyte Esterase SMALL H Urine WBC (Auto) 12 Urine RBC (Auto) 4 03/17/19 06:54 Troponin I 0.018 Impressions: Head CT 03/17/19 07:08 IMPRESSION: CHRONIC CHANGES OF ATROPHY AND MICROVASCULAR ISCHEMIA. NO ACUTE PROCESS. EVIDENCE OF ACUTE STROKE: NO. Abdomen/Pelvis CT 03/17/19 08:51 IMPRESSION: 1. Suspected sigmoid volvulus. 2. Small amount of ascites. No free air. 3. Adrenal nodules. Chest CT 03/17/19 08:52 IMPRESSION: 1. Collapse of the right lower lobe and most of the middle lobe. 2. Diffuse thickening of the esophagus. KUB X-Ray 03/29/19 14:09 IMPRESSION: Nasogastric tube in the stomach. Modified Barium Swallow 04/02/19 00:00 IMPRESSION: TRACE LARYNGEAL PENETRATION TO LEVEL OF THE CORDS. PLEASE SEE SPEECH PATHOLOGIST REPORT FOR OTHER FINDINGS AND RECOMMENDATIONS. Chest X-Ray 04/03/19 07:00 IMPRESSION: Persistent right middle lobe and lower lobe collapse/consolidation Assessment & Plan - Diagnosis (1) Dehiscence of closure of fascia, superficial or muscular Is this a current diagnosis for this admission?: Yes (2) Cecal volvulus Is this a current diagnosis for this admission?: Yes - Time Time Spent with patient: 25-34 minutes - Plan Summary Plan Summary: Postop day #20 following right hemicolectomy for cecal volvulus Postop day #9 following debridement of abdominal wall fascia for dehiscence and placement of Vicryl mesh Well healing and granulating open abdominal wound with Vicryl mesh placed directly on bowel Wound VAC applied to the abdominal wound, changed 2 days ago Plan: Wound VAC to be replaced today Patient can be discharged to home at any time by the general surgery viewpoint Wound VAC to be replaced twice a week such as Tuesday Follow-up with the surgery office Dr. Joel in 2 weeks I will sign off.
--- NOTE | 2019-04-06 10:20 | Operative Report ---
Nonrecallable Operative Report DATE OF SURGERY: 04/06/19 PREOPERATIVE DIAGNOSIS: Chronic abdominal wound, postsurgical POSTOPERATIVE DIAGNOSIS: Same OPERATION: Replacement of abdominal wound VAC SURGEON: JANE SALES ANESTHESIA: Other - None TISSUE REMOVED OR ALTERED: Not applicable COMPLICATIONS: None ESTIMATED BLOOD LOSS: Not applicable INTRAOPERATIVE FINDINGS: Granulating tissue below the Xeroform gauze and clarke sponge, with Vicryl mesh intact PROCEDURE: The procedure was done at bedside, the old wound VAC was moved from the area of interest together with a sponge, the skin around the wound was prepped with benzoin; once this was dry, a large piece of clarke sponge tailored to the size of the wound bed was placed on the wound bed followed by a large piece of of Tegaderm. This was applied to the wound sponge as well as to the skin surrounding the wound. An opening was made in the Tegaderm above the clarke sponge and the vacuum cup was attached to it and connected to suction. Good negative suction was obtained with negative pressure -125 mmHg. The patient tolerated procedure well.
[2019-04-06] MEDS: DILTIAZEM HCL 180 MG CAPSULE.CR PO SCH (10:43)
[2019-04-06] MEDS: FUROSEMIDE INJ/PF 20 MG/2 ML SDV IV SCH ×2 (10:44→22:05)
[2019-04-06] MEDS: VENLAFAXINE HCL 75 MG CAP.SR.24H PO SCH ×2 (10:44→22:05)
[2019-04-06] MEDS: VANCOMYCIN HCL 750 MG in DEXTROSE 5%-WATER 250 ML IV SCH (10:44)
[2019-04-06] MEDS: VITAMINS A AND D OINTMENT 56.7 GM TOP SCH ×3 (10:48→17:45)
[2019-04-06] MEDS: OXYBUTYNIN CHLORIDE SYRUP 1 MG/1 ML 60 ML PO SCH ×2 (10:52→17:39)
[2019-04-06] MEDS: DIAZEPAM 5 MG TABLET PO PRN ×2 (14:41→20:55)
--- NOTE | 2019-04-06 17:10 | PDOC PROGRESS REPORT ---
Subjective Progress Note for:: 04/06/19 Reason For Visit: ASPIRATION, ACUTE RESPIRATORY FAILURE, UTI, MS 04/06/2019 Aspiration acute respiratory failure altered mental status Physical Exam Vital Signs: Temp Pulse Resp BP Pulse Ox 98.4 F 110 H 18 134/67 H 93 04/06/19 16:21 04/06/19 16:21 04/06/19 16:21 04/06/19 16:21 04/06/19 16:21 Intake & Output 04/05/19 04/06/19 04/07/19 06:59 06:59 06:59 Intake Total 2026 3019 830 Output Total 1500 2225 1000 Balance 527 794 -170 Weight 92 kg 87.1 kg General appearance: PRESENT: no acute distress Respiratory exam: PRESENT: clear to auscultation jessica. ABSENT: rales, rhonchi, wheezes Cardiovascular exam: PRESENT: RRR. ABSENT: diastolic murmur, rubs, systolic murmur Neurological exam: PRESENT: other - Quadriplegic secondary to multiple sclerosis Psychiatric exam: PRESENT: appropriate affect, normal mood. ABSENT: homicidal ideation, suicidal ideation Results Laboratory Results: 04/06/19 05:39 04/06/19 05:39 04/06/19 04/06/19 05:39 05:39 WBC 5.0 RBC 3.62 L Hgb 10.4 L Hct 31.4 L MCV 87 MCH 28.7 MCHC 33.1 RDW 15.9 H Plt Count 109 L Sodium 134.3 L Potassium 4.1 Chloride 97 L Carbon Dioxide 25 Anion Gap 12 BUN 13 Creatinine 0.51 L Est GFR ( Amer) > 60 Glucose 115 H Calcium 8.4 Magnesium 2.0 03/17/19 06:54 Troponin I 0.018 Impressions: Head CT 03/17/19 07:08 IMPRESSION: CHRONIC CHANGES OF ATROPHY AND MICROVASCULAR ISCHEMIA. NO ACUTE PROCESS. EVIDENCE OF ACUTE STROKE: NO. Abdomen/Pelvis CT 03/17/19 08:51 IMPRESSION: 1. Suspected sigmoid volvulus. 2. Small amount of ascites. No free air. 3. Adrenal nodules. Chest CT 03/17/19 08:52 IMPRESSION: 1. Collapse of the right lower lobe and most of the middle lobe. 2. Diffuse thickening of the esophagus. KUB X-Ray 03/29/19 14:09 IMPRESSION: Nasogastric tube in the stomach. Modified Barium Swallow 04/02/19 00:00 IMPRESSION: TRACE LARYNGEAL PENETRATION TO LEVEL OF THE CORDS. PLEASE SEE SPEECH PATHOLOGIST REPORT FOR OTHER FINDINGS AND RECOMMENDATIONS. Chest X-Ray 04/03/19 07:00 IMPRESSION: Persistent right middle lobe and lower lobe collapse/consolidation Assessment and Plan - Diagnosis (1) Acute respiratory failure with hypoxia Is this a current diagnosis for this admission?: Yes (2) Cecal volvulus Is this a current diagnosis for this admission?: Yes (3) Functional quadriplegia secondary to multiple sclerosis Is this a current diagnosis for this admission?: Yes (4) Unresponsiveness Is this a current diagnosis for this admission?: Yes (5) Decubitus skin ulcer Qualifiers: Pressure injury location: lower back Pressure injury stage: stage 4 Laterality: left Qualified Code(s): L89.144 - Pressure ulcer of left lower back, stage 4 Is this a current diagnosis for this admission?: Yes (6) Septic shock due to urinary tract infection Is this a current diagnosis for this admission?: Yes (7) Postoperative wound dehiscence Is this a current diagnosis for this admission?: Yes - Plan Summary Summary: 04/03/2019 Patient was admitted to the hospital on 03/17/2019 and was put into the ICU due to her urosepsis, her debilitated condition secondary to multiple sclerosis, as well as a cecal volvulus. Patient had her abdominal hernia closed with Vicryl mesh Temperature 98.3, pulse 102, blood pressure 130/79, patient on 4 L nasal cannula with O2 sat of 100% On admission patient had an elevated lactic acid of 4.7 Patient's wound is growing out E. coli from her sacral decubitus. Patient currently on IV vancomycin through the Today her white count is normal 6.9 her BUN is 13 and a creatinine is 0.40 I believe her wound VAC has been changed today by general surgery. Plan is to continue IV antibiotics, review surgery's notes as to care, continue home meds 04/04/2019 Temperature 97.9, heart rate in the 80s or 90s, blood pressure 122/74, oxygen saturation between 94 and 100% on 4 L nasal cannula Labs appear stable Patient's wound VAC was changed out yesterday and next changes scheduled for 04/06. NG removed yesterday. Intake yesterday was 2590 output was 1900, that 1900 it looks like 1300 was urine. Patient is taking p.o.'s well as I assisted her with drinking liquids this morning I am going to ask discharge planning to see the patient tomorrow to review her situation. Patient will continue IV antibiotics from her wound culture growing E. coli. 04/05/2019 Vital signs are stable temperature 98.6 pulse between 94 and 100 blood pressure 123/60 O2 sat between 90 and 99% on 4 L nasal cannula. Uses oxygen at home. Labs appears stable. Surgery is following patient for postop wound dehiscence Patient continues her IV vancomycin Discharge planning to see patient today concerning potential discharge to home when surgery is ready to discharge patient 04/06/2019 Patient appears medically stable and has been cleared for discharge by general surgery Planning is talking to the patient concerning where she is going to go home and discharge Plan to switch her over to p.o.'s time of discharge she does not need it from her wound according to general surgery. Temp 97 6 pulse 100, blood pressure 113/68 97% O2 sat on 4 L nasal cannula According to surgery she will need wound changes twice weekly - Time Time Spent with patient: 35 or more minutes
[2019-04-06] MEDS: HYDROCODONE/ACETAMINOPHEN 10-325 MG TABLET PO PRN (20:55)
[2019-04-06] MEDS: AMITRIPTYLINE HCL 50 MG TABLET PO SCH (22:05)
[2019-04-07] MEDS: PHARMACY COMMUNICATION ORDER MC SCH (00:33)
[2019-04-07] MEDS: DIAZEPAM 5 MG TABLET PO PRN ×2 (04:18→12:47)
[2019-04-07] MEDS: BACLOFEN 20 MG TABLET PO PRN (04:18)
[2019-04-07 04:40] LABS: APPEARANCE,URINE CLEAR; BILIRUBIN,URINE NEGATIVE (NEGATIVE); COLOR,URINE YELLOW; GLUCOSE, URINE NEGATIVE (NEGATIVE); KETONES,URINE NEGATIVE (NEGATIVE); LEUKOCYTE ESTERASE,URINE SMALL (NEGATIVE); NITRITE,URINE NEGATIVE (NEGATIVE); PROTEIN,URINE 100 mg/dL (NEGATIVE); URINE SPECIFIC GRAVITY 1.008; UROBILINOGEN,URINE NEGATIVE mg/dL (<2.0)
[2019-04-07] MEDS: BUSPIRONE HCL 10 MG TABLET PO SCH (05:13)
[2019-04-07 07:44] LABS: ANION GAP 12 (5-19); BLOOD UREA NITROGEN 13 mg/dL (7-20); CALCIUM 9.2 mg/dL (8.4-10.2); CARBON DIOXIDE 27 mmol/L (22-30); CHLORIDE 96 mmol/L (98-107); GLUCOSE 122 mg/dL (75-110); POTASSIUM 5.3 mmol/L (3.6-5.0)
[2019-04-07] MEDS: DILTIAZEM HCL 180 MG CAPSULE.CR PO SCH (09:27)
[2019-04-07] MEDS: FUROSEMIDE INJ/PF 20 MG/2 ML SDV IV SCH (09:28)
[2019-04-07] MEDS: OXYBUTYNIN CHLORIDE SYRUP 1 MG/1 ML 60 ML PO SCH (09:29)
[2019-04-07] MEDS: VENLAFAXINE HCL 75 MG CAP.SR.24H PO SCH (09:30)
[2019-04-07] MEDS: VITAMINS A AND D OINTMENT 56.7 GM TOP SCH (09:31)
--- NOTE | 2019-04-07 09:59 | Progress Note ---
Provider Note Provider Note: [facility] Telephone Advice Consultation Chart reviewed. Patient is a 58-year-old woman very complicated hospital stay due to multiple comorbidities which include Multiple Sclerosis for which she is quadriplegic and developed a sacral decubitus ulcer with wound vac currently. She also had achalasia and hypertension. Due to her underlying achalasia, she aspirated the night before admission. She was admitted due to unresponsiveness and found with elevated lactic acid, RLL and RML pneumonia. CT of abdomen and pelvis demonstrated sigmoid volvulus. She required mechanical ventilation for airway protection. She was evaluated by surgery and was taken to the OR. She had hemicolectomy with ileostomy on 03/17. On 03/23 she was found with abdominal wound dehiscence. Wound culture positive for Enterococcus faecalis and E coli. Blood culture of 03/17 was positive for Clostridium spp. For her abdominal surgical site infection she had a wound vac placed. On 03/26 she required reintubation. She is now extubated, tolerating po intake and clinically stable. She has been on vancomycin and meropenem. ID consulted for recommendations. PMH: Multiple Sclerosis Hypertension Achalasia Sacral Ulcer Medications: Baclofen [Baclofen 20 mg Tablet] 20 mg PO Q6HP PRN 11/02/17 Buspirone HCl [Buspar 15 mg Tablet] 15 mg PO Q8 11/02/17 Dextroamphetamine/Amphetamine [Adderall 20 mg Tablet] 20 mg PO BID 11/02/17 Diazepam [Valium] 10 mg PO Q6HP PRN 11/02/17 Diltiazem HCl [Diltiazem 24Hr ER (LA)] 180 mg PO DAILY 11/02/17 Dimethyl Fumarate [Tecfidera] 240 mg PO Q12 11/02/17 Donepezil HCl [Aricept 5 mg Tablet] 5 mg PO QHS 11/02/17 Estrogen,Con/M-Progest Acet [Prempro 0.625-2.5 mg Tablet] 1 tab PO DAILY 11/02/17 Furosemide [Lasix 20 mg Tablet] 20 mg PO BID 11/02/17 Hydrocodone Bit/Acetaminophen [Hydrocodon-Acetaminophn 10-325] 1 tab PO Q12HP PRN 11/02/17 Naproxen [Naprosyn] 500 mg PO Q12HP PRN 11/02/17 Nystatin [Mycostatin Cream 15 gm] 1 applic TOP BID 11/02/17 Oxybutynin Chloride [Oxybutynin Chloride ER] 10 mg PO BID 11/02/17 Potassium Chloride [Klor-Con 10] 20 meq PO DAILY 11/02/17 Promethazine HCl [Phenergan 25 mg Tablet] 25 mg PO Q12HP PRN 11/02/17 Tapentadol HCl [Nucynta ER] 200 mg PO Q12 11/02/17 Venlafaxine HCl [Venlafaxine HCl ER] 150 mg PO Q12 11/02/17 Amitriptyline HCl [Elavil 50 Mg Tablet] 50 mg PO QHS 03/17/19 Lidocaine [Lidoderm 5% (700 mg) Transdermal Patch] 1 patch TOP DAILY 03/17/19 Pantoprazole Sodium 40 mg PO DAILY 03/17/19 Allergies: aspirin Allergy (Unknown, Verified 11/10/17 07:47) Penicillins Allergy (Verified 03/20/19 09:09) trazodone [Trazodone] Allergy (Verified 11/02/17 15:40) Vital Signs: Temp Pulse Resp BP Pulse Ox 98.2 F 108 H 16 124/73 96 04/07/19 08:11 04/07/19 08:11 04/07/19 08:11 04/07/19 08:11 04/07/19 08:11 Intake & Output 04/06/19 04/07/19 04/08/19 06:59 06:59 06:59 Intake Total 3019 2341 Output Total 2220 3075 Balance 794 -734 Weight 87.1 kg 87.8 kg Weight/Height Weight 87.8 kg Height 5 ft 5 in Laboratories: 04/06/19 05:39 04/07/19 06:36 MCV 87 fl (80-97) 04/06/19 05:39 MCH 28.7 pg (27.0-33.4) 04/06/19 05:39 MCHC 33.1 g/dL (32.0-36.0) 04/06/19 05:39 RDW 15.9 % (11.5-14.0) H 04/06/19 05:39 Seg Neutrophils % 72.6 % (42-78) 04/01/19 07:34 Carbonic Acid 1.14 mmol/L (1.05-1.35) 03/29/19 05:20 HCO3/H2CO3 Ratio 20:1 03/29/19 05:20 ABG pH 7.41 (7.35-7.45) 03/29/19 05:20 ABG pCO2 37.8 mmHg (35-45) 03/29/19 05:20 ABG pO2 106.9 mmHg (80-100) H 03/29/19 05:20 ABG HCO3 23.2 mmol/L (20-24) 03/29/19 05:20 ABG O2 Saturation 97.9 % (94-98) 03/29/19 05:20 ABG Base Excess -1.2 mmol/L 03/29/19 05:20 VBG pH 7.42 (7.30-7.42) 03/17/19 06:54 VBG pCO2 31.6 mmHg (35-63) L 03/17/19 06:54 VBG HCO3 20.2 mmol/L (20-32) 03/17/19 06:54 VBG Base Excess -3.2 mmol/L 03/17/19 06:54 FiO2 40% 03/29/19 05:20 Chloride 96 mmol/L (98-107) L 04/07/19 06:36 Carbon Dioxide 27 mmol/L (22-30) 04/07/19 06:36 Anion Gap 12 (-19) 04/07/19 06:36 Est GFR ( Amer) > 60 (>60) 04/07/19 06:36 Est GFR (Non-Af Amer) Cancelled 03/28/19 05:00 Glucose 122 mg/dL (75-110) H 04/07/19 06:36 Lactic Acid 4.7 mmol/L (0.7-2.1) H 03/17/19 12:58 Calcium 9.2 mg/dL (8.4-10.2) 04/07/19 06:36 Ionized Calcium Rashid 1.08 mmol/L (1.14-1.30) L 03/19/19 20:15 Phosphorus 3.5 mg/dL (2.5-4.5) 04/01/19 07:34 Magnesium 2.1 mg/dL (1.6-2.3) 04/07/19 06:36 Total Bilirubin 0.3 mg/dL (0.2-1.3) 03/26/19 15:38 AST 24 U/L (14-36) 03/26/19 15:38 Alkaline Phosphatase 60 U/L (38-126) 03/26/19 15:38 Ammonia < 8.7 umol/L (9-33) L 03/29/19 05:20 Total Protein 4.8 g/dL (6.3-8.2) L 03/26/19 15:38 Albumin 2.4 g/dL (3.5-5.0) L 03/26/19 15:38 Triglycerides 236 mg/dL (<150) H 03/29/19 05:20 Urine Color YELLOW 04/07/19 04:30 Urine Appearance CLEAR 04/07/19 04:30 Urine pH 6.0 (5.0-9.0) 04/07/19 04:30 Ur Specific [place] 1.008 04/07/19 04:30 Urine Protein 100 mg/dL (NEGATIVE) H 04/07/19 04:30 Urine Glucose (UA) NEGATIVE mg/dL (NEGATIVE) 04/07/19 04:30 Urine Ketones NEGATIVE mg/dL (NEGATIVE) 04/07/19 04:30 Urine Blood NEGATIVE (NEGATIVE) 04/07/19 04:30 Urine Nitrite NEGATIVE (NEGATIVE) 04/07/19 04:30 Ur Leukocyte Esterase SMALL (NEGATIVE) H 04/07/19 04:30 Urine WBC (Auto) 3 /HPF 04/07/19 04:30 Urine RBC (Auto) 0 /HPF 04/07/19 04:30 Fluid Type BRONCHIAL WASH 03/26/19 16:00 Fluid Source LUNG 03/26/19 16:00 Fluid Color 03/26/19 16:00 Fluid Appearance CLOUDY 03/26/19 16:00 Fluid Viscosity HIGHLY VISCOUS 03/26/19 16:00 Fluid WBC 583 /uL 03/26/19 16:00 Fluid RBC 244 /uL 03/26/19 16:00 Blood Type O POSITIVE 03/17/19 19:15 Antibody Screen NEGATIVE 03/17/19 19:15 03/17/19 06:54 Troponin I 0.018 Microbiology: Blood Culture 03/17 Clostridium spp 03/21 Negative Wound Culture 03/23 E coli, Enterococcus faecalis Radiology: Head CT 03/17/19 07:08 IMPRESSION: CHRONIC CHANGES OF ATROPHY AND MICROVASCULAR ISCHEMIA. NO ACUTE PROCESS. EVIDENCE OF ACUTE STROKE: NO. Abdomen/Pelvis CT 03/17/19 08:51 IMPRESSION: 1. Suspected sigmoid volvulus. 2. Small amount of ascites. No free air. 3. Adrenal nodules. Chest CT 03/17/19 08:52 IMPRESSION: 1. Collapse of the right lower lobe and most of the middle lobe. 2. Diffuse thickening of the esophagus. KUB X-Ray 03/29/19 14:09 IMPRESSION: Nasogastric tube in the stomach. Modified Barium Swallow 04/02/19 00:00 IMPRESSION: TRACE LARYNGEAL PENETRATION TO LEVEL OF THE CORDS. PLEASE SEE [facility] PATHOLOGIST REPORT FOR OTHER FINDINGS AND RECOMMENDATIONS. Chest X-Ray 04/03/19 07:00 IMPRESSION: Persistent right middle lobe and lower lobe collapse/consolidation Assessment and Recommendations: Patient evaluated due to Enterococcus faecalis and E coli surgical site infection and Clostridium bacteremia. Very complicated hospital course considering her underlying MS. She seems to be doing well now, stable. She has received 3 weeks of antibiotics. She completed therapy for Clostridium bacteremia. For surgical site infection she seems to have had adequate source control and 2 weeks of antibiotics after wound vac was placed. I don't see a clear indication to continue antibiotics at this point. She has been managed adequately and should continue local wound care. No evidence of active infection at this time, wound looks good per notes, with granulation tissue and no signs of infection. No benefit on continuing antibiotics, it can increase the risk of complications as C diff infection, developing MDROs, etc. Please ca ll if any questions. Lory Butcher MD [facility] [phone]
[2019-04-07 11:22] VITALS: BP 135/80
--- NOTE | 2019-04-07 15:57 | PDOC DISCHARGE SUMMARY ---
Impression - Admit/DC Date/PCP Admission Date/Primary Care Provider: 03/17/19 09:29 COBY KNOX Discharge Date: 04/07/19 - Discharge Diagnosis (1) Acute respiratory failure with hypoxia Is this a current diagnosis for this admission?: Yes (2) Cecal volvulus Is this a current diagnosis for this admission?: Yes (3) Functional quadriplegia secondary to multiple sclerosis Is this a current diagnosis for this admission?: Yes (4) Unresponsiveness Is this a current diagnosis for this admission?: Yes (5) Decubitus skin ulcer Is this a current diagnosis for this admission?: Yes (6) Septic shock due to urinary tract infection Is this a current diagnosis for this admission?: Yes (7) Postoperative wound dehiscence Is this a current diagnosis for this admission?: Yes (8) Multiple sclerosis Is this a current diagnosis for this admission?: Yes - Assessment Summary: 04/03/2019 Patient was admitted to the hospital on 03/17/2019 and was put into the ICU due to her urosepsis, her debilitated condition secondary to multiple sclerosis, as well as a cecal volvulus. Patient had her abdominal hernia closed with Vicryl mesh Temperature 98.3, pulse 102, blood pressure 130/79, patient on 4 L nasal cannula with O2 sat of 100% On admission patient had an elevated lactic acid of 4.7 Patient's wound is growing out E. coli from her sacral decubitus. Patient currently on IV vancomycin through the Today her white count is normal 6.9 her BUN is 13 and a creatinine is 0.40 I believe her wound VAC has been changed today by general surgery. Plan is to continue IV antibiotics, review surgery's notes as to care, continue home meds 04/04/2019 Temperature 97.9, heart rate in the 80s or 90s, blood pressure 122/74, oxygen saturation between 94 and 100% on 4 L nasal cannula Labs appear stable Patient's wound VAC was changed out yesterday and next changes scheduled for . NG removed yesterday. Intake yesterday was 2590 output was 1900, that 1900 it looks like 1300 was urine. Patient is taking p.o.'s well as I assisted her with drinking liquids this morning I am going to ask discharge planning to see the patient tomorrow to review her situation. Patient will continue IV antibiotics from her wound culture growing E. coli. 04/05/2019 Vital signs are stable temperature 98.6 pulse between 94 and 100 blood pressure 123/60 O2 sat between 90 and 99% on 4 L nasal cannula. Uses oxygen at home. Labs appears stable. Surgery is following patient for postop wound dehiscence Patient continues her IV vancomycin Discharge planning to see patient today concerning potential discharge to home when surgery is ready to discharge patient 04/06/2019 Patient appears medically stable and has been cleared for discharge by general surgery Planning is talking to the patient concerning where she is going to go home and discharge Plan to switch her over to p.o.'s time of discharge she does not need it from her wound according to general surgery. Temp 97 6 pulse 100, blood pressure 113/68 97% O2 sat on 4 L nasal cannula According to surgery she will need wound changes twice weekly 04/07/2019 Patient was cleared from general surgery to be discharged home, they have been doing daily wound care assessment, to her abdominal wound dehiscence. Dressing changes as well as changing the wound VAC every other day. They did not feel like she needed any further IV antibiotics, and in fact infectious disease has also seen the patient they and recommended no further antibiotics. At patient's request I have written a prescription for a wound VAC because patient actually uses one on her sacrum and will also use one on her abdomen. Have also written a prescription for ostomy bags. And I wrote for 3-day supply of [place] 01/11/2025 for her chronic pain. This will get her home and give her time to see her pain management physician. She is to follow-up with Dr. Joel in the surgery clinic in 2 weeks. She is to change her wound VAC twice a week on a schedule such as either Tuesday and or Tuesday and Tuesday. She appears to be back to her baseline, concerning her multiple sclerosis. She is eating well, drinking well and has no complaints. - Additional Information Resuscitation Status: Full Code Discharge Diet: As Tolerated Discharge Activity: Activity As Tolerated Referrals: BALAJI MCKEON FNP [Primary Care Provider] - Follow up as needed Prescriptions: Oxybutynin Chloride [Ditropan Syrup 1 mg/1 ml 60 ml] 10 mg PO BID 30 Days #600 ml Hydrocodone/Acetaminophen [[place] 10-325 mg Tablet] 1 tab PO Q12HP PRN 3 Days #6 tablet PRN Reason: Home Medications: Baclofen [Baclofen 20 mg Tablet] 20 mg PO Q6HP PRN 11/02/17 Buspirone HCl [Buspar 15 mg Tablet] 15 mg PO Q8 11/02/17 Dextroamphetamine/Amphetamine [Adderall 20 mg Tablet] 20 mg PO BID 11/02/17 Diazepam [Valium] 10 mg PO Q6HP PRN 11/02/17 Diltiazem HCl [Diltiazem 24Hr ER (LA)] 180 mg PO DAILY 11/02/17 Dimethyl Fumarate [Tecfidera] 240 mg PO Q12 11/02/17 Donepezil HCl [Aricept 5 mg Tablet] 5 mg PO QHS 11/02/17 Estrogen,Con/M-Progest Acet [Prempro 0.625-2.5 mg Tablet] 1 tab PO DAILY 11/02/17 Furosemide [Lasix 20 mg Tablet] 20 mg PO BID 11/02/17 Naproxen [Naprosyn] 500 mg PO Q12HP PRN 11/02/17 Nystatin [Mycostatin Cream 15 gm] 1 applic TOP BID 11/02/17 Oxybutynin Chloride [Oxybutynin Chloride ER] 10 mg PO BID 11/02/17 Potassium Chloride [Klor-Con 10] 20 meq PO DAILY 11/02/17 Promethazine HCl [Phenergan 25 mg Tablet] 25 mg PO Q12HP PRN 11/02/17 Tapentadol HCl [Nucynta ER] 200 mg PO Q12 11/02/17 Venlafaxine HCl [Venlafaxine HCl ER] 150 mg PO Q12 11/02/17 Amitriptyline HCl [Elavil 50 mg Tablet] 50 mg PO QHS 03/17/19 Lidocaine [Lidoderm 5% (700 mg) Transdermal Patch] 1 patch TOP DAILY 03/17/19 Pantoprazole Sodium 40 mg PO DAILY 03/17/19 Hydrocodone/Acetaminophen [[place] 10-325 mg Tablet] 1 tab PO Q12HP PRN 3 Days #6 tablet 04/07/19 Oxybutynin Chloride [Ditropan Syrup 1 mg/1 ml 60 ml] 10 mg PO BID 30 Days #600 ml 04/07/19 Vitamins A and D [Vitamin A & D Ointment 56.7 gm] 1 applic TOP TID tube 04/07/19 History of Present Illiness History of Present Illness: ABDI VEGA is a 58 year old female Physical Exam Vital Signs: Temp Pulse Resp BP Pulse Ox 98.2 F 108 H 16 135/80 H 96 04/07/19 11:13 04/07/19 11:13 04/07/19 11:13 04/07/19 11:13 04/07/19 11:13 Intake & Output 04/06/19 04/07/19 04/08/19 06:59 06:59 06:59 Intake Total 3019 2341 Output Total 6028 3075 Balance 794 -734 Weight 87.1 kg 87.8 kg Results Laboratory Results: WBC 5.0 10^3/uL (4.0-10.5) 04/06/19 05:39 RBC 3.62 10^6/uL (3.72-5.28) L 04/06/19 05:39 Hgb 10.4 g/dL (12.0-15.5) L 04/06/19 05:39 Hct 31.4 % (36.0-47.0) L 04/06/19 05:39 MCV 87 fl (80-97) 04/06/19 05:39 MCH 28.7 pg (27.0-33.4) 04/06/19 05:39 MCHC 33.1 g/dL (32.0-36.0) 04/06/19 05:39 RDW 15.9 % (11.5-14.0) H 04/06/19 05:39 Plt Count 109 10^3/uL (150-450) L 04/06/19 05:39 Lymph % (Auto) 9.7 % (13-45) L 04/01/19 07:34 [place] % (Auto) 15.7 % (3-13) H 04/01/19 07:34 Eos % (Auto) 1.1 % (0-6) 04/01/19 07:34 Baso % (Auto) 0.9 % (0-2) 04/01/19 07:34 Absolute Neuts (auto) 4.8 10^3/uL (1.7-8.2) 04/01/19 07:34 Absolute Lymphs (auto) 0.6 10^3/uL (0.5-4.7) 04/01/19 07:34 Absolute Monos (auto) 1.0 10^3/uL (0.1-1.4) 04/01/19 07:34 Absolute Eos (auto) 0.1 10^3/uL (0.0-0.6) 04/01/19 07:34 Absolute Basos (auto) 0.1 10^3/uL (0.0-0.2) 04/01/19 07:34 Total Counted 100 03/27/19 04:45 Seg Neutrophils % 72.6 % (42-78) 04/01/19 07:34 Seg Neuts % (Manual) 87 % (42-78) H 03/27/19 04:45 Band Neutrophils % 1 % (3-5) L 03/27/19 04:45 Lymphocytes % (Manual) 7 % (13-45) L 03/27/19 04:45 Atypical Lymphs % Cancelled 03/26/19 15:38 Monocytes % (Manual) 4 % (3-13) 03/27/19 04:45 Eosinophils % (Manual) 0 % (0-6) 03/27/19 04:45 Basophils % (Manual) 1 % (0-2) 03/27/19 04:45 Metamyelocytes % 1 % (0-1) 03/26/19 16:30 Myelocytes % Cancelled 03/26/19 15:38 Promyelocytes % Cancelled 03/26/19 15:38 Immature Leukocytes % Cancelled 03/26/19 15:38 Abs Neuts (Manual) 13.0 10^3/uL (1.7-8.2) H 03/27/19 04:45 Abs Lymphs (Manual) 1.0 10^3/uL (0.5-4.7) 03/27/19 04:45 Abs Monocytes (Manual) 0.6 10^3/uL (0.1-1.4) 03/27/19 04:45 Absolute Eos (Manual) 0.0 10^3/uL (0.0-0.6) 03/27/19 04:45 Abs Basophils (Manual) 0.1 10^3/uL (0.0-0.2) 03/27/19 04:45 Nucleated RBCs Cancelled 03/26/19 15:38 Differential Comment Cancelled 03/26/19 15:38 Hypersegmented Neuts Cancelled 03/26/19 15:38 Smudge Cells Cancelled 03/26/19 15:38 Toxic Granulation Cancelled 03/26/19 15:38 Toxic Vacuolation Cancelled 03/26/19 15:38 Dohle Bodies Cancelled 03/26/19 15:38 Dunia Rods Cancelled 03/26/19 15:38 WBC Morphology Comment Cancelled 03/26/19 15:38 Platelet Estimate Cancelled 03/26/19 15:38 Clumped Platelets PRESENT 03/27/19 04:45 Large Platelets Cancelled 03/26/19 15:38 Giant Platelets Cancelled 03/26/19 15:38 Platelet Comment ADEQUATE 03/27/19 04:45 Polychromasia 1+ 03/26/19 16:30 Hypochromasia Cancelled 03/26/19 15:38 Poikilocytosis Cancelled 03/26/19 15:38 Basophilic Stippling Cancelled 03/26/19 15:38 Anisocytosis 2+ 03/27/19 04:45 Microcytosis Cancelled 03/26/19 15:38 Macrocytosis Cancelled 03/26/19 15:38 Spherocytes Cancelled 03/26/19 15:38 Pappenheimer Bodies Cancelled 03/26/19 15:38 Sickle Cells Cancelled 03/26/19 15:38 Target Cells Cancelled 03/26/19 15:38 Tear Drop Cells Cancelled 03/26/19 15:38 Ovalocytes Cancelled 03/26/19 15:38 Stomatocytes Cancelled 03/26/19 15:38 Helmet Cells Cancelled 03/26/19 15:38 [place] Bodies Cancelled 03/26/19 15:38 [place] Cells Cancelled 03/26/19 15:38 Acanthocytes (Spur) Cancelled 03/26/19 15:38 Rouleaux Cancelled 03/26/19 15:38 Schistocytes Cancelled 03/26/19 15:38 RBC Morph Comment Cancelled 03/26/19 15:38 PT 16.8 SEC (11.4-15.4) H 03/17/19 06:54 INR 1.35 03/17/19 06:54 APTT 36.8 SEC (23.5-35.8) H 03/17/19 06:54 Carbonic Acid 1.14 mmol/L (1.05-1.35) 03/29/19 05:20 HCO3/H2CO3 Ratio 20:1 03/29/19 05:20 ABG pH 7.41 (7.35-7.45) 03/29/19 05:20 ABG pCO2 37.8 mmHg (35-45) 03/29/19 05:20 ABG pO2 106.9 mmHg (80-100) H 03/29/19 05:20 ABG HCO3 23.2 mmol/L (20-24) 03/29/19 05:20 ABG Total CO2 24.4 mmol/L (21-25) 03/29/19 05:20 ABG O2 Saturation 97.9 % (94-98) 03/29/19 05:20 ABG Base Excess -1.2 mmol/L 03/29/19 05:20 VBG pH 7.42 (7.30-7.42) 03/17/19 06:54 VBG pCO2 31.6 mmHg (35-63) L 03/17/19 06:54 VBG HCO3 20.2 mmol/L (20-32) 03/17/19 06:54 VBG Base Excess -3.2 mmol/L 03/17/19 06:54 FiO2 40% 03/29/19 05:20 Sodium 135.4 mmol/L (137-145) L 04/07/19 06:36 Potassium 5.3 mmol/L (3.6-5.0) H 04/07/19 06:36 Chloride 96 mmol/L (98-107) L 04/07/19 06:36 Carbon Dioxide 27 mmol/L (22-30) 04/07/19 06:36 Anion Gap 12 (5-19) 04/07/19 06:36 BUN 13 mg/dL (7-20) 04/07/19 06:36 Creatinine 0.48 mg/dL (0.52-1.25) L 04/07/19 06:36 Est GFR ( Amer) > 60 (>60) 04/07/19 06:36 Est GFR (Non-Af Amer) Cancelled 03/28/19 05:00 Est GFR (MDRD) Non-Af > 60 (>60) 04/07/19 06:36 Glucose 122 mg/dL (75-110) H 04/07/19 06:36 POC Glucose 163 mg/dL (70-110) H 04/02/19 16:43 Lactic Acid 4.7 mmol/L (0.7-2.1) H 03/17/19 12:58 Lactic Acid (Sepsis) 2.1 mmol/L (0.7-2.1) 03/17/19 06:54 Calcium 9.2 mg/dL (8.4-10.2) 04/07/19 06:36 Ionized Calcium [place] 1.08 mmol/L (1.14-1.30) L 03/19/19 20:15 Phosphorus 3.5 mg/dL (2.5-4.5) 04/01/19 07:34 Magnesium 2.1 mg/dL (1.6-2.3) 04/07/19 06:36 Total Bilirubin 0.3 mg/dL (0.2-1.3) 03/26/19 15:38 Direct Bilirubin 0.1 mg/dL (0.0-0.4) 03/26/19 15:38 Neonat Total Bilirubin Not Reportable 03/26/19 15:38 Neonat Direct Bilirubin Not Reportable 03/26/19 15:38 Neonat Indirect Bili Not Reportable 03/26/19 15:38 AST 24 U/L (14-36) 03/26/19 15:38 ALT 17 U/L (<35) 03/26/19 15:38 Alkaline Phosphatase 60 U/L (38-126) 03/26/19 15:38 Ammonia < 8.7 umol/L (9-33) L 03/29/19 05:20 Troponin I 0.018 ng/mL 03/17/19 06:54 Total Protein 4.8 g/dL (6.3-8.2) L 03/26/19 15:38 Albumin 2.4 g/dL (3.5-5.0) L 03/26/19 15:38 Triglycerides 236 mg/dL (<150) H 03/29/19 05:20 EGFR Cancelled 03/28/19 05:00 Random Cortisol 13.50 ug/dL (None Established) 03/28/19 05:00 Urine Color YELLOW 04/07/19 04:30 Urine Appearance CLEAR 04/07/19 04:30 Urine pH 6.0 (5.0-9.0) 04/07/19 04:30 Ur Specific [place] 1.008 04/07/19 04:30 Urine Protein 100 mg/dL (NEGATIVE) H 04/07/19 04:30 Urine Glucose (UA) NEGATIVE mg/dL (NEGATIVE) 04/07/19 04:30 Urine Ketones NEGATIVE mg/dL (NEGATIVE) 04/07/19 04:30 Urine Blood NEGATIVE (NEGATIVE) 04/07/19 04:30 Urine Nitrite NEGATIVE (NEGATIVE) 04/07/19 04:30 Urine Bilirubin NEGATIVE (NEGATIVE) 04/07/19 04:30 Urine Urobilinogen NEGATIVE mg/dL (<2.0) 04/07/19 04:30 Ur Leukocyte Esterase SMALL (NEGATIVE) H 04/07/19 04:30 Urine WBC (Auto) 3 /HPF 04/07/19 04:30 Urine RBC (Auto) 0 /HPF 04/07/19 04:30 U Hyaline Cast (Auto) 1 /LPF 04/03/19 05:25 Urine Bacteria (Auto) TRACE /HPF 04/03/19 16:42 Urine WBC Clumps MOD /HPF 03/17/19 08:06 Squamous Epi Cells Auto <1 /HPF 04/07/19 04:30 Amorphous Sediment Auto TRACE /HPF 04/03/19 16:42 Urine Mucus (Auto) RARE /LPF 04/07/19 04:30 Urine Yeast (Budding) PRESENT /HPF 04/07/19 04:30 Urine Ascorbic Acid 20 (NEGATIVE) H 04/07/19 04:30 Fluid Type BRONCHIAL WASH 03/26/19 16:00 Fluid Source LUNG 03/26/19 16:00 Fluid Color 03/26/19 16:00 Fluid Appearance CLOUDY 03/26/19 16:00 Fluid Viscosity HIGHLY VISCOUS 03/26/19 16:00 Fluid WBC 583 /uL 03/26/19 16:00 Fluid RBC 244 /uL 03/26/19 16:00 Fluid Seg Neutrophils 90 % 03/26/19 16:00 Fluid Lymphocytes 10 % 03/26/19 16:00 Fluid Monocytes 0 % 03/26/19 16:00 Fluid Eosinophils 0 % 03/26/19 16:00 Fluid Basophils 0 % 03/26/19 16:00 Time Trough Drawn 2304 04/01/19 23:04 Vancomycin Trough 19.2 ug/mL (5.0-20.0) 04/01/19 23:04 AFB Smear NO ACID FAST BACILLI (NO AFB SEEN) 03/26/19 16:00 Slides for Path Review Cancelled 03/26/19 15:38 Blood Type O POSITIVE 03/17/19 19:15 Blood Type Confirm O POSITIVE 03/17/19 19:15 Antibody Screen NEGATIVE 03/17/19 19:15 Crossmatch See Detail 03/17/19 19:15 03/17/19 06:54 Troponin I 0.018 Impressions: Abdomen/Pelvis CT 03/17/19 00:00 IMPRESSION: 1. Suboptimal evaluation of the bowel in the absence of oral contrast. Multiple air-fluid levels at small bowel loops, may be secondary to ileus versus distal small bowel obstruction. Persistent focal dilation of a segment of colon at the left lower quadrant, may represent cecal volvulus. Interval placement of a rectal tube with the tip at the right lower quadrant. 2. Small ascites. 3. Nodular thickening of the bilateral adrenal glands and 1.4 cm hypodense lesion at the inferior left hepatic lobe, indeterminate. 4. 1.6 cm fat containing lesion at the right kidney, may represent an angiomyolipoma. 5. Airspace opacities at the bilateral lower lobes, may be secondary to atelectasis or pneumonia. 6. Diffuse wall thickening of the visualized distal esophagus, may be secondary to esophagitis. Evaluation with upper endoscopy as clinically warranted. Chest X-Ray 03/17/19 00:00 IMPRESSION: Central venous access catheter placed via left subclavian approach. Catheter tip at superior vena cava. No pneumothorax. Radiographic appearance of the chest shows improved aeration in the right lung base compared with the prior study. Endotracheal tube tip overlies the lower 3rd of the trachea, stable. Chest X-Ray 03/17/19 07:08 IMPRESSION: Right lower lobe pneumonia status post intubation. No pneumothorax. Head CT 03/17/19 07:08 IMPRESSION: CHRONIC CHANGES OF ATROPHY AND MICROVASCULAR ISCHEMIA. NO ACUTE PROCESS. EVIDENCE OF ACUTE STROKE: NO. Abdomen/Pelvis CT 03/17/19 08:51 IMPRESSION: 1. Suspected sigmoid volvulus. 2. Small amount of ascites. No free air. 3. Adrenal nodules. Chest CT 03/17/19 08:52 IMPRESSION: 1. Collapse of the right lower lobe and most of the middle lobe. 2. Diffuse thickening of the esophagus. Chest X-Ray 03/18/19 00:00 IMPRESSION: STABLE APPEARANCE OF THE CHEST. SUPPORT DEVICES UNCHANGED. Chest X-Ray 03/19/19 00:00 IMPRESSION: STABLE APPEARANCE OF THE CHEST. SUPPORT DEVICES UNCHANGED. KUB X-Ray 03/21/19 12:24 IMPRESSION: Nasogastric tube tip and side port in the stomach Chest X-Ray 03/22/19 09:40 IMPRESSION: 1. Extubation and removal of the enteric tube. 2. Improved but persistent left lower lobe opacity, likely atelectasis. Small left effusion. KUB X-Ray 03/23/19 00:00 IMPRESSION: The tip of the NG tube is in the stomach. copyright 2010 [employer]- All Rights Reserved Modified Barium Swallow 03/23/19 00:00 IMPRESSION: LARYNGEAL PENETRATION AND ASPIRATION ABOVE. PLEASE SEE SPEECH PATHOLOGIST REPORT FOR OTHER FINDINGS AND RECOMMENDATIONS. Chest X-Ray 03/26/19 15:27 IMPRESSION: ENDOTRACHEAL TUBE DESCRIBED. OTHERWISE NO CHANGE. Chest X-Ray 03/27/19 00:00 IMPRESSION: The tip of the NG tube is in the proximal stomach. copyright 2010 [employer]- All Rights Reserved Chest X-Ray 03/27/19 06:00 IMPRESSION: STABLE APPEARANCE OF THE CHEST. SUPPORT DEVICES UNCHANGED. Chest X-Ray 03/29/19 06:00 IMPRESSION: No acute infiltrates Tubes and lines in good position KUB X-Ray 03/29/19 10:49 IMPRESSION: Nasogastric tube distal esophagus. KUB X-Ray 03/29/19 14:09 IMPRESSION: Nasogastric tube in the stomach. Chest X-Ray 03/30/19 06:00 IMPRESSION: Status post extubation. Otherwise unchanged radiographic appearance of the chest. Modified Barium Swallow 04/02/19 00:00 IMPRESSION: TRACE LARYNGEAL PENETRATION TO LEVEL OF THE CORDS. PLEASE SEE SPEECH PATHOLOGIST REPORT FOR OTHER FINDINGS AND RECOMMENDATIONS. Chest X-Ray 04/03/19 07:00 IMPRESSION: Persistent right middle lobe and lower lobe collapse/consolidation Stroke Is this a Stroke Patient?: No Acute Heart Failure - Is this a Heart Failure Patient?: No
== END 2019-04-07 13:20 | disposition home health service (06) | DRG 329 ==
LOC: ER 06:45 → EEVIPCON 09:29 → EH 09:29 → ICU 11:08 → 3W 03-31 16:58
PROVIDERS: ADMIT Anesthesiology; ATTEND Anesthesiology
PROC: 0D1B0Z4 Bypass Ileum to Cutaneous, Open Approach (ICD-10-PCS; 2019-03-17)
PROC: 0BH17EZ Insertion of Endotracheal Airway into Trachea, Via Natural or Artificial Opening (ICD-10-PCS; 2019-03-17)
PROC: 5A1955Z Respiratory Ventilation, Greater than 96 Consecutive Hours (ICD-10-PCS; 2019-03-17)
PROC: 0D7N8ZZ Dilation of Sigmoid Colon, Via Natural or Artificial Opening Endoscopic (ICD-10-PCS; 2019-03-17)
PROC: 02HV33Z Insertion of Infusion Device into Superior Vena Cava, Percutaneous Approach (ICD-10-PCS; 2019-03-17)
PROC: 0DTF0ZZ Resection of Right Large Intestine, Open Approach (ICD-10-PCS; principal; 2019-03-17 13:30)
PROC: 30233N1 Transfusion of Nonautologous Red Blood Cells into Peripheral Vein, Percutaneous Approach (ICD-10-PCS; 2019-03-20)
PROC: 0BH17EZ Insertion of Endotracheal Airway into Trachea, Via Natural or Artificial Opening (ICD-10-PCS; 2019-03-26)
PROC: 5A1945Z Respiratory Ventilation, 24-96 Consecutive Hours (ICD-10-PCS; 2019-03-26)
PROC: 0KBL0ZZ Excision of Left Abdomen Muscle, Open Approach (ICD-10-PCS; 2019-03-28)
PROC: 0KBK0ZZ Excision of Right Abdomen Muscle, Open Approach (ICD-10-PCS; 2019-03-28)
PROC: 0WUF0JZ Supplement Abdominal Wall with Synthetic Substitute, Open Approach (ICD-10-PCS; 2019-03-28)
PROC: 2W03X6Z Change Pressure Dressing on Abdominal Wall (ICD-10-PCS; 2019-03-28)
PROC: 2W03X6Z Change Pressure Dressing on Abdominal Wall (ICD-10-PCS; 2019-03-31)
PROC: 2W03X6Z Change Pressure Dressing on Abdominal Wall (ICD-10-PCS; 2019-04-03)
PROC: 2W03X6Z Change Pressure Dressing on Abdominal Wall (ICD-10-PCS; 2019-04-06)
DX: K56.2 Volvulus (principal); J96.01 Acute respiratory failure with hypoxia; L89.104 Pressure ulcer of unspecified part of back, stage 4; L89.324 Pressure ulcer of left buttock, stage 4; L89.224 Pressure ulcer of left hip, stage 4; L89.154 Pressure ulcer of sacral region, stage 4; J18.9 Pneumonia, unspecified organism; R53.2 Functional quadriplegia; K65.0 Generalized (acute) peritonitis; J98.19 Other pulmonary collapse; E87.2 Acidosis; N39.0 Urinary tract infection, site not specified; R18.8 Other ascites; E87.1 Hypo-osmolality and hyponatremia; T81.31XA Disruption of external operation (surgical) wound, not elsewhere classified, initial encounter; T17.890A Other foreign object in other parts of respiratory tract causing asphyxiation, initial encounter; R78.81 Bacteremia; R41.82 Altered mental status, unspecified; E86.0 Dehydration; I95.89 Other hypotension; G35 Multiple sclerosis; I10 Essential (primary) hypertension; E78.00 Pure hypercholesterolemia, unspecified; K56.41 Fecal impaction; K21.9 Gastro-esophageal reflux disease without esophagitis; F43.10 Post-traumatic stress disorder, unspecified; B96.20 Unspecified Escherichia coli [E. coli] as the cause of diseases classified elsewhere; Y83.8 Other surgical procedures as the cause of abnormal reaction of the patient, or of later complication, without mention of misadventure at the time of the procedure; Y92.230 Patient room in hospital as the place of occurrence of the external cause; Z74.01 Bed confinement status; Z79.891 Long term (current) use of opiate analgesic; Z79.899 Other long term (current) drug therapy
CPT/HCPCS: 00790; 31500; 36415; 36430; 45378; 51702; 70450; 71045; 71260; 74018; 74176; 74177; 74230; 80048; 80053; 80202; 81001; 82040; 82140; 82330; 82533; 82803; 82962; 83605; 83735; 84100; 84132; 84478; 84484; 85025; 85027; 85610; 85730; 86850; 86900; 86901; 86920; 87015; 87040; 87070; 87077; 87086; 87088; 87116; 87186; 87205; 87206; 88307; 89050; 93005; 93010; 93970; 94002; 94003; 94660; 94667; 94668; 96360; 96361; 99233; 99285; 99291; 99292; C1751; C1758; C9113; J0171; J0330; J0610; J0692; J0744; J1170; J1200; J1610; J1644; J1650; J1815; J1940; J2060; J2185; J2250; J2310; J2405; J2704; J3010; J3370; J3475; J3480; J3490; J7030; J7040; J7060; J7120; J7620; P9016; P9041